=== PATIENT | female | born 1935 | race Caucasian/White ===

== ENCOUNTER 2017-03-03 19:59 | Emergency (ER) | payer MEDICARE, BC ==
[2017-03-03] MEDS ORDERED: SODIUM CHLORIDE 0.9% 1,000 ML IV STA (20:55)
[2017-03-03] MEDS ORDERED: KETOROLAC 30 MG/ML 1 ML VIAL IVP STA (20:55)
[2017-03-03] MEDS ORDERED: SODIUM CHLORIDE 0.9% 500 ML IV STA (20:55)
--- NOTE | 2017-03-03 21:05 | ED ---
Abdominal Pain HPI - General Source: patient, RN notes reviewed Mode of arrival: ambulatory Limitations: no limitations - History of Present Illness MD Complaint: abdominal pain, flank pain <Derrick Schofield - Last Filed: 03/03/17 22:23> <Matthieu Steinberg - Last Filed: 03/04/17 00:51> - General Chief Complaint: Abdominal Pain Stated Complaint: Side Pain Time Seen by Provider: 03/03/17 20:40 - History of Present Illness Initial Comments: This 81-year-old female history of hypertension states she had the onset 2 days ago left-sided flank pain sharp in nature. He states it is currently 78/10 severity somewhat sharp she's had no cough shortness breath fevers chills or sweats no dysuria hematuria. No history kidney stones a history of pancreatic problems. No bowel problems that she is aware. She states because of the pain she could not sleep last night. She denies any nausea vomiting or diarrhea. No other complaints (Derrick Schofield) - Related Data Home Medications Medication Instructions Recorded Confirmed Lisinopril [Zestril] 10 mg PO HS 03/03/17 03/03/17 cloNIDine HCL [Catapres] 0.2 mg PO BID 03/03/17 03/03/17 Previous Rx's Medication Instructions Recorded Edoxaban Tosylate [Savaysa] 60 mg PO DAILY #30 tablet 01/12/15 Metoprolol Tartrate [Lopressor] 25 mg PO BID #60 tab 03/10/15 Allergies Allergy/AdvReac Type Severity Reaction Status Date / Time No Known Allergies Allergy Verified 03/03/17 20:44 Review of Systems ROS Other: All systems not noted in ROS Statement are negative. <Derrick Schofield - Last Filed: 03/03/17 22:23> ROS Other: All systems not noted in ROS Statement are negative. <Matthieu Steinberg - Last Filed: 03/04/17 00:51> ROS Statement: Those systems with pertinent positive or pertinent negative responses have been documented in the HPI. Past Medical History Past Medical History: Atrial Fibrillation, Hypertension, Osteoarthritis (OA) Additional Past Medical History / Comment(s): per chest xray copd/cardiomegally, History of Any Multi-Drug Resistant Organisms: None Reported Past Surgical History: Cholecystectomy, Hysterectomy, Orthopedic Surgery Additional Past Surgical History / Comment(s): rt hip replacement,rt cataract, rt carpal tunnel release Past Anesthesia/Blood Transfusion Reactions: No Reported Reaction Past Psychological History: No Psychological Hx Reported Smoking Status: Never smoker - Past Family History Mother Family Medical History: Osteoarthritis (OA) Additional Family Medical History / Comment(s): djd Father Family Medical History: CVA/TIA Additional Family Medical History / Comment(s): age 84 <Derrick Schoifeld Last Filed: 03/03/17 22:23> General Exam Limitations: no limitations General appearance: alert, anxious Head exam: Present: atraumatic, normocephalic, normal inspection Eye exam: Present: normal appearance, PERRL, EOMI. Absent: scleral icterus, conjunctival injection, periorbital swelling ENT exam: Present: normal exam, mucous membranes moist Neck exam: Present: normal inspection. Absent: tenderness, meningismus, lymphadenopathy Respiratory exam: Present: normal lung sounds bilaterally. Absent: respiratory distress, wheezes, rales, rhonchi, stridor Cardiovascular Exam: Present: regular rate, normal rhythm, normal heart sounds. Absent: systolic murmur, diastolic murmur, rubs, gallop, clicks GI/Abdominal exam: Present: soft, tenderness (Some left upper quadrant left flank pain to palpation no guarding rebound masses or bruits), normal bowel sounds. Absent: distended, guarding, rebound, rigid Extremities exam: Present: normal inspection, full ROM, normal capillary refill. Absent: tenderness, pedal edema, joint swelling, calf tenderness Back exam: Present: normal inspection Neurological exam: Present: alert, oriented X3, CN II-XII intact Psychiatric exam: Present: normal affect, normal mood Skin exam: Present: warm, dry, intact, normal color. Absent: rash <Derrick Schofield - Last Filed: 03/03/17 22:23> General appearance: alert, in no apparent distress Head exam: Present: atraumatic, normocephalic, normal inspection Eye exam: Present: normal appearance, PERRL, EOMI. Absent: scleral icterus, conjunctival injection, periorbital swelling ENT exam: Present: normal exam, mucous membranes moist Neck exam: Present: normal inspection. Absent: tenderness, meningismus, lymphadenopathy Respiratory exam: Present: normal lung sounds bilaterally. Absent: respiratory distress, wheezes, rales, rhonchi, stridor Cardiovascular Exam: Present: regular rate, normal rhythm, normal heart sounds. Absent: systolic murmur, diastolic murmur, rubs, gallop, clicks GI/Abdominal exam: Present: soft, normal bowel sounds. Absent: distended, tenderness, guarding, rebound, rigid Extremities exam: Present: normal inspection, full ROM, normal capillary refill. Absent: tenderness, pedal edema, joint swelling, calf tenderness Back exam: Present: normal inspection Neurological exam: Present: alert, oriented X3, CN II-XII intact Psychiatric exam: Present: normal affect, normal mood Skin exam: Present: warm, dry, intact, normal color. Absent: rash <Matthieu Steinberg - Last Filed: 03/04/17 00:51> - General Exam Comments Initial Comments: This is a well-developed well-nourished awake alert oriented 3 female (Derrick Schofield) Course <Derrick Schofield - Last Filed: 03/03/17 22:23> <Matthieu Steinberg - Last Filed: 03/04/17 00:51> Vital Signs 03/03/17 03/03/17 03/03/17 20:14 20:45 22:04 Temperature 98.6 F Pulse Rate 87 68 86 Respiratory 20 18 20 Rate Blood Pressure 252/117 228/102 204/92 O2 Sat by Pulse 98 98 100 Oximetry 03/03/17 23:52 Temperature 98.2 F Pulse Rate 86 Respiratory 18 Rate Blood Pressure 215/97 O2 Sat by Pulse 96 Oximetry - Reevaluation(s) Reevaluation #1: 03/03/17 22:11 Patient did have hypertension. She did get IV hydralazine she became very anxious afterwards reexamination showed her airway to be demonstrating no evidence of obstruction no stridor JVD or bruits on exam of the neck lung sounds are clear she was apprehensive. (Derrick Schofield) Reevaluation #2: 03/03/17 22:24 Due to the patient's symptom complex patient will get a CAT scan the abdomen pelvis without contrast as a kidney stone is considered also due to the patient' s age and atypical presentation vascular issues are considered CT chest abdomen pelvis with IV contrast will be performed. The case will be endorsed to Dr. Steinberg will make the final disposition. (Derrick Schofield) Reevaluation #3: 03/04/17 00:50 Patient is reevaluated, no cause of pain found, blood pressure is treated again here in the ER and has responded appropriately (Matthieu Steinberg) Medical Decision Making - Lab Data Result diagrams: 03/03/17 20:42 03/03/17 20:42 - EKG Data -: EKG Interpreted by Or EKG shows normal: sinus rhythm (Sinus rhythm rate is 73. Interval 166 QRS duration 120 daily since QTC of 426/469 with exodeviation right bundle-branch block pattern.) - Radiology Data Radiology results: report reviewed (X-ray KUB were reviewed as well as the documentation no acute findings are seen.), image reviewed <Derrick Schofield - Last Filed: 03/03/17 22:23> - Lab Data Result diagrams: 03/03/17 20:42 03/03/17 20:42 - Radiology Data Radiology results: report reviewed (X-ray KUB were reviewed as well as the documentation no acute findings are seen., CT chest abdomen pelvis with and without contrast is negative) <Matthieu Steinberg - Last Filed: 03/04/17 00:51> - Medical Decision Making Aortic female to ER for evaluation of flank pain, back pain and abdominal pain. Patient has full body CAT scan with and without contrast which is negative labwork is normal, patient remained hypertensive her blood pressure is aggressively treated here in the emergency room, (Matthieu Steinberg) - Lab Data Lab Results 03/03/17 03/03/17 03/03/17 Range/Units 20:42 20:42 20:42 WBC 10.8 H (3.8-10.6) k/uL RBC 5.44 H (3.80-5.40) m/uL Hgb 15.8 (11.4-16.0) gm/dL Hct 49.2 H (34.0-46.0) % MCV 90.6 (80.0-100.0) fL MCH 29.1 (25.0-35.0) pg MCHC 32.1 (31.0-37.0) g/dL RDW 14.5 (11.5-15.5) % Plt Count 174 (150-450) k/uL Neutrophils % 67 % Lymphocytes % 22 % Monocytes % 5 % Eosinophils % 4 % Basophils % 1 % Neutrophils # 7.2 (1.3-7.7) k/uL Lymphocytes # 2.4 (1.0-4.8) k/uL Monocytes # 0.6 (0-1.0) k/uL Eosinophils # 0.4 (0-0.7) k/uL Basophils # 0.1 (0-0.2) k/uL Hypochromasia Slight Sodium 139 (137-145) mmol/L Potassium 4.8 (3.5-5.1) mmol/L Chloride 104 (98-107) mmol/L Carbon Dioxide 23 (22-30) mmol/L Anion Gap 12 mmol/L BUN 16 (7-17) mg/dL Creatinine 0.90 (0.52-1.04) mg/dL Est GFR (MDRD) Af Amer >60 (>60 ml/min/1.73 sqM) Est GFR (MDRD) Non-Af >60 (>60 ml/min/1.73 sqM) Glucose 170 H (74-99) mg/dL Plasma Lactic Acid Christiano (0.7-2.0) mmol/L Calcium 9.6 (8.4-10.2) mg/dL Total Bilirubin 0.6 (0.2-1.3) mg/dL AST 40 H (14-36) U/L ALT 43 (9-52) U/L Alkaline Phosphatase 82 (38-126) U/L Total Creatine Kinase 136 H (30-135) U/L CK-MB (CK-2) 2.3 (0.0-2.4) ng/mL CK-MB (CK-2) Rel Index 1.7 Troponin I 0.013 (0.000-0.034) ng/mL Total Protein 7.9 (6.3-8.2) g/dL Albumin 4.6 (3.5-5.0) g/dL Amylase 41 (30-110) U/L Lipase 69 (23-300) U/L Urine Color Urine Appearance (Clear) Urine pH (5.0-8.0) Ur Specific Rock (1.001-1.035) Urine Protein (Negative) Urine Glucose (UA) (Negative) Urine Ketones (Negative) Urine Blood (Negative) Urine Nitrite (Negative) Urine Bilirubin (Negative) Urine Urobilinogen (<2.0) mg/dL Ur Leukocyte Esterase (Negative) Urine RBC (0-5) /hpf Urine WBC (0-5) /hpf Urine Mucus (None) /hpf 03/03/17 03/03/17 Range/Units 20:42 21:16 WBC (3.8-10.6) k/uL RBC (3.80-5.40) m/uL Hgb (11.4-16.0) gm/dL Hct (34.0-46.0) % MCV (80.0-100.0) fL MCH (25.0-35.0) pg MCHC (31.0-37.0) g/dL RDW (11.5-15.5) % Plt Count (150-450) k/uL Neutrophils % % Lymphocytes % % Monocytes % % Eosinophils % % Basophils % % Neutrophils # (1.3-7.7) k/uL Lymphocytes # (1.0-4.8) k/uL Monocytes # (0-1.0) k/uL Eosinophils # (0-0.7) k/uL Basophils # (0-0.2) k/uL Hypochromasia Sodium (137-145) mmol/L Potassium (3.5-5.1) mmol/L Chloride (98-107) mmol/L Carbon Dioxide (22-30) mmol/L Anion Gap mmol/L BUN (7-17) mg/dL Creatinine (0.52-1.04) mg/dL Est GFR (MDRD) Af Amer (>60 ml/min/1.73 sqM) Est GFR (MDRD) Non-Af (>60 ml/min/1.73 sqM) Glucose (74-99) mg/dL Plasma Lactic Acid Christiano 1.6 (0.7-2.0) mmol/L Calcium (8.4-10.2) mg/dL Total Bilirubin (0.2-1.3) mg/dL AST (14-36) U/L ALT (9-52) U/L Alkaline Phosphatase (38-126) U/L Total Creatine Kinase (30-135) U/L CK-MB (CK-2) (0.0-2.4) ng/mL CK-MB (CK-2) Rel Index Troponin I (0.000-0.034) ng/mL Total Protein (6.3-8.2) g/dL Albumin (3.5-5.0) g/dL Amylase (30-110) U/L Lipase (23-300) U/L Urine Color Light Yellow Urine Appearance Clear (Clear) Urine pH 6.5 (5.0-8.0) Ur Specific Rock 1.008 (1.001-1.035) Urine Protein Trace H (Negative) Urine Glucose (UA) Negative (Negative) Urine Ketones Negative (Negative) Urine Blood Negative (Negative) Urine Nitrite Negative (Negative) Urine Bilirubin Negative (Negative) Urine Urobilinogen <2.0 (<2.0) mg/dL Ur Leukocyte Esterase Moderate H (Negative) Urine RBC 2 (0-5) /hpf Urine WBC 9 H (0-5) /hpf Urine Mucus Rare H (None) /hpf Disposition <Derrick Schofield - Last Filed: 03/03/17 22:23> <Matthieu Steinberg - Last Filed: 03/04/17 00:51> Clinical Impression: Abdominal pain, Flank pain, Hypertension, uncontrolled Disposition: HOME SELF-CARE Condition: Good Instructions: Abdominal Pain (ED), Hypertension (ED) Referrals: Noel Diehl DO [Primary Care Provider] - 1-2 days
[2017-03-03 21:10] LABS: Basophils # (A) 0.1 k/uL (0-0.2); Basophils % (A) 1 %; Eosinophils # (A) 0.4 k/uL (0-0.7); Eosinophils % (A) 4 %; HCT 49.2 % (34.0-46.0); HGB 15.8 gm/dL (11.4-16.0); Hypochromasia Slight; Lymphocytes # (A) 2.4 k/uL (1.0-4.8); Lymphocytes % (A) 22 %; MCH 29.1 pg (25.0-35.0); MCHC 32.1 g/dL (31.0-37.0); MCV 90.6 fL (80.0-100.0); Mean Platelet Volume 8.6; Monocytes # (A) 0.6 k/uL (0-1.0); Monocytes % (A) 5 %; Neutrophils # (A) 7.2 k/uL (1.3-7.7); Neutrophils % (A) 67 %; Platelet Count 174 k/uL (150-450); RBC 5.44 m/uL (3.80-5.40); RDW 14.5 % (11.5-15.5); WBC 10.8 k/uL (3.8-10.6)
[2017-03-03 21:14] LABS: Appearance,Urine Clear (Clear); Bilirubin,Urine Negative (Negative); Blood,Urine Negative (Negative); Color,Urine Light Yellow; Glucose,Urine (UA) Negative (Negative); Ketones,Urine Negative (Negative); Leukocyte Esterase,Urine Moderate (Negative); Mucus,Urine Rare /hpf; Nitrite,Urine Negative (Negative); PH, Urine 6.5 (5.0-8.0); Protein,Urine Trace (Negative); RBC,Urine 2 /hpf (0-5); Specific Gravity,Urine 1.008 (1.001-1.035); Urobilinogen,Urine <2.0 mg/dL (<2.0); WBC,Urine 9 /hpf (0-5)
[2017-03-03 21:21] LABS: ALT 43 U/L (9-52); AST 40 U/L (14-36); Albumin 4.6 g/dL (3.5-5.0); Alkaline Phosphatase 82 U/L (38-126); Amylase 41 U/L (30-110); Anion Gap 12 mmol/L; Blood Urea Nitrogen 16 mg/dL (7-17); Calcium 9.6 mg/dL (8.4-10.2); Carbon Dioxide 23 mmol/L (22-30); Chloride 104 mmol/L (98-107); Glucose 170 mg/dL (74-99); Lipase 69 U/L (23-300); Sodium 139 mmol/L (137-145); Total Bilirubin 0.6 mg/dL (0.2-1.3); Total Protein 7.9 g/dL (6.3-8.2)
[2017-03-03 21:22] LABS: Potassium 4.8 mmol/L (3.5-5.1)
--- NOTE | 2017-03-03 21:30 | XR ---
EXAMINATION TYPE: XR chest 2V DATE OF EXAM: 03/03/2017 COMPARISON: Chest x-ray March 07, 2015 HISTORY: Left-sided chest pain radiating to back. TECHNIQUE: Frontal and lateral views of the chest are obtained. FINDINGS: Diminished inspiration is seen on current study. There is chronic parenchymal change witho ut suspicious focal air space opacity, pleural effusion, or pneumothorax seen. The cardiac silhouett e size remains enlarged with atherosclerotic and ectatic aorta. The osseous structures show multile vinayak spurring in thoracic spine. Cholecystectomy clips are noted IMPRESSION: Chronic parenchymal change and cardiomegaly without acute pulmonary process.
--- NOTE | 2017-03-03 21:34 | XR ---
EXAMINATION TYPE: XR KUB DATE OF EXAM: 03/03/2017 9:12 PM CLINICAL HISTORY: Left-sided abdominal pain. TECHNIQUE: Two Upright KUB images of the abdomen are obtained. COMPARISON: CT abdomen and pelvis January 07, 2015. Abdominal x-ray January 08, 2015. FINDINGS: Scattered gas is seen in non-distended stomach and small bowel loops. Gas and fecal materia l is seen in non-distended colon and rectum. Cholecystectomy clips are present. Metallic hardware fro m right hip arthroplasty is redemonstrated. There is underlying levoconvex scoliosis. There is multil evel spurring and disc space narrowing. Cardiomegaly is identified. No pneumoperitoneum is seen. No s uspicious calcifications are noted. Left-sided pelvic phleboliths are redemonstrated. IMPRESSION: Overall nonobstructive bowel gas pattern. No definite nephrolithiasis.
[2017-03-03 21:37] LABS: Creatine Kinase MB 2.3 ng/mL (0.0-2.4); Troponin I 0.013 ng/mL (0.000-0.034)
[2017-03-03] MEDS ORDERED: hydrALAZINE HCL 20 MG/ML 1 ML VIAL IVP STA (21:40)
[2017-03-03] MEDS ORDERED: MORPHINE SULFATE 5 MG/ML SYRINGE IVP STA (22:14)
[2017-03-03] MEDS ORDERED: RX INFO: IV CONTRAST WAS GIVEN 1 EACH MISC MISCELLANE PRN (22:22)
--- NOTE | 2017-03-03 23:26 | CT ---
EXAMINATION TYPE: CT ChestAbdPelvis wo/w con DATE OF EXAM: 03/03/2017 COMPARISON: 01/07/2015 HISTORY: LT side ABD pain radiating to back . Hx of HTN and A-fib. Previous CT A/P on [facility] DLP: 1442.10 mGycm Automated exposure control for dose reduction was used. CONTRAST: CT scan of the chest, abdomen and pelvis is performed without Oral Contrast and with IV Contrast, pat ient injected with 100 mL of Omnipaque 300. FINDINGS: Lungs are clear of consolidation. There is mild linear density at the lung bases consistent with scar ring and subsegmental atelectasis. Heart appears enlarged. There is no pleural effusion. There are sm all mediastinal lymph nodes that measure up to 1 cm. There is no evidence of aortic aneurysm. There are a few rounded hypodense foci in the liver that measure up to 1.5 cm consistent with hepatic cysts. There are clips from cholecystectomy. Bile ducts are not dilated. Spleen and pancreas appear normal. There is no adrenal mass. Kidneys have normal size and contour. There is no hydronephrosis. Ureters a re not dilated. Abdominal aorta is atheromatous. There is no ascites. Bladder distends smoothly. Ther e is no evidence of a pelvic mass. There is no sign of appendicitis. There is metal artifact from rig ht hip surgery. There is no evidence of a bowel obstruction. I see no intestinal wall thickening. IMPRESSION: There is some scarring and subsegmental atelectasis at the lung bases unchanged compared to old exam. Cardiomegaly. Atherosclerotic vascular disease. Multiple small hepatic cysts are stable. No sign of acute abdomen and pelvis.
[2017-03-03] MEDS ORDERED: LABETALOL 5 MG/ML VIAL MDV IVP STA (23:53)
[2017-03-03] MEDS ORDERED: LORazepam 2 MG/ML INJ IV STA (23:54)
[2017-03-04] MEDS ORDERED: ACETAMINOPHEN IV (For NPO) 1,000 MG in EMPTY BAG 1 BAG IVPB STA (00:05)
[2017-03-04 01:15] VITALS: RESP 18
[2017-03-04 03:07] VITALS: BP 183/79; PULSE 72; TEMP 97.9
== END 2017-03-04 02:20 | disposition home or self-care (01) ==
LOC: EC 19:59
DX: I10 Essential (primary) hypertension (principal); R10.9 Unspecified abdominal pain; Z90.49 Acquired absence of other specified parts of digestive tract; Z79.899 Other long term (current) drug therapy
CPT/HCPCS: 99284; 96374; 96375 ×4; 96361; 36415; 93005; 80053; 82150; 82550; 82553; 83605; 83690; 84484; 85025; 81001; 87040; 71046; 74018; 71270; 74178; J2060; J0360; J1885; Q9967; J2274

== ENCOUNTER 2018-09-10 15:43 | Inpatient (IN) | payer MEDICARE, BC ==
[2018-09-10] MEDS ORDERED: SODIUM CHLORIDE 0.9% 1,000 ML IV STA (16:04)
[2018-09-10] MEDS ORDERED: ASPIRIN 81 MG PO STA (16:04)
[2018-09-10] MEDS ORDERED: DILTIAZEM DRIP BOLUS FROM BAG 1 MG SOLN IV ONE (16:04)
--- NOTE | 2018-09-10 16:07 | ED ---
General Adult HPI - General Chief complaint: Chest Pain Stated complaint: palpitations Time Seen by Provider: 09/10/18 15:56 Source: patient Mode of arrival: wheelchair Limitations: no limitations - History of Present Illness Initial comments: Dictation was produced using [employer] dictation software. please excuse any grammatical, word or spelling errors. Chief Complaint: 82-year-old presents with 3 days of palpitations and chest pressure. History of Present Illness: 82-year-old female she has a past medical history of atrial fibrillation. She presents today with chest pressure and palpitations. Patient states that earlier this year she had gallbladder surgery. Patient was on anticoagulation medication. She was told to discontinue the medication in preparation for the surgery. She did not resume her medications because she felt that she could not afford the cost patient reports that she's been admitted to the hospital for cardiac concerns in the past. Patient states her pain is a pressure-like sensation across the anterior chest. She's been having these symptoms for about the last 3 days. She does complain of palpitations and shortness of breath. She denies any constitutional symptoms. The ROS documented in this emergency department record has been reviewed and confirmed by me. Those systems with pertinent positive or negative responses have been documented in the HPI. All other systems are other negative and/or noncontributory. PHYSICAL EXAM: General Impression: Alert and oriented x3, not in acute distress HEENT: Normocephalic atraumatic, extra-ocular movements intact, pupils equal and reactive to light bilaterally, mucous membranes moist. Cardiovascular: Irregularly irregular, tachycardic Chest: Mild crackles at the lung bases bilaterally Abdomen: Bowel sounds present, abdomen soft, non-tender, non-distended, no organomegaly Musculoskeletal: Pulses present and equal in all extremities, no peripheral edema Motor: no focal deficits noted Neurological: CN II-XII grossly intact, no focal motor or sensory deficits noted Skin: Intact with no visualized rashes Psych: Normal affect and mood ED course: 82 year Old female clinical presentation consistent with atrial fibrillation with rapid ventricular rate. Vital signs upon arrival shows heart rate of 1 week, rest of vital signs within acceptable limits. Patient is evaluated at bedside which her heart rate began elevating into the 140s to 160s range. Patient started medially on intravenous fluids. Patient given a bolus of intravenous fluids. She is also given Cardizem bolus and started on Cardizem infusion. Patient does not have any constitutional symptoms or any concerning details in her HPI to consider infectious etiology at this time. Laboratory evaluation obtained. Leukocytosis of 12.2, rest of CBC unremarkable. Coag panel negative. Metabolic panel is negative. Patient has troponin of 0.029. Chest x-ray is nonacute. Patient reevaluated after started on Cardizem with improvement of symptoms. Discussed patient case with Dr. Campbell who requests the patient be started on every 12 hours subcu Lovenox as opposed heparin. Patient given a dose here. Patient to be admitted to cardiac telemetry with cardiology consultation. Patient stable medical condition at this time. Patient's rate has been improved to the 100s. EKG interpretation: Ventricular rate 140, A. fib with rapid ventricular rate, QRS 118, QTC 497. No LA prolongation, no QTC prolongation, no ST or T-wave changes noted. Consistent with A. fib RVR - Related Data Home Medications Medication Instructions Recorded Confirmed Lisinopril [Zestril] 10 mg PO HS 03/03/17 09/10/18 Aspirin EC [Ecotrin Low Dose] 81 mg PO DAILY 09/10/18 09/10/18 Cholecalciferol [Vitamin D3 (25 1,000 unit PO DAILY 09/10/18 09/10/18 Mcg = 1000 Iu)] Nitroglycerin Sl Tabs [Nitrostat] 0.4 mg SUBLINGUAL Q5M PRN 09/10/18 09/10/18 Sodium Chloride [Saline Mist] 1 spray EA NOSTRIL DAILY PRN 09/10/18 09/10/18 cloNIDine HCL 0.3 mg PO BID 09/10/18 09/10/18 Allergies Allergy/AdvReac Type Severity Reaction Status Date / Time No Known Allergies Allergy Verified 09/10/18 16:47 Review of Systems ROS Statement: Those systems with pertinent positive or pertinent negative responses have been documented in the HPI. ROS Other: All systems not noted in ROS Statement are negative. Past Medical History Past Medical History: Atrial Fibrillation, Hypertension, Osteoarthritis (OA) Additional Past Medical History / Comment(s): per chest xray copd/cardiomegally, History of Any Multi-Drug Resistant Organisms: None Reported Past Surgical History: Cholecystectomy, Hysterectomy, Orthopedic Surgery Additional Past Surgical History / Comment(s): rt hip replacement,rt cataract,rt carpal tunnel release Past Anesthesia/Blood Transfusion Reactions: No Reported Reaction Past Psychological History: No Psychological Hx Reported Smoking Status: Never smoker - Past Family History Mother Family Medical History: Osteoarthritis (OA) Additional Family Medical History / Comment(s): djd Father Family Medical History: CVA/TIA Additional Family Medical History / Comment(s): age 84 General Exam Limitations: no limitations Course Vital Signs 09/10/18 15:49 Temperature 97.8 F Pulse Rate 108 H Respiratory 16 Rate Blood Pressure 128/94 O2 Sat by Pulse 97 Oximetry Medical Decision Making - Lab Data Result diagrams: 09/10/18 16:05 09/10/18 16:05 Lab Results 09/10/18 09/10/18 09/10/18 Range/Units 16:05 16:05 16:05 WBC 12.2 H (3.8-10.6) k/uL RBC 5.22 (3.80-5.40) m/uL Hgb 14.9 (11.4-16.0) gm/dL Hct 46.1 H (34.0-46.0) % MCV 88.4 (80.0-100.0) fL MCH 28.5 (25.0-35.0) pg MCHC 32.2 (31.0-37.0) g/dL RDW 16.4 H (11.5-15.5) % Plt Count 189 (150-450) k/uL Neutrophils % 53 % Lymphocytes % 32 % Monocytes % 6 % Eosinophils % 6 % Basophils % 1 % Neutrophils # 6.5 (1.3-7.7) k/uL Lymphocytes # 4.0 (1.0-4.8) k/uL Monocytes # 0.7 (0-1.0) k/uL Eosinophils # 0.7 (0-0.7) k/uL Basophils # 0.1 (0-0.2) k/uL Anisocytosis Slight PT 9.7 (9.0-12.0) sec INR 0.9 (<1.2) APTT 22.4 (22.0-30.0) sec Sodium 138 (137-145) mmol/L Potassium 5.0 (3.5-5.1) mmol/L Chloride 105 (98-107) mmol/L Carbon Dioxide 24 (22-30) mmol/L Anion Gap 9 mmol/L BUN 21 H (7-17) mg/dL Creatinine 1.10 H (0.52-1.04) mg/dL Est GFR (CKD-EPI)AfAm 54 (>60 ml/min/1.73 sqM) Est GFR (CKD-EPI)NonAf 47 (>60 ml/min/1.73 sqM) Glucose 103 H (74-99) mg/dL Calcium 9.4 (8.4-10.2) mg/dL Magnesium 2.0 (1.6-2.3) mg/dL Total Bilirubin 0.5 (0.2-1.3) mg/dL AST 50 H (14-36) U/L ALT 53 H (9-52) U/L Alkaline Phosphatase 91 (38-126) U/L Troponin I (0.000-0.034) ng/mL Total Protein 7.1 (6.3-8.2) g/dL Albumin 4.2 (3.5-5.0) g/dL 09/10/18 Range/Units 16:05 WBC (3.8-10.6) k/uL RBC (3.80-5.40) m/uL Hgb (11.4-16.0) gm/dL Hct (34.0-46.0) % MCV (80.0-100.0) fL MCH (25.0-35.0) pg MCHC (31.0-37.0) g/dL RDW (11.5-15.5) % Plt Count (150-450) k/uL Neutrophils % % Lymphocytes % % Monocytes % % Eosinophils % % Basophils % % Neutrophils # (1.3-7.7) k/uL Lymphocytes # (1.0-4.8) k/uL Monocytes # (0-1.0) k/uL Eosinophils # (0-0.7) k/uL Basophils # (0-0.2) k/uL Anisocytosis PT (9.0-12.0) sec INR (<1.2) APTT (22.0-30.0) sec Sodium (137-145) mmol/L Potassium (3.5-5.1) mmol/L Chloride (98-107) mmol/L Carbon Dioxide (22-30) mmol/L Anion Gap mmol/L BUN (7-17) mg/dL Creatinine (0.52-1.04) mg/dL Est GFR (CKD-EPI)AfAm (>60 ml/min/1.73 sqM) Est GFR (CKD-EPI)NonAf (>60 ml/min/1.73 sqM) Glucose (74-99) mg/dL Calcium (8.4-10.2) mg/dL Magnesium (1.6-2.3) mg/dL Total Bilirubin (0.2-1.3) mg/dL AST (14-36) U/L ALT (9-52) U/L Alkaline Phosphatase (38-126) U/L Troponin I 0.029 (0.000-0.034) ng/mL Total Protein (6.3-8.2) g/dL Albumin (3.5-5.0) g/dL Disposition Clinical Impression: Atrial fibrillation with RVR Disposition: ADMITTED IP TO THIS HOSP Condition: Fair Referrals: Noel Diehl DO [Primary Care Provider] - 1-2 days Decision Time: 17:52
[2018-09-10] MEDS: DILTIAZEM 125 MG in SODIUM CHLORIDE 0.9% 100 ML IV SCH (16:34)
[2018-09-10 16:41] LABS: Anisocytosis Slight; Basophils # (A) 0.1 k/uL (0-0.2); Basophils % (A) 1 %; Eosinophils # (A) 0.7 k/uL (0-0.7); Eosinophils % (A) 6 %; HCT 46.1 % (34.0-46.0); HGB 14.9 gm/dL (11.4-16.0); Lymphocytes % (A) 32 %; MCH 28.5 pg (25.0-35.0); MCHC 32.2 g/dL (31.0-37.0); MCV 88.4 fL (80.0-100.0); Mean Platelet Volume 8.7; Monocytes # (A) 0.7 k/uL (0-1.0); Monocytes % (A) 6 %; Neutrophils # (A) 6.5 k/uL (1.3-7.7); Neutrophils % (A) 53 %; Platelet Count 189 k/uL (150-450); RBC 5.22 m/uL (3.80-5.40); RDW 16.4 % (11.5-15.5); WBC 12.2 k/uL (3.8-10.6)
[2018-09-10 16:44] LABS: Albumin 4.2 g/dL (3.5-5.0); Calcium 9.4 mg/dL (8.4-10.2); Total Bilirubin 0.5 mg/dL (0.2-1.3); Total Protein 7.1 g/dL (6.3-8.2)
[2018-09-10 16:45] LABS: INR 0.9 (<1.2); Partial Thromboplastin Time 22.4 sec (22.0-30.0); Prothrombin Time 9.7 sec (9.0-12.0)
--- NOTE | 2018-09-10 16:57 | XR ---
EXAMINATION TYPE: XR chest 1V portable DATE OF EXAM: 09/10/2018 COMPARISON: 03/03/2017 HISTORY: Short of breath TECHNIQUE: Single frontal view of the chest is obtained. FINDINGS: There is linear density at the left lung base. There are chest leads. Thoracic aorta is at heromatous. There is no pleural effusion. IMPRESSION: Mild scarring or subsegmental atelectasis at the left lung base not significantly differ ent than old exam. No heart failure.
[2018-09-10] MEDS ORDERED: ENOXAPARIN 80 MG/0.8 ML SYRINGE SQ ONE (17:45)
[2018-09-10] MEDS ORDERED: ONDANSETRON 4 MG/2 ML VIAL IVP PRN (17:52)
[2018-09-10] MEDS ORDERED: NALOXONE 0.4 MG/ML 1 ML VIAL IV PRN (17:52)
[2018-09-10] MEDS ORDERED: ACETAMINOPHEN TAB 325 MG TAB PO PRN (17:52)
[2018-09-10] MEDS: SODIUM CHLORIDE 0.9% 1,000 ML IV SCH (20:30)
[2018-09-10 21:26] VITALS: BMI 27.8
--- NOTE | 2018-09-10 23:17 | P.HPIM ---
History of Present Illness H&P Date: 09/10/18 Chief Complaint: Palpitation History of presenting complaint: This is a pleasant 82-year-old patient of Dr. Diehl. Chronic stable medical conditions include hypertension, osteoarthritis, hyperlipidemia. Patient 2016 had a cardiac catheterization was found to have insignificant disease. Patient sometime ago he stopped taking on anticoagulation a close and is over $300 per month. She takes is fatal fibrillation. For 3 days patient been noting sitting palpitations present on and off also noticed some chest pressure and pain going down the left shoulder alcohol uncomfortable the chest tightness this is been fluctuating given all the symptoms patient presents to the ER was admitted. Was found to be in atrial fibrillation with a heart rate in the 1:30. Patient was put on a Cardizem drip. Lovenox subcu and cardiology was consulted. Review of systems: GEN.: None EYES: Tired HEENT: None NECK: None RESPIRATORY: None CARDIOVASCULAR: As above GASTROINTESTINAL: None GENITOURINARY: None MUSCULOSKELETAL: Pain in joints LYMPHATICS: None HEMATOLOGICAL: None PSYCHIATRY: None NEUROLOGICAL: None Social history: Does not smoke or drink alcohol. . Family history: Osteoarthritis Physical examination: VITAL SIGNS: 97.8, bun 50, 18, 128/94, 97% room air GENERAL: Average built, laying in bed to bit tired appearing. EYES: Pupils equal. Conjunctiva normal. HEENT: External appearance of nose and ears normal, oral cavity grossly normal. NECK: JVD not raised; masses not palpable. HEART: Heart sounds irregular; no edema. LUNGS: Respiratory rate normal; clear to auscultation. ABDOMEN: Soft, nontender, liver spleen not palpable, no masses palpable. PSYCH: Alert and oriented x3; mood and affect normal. NEUROLOGICAL: Cranial nerves grossly intact; no facial asymmetry, power and sensation grossly intact. LYMPHATICS: No lymph nodes palpable in the axilla and neck INVESTIGATIONS, reviewed in the clinical context: White count 12.2 hemoglobin 14.9 potassium 5. 21 creatinine 1.10 troponin 0.0-9 EKG tracing personally reviewed by me shows atrial flutter fibrillation with a rapid ventricular rate Chest x-ray film personally reviewed by me shows some cardiomegaly some venous prominence Assessment: -New diagnosis of atrial fibrillation with a rapid ventricular rate -Essential hypertension -Primary osteoarthritis -Hyperlipidemia Rule out underlying ischemia the patient had a cardiac catheterization 2015 that showed minimal disease. Plan: Patient started on a Cardizem drip. Home medications resumed. 2-D echocardiogram was ordered. Cardiology was ordered. Care was discussed with the patient. Questions were answered Past Medical History Past Medical History: Atrial Fibrillation, Hypertension, Osteoarthritis (OA) Additional Past Medical History / Comment(s): per chest xray copd/cardiomegally, History of Any Multi-Drug Resistant Organisms: None Reported Past Surgical History: Cholecystectomy, Hysterectomy, Orthopedic Surgery Additional Past Surgical History / Comment(s): rt hip replacement,rt cataract,rt carpal tunnel release Past Anesthesia/Blood Transfusion Reactions: No Reported Reaction Past Psychological History: No Psychological Hx Reported Smoking Status: Never smoker Past Alcohol Use History: None Reported Past Drug Use History: None Reported - Past Family History Mother Family Medical History: Osteoarthritis (OA) Additional Family Medical History / Comment(s): djd; at 69 Father Family Medical History: CVA/TIA Additional Family Medical History / Comment(s): age 84 Medications and Allergies Home Medications Medication Instructions Recorded Confirmed Type Lisinopril [Zestril] 10 mg PO DAILY 03/03/17 09/10/18 History Aspirin EC [Ecotrin Low Dose] 81 mg PO DAILY 09/10/18 09/10/18 History Cholecalciferol [Vitamin D3 (25 1,000 unit PO DAILY 09/10/18 09/10/18 History Mcg = 1000 Iu)] Nitroglycerin Sl Tabs [Nitrostat] 0.4 mg SUBLINGUAL Q5M PRN 09/10/18 09/10/18 History Sodium Chloride [Saline Mist] 1 spray EA NOSTRIL DAILY PRN 09/10/18 09/10/18 History cloNIDine HCL 0.3 mg PO BID 09/10/18 09/10/18 History Allergies Allergy/AdvReac Type Severity Reaction Status Date / Time No Known Allergies Allergy Verified 09/10/18 16:47 Physical Exam Vitals: Vital Signs Temp Pulse Pulse Resp BP BP Pulse Ox 09/10/18 21:26 97.6 F 82 16 139/88 98 09/10/18 20:32 84 18 155/93 96 09/10/18 20:00 83 16 149/108 96 09/10/18 19:00 77 18 154/107 96 09/10/18 18:00 98 18 142/94 96 09/10/18 17:00 92 18 144/117 96 09/10/18 16:00 152 H 18 97 09/10/18 15:49 97.8 F 108 H 16 128/94 97 Intake and Output 09/10/18 09/10/18 09/11/18 14:59 22:59 06:59 Other: # Voids 1 Weight 68.946 kg Results CBC & Chem 7: 09/10/18 16:05 09/10/18 16:05 Labs: Abnormal Lab Results - Last 24 Hours (Table) 09/10/18 09/10/18 Range/Units 16:05 16:05 WBC 12.2 H (3.8-10.6) k/uL Hct 46.1 H (34.0-46.0) % RDW 16.4 H (11.5-15.5) % BUN 21 H (7-17) mg/dL Creatinine 1.10 H (0.52-1.04) mg/dL Glucose 103 H (74-99) mg/dL AST 50 H (14-36) U/L ALT 53 H (9-52) U/L Thrombosis Risk Factor Assmnt - Choose All That Apply Any of the Below Risk Factors Present?: Yes Other Risk Factors: Yes Each Risk Factor Represents 3 Points: Age 75 years or older Other congenital or acquired thrombophilia - If yes, enter type in comment: No Thrombosis Risk Factor Assessment Total Risk Factor Score: 3 Thrombosis Risk Factor Assessment Level: Moderate Risk
[2018-09-11] MEDS: PANTOPRAZOLE 40 MG TABLET PO SCH (06:15)
[2018-09-11] MEDS: DILTIAZEM 125 MG in SODIUM CHLORIDE 0.9% 100 ML IV SCH (06:15)
[2018-09-11] MEDS ORDERED: ENOXAPARIN 80 MG/0.8 ML SYRINGE SQ SCH ×2 (07:00→09:00)
[2018-09-11] MEDS ORDERED: LISINOPRIL 10 MG TAB PO SCH (09:00)
[2018-09-11] MEDS: CHOLECALCIFEROL 1,000 UNIT TAB PO SCH (09:10)
[2018-09-11] MEDS: cloNIDine HCL 0.1 MG TAB PO SCH ×2 (09:10→20:03)
[2018-09-11] MEDS: ASPIRIN 81 MG PO SCH (09:10)
--- NOTE | 2018-09-11 09:13 | P.CRDCN ---
History of Present Illness Consult date: 09/11/18 Requesting physician: Onur Campbell Consult reason: atrial fibrillation Chief complaint: Chest pressure, left arm discomfort, heart racing History of present illness: This is a pleasant 82-year-old female who follows with Dr. Contreras in the office. She has a known history of paroxysmal atrial fibrillation, hypertension, she also underwent a cardiac catheterization in 2016 which reveal ed mild nonobstructive coronary artery disease. Echocardiogram with Doppler study performed at the same time showed a normal left ventricular systolic function. She presents to the hospital on this occasion with symptoms of chest pressure with radiation down the left arm, she states at that time she also felt her heart racing very fast and irregular. She became very diaphoretic as well. The patient had been on anticoagulation in the form of Savaysa in the past, apparently her insurance company had changed, and the cost of the Savaysa became too much for her to afford , so she stopped taking it in March of this year. Her EKG on arrival here showed atrial fibrillation with a rapid arash tricular response, patient was initiated on Lovenox as well as IV Cardizem. This morning she converted to normal sinus rhythm. S2 x-ray showed mild scarring or subsegmental atelectasis at the left lung base, not significantly different from prior exam. No evidence of congestive cardiac failure. Blood pressure at the time of admission 128/90, blood pressure this morning 170/80 with a heart rate of 80, 97% on room air. White blood cell count 12.2, hemoglobin 14.9, platelet count 189. Sodium 138, potassium 5.0, BUN 21, creatinine 1.1, magnesium 2.0. Troponin 0.029, AST 50, ALT 53. At the time of my examination this morning, patient is comfortable, denies any chest discomfort, breathing is stable, no palpitations. I did have a lengthy discussion with the patient regarding her need for anticoagulation for stroke prevention and the importance that she not stop taking it. We will check into the cost of the anticoagulants and initiate 1 for her. Past Medical History Past Medical History: Atrial Fibrillation, Hypertension, Osteoarthritis (OA) Additional Past Medical History / Comment(s): per chest xray copd/cardiomegally, History of Any Multi-Drug Resistant Organisms: None Reported Past Surgical History: Cholecystectomy, Hysterectomy, Orthopedic Surgery Additional Past Surgical History / Comment(s): rt hip replacement,rt cataract,rt carpal tunnel release Past Anesthesia/Blood Transfusion Reactions: No Reported Reaction Past Psychological History: No Psychological Hx Reported Smoking Status: Never smoker Past Alcohol Use History: None Reported Past Drug Use History: None Reported - Past Family History Mother Family Medical History: Osteoarthritis (OA) Additional Family Medical History / Comment(s): djd; at 69 Father Family Medical History: CVA/TIA Additional Family Medical History / Comment(s): age 84 Medications and Allergies Home Medications Medication Instructions Recorded Confirmed Type Lisinopril [Zestril] 10 mg PO DAILY 03/03/17 09/10/18 History Aspirin EC [Ecotrin Low Dose] 81 mg PO DAILY 09/10/18 09/10/18 History Cholecalciferol [Vitamin D3 (25 1,000 unit PO DAILY 09/10/18 09/10/18 History Mcg = 1000 Iu)] Nitroglycerin Sl Tabs [Nitrostat] 0.4 mg SUBLINGUAL Q5M PRN 09/10/18 09/10/18 History Sodium Chloride [Saline Mist] 1 spray EA NOSTRIL DAILY PRN 09/10/18 09/10/18 History cloNIDine HCL 0.3 mg PO BID 09/10/18 09/10/18 History Allergies Allergy/AdvReac Type Severity Reaction Status Date / Time No Known Allergies Allergy Verified 09/10/18 16:47 Physical Exam Vitals: Vital Signs Temp Pulse Pulse Resp BP BP Pulse Ox 09/11/18 04:00 97.5 F L 79 16 171/85 97 09/11/18 00:00 97.6 F 73 16 160/79 97 09/10/18 21:26 97.6 F 82 16 139/88 98 09/10/18 20:32 84 18 155/93 96 09/10/18 20:00 83 16 149/108 96 09/10/18 19:00 77 18 154/107 96 09/10/18 18:00 98 18 142/94 96 09/10/18 17:00 92 18 144/117 96 09/10/18 16:00 152 H 18 97 09/10/18 15:49 97.8 F 108 H 16 128/94 97 Intake and Output 09/10/18 09/11/18 09/11/18 22:59 06:59 14:59 Other: # Voids 1 1 Weight 68.946 kg 73.6 kg PHYSICAL EXAMINATION: GENERAL: 82-year-old female in no acute distress at the time of my examination HEENT: Head is atraumatic, normocephalic. Pupils equal, round. Sclera anicteric. Conjunctiva are clear. Mucous membranes of the mouth are moist. Neck is supple. There is no elevated jugular venous pressure. No carotid bruit is heard. HEART EXAMINATION: Heart S1, S2 normal. No murmur or gallop heard. CHEST EXAMINATION: Lungs are clear to auscultation and precussion. No chest wall tenderness is noted on palpation or with deep breathing. ABDOMEN: Soft, nontender. Bowel sounds are heard. No organomegaly noted. EXTREMITIES: 2+ peripheral pulses with no evidence of peripheral edema and no calf tenderness noted. NEUROLOGIC [patient is awake, alert and oriented 3 . Results 09/10/18 16:05 09/10/18 16:05 Cardiac Enzymes 09/10/18 09/10/18 Range/Units 16:05 16:05 AST 50 H (14-36) U/L Troponin I 0.029 (0.000-0.034) ng/mL Coagulation 09/10/18 Range/Units 16:05 PT 9.7 (9.0-12.0) sec APTT 22.4 (22.0-30.0) sec CBC 09/10/18 Range/Units 16:05 WBC 12.2 H (3.8-10.6) k/uL RBC 5.22 (3.80-5.40) m/uL Hgb 14.9 (11.4-16.0) gm/dL Hct 46.1 H (34.0-46.0) % Plt Count 189 (150-450) k/uL Comprehensive Metabolic Panel 09/10/18 Range/Units 16:05 Sodium 138 (137-145) mmol/L Potassium 5.0 (3.5-5.1) mmol/L Chloride 105 (98-107) mmol/L Carbon Dioxide 24 (22-30) mmol/L BUN 21 H (7-17) mg/dL Creatinine 1.10 H (0.52-1.04) mg/dL Glucose 103 H (74-99) mg/dL Calcium 9.4 (8.4-10.2) mg/dL AST 50 H (14-36) U/L ALT 53 H (9-52) U/L Alkaline Phosphatase 91 (38-126) U/L Total Protein 7.1 (6.3-8.2) g/dL Albumin 4.2 (3.5-5.0) g/dL Current Medications Generic Name Dose Route Start Last Admin Trade Name Freq PRN Reason Stop Dose Admin Acetaminophen 650 mg 09/10/18 17:52 Tylenol Tab PO Q6HR PRN Mild Pain or Fever > 100.5 Aspirin 81 mg 09/11/18 09:00 Aspirin PO DAILY [facility] Cholecalciferol 1,000 unit 09/11/18 09:00 Vitamin D3 (25 Mcg = 1000 Iu) PO DAILY [facility] Clonidine 0.3 mg 09/11/18 09:00 Catapres PO BID [facility] Enoxaparin Sodium 70 mg 09/11/18 09:00 Lovenox SQ Q12H [facility] Diltiazem HCl 125 mg/ Sodium 125 mls @ 10 mls/hr 09/10/18 16:15 09/11/18 06:15 Chloride IV Not Given .[id number] [facility] 10 MG/HR Sodium Chloride 1,000 mls @ 20 mls/hr 09/10/18 18:00 09/10/18 20:30 Saline 0.9% IV 20 mls/hr .Q24H [facility] Administration Lisinopril 10 mg 09/11/18 09:00 Zestril PO DAILY [facility] Naloxone HCl 0.2 mg 09/10/18 17:52 Narcan IV Q2M PRN Opioid Reversal Ondansetron HCl 4 mg 09/10/18 17:52 Zofran IVP Q8HR PRN Nausea And Vomiting Pantoprazole Sodium 40 mg 09/11/18 07:30 09/11/18 06:15 Protonix PO Not Given AC-BRKFST [facility] Intake and Output 09/10/18 09/11/18 09/11/18 22:59 06:59 14:59 Other: # Voids 1 1 Weight 68.946 kg 73.6 kg 09/10/18 16:05 09/10/18 16:05 EKG Interpretations (text) Initial EKG on presentation here showed atrial fibrillation with a rapid ventricular response, EKG this morning shows a normal sinus rhythm with incomplete right bundle branch block. Assessment and Plan Plan: Assessment and plan #1 atrial fibrillation with rapid ventricular response, paroxysmal, patient currently in a normal sinus rhythm. #2 symptoms of chest pressure with radiation to the left arm and associated d iaphoresis, likely secondary to A. fib with RVR, initial troponin 0.029. Patient did undergo cardiac catheterization in 2016 which revealed mild nonobstructive coronary artery disease #3 hypertension Plan We will obtain a TSH level as well as an echocardiogram with Doppler study. We'll also check into the covered anticoagulants and initiate one for her. Discontinue IV Cardizem and start the patient on a beta patrick. Further recommendations to follow. DNP note has been reviewed, I agree with a documented findings and plan of care. Patient was seen and examined.
--- NOTE | 2018-09-11 09:47 | ECHOF ---
Referral Reason:A. fib MEASUREMENTS -------- HEIGHT: 157.5 cm WEIGHT: 73.5 kg BP: RVIDd: 3.0 cm (< 3.3) IVSd: 1.4 cm (0.6 - 1.1) LVIDd: 3.8 cm (3.9 - 5.3) LVPWd: 1.4 cm (0.6 - 1.1) IVSs: 1.7 cm LVIDs: 2.5 cm LVPWs: 1.8 cm LA Diam: 3.4 cm (2.7 - 3.8) LAESV Index (A-L): 28.86 ml/m Ao Diam: 2.7 cm (2.0 - 3.7) AV Cusp: 1.8 cm (1.5 - 2.6) MV EXCURSION: 14.230 mm (> 18.000) MV EF SLOPE: 27 mm/s (70 - 150) EPSS: 0.3 cm MV E Abdirahman: 1.26 m/s MV DecT: 184 ms MV A Abdirahman: 0.36 m/s MV E/A Ratio: 3.54 RAP: 15.00 mmHg RVSP: 49.20 mmHg FINDINGS -------- Sinus rhythm. This was a technically good study. The left ventricular size is normal. There is moderate concentric left ventricular hypertrophy. O verall left ventricular systolic function is normal with, an EF between 55 - 60 %. The right ventricle is normal in size. LA is midly dilated 29-33ml/m2. The right atrium is normal in size. Interatrial and interventricular septum intact. Aortic valve is trileaflet and is mildly thickened. Mild mitral regurgitation is present. Mild tricuspid regurgitation present. There is moderate pulmonary hypertension. The right ventric ular systolic pressure, as measured by Doppler, is 49.20mmHg. There is no pulmonic regurgitation present. The aortic root size is normal. The inferior vena cava is dilated with poor inspiratory collapse which is consistent with estimated r ight atrial pressure of 15 mmHg. There is no pericardial effusion. CONCLUSIONS -------- 1. Sinus rhythm. 2. This was a technically good study. 3. The left ventricular size is normal. 4. There is moderate concentric left ventricular hypertrophy. 5. Overall left ventricular systolic function is normal with, an EF between 55 - 60 %. 6. The right ventricle is normal in size. 7. LA is midly dilated 29-33ml/m2. 8. The right atrium is normal in size. 9. Interatrial and interventricular septum intact. 10. Aortic valve is trileaflet and is mildly thickened. 11. Mild mitral regurgitation is present. 12. Mild tricuspid regurgitation present. 13. There is moderate pulmonary hypertension. 14. The right ventricular systolic pressure, as measured by Doppler, is 49.20mmHg. 15. There is no pulmonic regurgitation present. 16. The aortic root size is normal. 17. The inferior vena cava is dilated with poor inspiratory collapse which is consistent with estimat ed right atrial pressure of 15 mmHg. 18. There is no pericardial effusion. RETAIL GREETER: Ramona Reyez RDCS
[2018-09-11] MEDS: METOPROLOL SUCCINATE (ER) 25 MG TAB.ER.24H PO SCH (10:29)
[2018-09-11] MEDS: APIXABAN 5 MG TAB PO SCH ×2 (15:13→20:03)
[2018-09-11] MEDS: FLECAINIDE 50 MG TAB PO SCH ×2 (15:14→20:03)
[2018-09-11] MEDS: SODIUM CHLORIDE 0.9% 1,000 ML IV SCH (16:20)
--- NOTE | 2018-09-11 17:25 | P.PN ---
Progress Note - Text Progress Note Date: 09/11/18 Chief Complaint: Palpitation Interval history: This is a pleasant 82-year-old patient of Dr. Diehl. Chronic stable medical conditions include hypertension, osteoarthritis, hyperlipidemia. Patient 2016 had a cardiac catheterization was found to have insignificant disease. Patient sometime ago he stopped taking on anticoagulation as her co-pay over $300 per month. . For 3 days patient been noting sitting palpitations present on and off also noticed some chest pressure and pain going down the left shoulder alcohol uncomfortable the chest tightness this is been fluctuating given all the symptoms patient presents to the ER was admitted. Was found to be in atrial fibrillation with a heart rate in the 1:30. Patient was put on a Cardizem drip. Lovenox subcu and cardiology was consulted. Today-patient has reverted to sinus rhythm. Seen by cardiology earlier today. IV Cardizem was discontinued. Started on beta patrick. They're also looking anticoagulation. Patient feels better. Up to the bathroom. Review of systems: Was done for constitutional, cardiovascular, GI, pulmonary. relevant finding as above Active Medications Acetaminophen (Tylenol Tab) 650 mg PO Q6HR PRN PRN Reason: Mild Pain or Fever > 100.5 Apixaban (Eliquis) 5 mg PO BID [facility] Last Admin: 09/11/18 15:13 Dose: 5 mg Documented by: Aspirin (Aspirin) 81 mg PO DAILY [facility] Last Admin: 09/11/18 09:10 Dose: 81 mg Documented by: Cholecalciferol (Vitamin D3 (25 Mcg = 1000 Iu)) 1,000 unit PO DAILY [facility] Last Admin: 09/11/18 09:10 Dose: 1,000 unit Documented by: Clonidine (Catapres) 0.3 mg PO BID [facility] Last Admin: 09/11/18 09:10 Dose: 0.3 mg Documented by: Flecainide Acetate (Tambocor) 50 mg PO Q12HR [facility] Last Admin: 09/11/18 15:14 Dose: 50 mg Documented by: Sodium Chloride (Saline 0.9%) 1,000 mls @ 20 mls/hr IV .Q24H [facility] Last Admin: 09/11/18 16:20 Dose: Not Given Documented by: Lisinopril (Zestril) 10 mg PO DAILY [facility] Last Admin: 09/11/18 09:10 Dose: 10 mg Documented by: Metoprolol Succinate (Toprol Xl) 25 mg PO DAILY [facility] Last Admin: 09/11/18 10:29 Dose: 25 mg Documented by: Naloxone HCl (Narcan) 0.2 mg IV Q2M PRN PRN Reason: Opioid Reversal Ondansetron HCl (Zofran) 4 mg IVP Q8HR PRN PRN Reason: Nausea And Vomiting Pantoprazole Sodium (Protonix) 40 mg PO AC-BRKFST [facility] Last Admin: 09/11/18 06:15 Dose: Not Given Documented by: Physical examination: VITAL SIGNS: 98, 60, 16, 164/77, 96% room air GENERAL: Sitting up, looking more comfortable EYES: Pupils equal. Conjunctiva normal. HEENT: External appearance of nose and ears normal, oral cavity grossly normal. NECK: JVD not raised; masses not palpable. HEART: First seconds are normal; no edema. LUNGS: Respiratory rate normal; clear to auscultation. ABDOMEN: Soft, nontender, liver spleen not palpable, no masses palpable. PSYCH: Alert and oriented x3; mood and affect normal. INVESTIGATIONS, reviewed in the clinical context: Troponin I 0.0-9, 0.040, 0.035 TSH 1.2 2-D echo-moderate concentric left medical hypertrophy, EF 55-60%, moderate pulmonary hypertension White count 12.2 hemoglobin 14.9 potassium 5. 21 creatinine 1.10 troponin 0.0-9 EKG tracing personally reviewed by me shows atrial flutter fibrillation with a rapid ventricular rate Chest x-ray film personally reviewed by me shows some cardiomegaly some venous prominence Assessment: -Paroxysmal atrial fibrillation with rapid ventricular rate, now in sinus rhythm -Essential hypertension -Primary osteoarthritis -Hyperlipidemia -Hypertensive heart disease -Rule out underlying ischemia the patient had a cardiac catheterization 2015 that showed minimal disease. Plan: Patient currently on Toprol-XL and flecainide as per cardiology. Also started liquids. We'll see how the patient does. Encourage ambulation.
[2018-09-11] MEDS: LISINOPRIL 10 MG TAB PO SCH (19:04)
[2018-09-12] MEDS: PANTOPRAZOLE 40 MG TABLET PO SCH (06:14)
[2018-09-12] MEDS: APIXABAN 5 MG TAB PO SCH ×2 (08:36→20:35)
[2018-09-12] MEDS: ASPIRIN 81 MG PO SCH (08:36)
[2018-09-12] MEDS: CHOLECALCIFEROL 1,000 UNIT TAB PO SCH (08:36)
[2018-09-12] MEDS: cloNIDine HCL 0.1 MG TAB PO SCH ×2 (08:36→20:35)
[2018-09-12] MEDS: METOPROLOL SUCCINATE (ER) 25 MG TAB.ER.24H PO SCH (08:36)
[2018-09-12] MEDS: FLECAINIDE 50 MG TAB PO SCH ×2 (08:37→20:35)
[2018-09-12] MEDS: LISINOPRIL 10 MG TAB PO SCH ×2 (08:37→20:35)
[2018-09-12] MEDS: SODIUM CHLORIDE 0.9% 1,000 ML IV SCH (11:37)
[2018-09-12] MEDS: HYDROCHLOROTHIAZIDE 25 MG TAB PO SCH (11:41)
--- NOTE | 2018-09-12 14:54 | P.PN ---
Subjective Progress Note Date: 09/12/18 This is a pleasant 82-year-old female who follows with Dr. Contreras in the office. She has a known history of paroxysmal atrial fibrillation, hypertension, she also underwent a cardiac catheterization in 2016 which revealed mild nonobstructive coronary artery disease. Echocardiogram with Doppler study performed at the same time showed a normal left ventricular systolic function. She presents to the hospital on this occasion with symptoms of chest pressure with radiation down the left arm, she states at that time she also felt her heart racing very fast and irregular. She became very diaphoretic as well. The patient had been on anticoagulation in the form of Savaysa in the past, apparently her insurance company had changed, and the cost of the Savaysa became too much for her to afford , so she stopped taking it in March of this year. Her EKG on arrival here showed atrial fibrillation with a rapid ventricular response, patient was initiated on Lovenox as well as IV Cardizem. This morning she converted to normal sinus rhythm. S2 x-ray showed mild scarring or subsegmental atelectasis at the left lung base, not significantly different from prior exam. No evidence of congestive cardiac failure. Blood pressure at the time of admission 128/90, blood pressure this morning 170/80 with a heart rate of 80, 97% on room air. White blood cell count 12.2, hemoglobin 14.9, platelet count 189. Sodium 138, potassium 5.0, BUN 21, creatinine 1.1, magnesium 2.0. Troponin 0.029, AST 50, ALT 53. At the time of my examination this morning, patient is comfortable, denies any chest discomfort, breathing is stable, no palpitations. I did have a lengthy discussion with the patient regarding her need for anticoagulation for stroke prevention and the importance that she not stop taking it. We will check into the cost of the anticoagulants and initiate 1 for her. 09/12/2018 Patient was seen and examined this morning, overall she feels well, she does complain of some mild lightheadedness, her blood pressure continues to run high. We will add some hydrochlorothiazide to her medication regime. Dr. Borjas had a lengthy discussion with the patient regarding her anticoagulation in the form of Eliquis. Patient's does not want her to take Eliquis says he feels she will bleed. We did discuss in great detail the risks and benefits of the non-A anticoagulant and not being on an anticoagulant. The patient herself states that she is willing to take the Eliquis for a period of time and see how it goes. Objective - Vital Signs Vital signs: Vital Signs Temp 98.8 F 09/12/18 11:17 Pulse 53 L 09/12/18 11:17 Resp 18 09/12/18 11:17 BP 150/78 09/12/18 11:17 Pulse Ox 95 09/12/18 11:17 Intake & Output 09/11/18 09/12/18 09/12/18 18:59 06:59 18:59 Intake Total 938 100 Balance 938 100 Weight 74.3 kg Intake: Intake, IV Titration 240 Amount Diltiazem 125 mg In 80 Sodium Chloride 0.9% 100 ml @ 10 MG/HR 10 mls/hr IV .[id number] [facility] Rx#: [id number] Sodium Chloride 0.9% 1, 160 000 ml @ 20 mls/hr IV . Q24H [facility] Rx#:[id number] Oral 698 100 Other: Voiding Method Toilet # Bowel Movements 0 - Exam PHYSICAL EXAMINATION: GENERAL: 82-year-old female in no acute distress at the time of my examination HEENT: Head is atraumatic, normocephalic. Pupils equal, round. Sclera anicteric. Conjunctiva are clear. Mucous membranes of the mouth are moist. Neck is supple. There is no elevated jugular venous pressure. No carotid bruit is heard. HEART EXAMINATION: Heart S1, S2 normal. No murmur or gallop heard. CHEST EXAMINATION: Lungs are clear to auscultation and precussion. No chest wall tenderness is noted on palpation or with deep breathing. ABDOMEN: Soft, nontender. Bowel sounds are heard. No organomegaly noted. EXTREMITIES: 2+ peripheral pulses with no evidence of peripheral edema and no calf tenderness noted. NEUROLOGIC [patient is awake, alert and oriented 3 - Labs CBC & Chem 7: 09/10/18 16:05 09/10/18 16:05 Labs: Abnormal Lab Results - Last 24 Hours (Table) 09/11/18 09/11/18 Range/Units 15:35 22:11 Troponin I 0.035 H* 0.039 H* (0.000-0.034) ng/mL Assessment and Plan Plan: Assessment and plan #1 atrial fibrillation with rapid ventricular response, paroxysmal, patient currently in a normal sinus rhythm. #2 symptoms of chest pressure with radiation to the left arm and associated diaphoresis, likely secondary to A. fib with RVR, initial troponin 0.029. Patient did undergo cardiac catheterization in 2016 which revealed mild nonobstructive coronary artery disease #3 hypertension Plan Patient's blood pressure remains elevated, we will start hydrochlorothiazide 25 mg daily. Also had a lengthy discussion with the patient regarding her Eliquis which her was very resistant for her to take. Patient was explained the risk and benefit of being on an anticoagulant and not being on any anticoagulant because of risk of stroke, we also did discuss the risk of bleeding being on anticoagulation. The patient herself is willing to take the Eliquis and see how she does. We still want to continue to monitor the patient for another 48 hours for a blood pressure, and the QT. She was initiated on flecainide yesterday. DNP note has been reviewed, I agree with a documented findings and plan of care. Patient was seen and examined.
--- NOTE | 2018-09-13 00:59 | P.PN ---
Progress Note - Text Progress Note Date: 09/12/18 Chief Complaint: Palpitation Interval history: This is a pleasant 82-year-old patient of Dr. Dielh. Chronic stable medical conditions include hypertension, osteoarthritis, hyperlipidemia. Patient 2016 had a cardiac catheterization was found to have insignificant disease. Patient sometime ago he stopped taking on anticoagulation as her co-pay over $300 per month. . For 3 days patient been noting sitting palpitations present on and off also noticed some chest pressure and pain going down the left shoulder alcohol uncomfortable the chest tightness this is been fluctuating given all the symptoms patient presents to the ER was admitted. Was found to be in atrial fibrillation with a heart rate in the 1:30. Patient was put on a Cardizem drip. Lovenox subcu and cardiology was consulted. Today-remains in sinus rhythm. On eliquis. Overall feeling better. Ambulating better. Review of systems: Was done for constitutional, cardiovascular, GI, pulmonary. relevant finding as above Active Medications Acetaminophen (Tylenol Tab) 650 mg PO Q6HR PRN PRN Reason: Mild Pain or Fever > 100.5 Apixaban (Eliquis) 5 mg PO BID COUNTS INCLUDE 234 BEDS AT THE [facility] Last Admin: 09/12/18 20:35 Dose: 5 mg Documented by: Aspirin (Aspirin) 81 mg PO DAILY COUNTS INCLUDE 234 BEDS AT THE [facility] Last Admin: 09/12/18 08:36 Dose: 81 mg Documented by: Cholecalciferol (Vitamin D3 (25 Mcg = 1000 Iu)) 1,000 unit PO DAILY COUNTS INCLUDE 234 BEDS AT THE [facility] Last Admin: 09/12/18 08:36 Dose: 1,000 unit Documented by: Clonidine (Catapres) 0.3 mg PO BID COUNTS INCLUDE 234 BEDS AT THE [facility] Last Admin: 09/12/18 20:35 Dose: 0.3 mg Documented by: Flecainide Acetate (Tambocor) 50 mg PO Q12HR COUNTS INCLUDE 234 BEDS AT THE [facility] Last Admin: 09/12/18 20:35 Dose: 50 mg Documented by: Hydrochlorothiazide (Hydrodiuril) 25 mg PO DAILY COUNTS INCLUDE 234 BEDS AT THE [facility] Last Admin: 09/12/18 11:41 Dose: 25 mg Documented by: Sodium Chloride (Saline 0.9%) 1,000 mls @ 20 mls/hr IV .Q24H COUNTS INCLUDE 234 BEDS AT THE [facility] Last Admin: 09/12/18 11:37 Dose: Not Given Documented by: Lisinopril (Zestril) 10 mg PO BID COUNTS INCLUDE 234 BEDS AT THE [facility] Last Admin: 09/12/18 20:35 Dose: 10 mg Documented by: Metoprolol Succinate (Toprol Xl) 25 mg PO DAILY COUNTS INCLUDE 234 BEDS AT THE [facility] Last Admin: 09/12/18 08:36 Dose: 25 mg Documented by: Naloxone HCl (Narcan) 0.2 mg IV Q2M PRN PRN Reason: Opioid Reversal Ondansetron HCl (Zofran) 4 mg IVP Q8HR PRN PRN Reason: Nausea And Vomiting Pantoprazole Sodium (Protonix) 40 mg PO AC-BRKFST COUNTS INCLUDE 234 BEDS AT THE [facility] Last Admin: 09/12/18 06:14 Dose: 40 mg Documented by: Physical examination: VITAL SIGNS: 98.8, 53, 18, 150/78, 95% room air GENERAL: Sitting up, comfortable EYES: Pupils equal. Conjunctiva normal. HEENT: External appearance of nose and ears normal, oral cavity grossly normal. NECK: JVD not raised; masses not palpable. HEART: First seconds are normal; no edema. LUNGS: Respiratory rate normal; clear to auscultation. ABDOMEN: Soft, nontender, liver spleen not palpable, no masses palpable. PSYCH: Alert and oriented x3; mood and affect normal. INVESTIGATIONS, reviewed in the clinical context: No labs from today Troponin I 0.0-9, 0.040, 0.035 TSH 1.2 Additional studies: 2-D echo-moderate concentric left medical hypertrophy, EF 55-60%, moderate pulmonary hypertension White count 12.2 hemoglobin 14.9 potassium 5. 21 creatinine 1.10 troponin 0.0-9 EKG tracing personally reviewed by me shows atrial flutter fibrillation with a rapid ventricular rate Chest x-ray film personally reviewed by me shows some cardiomegaly some venous prominence Assessment: -Paroxysmal atrial fibrillation with rapid ventricular rate, now in sinus rhythm -Essential hypertension -Primary osteoarthritis -Hyperlipidemia -Hypertensive heart disease -Rule out underlying ischemia the patient had a cardiac catheterization 2015 that showed minimal disease. Plan: Patient conduced look better. Remains in sinus rhythm. There was some apprehension about eliquis. Cardiology team did Speak to the patient and the family.
[2018-09-13] MEDS: PANTOPRAZOLE 40 MG TABLET PO SCH (06:13)
[2018-09-13] MEDS: FLECAINIDE 50 MG TAB PO SCH ×2 (08:30→19:57)
[2018-09-13] MEDS: ASPIRIN 81 MG PO SCH (08:30)
[2018-09-13] MEDS: CHOLECALCIFEROL 1,000 UNIT TAB PO SCH (08:30)
[2018-09-13] MEDS: HYDROCHLOROTHIAZIDE 25 MG TAB PO SCH (08:30)
[2018-09-13] MEDS: METOPROLOL SUCCINATE (ER) 25 MG TAB.ER.24H PO SCH (08:30)
[2018-09-13] MEDS: cloNIDine HCL 0.1 MG TAB PO SCH ×2 (08:30→19:56)
[2018-09-13] MEDS: APIXABAN 5 MG TAB PO SCH ×2 (08:30→19:57)
[2018-09-13] MEDS: LISINOPRIL 10 MG TAB PO SCH (08:30)
[2018-09-13] MEDS ORDERED: LISINOPRIL 20 MG TAB PO STA (12:01)
--- NOTE | 2018-09-13 14:41 | P.PN ---
Progress Note - Text Progress Note Date: 09/13/18 Chief Complaint: Palpitation Interval history: This is a pleasant 82-year-old patient of Dr. Diehl. Chronic stable medical conditions include hypertension, osteoarthritis, hyperlipidemia. Patient 2016 had a cardiac catheterization was found to have insignificant disease. Patient sometime ago he stopped taking on anticoagulation as her co-pay over $300 per month. . For 3 days patient been noting sitting palpitations present on and off also noticed some chest pressure and pain going down the left shoulder alcohol uncomfortable the chest tightness this is been fluctuating given all the symptoms patient presents to the ER was admitted. Was found to be in atrial fibrillation with a heart rate in the 1:30. Patient was put on a Cardizem drip. Lovenox subcu and cardiology was consulted. Today-remains in sinus rhythm. telemetry room inform me that heart rate of his dropping down to the 30s for anywhere from 6-12 seconds and then goes up to 60s. Otherwise patient is doing okay. Review of systems: Was done for constitutional, cardiovascular, GI, pulmonary. relevant finding as above Active Medications Acetaminophen (Tylenol Tab) 650 mg PO Q6HR PRN PRN Reason: Mild Pain or Fever > 100.5 Apixaban (Eliquis) 5 mg PO BID [facility] Last Admin: 09/13/18 08:30 Dose: 5 mg Documented by: Aspirin (Aspirin) 81 mg PO DAILY [facility] Last Admin: 09/13/18 08:30 Dose: 81 mg Documented by: Cholecalciferol (Vitamin D3 (25 Mcg = 1000 Iu)) 1,000 unit PO DAILY [facility] Last Admin: 09/13/18 08:30 Dose: 1,000 unit Documented by: Clonidine (Catapres) 0.3 mg PO BID [facility] Last Admin: 09/13/18 08:30 Dose: 0.3 mg Documented by: Flecainide Acetate (Tambocor) 50 mg PO Q12HR [facility] Last Admin: 09/13/18 08:30 Dose: 50 mg Documented by: Hydrochlorothiazide (Hydrodiuril) 25 mg PO DAILY [facility] Last Admin: 09/13/18 08:30 Dose: 25 mg Documented by: Sodium Chloride (Saline 0.9%) 1,000 mls @ 20 mls/hr IV .Q24H [facility] Last Admin: 09/12/18 11:37 Dose: Not Given Documented by: Lisinopril (Zestril) 20 mg PO BID [facility] Naloxone HCl (Narcan) 0.2 mg IV Q2M PRN PRN Reason: Opioid Reversal Ondansetron HCl (Zofran) 4 mg IVP Q8HR PRN PRN Reason: Nausea And Vomiting Pantoprazole Sodium (Protonix) 40 mg PO AC-BRKFST [facility] Last Admin: 09/13/18 06:13 Dose: Not Given Documented by: Physical examination: VITAL SIGNS: 98.2, 61, 20, 140/81, 93% room air GENERAL: propped up in bed, comfortablee EYES: Pupils equal. Conjunctiva normal. HEENT: External appearance of nose and ears normal, oral cavity grossly normal. NECK: JVD not raised; masses not palpable. HEART: First seconds are normal; no edema. LUNGS: Respiratory rate normal; clear to auscultation. ABDOMEN: Soft, nontender, liver spleen not palpable, no masses palpable. PSYCH: Alert and oriented x3; mood and affect normal. INVESTIGATIONS, reviewed in the clinical context: No labs from today Previous labs: Troponin I 0.0-9, 0.040, 0.035 TSH 1.2 Additional studies: 2-D echo-moderate concentric left medical hypertrophy, EF 55-60%, moderate pulmonary hypertension White count 12.2 hemoglobin 14.9 potassium 5. 21 creatinine 1.10 troponin 0.0-9 EKG tracing personally reviewed by me shows atrial flutter fibrillation with a rapid ventricular rate Chest x-ray film personally reviewed by me shows some cardiomegaly some venous prominence Assessment: -Paroxysmal atrial fibrillation with rapid ventricular rate, now in sinus rhythm, but heart rate dropping down to the 30s. -Essential hypertension, uncontrolled -Primary osteoarthritis -Hyperlipidemia -Hypertensive heart disease -Rule out underlying ischemia the patient had a cardiac catheterization 2015 that showed minimal disease. Plan: patient is on Toprol-XL, Catapres, Tambocor. Discussed with Dr. Araujo from cardiology. They have decided to hold off the Toprol-XL. Increasing dose of lisinopril. Keep the patient on telemetry see how she does..
--- NOTE | 2018-09-13 16:12 | P.PN ---
Subjective Progress Note Date: 09/13/18 This is a 82-year-old femalewith a known case of paroxysmal atrial fibrillation, hypertension with mild coronary artery disease who came to the hospital with complaints of chest pressure radiating down on and also palpitations. Patient was found to 80 fibrillation with rapid ventricular response.. Patient was initiated on eliquis yesterday. Patient is also on flecainide and metoprolol. She is also on Catapres for blood pressure control. Patient developed a sinus rhythm but is having episodes of sinus bradycardia. We will discontinue metoprolol. We'll increase the dose of lisinopril for better blood pressure control. We'll increase activity as tolerated He patient remains stable, possible discharge within next 24-48 hours Objective - Vital Signs Vital signs: Vital Signs Temp 97.6 F 09/13/18 16:01 Pulse 64 09/13/18 16:01 Resp 20 09/13/18 16:01 BP 151/72 09/13/18 16:01 Pulse Ox 94 L 09/13/18 16:01 Intake & Output 09/12/18 09/13/18 09/13/18 18:59 06:59 18:59 Intake Total 340 230 440 Balance 340 230 440 Intake: Oral 340 230 440 Other: Voiding Method Toilet # Voids 3 2 # Bowel Movements 0 - Exam GENERAL EXAM: Patient is alert and oriented and doesn't appear to be in any acute distress HEENT: Normocephalic. Normal reaction of pupils, equal size, normal range of extraocular motion. No erythema or exudates in the throat. NECK: No masses, no nuchal rigidity. CHEST: No chest wall deformity. LUNGS: [Equal air entry with no crackles or wheeze.] HEART: [S1 and S2 normal with no audible mumurs or gallops. Regular rhythm, femorals equal on both sides..] ABDOMEN: No hepatosplenomegaly, normal bowel sounds, no guarding or rigidity. SKIN: No rashes CENTRAL NERVOUS SYSTEM: No focal deficits. EXTREMITIES: [No cyanosis, clubbing or edema.] - Labs CBC & Chem 7: 09/10/18 16:05 09/10/18 16:05 Assessment and Plan (1) Atrial fibrillation with RVR Current Visit: Yes Status: Acute Code(s): I48.91 - UNSPECIFIED ATRIAL FIBRILLATION SNOMED Code(s): 020705683099572 (2) HTN (hypertension) Current Visit: No Status: Acute Code(s): I10 - ESSENTIAL (PRIMARY) HYPERTENSION SNOMED Code(s): 79770808 Plan: we will discontinue metoprolol because of low heart rate. Increase the dose of lisinopril. He patient remains stable, possible discharge within next 24 hours
[2018-09-13] MEDS: SODIUM CHLORIDE 0.9% 1,000 ML IV SCH (18:08)
[2018-09-13] MEDS: LISINOPRIL 20 MG TAB PO SCH (19:56)
[2018-09-14] MEDS: PANTOPRAZOLE 40 MG TABLET PO SCH (06:13)
[2018-09-14] MEDS: CHOLECALCIFEROL 1,000 UNIT TAB PO SCH ×2 (08:10→08:11)
[2018-09-14] MEDS: ASPIRIN 81 MG PO SCH (08:10)
[2018-09-14] MEDS: LISINOPRIL 20 MG TAB PO SCH (08:10)
[2018-09-14] MEDS: cloNIDine HCL 0.1 MG TAB PO SCH (08:11)
[2018-09-14] MEDS: APIXABAN 5 MG TAB PO SCH (08:11)
[2018-09-14] MEDS: HYDROCHLOROTHIAZIDE 25 MG TAB PO SCH (08:11)
[2018-09-14] MEDS: FLECAINIDE 50 MG TAB PO SCH (08:11)
[2018-09-14 08:40] VITALS: RESP 20
[2018-09-14 11:24] VITALS: BP 159/81; PULSE 56; TEMP 97.8
--- NOTE | 2018-09-14 12:54 | P.PN ---
Subjective This is a pleasant 82-year-old female currently being hospitalized secondary to atrial fibrillation. Seen and examined resting comfortably up walking around the room. She states she is quite agitated as she thought she was going home yesterday. Explained to the patient need for keeping her in the hospital another day secondary to bradycardia. Toprol was discontinued yesterday. Blood pressure 159/81 heart rate 56 afebrile maintaining oxygen saturation on room air. Currently maintained on Eliquis 5 mg twice a day, aspirin 81 mg daily, clonidine 0.3 mg twice a day, flecainide 50 mg twice a day, hydrochlorothiazide 25 mg daily, lisinopril 20 mg twice a day. GENERAL: Well-appearing, well-nourished and in no acute distress. NECK: Supple without JVD or thyromegaly. LUNGS: Breath sounds clear to auscultation bilaterally. Respiration equal and unlabored. No wheezes, rales or rhonchi. HEART: Regular rate and rhythm without murmurs, rubs or gallops. S1 and S2 heard. EXTREMITIES: Normal range of motion, no edema. No clubbing or cyanosis. Peripheral pulses intact. ASSESSMENT Paroxysmal atrial fibrillation, has converted to sinus mechanism with episodes of sinus bradycardia. On long-term anticoagulation. Chest pain likely secondary to A. fib with RVR Hypertension PLAN Stable from a cardiac perspective. Follow-up in the office with Dr. Contreras upon discharge. Nurse Practitioner note has been reviewed, I agree with a documented findings and plan of care. Patient was seen and examined. Objective - Vital Signs Vital signs: Vital Signs Temp 97.8 F 09/14/18 11:23 Pulse 56 L 09/14/18 11:23 Resp 20 09/14/18 11:23 BP 159/81 09/14/18 11:23 Pulse Ox 93 L 09/14/18 11:23 Intake & Output 09/13/18 09/14/18 09/14/18 18:59 06:59 18:59 Intake Total 680 240 Balance 680 240 Weight 72.6 kg Intake: Oral 680 240 Other: Voiding Method Toilet # Voids 2 - Labs CBC & Chem 7: 09/10/18 16:05 09/10/18 16:05
--- NOTE | 2018-09-14 23:06 | P.DS ---
Providers Date of admission: 09/10/18 18:12 Expected date of discharge: 09/14/18 Attending physician: Onur Campbell Consults: 09/10/18 17:53 Consult Physician Routine Consulting Provider: Kumar Contreras Consult Reason/Comments: afib rvr Do you want consulting provider notified?: Yes Primary care physician: [facility] Course: Interval history: This is a pleasant 82-year-old patient of Dr. Diehl. Chronic stable medical conditions include hypertension, osteoarthritis, hyperlipidemia. Patient 2016 had a cardiac catheterization was found to have insignificant disease. Patient sometime ago he stopped taking on anticoagulation as her co-pay over $300 per month. . For 3 days patient been noting sitting palpitations present on and off also noticed some chest pressure and pain going down the left shoulder alcohol uncomfortable the chest tightness this is been fluctuating given all the symptoms patient presents to the ER was admitted. Was found to be in atrial fibrillation with a heart rate in the 1:30. Patient was put on a Cardizem drip. Lovenox subcu and cardiology was consulted. Patient's medications were adjusted and then actually her heart rate did come down. Hence Toprol-XL that was started to be discontinued. Currently patient's artery disease better controlled. Seen by cardiology today. Okay to be discharged. Care was discussed with the patient Consultation: Dr. Araujo from cardiology Physical examination: VITAL SIGNS: 97.8, 56, 20, 159/81, 93% room air GENERAL: Sitting upon a chair, comfortable EYES: Pupils equal. Conjunctiva normal. HEENT: External appearance of nose and ears normal, oral cavity grossly normal. NECK: JVD not raised; masses not palpable. HEART: First seconds are normal; no edema. LUNGS: Respiratory rate normal; clear to auscultation. ABDOMEN: Soft, nontender, liver spleen not palpable, no masses palpable. PSYCH: Alert and oriented x3; mood and affect normal. INVESTIGATIONS, Troponin I 0.0-9, 0.040, 0.035 TSH 1.2 Additional studies: 2-D echo-moderate concentric left medical hypertrophy, EF 55-60%, moderate pulmonary hypertension White count 12.2 hemoglobin 14.9 potassium 5. 21 creatinine 1.10 troponin 0.0-9 EKG tracing personally reviewed by me shows atrial flutter fibrillation with a rapid ventricular rate Chest x-ray film personally reviewed by me shows some cardiomegaly some venous prominence Assessment: -Paroxysmal atrial fibrillation with rapid ventricular rate, now in sinus rhythm, -Essential hypertension, uncontrolled -Primary osteoarthritis -Hyperlipidemia -Hypertensive heart disease -the patient had a cardiac catheterization 2015 that showed minimal disease. Disposition: Home: Patient Condition at Discharge: Stable Plan - Discharge Summary Discharge Rx Participant: Yes New Discharge Prescriptions: New Apixaban [Eliquis] 5 mg PO BID #60 tab Flecainide [Tambocor] 50 mg PO Q12HR #60 tab Lisinopril-Hctz 20-12.5 mg [Zestoretic 20-12.5] 1 tab PO BID #60 tab Continue Cholecalciferol [Vitamin D3 (25 Mcg = 1000 Iu)] 1,000 unit PO DAILY Aspirin EC [Ecotrin Low Dose] 81 mg PO DAILY Nitroglycerin Sl Tabs [Nitrostat] 0.4 mg SUBLINGUAL Q5M PRN PRN Reason: Chest Pain cloNIDine HCL 0.3 mg PO BID Sodium Chloride [Saline Mist] 1 spray EA NOSTRIL DAILY PRN PRN Reason: DRY NOSE Discontinued Lisinopril [Zestril] 10 mg PO DAILY Discharge Medication List Aspirin EC [Ecotrin Low Dose] 81 mg PO DAILY 09/10/18 [History] Cholecalciferol [Vitamin D3 (25 Mcg = 1000 Iu)] 1,000 unit PO DAILY 09/10/18 [History] Nitroglycerin Sl Tabs [Nitrostat] 0.4 mg SUBLINGUAL Q5M PRN 09/10/18 [History] Sodium Chloride [Saline Mist] 1 spray EA NOSTRIL DAILY PRN 09/10/18 [History] cloNIDine HCL 0.3 mg PO BID 09/10/18 [History] Apixaban [Eliquis] 5 mg PO BID #60 tab 09/14/18 [Rx] Flecainide [Tambocor] 50 mg PO Q12HR #60 tab 09/14/18 [Rx] Lisinopril-Hctz 20-12.5 mg [Zestoretic 20-12.5] 1 tab PO BID #60 tab 09/14/18 [Rx] Follow up Appointment(s)/Referral(s): Noel Diehl DO [Primary Care Provider] - 09/16/18 9:40 am (Saturday with [employer]) Kumar Contreras MD [STAFF PHYSICIAN] - 09/25/18 2:30 pm () Patient Instructions/Handouts: A-fib (Atrial Fibrillation) (DC), Safe Use of Anticoagulants (DC) Discharge Disposition: HOME SELF-CARE
== END 2018-09-14 13:05 | disposition home or self-care (01) | DRG 310 ==
LOC: EC 15:43 → 3SCARD 18:11 → OBSVTOIN 18:12 → 3SCARD 20:18
PROVIDERS: ADMIT Hospitalist; ATTEND Hospitalist
DX: I48.0 Paroxysmal atrial fibrillation (principal); I27.20 Pulmonary hypertension, unspecified; I11.9 Hypertensive heart disease without heart failure; J44.9 Chronic obstructive pulmonary disease, unspecified; T50.996A Underdosing of other drugs, medicaments and biological substances, initial encounter; Z91.120 Patient's intentional underdosing of medication regimen due to financial hardship; E78.5 Hyperlipidemia, unspecified; I25.10 Atherosclerotic heart disease of native coronary artery without angina pectoris; M19.91 Primary osteoarthritis, unspecified site; Z79.82 Long term (current) use of aspirin; Z79.899 Other long term (current) drug therapy; Z90.710 Acquired absence of both cervix and uterus; Z90.49 Acquired absence of other specified parts of digestive tract; Z96.641 Presence of right artificial hip joint; Z98.41 Cataract extraction status, right eye; Z98.890 Other specified postprocedural states; Z82.61 Family history of arthritis; Z82.3 Family history of stroke
CPT/HCPCS: 36415; 71045; 80053; 83735; 84443; 84484; 85025; 85610; 85730; 93005; 93306; 94760; 96361; 96372; 96374; 99285

== ENCOUNTER 2018-12-20 10:32 | Inpatient (IN) | payer MEDICARE, BC ==
[2018-12-20] MEDS ORDERED: NITROGLYCERIN OINT 1 INCH/GM PACKET TOPICAL STA (10:46)
[2018-12-20] MEDS ORDERED: ASPIRIN 81 MG PO STA (10:46)
--- NOTE | 2018-12-20 10:50 | ED ---
General Adult HPI - General Stated complaint: weakness Time Seen by Provider: 12/20/18 10:36 Source: patient, EMS, RN notes reviewed Mode of arrival: EMS Limitations: altered mental status (Poor historian) - History of Present Illness Initial comments: Patient is a pleasant 82-year-old female presenting to the emergency department with reported complaints of palpitations and chest discomfort. Patient believes her heart rate was around 145 earlier this morning. Patient had associated chest discomfort. Patient is unable to further describe her chest discomfort. Symptoms have resolved at this time and patient feels normal. Patient is overall a poor historian. EMS report was 4 dizziness and generalized weakness. Patient states she does not feel weak at all. Patient denies any associated dyspnea, nausea, or diaphoresis. - Related Data Home Medications Medication Instructions Recorded Confirmed cloNIDine HCL 0.3 mg PO BID 09/10/18 12/20/18 Lisinopril-Hctz 20-12.5 mg 1 tab PO BID 12/20/18 12/20/18 [Zestoretic 20-12.5] Previous Rx's Medication Instructions Recorded Apixaban [Eliquis] 5 mg PO BID #60 tab 09/14/18 Allergies Allergy/AdvReac Type Severity Reaction Status Date / Time No Known Allergies Allergy Verified 12/20/18 11:19 Review of Systems ROS Statement: Those systems with pertinent positive or pertinent negative responses have been documented in the HPI. ROS Other: All systems not noted in ROS Statement are negative. Constitutional: Denies: fever Eyes: Denies: eye pain ENT: Denies: ear pain Respiratory: Denies: cough, dyspnea Cardiovascular: Reports: chest pain, palpitations Endocrine: Denies: fatigue Gastrointestinal: Denies: abdominal pain Genitourinary: Denies: dysuria Musculoskeletal: Denies: back pain Skin: Denies: rash Neurological: Reports: as per HPI. Denies: headache Past Medical History Past Medical History: Atrial Fibrillation, Hypertension, Osteoarthritis (OA) Additional Past Medical History / Comment(s): per chest xray copd/cardiomegally, History of Any Multi-Drug Resistant Organisms: None Reported Past Surgical History: Cholecystectomy, Hysterectomy, Orthopedic Surgery Additional Past Surgical History / Comment(s): rt hip replacement,rt cataract,rt carpal tunnel release Past Anesthesia/Blood Transfusion Reactions: No Reported Reaction Past Psychological History: No Psychological Hx Reported Smoking Status: Never smoker Past Alcohol Use History: None Reported Past Drug Use History: None Reported - Past Family History Mother Family Medical History: Osteoarthritis (OA) Additional Family Medical History / Comment(s): djd; at 69 Father Family Medical History: CVA/TIA Additional Family Medical History / Comment(s): age 84 General Exam Limitations: no limitations General appearance: alert, in no apparent distress Head exam: Present: atraumatic, normocephalic Eye exam: Present: normal appearance, PERRL ENT exam: Present: normal oropharynx Neck exam: Present: normal inspection Respiratory exam: Present: normal lung sounds bilaterally Cardiovascular Exam: Present: tachycardia, irregular rhythm GI/Abdominal exam: Present: soft. Absent: tenderness Extremities exam: Present: normal inspection Neurological exam: Present: alert, CN II-XII intact. Absent: motor sensory deficit Expanded Motor strength exam: RUE: 5, LUE: 5, RLE: 5, LLE: 5 Psychiatric exam: Present: normal affect, normal mood Skin exam: Present: normal color Course Vital Signs 12/20/18 10:44 Temperature 97.9 F Pulse Rate 132 H Respiratory 22 Rate Blood Pressure 92/65 O2 Sat by Pulse 96 Oximetry EKG Findings - EKG Comments: EKG Findings:: A. fib with RVR, rate 122. HI S1 26. QT 374. QTC 532. Left axis. Right bundle branch block. Left anterior fascicular block. T-wave inversion laterally. Medical Decision Making - Medical Decision Making Patient reevaluated and resting comfortably in bed. Heart rate remains 128. Patient and family updated on results and plan. Case also discussed in detail with Dr. Hay, covering for Dr. collins, who admits for Dr. Diehl. - Lab Data Result diagrams: 12/20/18 11:04 12/20/18 11:04 Lab Results 12/20/18 12/20/18 12/20/18 Range/Units 11:04 11:04 11:04 WBC 8.3 (3.8-10.6) k/uL RBC 5.51 H (3.80-5.40) m/uL Hgb 15.8 (11.4-16.0) gm/dL Hct 49.6 H (34.0-46.0) % MCV 89.9 (80.0-100.0) fL MCH 28.7 (25.0-35.0) pg MCHC 31.9 (31.0-37.0) g/dL RDW 14.5 (11.5-15.5) % Plt Count 199 (150-450) k/uL Neutrophils % 58 % Lymphocytes % 24 % Monocytes % 6 % Eosinophils % 7 % Basophils % 1 % Neutrophils # 4.9 (1.3-7.7) k/uL Lymphocytes # 2.0 (1.0-4.8) k/uL Monocytes # 0.5 (0-1.0) k/uL Eosinophils # 0.6 (0-0.7) k/uL Basophils # 0.1 (0-0.2) k/uL PT 10.3 (9.0-12.0) sec INR 1.0 (<1.2) APTT 25.3 (22.0-30.0) sec Sodium 139 (137-145) mmol/L Potassium 4.3 (3.5-5.1) mmol/L Chloride 103 (98-107) mmol/L Carbon Dioxide 29 (22-30) mmol/L Anion Gap 7 mmol/L BUN 18 H (7-17) mg/dL Creatinine 1.30 H (0.52-1.04) mg/dL Est GFR (CKD-EPI)AfAm 44 (>60 ml/min/1.73 sqM) Est GFR (CKD-EPI)NonAf 38 (>60 ml/min/1.73 sqM) Glucose 181 H (74-99) mg/dL Calcium 9.3 (8.4-10.2) mg/dL Magnesium 1.9 (1.6-2.3) mg/dL Total Bilirubin 0.6 (0.2-1.3) mg/dL AST 31 (14-36) U/L ALT 28 (9-52) U/L Alkaline Phosphatase 80 (38-126) U/L Troponin I (0.000-0.034) ng/mL Total Protein 6.8 (6.3-8.2) g/dL Albumin 3.6 (3.5-5.0) g/dL TSH 2.580 (0.465-4.680) mIU/L Free T4 1.51 (0.78-2.19) ng/dL Free T3 pg/mL 3.7 (2.8-5.3) pg/ml 12/20/18 Range/Units 11:04 WBC (3.8-10.6) k/uL RBC (3.80-5.40) m/uL Hgb (11.4-16.0) gm/dL Hct (34.0-46.0) % MCV (80.0-100.0) fL MCH (25.0-35.0) pg MCHC (31.0-37.0) g/dL RDW (11.5-15.5) % Plt Count (150-450) k/uL Neutrophils % % Lymphocytes % % Monocytes % % Eosinophils % % Basophils % % Neutrophils # (1.3-7.7) k/uL Lymphocytes # (1.0-4.8) k/uL Monocytes # (0-1.0) k/uL Eosinophils # (0-0.7) k/uL Basophils # (0-0.2) k/uL PT (9.0-12.0) sec INR (<1.2) APTT (22.0-30.0) sec Sodium (137-145) mmol/L Potassium (3.5-5.1) mmol/L Chloride (98-107) mmol/L Carbon Dioxide (22-30) mmol/L Anion Gap mmol/L BUN (7-17) mg/dL Creatinine (0.52-1.04) mg/dL Est GFR (CKD-EPI)AfAm (>60 ml/min/1.73 sqM) Est GFR (CKD-EPI)NonAf (>60 ml/min/1.73 sqM) Glucose (74-99) mg/dL Calcium (8.4-10.2) mg/dL Magnesium (1.6-2.3) mg/dL Total Bilirubin (0.2-1.3) mg/dL AST (14-36) U/L ALT (9-52) U/L Alkaline Phosphatase (38-126) U/L Troponin I 0.032 (0.000-0.034) ng/mL Total Protein (6.3-8.2) g/dL Albumin (3.5-5.0) g/dL TSH (0.465-4.680) mIU/L Free T4 (0.78-2.19) ng/dL Free T3 pg/mL (2.8-5.3) pg/ml - Radiology Data Radiology results: image reviewed (Chest x-ray shows no acute process) Critical Care Time Critical Care Time: Yes Total Critical Care Time: 32 Disposition Clinical Impression: Atrial fibrillation with RVR Disposition: ADMITTED IP TO THIS HOSP Is patient prescribed a controlled substance at d/c from ED?: No Referrals: Noel Diehl DO [Primary Care Provider] - 1-2 days Decision Time: 12:25
[2018-12-20 11:14] LABS: Basophils # (A) 0.1 k/uL (0-0.2); Basophils % (A) 1 %; Eosinophils # (A) 0.6 k/uL (0-0.7); Eosinophils % (A) 7 %; HCT 49.6 % (34.0-46.0); HGB 15.8 gm/dL (11.4-16.0); Lymphocytes % (A) 24 %; MCH 28.7 pg (25.0-35.0); MCHC 31.9 g/dL (31.0-37.0); MCV 89.9 fL (80.0-100.0); Mean Platelet Volume 7.1; Monocytes # (A) 0.5 k/uL (0-1.0); Monocytes % (A) 6 %; Neutrophils # (A) 4.9 k/uL (1.3-7.7); Neutrophils % (A) 58 %; Platelet Count 199 k/uL (150-450); RBC 5.51 m/uL (3.80-5.40); RDW 14.5 % (11.5-15.5); WBC 8.3 k/uL (3.8-10.6)
[2018-12-20 11:23] LABS: Albumin 3.6 g/dL (3.5-5.0); Calcium 9.3 mg/dL (8.4-10.2); Magnesium 1.9 mg/dL (1.6-2.3); Potassium 4.3 mmol/L (3.5-5.1); Total Bilirubin 0.6 mg/dL (0.2-1.3); Total Protein 6.8 g/dL (6.3-8.2)
[2018-12-20 11:40] LABS: Partial Thromboplastin Time 25.3 sec (22.0-30.0); Prothrombin Time 10.3 sec (9.0-12.0); T4, Free (Free Thyroxine) 1.51 ng/dL (0.78-2.19)
--- NOTE | 2018-12-20 12:10 | XR ---
EXAMINATION TYPE: XR chest 2V DATE OF EXAM: 12/20/2018 HISTORY: Chest Pain. REFERENCE: Previous study dated 09/10/2018 FINDINGS: The heart is mildly enlarged. The lungs are clear. Pleural space are clear. IMPRESSION: MILD CARDIOMEGALY.
[2018-12-20] MEDS ORDERED: SODIUM CHLORIDE 0.9% 500 ML 500 ML IV STA (12:26)
[2018-12-20] MEDS ORDERED: NITROGLYCERIN SL TABS 0.4 MG TAB SUBLINGUAL PRN (12:26)
[2018-12-20] MEDS: DILTIAZEM 125 MG in SODIUM CHLORIDE 0.9% 100 ML IV SCH (12:54)
--- NOTE | 2018-12-20 16:39 | P.HPIM ---
History of Present Illness This is a pleasant 82 years old female with past medical history of atrial fibrillation, hypertension. He presents because of hypotension. Since this morning she started having some central and epigastric chest pain radiating to the left didn't progressively severe, associated with some palpitation, dyspnea and dizziness. She checked her blood pressure which is usually she does every day and found it to be systolic BP at 60 so she decided to come to the hospital. On admission her heart rate was tachycardic take his up to 1 35/m. First of Vitas looks stable although blood pressure was on the low side currently is better as 117/86. Labs include a CBC, BMP and liver enzymes and INR were unremarkable except for slightly elevated creatinine and 1.3, compared to baseline of 1.1. EKG showing atrial fibrillation with RVR on 122. Chest x-ray: No acute cardiopulmonary process. On admission patient got aspirin, some IV fluids and started on Cardizem drip, currently she is converted to sinus rhythm. Her symptoms of chest pain, dyspnea or palpitation and dizziness are resolved and she thinks back to her usual state Review of Systems CONSTITUTIONAL: No fever, no malaise, no fatigue. HEENT: No recent visual problems or hearing problems. Denied any sore throat. CARDIOVASCULAR: No orthopnea, PND, no palpitations, no syncope. PULMONARY: No shortness of breath, no cough, no hemoptysis. GASTROINTESTINAL: No diarrhea, no nausea, no vomiting, no abdominal pain. Normoactive bowel sounds. NEUROLOGICAL: No headaches, no weakness, no numbness. HEMATOLOGICAL: Denies any bleeding or petechiae. GENITOURINARY: Denies any burning micturition, frequency, or urgency. MUSCULOSKELETAL/RHEUMATOLOGICAL: Denies any joint pain, swelling, or any muscle pain. ENDOCRINE: Denies any polyuria or polydipsia. Past Medical History Past Medical History: Atrial Fibrillation, Hypertension, Osteoarthritis (OA) Additional Past Medical History / Comment(s): per chest xray copd/cardiomegally, History of Any Multi-Drug Resistant Organisms: None Reported Past Surgical History: Cholecystectomy, Hysterectomy, Orthopedic Surgery Additional Past Surgical History / Comment(s): rt hip replacement,rt cataract,rt carpal tunnel release Past Anesthesia/Blood Transfusion Reactions: No Reported Reaction Past Psychological History: No Psychological Hx Reported Smoking Status: Never smoker Past Alcohol Use History: None Reported Past Drug Use History: None Reported - Past Family History Mother Family Medical History: Osteoarthritis (OA) Additional Family Medical History / Comment(s): djd; at 69 Father Family Medical History: CVA/TIA Additional Family Medical History / Comment(s): age 84 Medications and Allergies Home Medications Medication Instructions Recorded Confirmed Type cloNIDine HCL 0.3 mg PO BID 09/10/18 12/20/18 History Apixaban [Eliquis] 5 mg PO BID #60 tab 09/14/18 12/20/18 Rx Lisinopril-Hctz 20-12.5 mg 1 tab PO BID 12/20/18 12/20/18 History [Zestoretic 20-12.5] Allergies Allergy/AdvReac Type Severity Reaction Status Date / Time No Known Allergies Allergy Verified 12/20/18 11:19 Physical Exam Vitals: Vital Signs Temp Pulse Resp BP Pulse Ox 12/20/18 14:34 97.9 F 131 H 16 117/86 99 12/20/18 13:41 131 H 16 117/86 99 12/20/18 13:30 131 H 16 117/86 99 12/20/18 13:00 135 H 9 L 105/93 99 12/20/18 12:59 115 H 18 105/93 99 12/20/18 12:30 142 H 20 92/65 97 12/20/18 12:00 118 H 16 92/65 93 L 12/20/18 11:30 126 H 17 92/65 97 12/20/18 11:00 121 H 17 92/65 95 12/20/18 10:46 95 12/20/18 10:44 97.9 F 132 H 22 92/65 96 Intake and Output 12/20/18 12/20/18 12/20/18 06:59 14:59 22:59 Other: Weight 73.437 kg GENERAL: The patient is alert and oriented x3, not in any acute distress. Well developed, well nourished. HEENT: Pupils are round and equally reacting to light. EOMI. No scleral icterus. No conjunctival pallor. Normocephalic, atraumatic. No pharyngeal erythema. No thyromegaly. CARDIOVASCULAR: S1 and S2 present. No murmurs, rubs, or gallops. PULMONARY: Chest is clear to auscultation, no wheezing or crackles. ABDOMEN: Soft, nontender, nondistended, normoactive bowel sounds. No palpable organomegaly. MUSCULOSKELETAL: No joint swelling or deformity. EXTREMITIES: No cyanosis, clubbing, or pedal edema. NEUROLOGICAL: Gross neurological examination did not reveal any focal deficits. SKIN: No rashes. No petechiae Results CBC & Chem 7: 12/20/18 11:04 12/20/18 11:04 Labs: Abnormal Lab Results - Last 24 Hours (Table) 12/20/18 12/20/18 Range/Units 11:04 11:04 RBC 5.51 H (3.80-5.40) m/uL Hct 49.6 H (34.0-46.0) % BUN 18 H (7-17) mg/dL Creatinine 1.30 H (0.52-1.04) mg/dL Glucose 181 H (74-99) mg/dL Assessment and Plan Assessment: A. fib with RVR Mildly elevated creatinine could be chronic kidney disease versus acute kidney injury Essential hypertension Plan: This is a pleasant 82 years old female who presents with A. fib and RVR. Continue with the Eliquis. Continue with Cardizem drip and switched to oral medication 100s controlled. Continue with antihypertensive medication. Continu e gentle hydration. Cardiology consult. Labs and medication were reviewed.. Continue same treatment. Continue with symptomatic treatment. Resume home medication. Monitor lytes and vitals. DVT and GI prophylaxis. Further recommendations of the clinical course of the patient DVT prophylaxis: Eliquis GI Prophylaxis: Pepcid Prognosis is guarded
[2018-12-20] MEDS: APIXABAN 5 MG TAB PO SCH (20:12)
[2018-12-20] MEDS: LISINOPRIL-HCTZ 20-12.5 MG 1 EACH TAB PO SCH (20:12)
[2018-12-20] MEDS: SODIUM CHLORIDE 0.9% 1,000 ML IV SCH ×2 (20:13→20:15)
[2018-12-21] MEDS ORDERED: cloNIDine HCL 0.1 MG TAB PO STA (05:47)
[2018-12-21] MEDS: LISINOPRIL-HCTZ 20-12.5 MG 1 EACH TAB PO SCH ×2 (05:55→19:50)
[2018-12-21 06:54] LABS: Basophils % (A) 0 %; Eosinophils # (A) 0.5 k/uL (0-0.7); Eosinophils % (A) 5 %; HCT 45.5 % (34.0-46.0); HGB 14.7 gm/dL (11.4-16.0); Lymphocytes # (A) 2.5 k/uL (1.0-4.8); Lymphocytes % (A) 25 %; MCH 28.8 pg (25.0-35.0); MCHC 32.2 g/dL (31.0-37.0); MCV 89.5 fL (80.0-100.0); Mean Platelet Volume 7.4; Monocytes # (A) 0.6 k/uL (0-1.0); Monocytes % (A) 6 %; Neutrophils # (A) 6.2 k/uL (1.3-7.7); Neutrophils % (A) 62 %; Platelet Count 172 k/uL (150-450); RBC 5.09 m/uL (3.80-5.40); RDW 14.7 % (11.5-15.5); WBC 10.1 k/uL (3.8-10.6)
[2018-12-21 07:05] LABS: Calcium 8.8 mg/dL (8.4-10.2); Magnesium 1.7 mg/dL (1.6-2.3); Potassium 3.6 mmol/L (3.5-5.1)
[2018-12-21] MEDS: APIXABAN 5 MG TAB PO SCH (08:12)
[2018-12-21] MEDS: DILTIAZEM 125 MG in SODIUM CHLORIDE 0.9% 100 ML IV SCH (08:25)
[2018-12-21] MEDS ORDERED: ASPIRIN 325 MG TAB PO SCH (09:00)
[2018-12-21] MEDS ORDERED: ALPRAZolam 0.25 MG TAB PO PRN (10:36)
[2018-12-21] MEDS ORDERED: ALPRAZolam 0.5 MG TAB PO PRN (10:36)
[2018-12-21] MEDS ORDERED: NITROGLYCERIN SL TABS 0.4 MG TAB SUBLINGUAL PRN (10:36)
[2018-12-21] MEDS ORDERED: METOPROLOL TARTRATE 25 MG TAB PO SCH (10:45)
--- NOTE | 2018-12-21 11:34 | P.PN ---
Subjective This is a pleasant 82 years old female with past medical history of atrial fibrillation, hypertension. He presents because of hypotension. Since this morning she started having some central and epigastric chest pain radiating to the left didn't progressively severe, associated with some palpitation, dyspnea and dizziness. She checked her blood pressure which is usually she does every day and found it to be systolic BP at 60 so she decided to come to the hospital. On admission her heart rate was tachycardic take his up to 1 35/m. First of Vitas looks stable although blood pressure was on the low side currently is better as 117/86. Labs include a CBC, BMP and liver enzymes and INR were unremarkable except for slightly elevated creatinine and 1.3, compared to baseline of 1.1. EKG showing atrial fibrillation with RVR on 122. Chest x-ray: No acute cardiopulmonary process. On admission patient got aspirin, some IV fluids and started on Cardizem drip, currently she is converted to sinus rhythm. Her symptoms of chest pain, dyspnea or palpitation and dizziness are resolved and she thinks back to her usual state 12/21/2018 Patient today she feels better, her chest pain or dyspnea or for soft and patient is back to baseline and no more dizziness or palpitation. She still on normal saline at 75 mL/h recontoured to 50 L/h. Patient is hemodynamically stable labs including CBC and BMP were unremarkable, troponin went up from 0.03 to 1.4 and 5.4. Cartilage team are planning to do cardiac cath for her. Cardiology team are following the case closely Review of systems CONSTITUTIONAL: No fever, no malaise, no fatigue. HEENT: No recent visual problems or hearing problems. Denied any sore throat. CARDIOVASCULAR: No orthopnea, PND, no palpitations, no syncope. PULMONARY: No shortness of breath, no cough, no hemoptysis. GASTROINTESTINAL: No diarrhea, no nausea, no vomiting, no abdominal pain. Normoactive bowel sounds. NEUROLOGICAL: No headaches, no weakness, no numbness. HEMATOLOGICAL: Denies any bleeding or petechiae. GENITOURINARY: Denies any burning micturition, frequency, or urgency. MUSCULOSKELETAL/RHEUMATOLOGICAL: Denies any joint pain, swelling, or any muscle pain. ENDOCRINE: Denies any polyuria or polydipsia. Objective - Vital Signs Vital signs: Vital Signs Temp 98.3 F 12/21/18 08:00 Pulse 70 12/21/18 08:00 Resp 18 12/21/18 08:00 BP 185/82 12/21/18 07:36 Pulse Ox 95 12/21/18 08:00 Intake & Output 12/20/18 12/21/18 12/21/18 18:59 06:59 18:59 Intake Total 240 36.667 Balance 240 36.667 Weight 73.437 kg 72.5 kg Intake: Intake, IV Titration 36.667 Amount Diltiazem 125 mg In 36.667 Sodium Chloride 0.9% 100 ml @ 5 MG/HR 5 mls/hr IV .Q24H [facility] Rx#:[id number] Oral 240 Other: Voiding Method Toilet Toilet # Voids 0 1 - Exam GENERAL: The patient is alert and oriented x3, not in any acute distress. Well developed, well nourished. HEENT: Pupils are round and equally reacting to light. EOMI. No scleral icterus. No conjunctival pallor. Normocephalic, atraumatic. No pharyngeal erythema. No thyromegaly. CARDIOVASCULAR: S1 and S2 present. No murmurs, rubs, or gallops. PULMONARY: Chest is clear to auscultation, no wheezing or crackles. ABDOMEN: Soft, nontender, nondistended, normoactive bowel sounds. No palpable organomegaly. MUSCULOSKELETAL: No joint swelling or deformity. EXTREMITIES: No cyanosis, clubbing, or pedal edema. NEUROLOGICAL: Gross neurological examination did not reveal any focal deficits. SKIN: No rashes. No petechiae - Labs CBC & Chem 7: 12/21/18 06:20 12/21/18 06:20 Labs: Abnormal Lab Results - Last 24 Hours (Table) 12/20/18 12/20/18 12/21/18 Range/Units 17:18 22:45 06:20 BUN 19 H (7-17) mg/dL Glucose 133 H (74-99) mg/dL Troponin I 1.490 H* 5.470 H* (0.000-0.034) ng/mL Triglycerides 175 H (<150) mg/dL Cholesterol 213 H (<200) mg/dL LDL Cholesterol, Calc 147 H (0-99) mg/dL HDL Cholesterol 31 L (40-60) mg/dL Assessment and Plan Assessment: A. fib with RVR Elevated troponin, possible non-STEMI Mildly elevated creatinine could be chronic kidney disease versus acute kidney injury Essential hypertension Plan: This is a pleasant 82 years old female who presents with A. fib and RVR. Continue with the Eliquis. Continue with Cardizem drip and switched to oral medication, however her Cardizem drip is on hold currently because of bradycardia. Cardiology team are planning for cardiac cath for possible non- STEMI, however patient is already on liquids for now. Continue gentle hydration. Cardiology consult. Labs and medication were reviewed.. Continue same treatment. Continue with symptomatic treatment. Resume home medication. Monitor lytes and vitals. DVT and GI prophylaxis. Further recommendations of the clinical course of the patient DVT prophylaxis: Eliquis GI Prophylaxis: Pepcid Prognosis is guarded
[2018-12-21] MEDS: SODIUM CHLORIDE 0.9% 1,000 ML IV SCH (11:41)
[2018-12-21] MEDS: amLODIPine 5 MG TAB PO SCH (11:41)
--- NOTE | 2018-12-21 12:55 | P.CRDCN ---
History of Present Illness Consult date: 12/21/18 Consult reason: atrial fibrillation History of present illness: This is an 82-year-old female who follows with Dr. Contreras in the office. She has a known history of paroxysmal atrial fibrillation on eliquis, hypertension, she also underwent a cardiac catheterization in 2015 which revealed mild nonobstructive coronary artery disease. She had a recent hospitalization in August of this year which time she was treated for A. fib with RVR. Echocardiogram at that time revealed EF of 55-60%, mild mitral regurgitation, mild tricuspid regurgitation, moderate pulmonary hypertension. Patient states that she woke up at 6 in the morning and was not feeling well she got up to the bathroom and then return to bed. She found that her heart rate was 145 and she got up with her went to the kitchen found that her heart rate then was 136 but her blood pressure dropped down to systolic of 60s. She was feeling lightheaded she states she was very confused but her called EMS and brought her into [facility] emergency center for evaluation. She was found to be in atrial fibrillation heart rate up into the 140s. EKG was a atrial fibrillation at 122. Patient was started on Cardizem drip and resumed on eliquis area and patient is not on any medication for rate control. The patient states that she did have some chest pain at the time in the midsternal radiating to the left arm. She did not have any diaphoresis or nausea. She states she has had cold symptoms since Saturday and started taking a cold medication which she blames for her symptoms brought her into the hospital. She states she had stuffy nose and chest stuffiness. A repeat EKG is a sinus rhythm with ST changes in the lateral leads. Lab work revealed WBC of 8.3, hemoglobin 15.8, BUN 18 creatinine 1.3. TSH 2.580. Troponin 0.032, 1.490, 5.470. Recommend proceeding with heart catheterization which will plan for tomorrow after eliquis is held. Risk, benefits and alternative therapies have been discussed with the patient. Patient is indicating understandings and acceptance of the risk and procedures discussed. Questions have been answered appropriately and she is agreeable to move forward with heart catheterization. Review Of Systems: Constitutional: No fever, no chills, no night sweats. No weight change. Reports fatigue and generalized malaise. No daytime sleepiness. EENT: No headache. No blurred vision or double vision, no loss of vision. No loss of Hearing, no ringing in the ears, no dizziness. Reports nasal drainage or congestion. No epistaxis. No sore throat. Lungs: No shortness of breath, cough, no sputum production. No wheezing. Cardiovascular: Reports chest pain, reports chest congestion, no lower extremity edema. Reports palpitations. No paroxysmal nocturnal dyspnea. No orthopnea. No lightheadedness or dizziness. No syncopal episodes. Abdominal: No abdominal pain. No nausea, vomiting. No diarrhea. No constipation. No bloody or tarry stools.. No loss of appetite. Genitourinary: No dysuria, increased frequency, urgency. No urinary retention. Musculoskeletal: No myalgias. No muscle weakness, no gait dysfunction, no frequent falls. No back pain. No neck pain. Integumentary: No wounds, no lesions. No rash or pruritus. No unusual bruising. No change in hair or nails. Neurologic: No aphasia. No facial droop. No change in mentation. No head injury. No headache. No paralysis. No paresthesia. Psychiatric: No depression. No anxiety. No mood swings. Endocrine: No abnormal blood sugars. No weight change. No excessive sweating or thirst. No cold intolerance. No weight change. Gen: This is an 82-year-old female. Patient is sitting up in bed and appears to be comfortable and in no acute distress. HEENT: Head is atraumatic, normocephalic. Pupils equal, round. Sclerae is anicteric. NECK: Supple. No JVD. No lymphadenopathy. No thyromegaly. LUNGS: Clear to auscultation. No wheezes or rhonchi. No intercostal retractions. HEART: Regular rate and rhythm. No murmur. No chest wall tenderness. ABDOMEN: Soft. Bowel sounds are present. No masses. No tenderness. EXTREMITIES: No pedal edema. No calf tenderness. Dorsalis pedis +2 bilaterally. NEUROLOGICAL: Patient is awake, alert and oriented x3. Cranial nerves 2 through 12 are grossly intact. Assessment: Acute non-ST elevated myocardial infarction Paroxysmal atrial fibrillation presenting with A. fib RVR, currently in a sinus rhythm Hypertension initially hypotensive Recent upper respiratory infection symptoms Plan: Hold eliquis 5 mg twice daily in anticipation of heart catheterization Continue lisinopril hydrochlorothiazide Lopressor 12.5 mg twice daily added to help with blood pressure control Amlodipine 5 mg daily added Obtained 2-D echocardiogram and Doppler study to assess Farhad structure and function Heart catheterization for tomorrow, nothing by mouth after midnight Further recommendations to follow based upon clinical course Thank you kindly for this consultation Nurse practitioner note has been reviewed, I agree with documented findings and plan of care. Patient was seen and examined. Past Medical History Past Medical History: Atrial Fibrillation, Hypertension, Osteoarthritis (OA) Additional Past Medical History / Comment(s): per chest xray copd/cardiomegally, History of Any Multi-Drug Resistant Organisms: None Reported Past Surgical History: Cholecystectomy, Hysterectomy, Orthopedic Surgery Additional Past Surgical History / Comment(s): rt hip replacement,rt cataract,rt carpal tunnel release Past Anesthesia/Blood Transfusion Reactions: No Reported Reaction Past Psychological History: No Psychological Hx Reported Smoking Status: Never smoker Past Alcohol Use History: None Reported Past Drug Use History: None Reported - Past Family History Mother Family Medical History: Osteoarthritis (OA) Additional Family Medical History / Comment(s): djd; at 69 Father Family Medical History: CVA/TIA Additional Family Medical History / Comment(s): age 84 Medications and Allergies Home Medications Medication Instructions Recorded Confirmed Type cloNIDine HCL 0.3 mg PO BID 09/10/18 12/20/18 History Apixaban [Eliquis] 5 mg PO BID #60 tab 09/14/18 12/20/18 Rx Lisinopril-Hctz 20-12.5 mg 1 tab PO BID 12/20/18 12/20/18 History [Zestoretic 20-12.5] Allergies Allergy/AdvReac Type Severity Reaction Status Date / Time No Known Allergies Allergy Verified 12/20/18 11:19 Physical Exam Vitals: Vital Signs Temp Pulse Pulse Resp BP BP BP 12/21/18 08:00 98.3 F 70 18 12/21/18 07:36 71 185/82 12/21/18 04:00 98.4 F 57 L 18 222/100 202/86 12/21/18 00:00 98.6 F 50 L 18 148/68 12/20/18 20:00 98.4 F 56 L 18 144/68 12/20/18 16:00 98.4 F 77 16 135/55 12/20/18 14:34 97.9 F 131 H 16 117/86 12/20/18 13:41 131 H 16 117/86 12/20/18 13:30 131 H 16 117/86 12/20/18 13:00 135 H 9 L 105/93 12/20/18 12:59 115 H 18 105/93 12/20/18 12:30 142 H 20 92/65 12/20/18 12:00 118 H 16 92/65 12/20/18 11:30 126 H 17 92/65 12/20/18 11:00 121 H 17 92/65 12/20/18 10:46 12/20/18 10:44 97.9 F 132 H 22 92/65 Pulse Ox 12/21/18 08:00 95 12/21/18 07:36 12/21/18 04:00 95 12/21/18 00:00 96 12/20/18 20:00 96 12/20/18 16:00 12/20/18 14:34 99 12/20/18 13:41 99 12/20/18 13:30 99 12/20/18 13:00 99 12/20/18 12:59 99 12/20/18 12:30 97 12/20/18 12:00 93 L 12/20/18 11:30 97 12/20/18 11:00 95 12/20/18 10:46 95 12/20/18 10:44 96 Intake and Output 12/20/18 12/21/18 12/21/18 22:59 06:59 14:59 Intake Total 276.667 Balance 276.667 Intake: Intake, IV Titration 36.667 Amount Diltiazem 125 mg In 36.667 Sodium Chloride 0.9% 100 ml @ 5 MG/HR 5 mls/hr IV .Q24H [facility] Rx#:[id number] Oral 240 Other: Voiding Method Toilet Toilet Toilet # Voids 2 1 Weight 72.5 kg Results 12/21/18 06:20 12/21/18 06:20 Cardiac Enzymes 12/20/18 12/20/18 12/20/18 Range/Units 11:04 11:04 17:18 AST 31 (14-36) U/L Troponin I 0.032 1.490 H* (0.000-0.034) ng/mL 12/20/18 Range/Units 22:45 AST (14-36) U/L Troponin I 5.470 H* (0.000-0.034) ng/mL Coagulation 12/20/18 Range/Units 11:04 PT 10.3 (9.0-12.0) sec APTT 25.3 (22.0-30.0) sec Lipids 12/21/18 Range/Units 06:20 Triglycerides 175 H (<150) mg/dL Cholesterol 213 H (<200) mg/dL HDL Cholesterol 31 L (40-60) mg/dL CBC 12/20/18 12/21/18 Range/Units 11:04 06:20 WBC 8.3 10.1 (3.8-10.6) k/uL RBC 5.51 H 5.09 (3.80-5.40) m/uL Hgb 15.8 14.7 (11.4-16.0) gm/dL Hct 49.6 H 45.5 (34.0-46.0) % Plt Count 199 172 (150-450) k/uL Comprehensive Metabolic Panel 12/20/18 12/21/18 Range/Units 11:04 06:20 Sodium 139 140 (137-145) mmol/L Potassium 4.3 3.6 (3.5-5.1) mmol/L Chloride 103 106 (98-107) mmol/L Carbon Dioxide 29 25 (22-30) mmol/L BUN 18 H 19 H (7-17) mg/dL Creatinine 1.30 H 1.01 (0.52-1.04) mg/dL Glucose 181 H 133 H (74-99) mg/dL Calcium 9.3 8.8 (8.4-10.2) mg/dL AST 31 (14-36) U/L ALT 28 (9-52) U/L Alkaline Phosphatase 80 (38-126) U/L Total Protein 6.8 (6.3-8.2) g/dL Albumin 3.6 (3.5-5.0) g/dL Current Medications Generic Name Dose Route Start Last Admin Trade Name Freq PRN Reason Stop Dose Admin Apixaban 5 mg 12/20/18 21:00 12/21/18 08:12 Eliquis PO 5 mg BID WILFRED Administration Aspirin 325 mg 12/21/18 09:00 12/21/18 08:12 Aspirin PO 325 mg DAILY WILFRED Administration Lisinopril/HCTZ 1 each 12/20/18 21:00 12/21/18 05:55 Zestoretic 20-12.5 PO 1 each BID WILFRED Administration Diltiazem HCl 125 mg/ Sodium 125 mls @ 5 mls/hr 12/20/18 11:45 12/21/18 08:25 Chloride IV Not Given .Q24H WILFRED 5 MG/HR Sodium Chloride 1,000 mls @ 75 mls/hr 12/20/18 12:30 12/20/18 20:15 Saline 0.9% IV Not Given .[id number] [facility] Nitroglycerin 0.4 mg 12/20/18 12:26 Nitrostat SUBLINGUAL Q5M PRN Chest Pain Intake and Output 12/20/18 12/21/18 12/21/18 22:59 06:59 14:59 Intake Total 276.667 Balance 276.667 Intake: Intake, IV Titration 36.667 Amount Diltiazem 125 mg In 36.667 Sodium Chloride 0.9% 100 ml @ 5 MG/HR 5 mls/hr IV .Q24H [facility] Rx#:[id number] Oral 240 Other: Voiding Method Toilet Toilet Toilet # Voids 2 1 Weight 72.5 kg 12/21/18 06:20 12/21/18 06:20
[2018-12-21] MEDS: METOPROLOL TARTRATE 12.5 MG TAB PO SCH ×2 (13:21→21:02)
[2018-12-21] MEDS ORDERED: amLODIPine 5 MG TAB PO STA (19:38)
[2018-12-21] MEDS ORDERED: METOPROLOL TARTRATE 12.5 MG TAB PO STA (19:39)
[2018-12-21] MEDS: hydrALAZINE HCL 20 MG/ML 1 ML VIAL IVP PRN (22:48)
[2018-12-22] MEDS ORDERED: DILTIAZEM DRIP BOLUS FROM BAG 1 MG SOLN IV ONE (01:18)
[2018-12-22] MEDS ORDERED: LABETALOL 5 MG/ML VIAL MDV IVP STA (01:18)
[2018-12-22] MEDS ORDERED: DILTIAZEM 125 MG in SODIUM CHLORIDE 0.9% 100 ML IV SCH (01:30)
[2018-12-22] MEDS ORDERED: ACETAMINOPHEN TAB 325 MG TAB PO PRN (01:43)
[2018-12-22] MEDS: METOPROLOL TARTRATE 12.5 MG TAB PO SCH (05:06)
[2018-12-22] MEDS: amLODIPine 5 MG TAB PO SCH (05:06)
[2018-12-22] MEDS ORDERED: ATORVASTATIN 80 MG TAB PO ONE (06:00)
[2018-12-22] MEDS ORDERED: SODIUM CHLORIDE 0.9% 1,000 ML in EMPTY BAG 1 BAG IV ONE (06:00)
[2018-12-22] MEDS ORDERED: ASPIRIN 325 MG TAB PO ONE (06:00)
[2018-12-22 06:42] LABS: African American GFR (CKD) >90 (>60 ml/min/1.73 sqM); Anion Gap 13 mmol/L; Blood Urea Nitrogen 14 mg/dL (7-17); Calcium 9.5 mg/dL (8.4-10.2); Carbon Dioxide 21 mmol/L (22-30); Chloride 104 mmol/L (98-107); Glucose 171 mg/dL (74-99); Magnesium 1.5 mg/dL (1.6-2.3); Potassium 3.5 mmol/L (3.5-5.1); Sodium 138 mmol/L (137-145)
[2018-12-22] MEDS ORDERED: ASPIRIN 81 MG PO SCH (09:00)
[2018-12-22] MEDS ORDERED: POTASSIUM CHLORIDE ER 20 MEQ TAB.ER PO STA (09:05)
[2018-12-22] MEDS ORDERED: Magnesium Replacement Protocol 1 EACH MISC MISCELLANE PRN (09:05)
--- NOTE | 2018-12-22 09:06 | P.PN ---
Subjective This is a pleasant 82 years old female with past medical history of atrial fibrillation, hypertension. He presents because of hypotension. Since this morning she started having some central and epigastric chest pain radiating to the left didn't progressively severe, associated with some palpitation, dyspnea and dizziness. She checked her blood pressure which is usually she does every day and found it to be systolic BP at 60 so she decided to come to the hospital. On admission her heart rate was tachycardic take his up to 1 35/m. First of Vitas looks stable although blood pressure was on the low side currently is better as 117/86. Labs include a CBC, BMP and liver enzymes and INR were unremarkable except for slightly elevated creatinine and 1.3, compared to baseline of 1.1. EKG showing atrial fibrillation with RVR on 122. Chest x-ray: No acute cardiopulmonary process. On admission patient got aspirin, some IV fluids and started on Cardizem drip, currently she is converted to sinus rhythm. Her symptoms of chest pain, dyspnea or palpitation and dizziness are resolved and she thinks back to her usual state 12/21/2018 Patient today she feels better, her chest pain or dyspnea or for soft and patient is back to baseline and no more dizziness or palpitation. She still on normal saline at 75 mL/h recontoured to 50 L/h. Patient is hemodynamically stable labs including CBC and BMP were unremarkable, troponin went up from 0.03 to 1.4 and 5.4. Cartilage team are planning to do cardiac cath for her. Cardiology team are following the case closely 12/22/2018 Patient is fully awake and oriented. She denies chest pain or dyspnea today. No dizziness or palpitation. She remains on Cardizem drip and 10, heart rate 101-132. Blood pressure 131/78. Labs from today showing improved creatinine to 0.7. Potassium was low normal at 3.5 with low magnesium was 1.5 which is going to be replaced.. Patient is planned to go for cardiac cath today. Her normal saline was discontinued yesterday for high blood pressure Objective - Vital Signs Vital signs: Vital Signs Temp 98 F 12/22/18 07:33 Pulse 101 H 12/22/18 07:33 Resp 18 12/22/18 07:33 BP 131/78 12/22/18 07:33 Pulse Ox 97 12/22/18 07:33 Intake & Output 12/21/18 12/22/18 12/22/18 18:59 06:59 18:59 Intake Total 1036 Output Total 1200 Balance 1036 -1200 Weight 71.6 kg Intake: Intake, IV Titration 600 Amount Sodium Chloride 0.9% 1, 600 000 ml @ 50 mls/hr IV . Q20H [facility] Rx#:[id number] Oral 436 Output: Urine 1200 Other: Voiding Method Toilet # Voids 1 - Exam GENERAL: The patient is alert and oriented x3, not in any acute distress. Well developed, well nourished. HEENT: Pupils are round and equally reacting to light. EOMI. No scleral icterus. No conjunctival pallor. Normocephalic, atraumatic. No pharyngeal erythema. No thyromegaly. CARDIOVASCULAR: S1 and S2 present. No murmurs, rubs, or gallops. PULMONARY: Chest is clear to auscultation, no wheezing or crackles. ABDOMEN: Soft, nontender, nondistended, normoactive bowel sounds. No palpable organomegaly. MUSCULOSKELETAL: No joint swelling or deformity. EXTREMITIES: No cyanosis, clubbing, or pedal edema. NEUROLOGICAL: Gross neurological examination did not reveal any focal deficits. SKIN: No rashes. No petechiae - Labs CBC & Chem 7: 12/21/18 06:20 12/22/18 06:18 Labs: Abnormal Lab Results - Last 24 Hours (Table) 12/22/18 Range/Units 06:18 Carbon Dioxide 21 L (22-30) mmol/L Glucose 171 H (74-99) mg/dL Magnesium 1.5 L (1.6-2.3) mg/dL Assessment and Plan Assessment: A. fib with RVR Elevated troponin, possible non-STEMI. Patient is going for cardiac cath today. Acute kidney injury, improved Essential hypertension Plan: This is a pleasant 82 years old female who presents with A. fib and RVR. Continue with the Eliquis. Continue with Cardizem drip and switched to oral medication, however her Cardizem drip is on hold currently because of bradycardia. Cardiology team are planning for cardiac cath for possible non- STEMI, however patient is already on liquids for now. Continue gentle hydration. Cardiology consult. Labs and medication were reviewed.. Continue same treatment. Continue with symptomatic treatment. Resume home medication. Monitor lytes and vitals. DVT and GI prophylaxis. Further recommendations of the clinical course of the patient DVT prophylaxis: Eliquis GI Prophylaxis: Pepcid Prognosis is guarded
[2018-12-22] MEDS: LISINOPRIL-HCTZ 20-12.5 MG 1 EACH TAB PO SCH ×2 (09:15→19:36)
[2018-12-22] MEDS ORDERED: fentaNYL (PF) 50 MCG/ML 2 ML AMP ONE (09:35)
[2018-12-22] MEDS ORDERED: LIDOCAINE 1% INJ 10MG/ML (20 ML MDV) ONE ×2 (09:35→10:53)
[2018-12-22] MEDS ORDERED: fentaNYL (PF) 50 MCG/ML 2 ML AMP IV ONE (10:00)
[2018-12-22] MEDS ORDERED: MIDAZOLAM 2 MG/2 ML VIAL IV ONE (10:00)
[2018-12-22] MEDS ORDERED: LIDOCAINE 1% INJ 10MG/ML (20 ML MDV) SQ ONE (10:03)
[2018-12-22] MEDS ORDERED: IV FLUID CONTINUATION 400 ML IV ONE (10:05)
[2018-12-22] MEDS ORDERED: BIVALIRUDIN 250 MG in SODIUM CHLORIDE 0.9% 50 ML IV ONE (10:37)
[2018-12-22] MEDS ORDERED: BIVALIRUDIN BOLUS 250 MG/50 ML IV ONE (10:37)
[2018-12-22] MEDS ORDERED: IOPAMIDOL-370 125ML BTL INJ ONE (10:43)
[2018-12-22] MEDS ORDERED: CLOPIDOGREL 75 MG TAB ONE (10:48)
[2018-12-22] MEDS ORDERED: NITROGLYCERIN 1000MCG/10ML SYRINGE INTRACORON ONE (10:48)
[2018-12-22] MEDS ORDERED: HYDROmorphone 1 MG/ML 1 ML SYRINGE ONE (10:53)
[2018-12-22] MEDS ORDERED: HYDROmorphone 1 MG/ML 1 ML SYRINGE IVP ONE (10:57)
[2018-12-22] MEDS ORDERED: IOPAMIDOL-370 100ML BTL INJ ONE (10:57)
[2018-12-22] MEDS ORDERED: ZOLPIDEM 5 MG TAB PO PRN (11:08)
[2018-12-22] MEDS ORDERED: NITROGLYCERIN SL TABS 0.4 MG TAB SUBLINGUAL PRN (11:08)
[2018-12-22] MEDS ORDERED: RX INFO: IV CONTRAST WAS GIVEN 1 EACH MISC MISCELLANE PRN (11:08)
[2018-12-22] MEDS ORDERED: ATROPINE SULFATE 0.1 MG/ML 10ML SYRINGE IV PRN (11:08)
[2018-12-22] MEDS ORDERED: MAG HYDROX/AL HYDROX/SIMETH 30 ML CUP PO PRN (11:08)
[2018-12-22] MEDS ORDERED: CLOPIDOGREL 75 MG TAB PO ONE (11:10)
--- NOTE | 2018-12-22 11:19 | CC ---
CARDIAC CATHETERIZATION REPORT INDICATION: Non ST-segment elevation IL. PROCEDURE NOTE: After obtaining informed consent, left heart catheterization and coronary angiogram were performed via the right femoral artery using standard Deo catheters. Patient tolerated the procedure well without any obvious immediate complications. Patient received moderate conscious sedation and total sedation time was 19 minutes. FINDINGS: 1. HEMODYNAMICS: Left ventricular end-diastolic pressure is 20 mm. There is no significant gradient across the aortic valve. 2. LEFT VENTRICULOGRAM: Left ventriculogram is not performed. 3. ANGIOGRAPHIC DATA: LEFT MAIN CORONARY ARTERY: Left main coronary artery is a normal-sized vessel and is free of stenosis. Divides into left anterior descending coronary artery and circumflex coronary artery. Circumflex coronary artery gives off 2 large caliber OM branches. The first OM branch has an ostial stenosis that seems to be around 70%. LAD: In the mid LAD there is an area of plaque rupture and a 70%-80% blockage. Right coronary artery is a large dominant vessel that shows mild nonobstructive CAD. CONCLUSION: 1. Noted 80% stenosis involving mid left anterior descending artery. 2. Ostial stenosis involving the first OM branch. PLAN: I am going to have Dr. Artem Bravo, the on-call mechanical systems designer review the angiograms and advise on LAD angioplasty. The patient came to the semiconductor lab technician in atrial fibrillation and she converted to sinus rhythm. MMODL / IJN: [id number] /
--- NOTE | 2018-12-22 11:25 | LTR ---
DATE OF SERVICE: 12/22/2018 RE: Lexie Villalobos Dear Mainor; I performed cardiac catheterization on Lexie Villalobos, a detailed catheterization note is enclosed for your records. This pleasant 82-year-old lady presented to the hospital with an acute non ST-segment elevation AL and a cardiac catheterization I performed has significant stenosis involving mid LAD, and will undergo angioplasty of the same. Thank you for allowing me to participate in this pleasant lady. Sincerely, MD JOSE JUAN Gotti / GEO: [id number] /
[2018-12-22] MEDS: SODIUM CHLORIDE 0.9% 1,000 ML IV SCH ×2 (11:32→22:06)
--- NOTE | 2018-12-22 12:01 | ECHOF ---
Referral Reason:increased trop MEASUREMENTS -------- HEIGHT: 157.5 cm WEIGHT: 73.0 kg BP: RVIDd: 2.7 cm (< 3.3) IVSd: 1.5 cm (0.6 - 1.1) LVIDd: 4.1 cm (3.9 - 5.3) LVPWd: 1.4 cm (0.6 - 1.1) IVSs: 2.0 cm LVIDs: 3.2 cm LVPWs: 1.4 cm LA Diam: 4.0 cm (2.7 - 3.8) LAESV Index (A-L): 38.84 ml/m Ao Diam: 2.3 cm (2.0 - 3.7) AV Cusp: 1.8 cm (1.5 - 2.6) LA Diam: 3.7 cm (2.7 - 3.8) MV EXCURSION: 20.824 mm (> 18.000) MV EF SLOPE: 87 mm/s (70 - 150) EPSS: 0.3 cm MV E Abdirahman: 0.80 m/s MV DecT: 175 ms MV A Abdirahman: 0.75 m/s MV E/A Ratio: 1.06 RAP: 5.00 mmHg RVSP: 28.02 mmHg FINDINGS -------- Sinus rhythm. This was a technically adequate study. The left ventricular size is normal. There is moderate concentric left ventricular hypertrophy. O verall left ventricular systolic function is normal with, an EF between 55 - 60 %. The right ventricle is normal in size. The left atrium is moderately dilated. LA is moderately dilated 34-39 ml/m2 The right atrial size is normal. There is mild aortic valve sclerosis. There is no evidence of aortic regurgitation. Mild mitral annular calcification present. Mild mitral regurgitation is present. Mild tricuspid regurgitation present. Right ventricular systolic pressure is normal at < 35 mmHg. There is no evidence of pulmonary hypertension. There is no pulmonic regurgitation present. The aortic root size is normal. There is no pericardial effusion. CONCLUSIONS -------- 1. Sinus rhythm. 2. This was a technically adequate study. 3. The left ventricular size is normal. 4. There is moderate concentric left ventricular hypertrophy. 5. Overall left ventricular systolic function is normal with, an EF between 55 - 60 %. 6. The right ventricle is normal in size. 7. The left atrium is moderately dilated. 8. LA is moderately dilated 34-39 ml/m2 9. The right atrial size is normal. 10. There is mild aortic valve sclerosis. 11. Mild mitral annular calcification present. 12. Mild mitral regurgitation is present. 13. Right ventricular systolic pressure is normal at < 35 mmHg. 14. There is no evidence of pulmonary hypertension. 15. There is no pulmonic regurgitation present. 16. The aortic root size is normal. 17. There is no pericardial effusion. MOTORMAN/WOMAN: Dana Mckeon RDCS
--- NOTE | 2018-12-22 12:10 | CONS ---
CONSULTATION This is an 82-year-old lady with a history of hypertension and paroxysmal atrial fibrillation who sees Dr. Contreras in the outpatient setting. She came into the hospital with atrial fib, rapid ventricular rate, had chest pain and troponin elevation suggestive of non-ST elevation FL with a right bundle branch block pattern. After controlling the rate, she underwent cardiac cath performed by Dr. Contreras, which revealed an eccentric mid LAD lesion of about 70% best seen in the CANDIE cranial projection. Multiple angiograms were obtained and this lesion was focal, eccentric and very significant at more than 70%-80%. She was therefore advised PCI that was performed in the same setting. PROCEDURE NOTE: Existing 6-Polish introducer in the right femoral artery was used to perform procedure. Angiomax bolus and infusion were given as per protocol. A JL3.5 curved guide catheter was used to cannulate the left coronary artery and a run-through wire was used to cross the lesion. Without predilatation, a 12 mm long 2.75 caliber Xience stent was deployed at 12 atmospheres. Patient had chest pain and EKG changes in the precordial leads with ST elevation. Excellent angiographic result without complication was achieved. The sheath was taken out and a Perclose device used to secure hemostasis and she was sent to the room in stable condition. Excellent angiographic result without complication was achieved. Mid LAD was stented with a 2.5 cm, 12 mm long Xience drug-eluting stent. Results were discussed with the patient but no family was available. She was sent to the room in stable condition with good hemostasis in the right groin. Moderate Conscious sedation : 25 min. MMODL / IJN: [id number] / [facility] NETWORKSuzanne
[2018-12-22 14:07] VITALS: BMI 28.8
[2018-12-22] MEDS: ATORVASTATIN 80 MG TAB PO SCH (19:36)
[2018-12-22] MEDS ORDERED: METOPROLOL TARTRATE 25 MG TAB PO SCH (21:00)
[2018-12-22] MEDS: hydrALAZINE HCL 20 MG/ML 1 ML VIAL IVP PRN (23:17)
[2018-12-23] MEDS: ONDANSETRON 4 MG/2 ML VIAL IVP PRN ×3 (02:00→14:46)
[2018-12-23 06:23] LABS: Basophils % (A) 0 %; Eosinophils % (A) 0 %; HGB 16.4 gm/dL (11.4-16.0); Lymphocytes # (A) 1.7 k/uL (1.0-4.8); Lymphocytes % (A) 13 %; MCH 28.9 pg (25.0-35.0); MCHC 32.2 g/dL (31.0-37.0); MCV 89.6 fL (80.0-100.0); Mean Platelet Volume 7.4; Monocytes # (A) 0.5 k/uL (0-1.0); Monocytes % (A) 4 %; Neutrophils # (A) 10.5 k/uL (1.3-7.7); Neutrophils % (A) 81 %; Platelet Count 211 k/uL (150-450); RBC 5.69 m/uL (3.80-5.40); WBC 12.9 k/uL (3.8-10.6)
[2018-12-23 06:30] LABS: Calcium 9.8 mg/dL (8.4-10.2); Magnesium 1.8 mg/dL (1.6-2.3); Potassium 3.9 mmol/L (3.5-5.1)
[2018-12-23] MEDS ORDERED: PANTOPRAZOLE 40 MG TABLET PO SCH (10:15)
--- NOTE | 2018-12-23 12:12 | P.PN ---
Subjective Progress Note Date: 12/23/18 This is an 82-year-old female who follows with Dr. Contreras in the office. She has a known history of paroxysmal atrial fibrillation on eliquis, hypertension, she also underwent a cardiac catheterization in 2016 which revealed mild nonobstructive coronary artery disease. She had a recent hospital ization in August of this year which time she was treated for A. fib with RVR. Echocardiogram at that time revealed EF of 55-60%, mild mitral regurgitation, mild tricuspid regurgitation, moderate pulmonary hypertension. Patient states that she woke up at 6 in the morning and was not feeling well she got up to the bathroom and then return to bed. She found that her heart rate was 145 and she got up with her went to the kitchen found that her heart rate then was 136 but her blood pressure dropped down to systolic of 60s. She was feeling lightheaded she states she was very confused but her called EMS and brought her into [facility] emergency center for evaluation. She was found to be in atrial fibrillation heart rate up into the 140s. EKG was a atrial fibrillation at 122. Patient was started on Cardizem drip and resumed on eliquis area and patient is not on any medication for rate control. The patient states that she did have some chest pain at the time in the midsternal radiating to the left arm. She did not have any diaphoresis or nausea. She s tates she has had cold symptoms since Saturday and started taking a cold medication which she blames for her symptoms brought her into the hospital. She states she had stuffy nose and chest stuffiness. A repeat EKG is a sinus rhythm with ST changes in the lateral leads. Lab work revealed WBC of 8.3, hemoglobin 15.8, BUN 18 creatinine 1.3. TSH 2.580. Troponin 0.032, 1.490, 5.470. 12/23/2018 Patient was taken to the cardiac catheterization lab yesterday where she underwent angioplasty and stenting of the left anterior descending artery. She was seen and examined this morning, complaints of significant nausea, had a few episodes of vomiting as well. Complaints of a heartburn sensation, seems to bother her mostly after she's receives her pills. Blood pressure 174/80 with a heart rate in the 90s, 98% on room air. White blood cell count 12.9, hemoglobin 16.4, platelet count 211. Sodium 140, potassium 3.9, BUN 20, creatinine 0.9, magnesium 1.8. Objective - Vital Signs Vital signs: Vital Signs Temp 98.6 F 12/23/18 08:00 Pulse 67 12/23/18 08:00 Resp 20 12/23/18 08:00 BP 186/81 12/23/18 08:00 Pulse Ox 95 12/23/18 08:00 Intake & Output 12/22/18 12/23/18 12/23/18 18:59 06:59 18:59 Intake Total 441 Balance 441 Weight 71.6 kg 67 kg Intake: IV 113 Intake, IV Titration 150 Amount Sodium Chloride 0.9% 1, 150 000 ml @ 75 mls/hr IV . [id number] WILFRED Rx#:[id number] Oral 178 Other: Voiding Method Toilet # Voids 1 1 - Exam 82-year-old female in no acute distress at the time of my examination HEENT: Head is atraumatic, normocephalic. Pupils equal, round. Sclerae is ani cteric. NECK: Supple. No JVD. No lymphadenopathy. No thyromegaly. LUNGS: Clear to auscultation. No wheezes or rhonchi. No intercostal retractions. HEART: Regular rate and rhythm. No murmur. No chest wall tenderness. ABDOMEN: Soft. Bowel sounds are present. No masses. No tenderness. EXTREMITIES: No pedal edema. No calf tenderness. Dorsalis pedis +2 bilaterally. Right groin is soft, no evidence of any hematoma. NEUROLOGICAL: Patient is awake, alert and oriented x3. Cranial nerves 2 through 12 are grossly intact. - Labs CBC & Chem 7: 12/23/18 05:34 12/23/18 05:34 Labs: Abnormal Lab Results - Last 24 Hours (Table) 12/23/18 12/23/18 Range/Units 05:34 05:34 WBC 12.9 H (3.8-10.6) k/uL RBC 5.69 H (3.80-5.40) m/uL Hgb 16.4 H (11.4-16.0) gm/dL Hct 51.0 H (34.0-46.0) % Neutrophils # 10.5 H (1.3-7.7) k/uL BUN 20 H (7-17) mg/dL Glucose 170 H (74-99) mg/dL Assessment and Plan Plan: Assessment and plan #1 acute non-ST elevation myocardial infarction, status post angioplasty and stenting of the LAD #2 paroxysmal atrial fibrillation, remaining in normal sinus #3 hypertension, uncontrolled #4 hyperlipidemia #5 recent upper respiratory infection Plan We will give the patient some Zofran, start the patient also on some Nexium today. Increase Norvasc to 10 mg daily, increase metoprolol to 3 times a day, for more optimal blood pressure control. Patient is also on a baby aspirin along with Plavix, we will resume the Eliquis 2-1/2 mg one tablet by mouth twice a day, after one month the aspirin will then be discontinued. Discontinue to monitor the patient today for symptoms of nausea and vomiting, with associated accelerated hypertension.. Plan for possible discharge home in 24 hours if stable. DNP note has been reviewed, I agree with a documented findings and plan of care. Patient was seen and examined.
[2018-12-23] MEDS: amLODIPine 10 MG TAB PO SCH (13:02)
[2018-12-23] MEDS: ASPIRIN 81 MG PO SCH (13:02)
[2018-12-23] MEDS: CLOPIDOGREL 75 MG TAB PO SCH (13:02)
[2018-12-23] MEDS: APIXABAN 2.5 MG TABLET PO SCH ×2 (13:03→19:39)
[2018-12-23] MEDS: LISINOPRIL-HCTZ 20-12.5 MG 1 EACH TAB PO SCH ×2 (13:03→19:39)
[2018-12-23] MEDS: METOPROLOL TARTRATE 25 MG TAB PO SCH ×3 (13:03→19:39)
[2018-12-23] MEDS: hydrALAZINE HCL 20 MG/ML 1 ML VIAL IVP PRN (13:05)
[2018-12-23] MEDS ORDERED: METOCLOPRAMIDE 5 MG/ML 2 ML VIAL IVP PRN (15:23)
[2018-12-23] MEDS: PANTOPRAZOLE 40 MG/10 ML VIAL IVP SCH ×2 (15:35→19:40)
[2018-12-23] MEDS ORDERED: cloNIDine HCL 0.1 MG TAB PO PRN (18:12)
[2018-12-23] MEDS: ATORVASTATIN 80 MG TAB PO SCH (19:39)
[2018-12-23] MEDS ORDERED: CLONIDINE HCL 0.2 MG PO SCH (21:00)
--- NOTE | 2018-12-23 21:16 | PN ---
PROGRESS NOTE DATE OF SERVICE: 12/23/2018 This 82-year-old woman who was admitted with atrial ablation, rapid ventricular rate also had elevated troponin. The patient is vomiting today. The troponins has gone up to 5.740. Cardiology has seen the patient and performed angioplasty and stenting of the LAD. The patient being closely monitored at this time. PAST MEDICAL HISTORY: Reviewed. REVIEW OF SYSTEMS: CARDIOVASCULAR SYSTEM: As mentioned earlier. RESPIRATION: As mentioned earlier. GI as mentioned earlier. : No dysuria. CENTRAL NERVOUS SYSTEM: No numbness, weakness. CURRENT MEDICATIONS: Reviewed and include: 1. Tylenol p.r.n. 2. Maalox 30 mL q.4h. 3. Xanax 0.5 q.6h p.r.n. 4. Norvasc 10 mg. 5. Eliquis 2.5 mg b.i.d. 6. Aspirin. 7. Lipitor 80 mg. 8. Plavix 75 mg. 9. Zestoretic 20/12.5 mg daily. 10.Reglan. 11.Lopressor. 12.Nitrostat. 13.Zofran. 14.Protonix. 15.Ambien. PHYSICAL EXAM: Patient is alert, oriented x3. Pulse 73, blood pressure 163/99, respiration 18, temperature 98.7, pulse ox 97% on room air. HEENT: Conjunctivae normal. Oral mucosa moist. NECK is no jugular venous distention. No carotid bruit. No lymph node enlargement. Cardiovascular system: S1, S2 muffled. No S3, no S4. RESPIRATION: Breath sounds diminished in the bases. A few scattered rhonchi. No crackles. ABDOMEN: Soft. Mild diffuse discomfort. No guarding. No rigidity. No mass palpable. LEGS: No edema. No swelling. NERVOUS SYSTEM: Higher functions as mentioned earlier. Moves all four limbs. No focal deficits. LYMPHATICS: No lymph nodes palpable in the neck, axillae or groin. SKIN: No ulcers. No rashes. No bleeding. JOINTS: No active deforming arthropathy. LABS: At this time shows WBC 12.2, hemoglobin 16.4, sodium 140, potassium 3.9. The cholesterol is noted. Troponins noted. ASSESSMENT: 1. Acute non ST segment elevation myocardial infarction status post cardiac catheterization, angioplasty and stenting of the left anterior descending coronary artery. 2. Atrial fibrillation paroxysmal with rapid ventricular rate. 3. Vomiting, possible acute gastritis. 4. Hypertension, uncontrolled. 5. Hyperlipidemia. 6. Recent upper respiratory infection. 7. Acute kidney injury present on admission. 8. Increased random blood sugar. 9. Hyperlipidemia. 10.Increased WBC. 11.History of degenerative joint disease. 12.History of cholecystectomy. 13.FULL CODE. RECOMMENDATIONS AND DISCUSSION: This 82-year-old woman who presented with multiple complex medical issues, we will monitor the patient closely, continue the current medications, management and symptomatic treatment. Continue with antiplatelet agents. Otherwise symptomatic treatment with IV Protonix, n.p.o. except medications. I would also recommend Zofran, Reglan p.r.n. We will closely monitor. P.r.n. hydralazine also may be used. Overall prognosis extremely guarded because of the multiple complex medical issues. Further recommendations to follow. A copy of dictating being forwarded Dr. Diehl who is the primary care physician. Once again the prognosis is guarded. See orders for details. MMODL / IJN: [id number] /
[2018-12-23 21:27] LABS: Appearance,Urine Clear (Clear); Bilirubin,Urine Negative (Negative); Blood,Urine Trace (Negative); Color,Urine Yellow; Glucose,Urine (UA) 1+ (Negative); Leukocyte Esterase,Urine Negative (Negative); Mucus,Urine Rare /hpf; Nitrite,Urine Negative (Negative); PH, Urine 5.5 (5.0-8.0); Protein,Urine 1+ (Negative); RBC,Urine 4 /hpf (0-5); Squamous Epithelial Cell,Urine <1 /hpf (0-4); Urobilinogen,Urine <2.0 mg/dL (<2.0); WBC,Urine 4 /hpf (0-5)
[2018-12-23 21:34] LABS: Ketones,Urine 2+ (Negative)
[2018-12-23] MEDS ORDERED: POTASSIUM CHLORIDE IV SCH ×2 (22:00)
[2018-12-23] MEDS ORDERED: D5-0.45% NACL WITH KCL 20MEQ/L 1,000 ML IV SCH (22:00)
[2018-12-23] MEDS ORDERED: DEXTROSE IV SCH ×2 (22:00)
[2018-12-23] MEDS ORDERED: NACL IV SCH ×2 (22:00)
[2018-12-23] MEDS: cloNIDine HCL 0.2 MG TAB PO SCH (22:21)
[2018-12-24 06:34] LABS: Basophils # (A) 0.1 k/uL (0-0.2); Basophils % (A) 0 %; Eosinophils % (A) 0 %; HCT 49.3 % (34.0-46.0); HGB 15.7 gm/dL (11.4-16.0); Lymphocytes % (A) 12 %; MCHC 31.8 g/dL (31.0-37.0); MCV 88.1 fL (80.0-100.0); Mean Platelet Volume 7.8; Monocytes # (A) 1.2 k/uL (0-1.0); Monocytes % (A) 8 %; Neutrophils # (A) 12.3 k/uL (1.3-7.7); Neutrophils % (A) 78 %; Platelet Count 235 k/uL (150-450); RDW 15.3 % (11.5-15.5); WBC 15.9 k/uL (3.8-10.6)
[2018-12-24 06:53] LABS: Calcium 9.7 mg/dL (8.4-10.2); Potassium 3.8 mmol/L (3.5-5.1)
[2018-12-24] MEDS: amLODIPine 10 MG TAB PO SCH (08:04)
[2018-12-24] MEDS: cloNIDine HCL 0.2 MG TAB PO SCH (08:04)
[2018-12-24] MEDS: APIXABAN 2.5 MG TABLET PO SCH (08:04)
[2018-12-24] MEDS: CLOPIDOGREL 75 MG TAB PO SCH (08:04)
[2018-12-24] MEDS: LISINOPRIL-HCTZ 20-12.5 MG 1 EACH TAB PO SCH (08:04)
[2018-12-24] MEDS: METOPROLOL TARTRATE 25 MG TAB PO SCH (08:04)
[2018-12-24] MEDS: ASPIRIN 81 MG PO SCH (08:04)
[2018-12-24] MEDS: hydrALAZINE HCL 20 MG/ML 1 ML VIAL IVP PRN (08:05)
[2018-12-24] MEDS: PANTOPRAZOLE 40 MG/10 ML VIAL IVP SCH (08:05)
[2018-12-24] MEDS ORDERED: METOPROLOL TARTRATE 25 MG TAB PO STA (11:34)
[2018-12-24] MEDS ORDERED: METOPROLOL TARTRATE 50 MG TAB PO SCH (11:45)
--- NOTE | 2018-12-24 11:46 | P.PN ---
Subjective Progress Note Date: 12/24/18 This is an 82-year-old female who follows with Dr. Contreras in the office. She has a known history of paroxysmal atrial fibrillation on eliquis, hypertension, she also underwent a cardiac catheterization in 2016 which revealed mild nonobstructive coronary artery disease. She had a recent hospital ization in August of this year which time she was treated for A. fib with RVR. Echocardiogram at that time revealed EF of 55-60%, mild mitral regurgitation, mild tricuspid regurgitation, moderate pulmonary hypertension. Patient states that she woke up at 6 in the morning and was not feeling well she got up to the bathroom and then return to bed. She found that her heart rate was 145 and she got up with her went to the kitchen found that her heart rate then was 136 but her blood pressure dropped down to systolic of 60s. She was feeling lightheaded she states she was very confused but her called EMS and brought her into [facility] emergency center for evaluation. She was found to be in atrial fibrillation heart rate up into the 140s. EKG was a atrial fibrillation at 122. Patient was started on Cardizem drip and resumed on eliquis area and patient is not on any medication for rate control. The patient states that she did have some chest pain at the time in the midsternal radiating to the left arm. She did not have any diaphoresis or nausea. She s tates she has had cold symptoms since Saturday and started taking a cold medication which she blames for her symptoms brought her into the hospital. She states she had stuffy nose and chest stuffiness. A repeat EKG is a sinus rhythm with ST changes in the lateral leads. Lab work revealed WBC of 8.3, hemoglobin 15.8, BUN 18 creatinine 1.3. TSH 2.580. Troponin 0.032, 1.490, 5.470. 12/23/2018 Patient was taken to the cardiac catheterization lab yesterday where she underwent angioplasty and stenting of the left anterior descending artery. She was seen and examined this morning, complaints of significant nausea, had a few episodes of vomiting as well. Complaints of a heartburn sensation, seems to bother her mostly after she's receives her pills. Blood pressure 174/80 with a heart rate in the 90s, 98% on room air. White blood cell count 12.9, hemoglobin 16.4, platelet count 211. Sodium 140, potassium 3.9, BUN 20, creatinine 0.9, magnesium 1.8. 12/24/2018 The patient was seen and examined this morning, feeling much better overall, no further episodes of nausea or vomiting. She continues to be in atrial fibrillation, her heart rate this morning up in the 1:30 range. We will in crease her current dose of beta patrick to 50 mg twice a day, giving an additional dose of 25 now. Blood pressure 130/60. White blood cell count 15.9, hemoglobin 15.7, platelet count 235. Sodium 140, potassium 3.8, BUN 32 and creatinine 1.2. Objective - Vital Signs Vital signs: Vital Signs Temp 98.0 F 12/24/18 08:00 Pulse 100 12/24/18 08:00 Resp 18 12/24/18 08:00 BP 130/61 12/24/18 10:05 Pulse Ox 100 12/24/18 08:00 Intake & Output 12/23/18 12/24/18 12/24/18 18:59 06:59 18:59 Intake Total 180 Output Total 200 Balance -200 180 Weight 69.2 kg Intake: Oral 180 Output: Emesis 200 Other: Voiding Method Toilet # Voids 1 1 # Bowel Movements 0 - Exam 82-year-old female in no acute distress at the time of my examination HEENT: Head is atraumatic, normocephalic. Pupils equal, round. Sclerae is anicteric. NECK: Supple. No JVD. No lymphadenopathy. No thyromegaly. LUNGS: Clear to auscultation. No wheezes or rhonchi. No intercostal retractions. HEART: Regular rate and rhythm. No murmur. No chest wall tenderness. ABDOMEN: Soft. Bowel sounds are present. No masses. No tenderness. EXTREMITIES: No pedal edema. No calf tenderness. Dorsalis pedis +2 bilaterally. Right groin is soft, no evidence of any hematoma. NEUROLOGICAL: Patient is awake, alert and oriented x3. Cranial nerves 2 through 12 are grossly intact. - Labs CBC & Chem 7: 12/24/18 06:05 12/24/18 06:05 Labs: Abnormal Lab Results - Last 24 Hours (Table) 10/29/19 10/30/19 10/30/19 Range/Units 21:05 06:05 06:05 WBC 15.9 H (3.8-10.6) k/uL RBC 5.60 H (3.80-5.40) m/uL Hct 49.3 H (34.0-46.0) % Neutrophils # 12.3 H (1.3-7.7) k/uL Monocytes # 1.2 H (0-1.0) k/uL BUN 32 H (7-17) mg/dL Creatinine 1.23 H (0.52-1.04) mg/dL Glucose 144 H (74-99) mg/dL Urine Protein 1+ H (Negative) Urine Glucose (UA) 1+ H (Negative) Urine Ketones 2+ H (Negative) Urine Blood Trace H (Negative) Urine Mucus Rare H (None) /hpf Assessment and Plan Plan: Assessment and plan #1 acute non-ST elevation myocardial infarction, status post angioplasty and stenting of the LAD #2 paroxysmal atrial fibrillation, remaining in normal sinus #3 hypertension, uncontrolled #4 hyperlipidemia #5 recent upper respiratory infection Plan From cardiology's perspective, we will increase the patient's dose of beta patrick to 50 mg twice a day for more optimal heart rate control. Plan for discharge home today if stable. Follow-up appointment in the office with Dr. Contreras post discharge. DNP note has been reviewed, I agree with a documented findings and plan of care. Patient was seen and examined.
[2018-12-24 12:27] VITALS: BP 120/86; PULSE 125; RESP 16; TEMP 97.8
--- NOTE | 2018-12-25 09:07 | P.DS ---
Providers Date of admission: 12/21/18 10:37 Expected date of discharge: 12/24/18 Attending physician: Jose J Hay Consults: 12/20/18 12:26 Consult Physician Urgent Consulting Provider: Brittany Watt Consult Reason/Comments: a fib w rvr Do you want consulting provider notified?: Yes 12/22/18 11:08 Consult Physician Routine Consulting Provider: [facility] Consult Reason/Comments: Post Interventional patient Do you want consulting provider notified?: Already Contacted Primary care physician: [facility] Course: Final diagnosis Acute non-ST segment elevation myocardial infarction status post cardiac catheterization, angioplasty and stenting of the left anterior descending coronary artery Atrial fibrillation paroxysmal with rapid ventricular rate vomiting, possible acute gastritis Hypertension, uncontrolled Hyperlipidemia Recent upper respiratory infection Acute kidney injury, present on admission Increased random blood sugar Hyperlipidemia Increased white blood cell count History degenerative joint disease History of cholecystectomy Full code Discharge disposition Patient is being discharged in a stable condition with guarded prognosis to home and will follow-up with primary care provider Dr. Diehl upon discharge along with cardiology Dr. Contreras in the outpatient setting in one week. Total time taken is 35 minutes. History of present illness This is an 82-year-old female who was recently admitted with atrial fibrillation with rapid ventricular rate and also found to have an elevated troponin and was being closely monitored. Cardiology was following closely. During hospitalization patient underwent cardiac catheterization along with angioplasty and stenting of the LAD. Patient will follow-up with cardiology Dr. Kumar Contreras in the outpatient setting in 1 week as discussed and scheduled. Patient will need repeat labs in 2-3 days to monitor creatinine and white blood count. Currently patient denies any chest pain, shortness of breath, or palpitations at this time. Patient is afebrile. Patient denies any vomiting but is having brief intermittent periods of nausea at times. Patient will be given some Zofran upon discharge as needed. Patient will also be given Protonix twice daily for 1 month and will follow-up with primary care provider upon discharge. Currently patient's condition is stable with much improvement and will be discharged today. Guarded prognosis. On exam vital signs are stable. Blood pressure is 120/86, pulse is 100, respirations are 16, temp is 97.8 oral, oxygen saturation is 95% on room air. Cardio S1 and S2 are muffled. Respiratory system shows diminished breath sounds at the bases with no crackles or wheezes noted. Abdomen is soft and nontender. Nervous system shows no focal deficits. Please refer to medication reconciliation sheet for a list of medications. Patient Condition at Discharge: Fair Plan - Discharge Summary New Discharge Prescriptions: New Aspirin 81 mg PO DAILY 30 Days #30 chew cloNIDine HCL [Catapres] 0.2 mg PO BID 30 Days #60 tab Apixaban [Eliquis] 2.5 mg PO BID 30 Days #60 tablet Atorvastatin [Lipitor] 80 mg PO HS 30 Days #30 tab Metoprolol Tartrate [Lopressor] 50 mg PO BID 30 Days #60 tab amLODIPine [Norvasc] 10 mg PO DAILY 30 Days #30 tab Clopidogrel [Plavix] 75 mg PO DAILY 30 Days #30 tab Pantoprazole Sodium [Protonix] 40 mg PO BID 30 Days #60 tablet. Ondansetron HCl [Zofran] 4 mg PO Q8H PRN #5 tablet PRN Reason: Nausea Continue Lisinopril-Hctz 20-12.5 mg [Zestoretic 20-12.5] 1 tab PO BID Discontinued cloNIDine HCL 0.3 mg PO BID Apixaban [Eliquis] 5 mg PO BID #60 tab Discharge Medication List Lisinopril-Hctz 20-12.5 mg [Zestoretic 20-12.5] 1 tab PO BID 12/20/18 [History] Apixaban [Eliquis] 2.5 mg PO BID 30 Days #60 tablet 12/24/18 [Rx] Aspirin 81 mg PO DAILY 30 Days #30 chew 12/24/18 [Rx] Atorvastatin [Lipitor] 80 mg PO HS 30 Days #30 tab 12/24/18 [Rx] Clopidogrel [Plavix] 75 mg PO DAILY 30 Days #30 tab 12/24/18 [Rx] Metoprolol Tartrate [Lopressor] 50 mg PO BID 30 Days #60 tab 12/24/18 [Rx] Ondansetron HCl [Zofran] 4 mg PO Q8H PRN #5 tablet 12/24/18 [Rx] Pantoprazole Sodium [Protonix] 40 mg PO BID 30 Days #60 tablet. 12/24/18 [Rx] amLODIPine [Norvasc] 10 mg PO DAILY 30 Days #30 tab 12/24/18 [Rx] cloNIDine HCL [Catapres] 0.2 mg PO BID 30 Days #60 tab 12/24/18 [Rx] Follow up Appointment(s)/Referral(s): Noel Diehl DO [Primary Care Provider] - 1-2 days (Office will call with appointment time and date. ) Kumar Contreras MD [STAFF PHYSICIAN] - 12/31/18 2:45 pm Ambulatory/Diagnostic Orders: Basic Metabolic Panel [LAB.AMB] Time Frame: 2 Days, Location: None Selected Complete Blood Count w/diff [LAB.AMB] Time Frame: 2 Days, Location: None Selected Patient Instructions/Handouts: *Surgery [facility] - After Heart Catheterization - Food And Drug Research Scientist Instructions, A-fib (Atrial Fibrillation) (DC), Cholesterol and Your Health (GEN), Coronary Intravascular Stent Placement (DC) Activity/Diet/Wound Care/Special Instructions: 1. Support your puncture site by applying firm, steady pressure whenever you cough, laugh, sneeze or bear down to have a bowel movement (2-day restriction). 2. Watch for any excessive bruising, active bleeding, a firm knot forming under your skin, extreme tenderness and signs of infection (redness, swelling, fever). 3. Shower daily, do not soak puncture in a tub bath, jacuzzi, pool, villaseñor etc. for 1 week. This is to prevent risk of infection. 4. Drink plenty of fluids the day of and day after your procedure to flush contrast dye out of your kidneys. 5. Take all medications as directed. Never stop any new medication without your physicians OK. 6. No driving for 2 days after procedure. 7. 10- pound weight lifting restriction for 1 week. 8. Low sodium/low fat diet. 9. Activity limited until follow up appointment with your equal opportunity officer. In case of any problems, please call [facility] [place] @ [phone]. Follow-up with primary care provider upon discharge Activity Limited until follow-up Continue current diet Repeat labs in 2-3 days Discharge Disposition: HOME SELF-CARE
--- NOTE | 2018-12-25 11:01 | DS ---
DISCHARGE SUMMARY DATE OF SERVICE: 12/24/2018 FINAL DIAGNOSES: 1. Acute non ST elevation myocardial infarction, status post cardiac catheterization, angioplasty, stenting of the LAD. 2. Atrial fibrillation, paroxysmal, rapid ventricular rate. 3. Vomiting, possibly acute gastritis, improved. 4. Hypertension, controlled. 5. Hyperlipidemia. 6. Recent upper respiratory infection. 7. Acute kidney injury present on admission. 8. Increased random blood sugar. 9. Hyperlipidemia. 10.History of increased WBC. 11.History of degenerative joint disease. 12.History of cholecystectomy. 13.FULL CODE. DISCHARGE DISPOSITION: The patient will be discharged in a stable condition with guarded prognosis. HISTORY OF PRESENT ILLNESS: This is an 82-year-old woman with a past medical history of multiple medical problems, was admitted with acute non ST elevation myocardial infarction. Patient had cardiac catheterization and stenting. Patient also had multiple medical issues as mentioned earlier, treated symptomatically. Patient improved significantly. Cardiology cleared the patient for discharge. On exam, vitals are stable. CARDIOVASCULAR: S1, S2. ABDOMEN: Soft. NERVOUS SYSTEM: No focal deficits. DISCHARGE INSTRUCTIONS: 1. Diet is cardiac diet. 2. Activity limited until followup. 3. Follow up with Dr. Diehl in 2-3 days. 4. Follow up with Cardiology as recommended. 5. Medications are as before. MEDICATIONS: Are as follows: 1. Lisinopril hydrochlorothiazide 1 p.o. b.i.d. 2. Aspirin 81 mg p.o. daily. 3. Catapres 0.2 p.o. b.i.d. 4. Eliquis 2.5 mg p.o. b.i.d. 5. Lipitor 80 mg q.h.s. 6. Lopressor 50 mg p.o. b.i.d. 7. Norvasc 10 mg p.o. daily. 8. Plavix 75 mg p.o. daily. 9. Protonix 40 mg p.o. b.i.d. 10.Zofran p.r.n. Once again, the patient will be discharged in a stable condition with guarded prognosis. MMODL / IJN: [id number] /
--- NOTE | 2018-12-25 13:02 | CDI ---
Documentation Clarification Form Date: 12/25/18 From: Millie Saldivar Phone: If you have a question about this query, please contact Lakisha Reagan, Camp Manager at [phone] between 8am and 5pm. Admit Date: 12/21/18 Discharge Date: 12/24/18 Patient Name: Lexie Villalobos Visit Number: [id number] ATTENTION: The Clinical Documentation Specialists (CDI) and [facility] Coding Staff appreciate your assistance in clarifying documentation. Please respond to the clarification below the line at the bottom and electronically sign. The CDI & [facility] Coding staff will review the response and follow-up if needed. Please note: Queries are made part of the Legal Health Record. If you have any questions, please contact the author of this message via ITS. Dear Dr Yury Perera, Documentation states: low magnesium 1.5 which is going to be replaced in 12/[address] Cervantes History/Risk Factors & Clinical indicators: NSTEMI, bifascicular block, SUDARSHAN, pulmonary HTN, regurgitation of mitral and tricuspid valves, PAF, CAD, URI, poss acute gastritis Abnormal M.8, 1.7 1.5, 1.8 Treatment: Magnesium replacement protocol Clinical significance of diagnostic testing and treatment CANNOT be assumed or coded without physician documentation of significance if any. Please clarify what abnormal laboratory signifies: Hypomagnesemia Abnormal Lab Value Unable to determine Other, please specify Hypomagnesemia MTDD
--- NOTE | 2018-12-25 13:54 | CDI ---
Documentation Clarification Form Date: 12/25/18 From: Millie Saldivar Phone: If you have a question about this query, please contact Lakisha Reagan, Floater Operator at [phone] between 8am and 5pm. Admit Date: 12/21/18 Discharge Date: 12/24/18 Patient Name: Lexie Villalobos Visit Number: [id number] ATTENTION: The Clinical Documentation Specialists (CDI) and [facility] Coding Staff appreciate your assistance in clarifying documentation. Please respond to the clarification below the line at the bottom and electronically sign. The CDI & [facility] Coding staff will review the response and follow-up if needed. Please note: Queries are made part of the Legal Health Record. If you have any questions, please contact the author of this message via ITS. Dear Dr Yury Perera, Accelerated and uncontrolled hypertension are documented in the 12/23 & 12/24 PNs and DS. History/Risk Factors: NSTEMI, bifascicular block, SUDARSHAN, pulmonary HTN, regurgitation of mitral and tricuspid valves, PAF, CAD, URI, poss acute gastritis Clinical Indicators: She had chest pain at the time in the midsternal radiating to the left arm. She developed nausea and a few episodes of vomiting, heart burn sensation. Vital Signs: BP-left: 222/100, 185/82, 192/86, 237/125,170/88,145/76,155/75, 188/107, 174/80, 186/81, 192/98, 163/99, 182/97, 172/78, 166/72, 149/78 BP-right: 135/55, 144/68, 202/86, 194/88, 201/88, 189/84, 216/95, 152/98, 227/96, 138/80, 131/78, 137/78, 143/75, 157/80, 181/84, 186/107, 238/100, 166/74, 174/80, 191/82, 130/61, 120/86 Treatment: LHC & PTCA w drug eluding stent, prn Hydralazine, Clonidine, Norvasc, Lopressor, Labetalol IV on 12/22 Cardiology Consult: Increase beta patrick for more optimal heart rate control In your professional opinion, please specify the type of hypertension such as: Emergency Urgency With heart disease Other (please specify in the medical record) Clinically unable to further specify Unknown Urgency MTDD
== END 2018-12-24 14:15 | disposition home or self-care (01) | DRG 247 ==
LOC: EC 10:32 → 3SCARD 12:26 → OBSVTOIN 12-21 10:37
PROVIDERS: ADMIT Internal Medicine; ATTEND Internal Medicine
PROC: 027034Z Dilation of Coronary Artery, One Artery with Drug-eluting Intraluminal Device, Percutaneous Approach (ICD-10-PCS; principal; 2018-12-22 09:26)
PROC: 4A023N7 Measurement of Cardiac Sampling and Pressure, Left Heart, Percutaneous Approach (ICD-10-PCS; 2018-12-22 09:26)
PROC: B2111ZZ Fluoroscopy of Multiple Coronary Arteries using Low Osmolar Contrast (ICD-10-PCS; 2018-12-22 09:26)
DX: I21.4 Non-ST elevation (NSTEMI) myocardial infarction (principal); I45.2 Bifascicular block; N17.9 Acute kidney failure, unspecified; I27.20 Pulmonary hypertension, unspecified; E83.42 Hypomagnesemia; I08.1 Rheumatic disorders of both mitral and tricuspid valves; I48.0 Paroxysmal atrial fibrillation; I11.9 Hypertensive heart disease without heart failure; I16.0 Hypertensive urgency; I25.10 Atherosclerotic heart disease of native coronary artery without angina pectoris; J06.9 Acute upper respiratory infection, unspecified; K29.00 Acute gastritis without bleeding; E78.5 Hyperlipidemia, unspecified; M19.90 Unspecified osteoarthritis, unspecified site; Z79.01 Long term (current) use of anticoagulants; Z79.899 Other long term (current) drug therapy; Z90.49 Acquired absence of other specified parts of digestive tract; Z90.710 Acquired absence of both cervix and uterus; Z96.641 Presence of right artificial hip joint; Z98.890 Other specified postprocedural states; Z98.41 Cataract extraction status, right eye; Z82.61 Family history of arthritis; Z82.3 Family history of stroke
CPT/HCPCS: 36415; 71046; 80048; 80053; 80061; 81001; 83735; 84439; 84443; 84481; 84484; 85025; 85610; 85730; 93005; 93306; 93458; 96365; 96366; 99291; C1874

== ENCOUNTER → 2019-01-01 | Outpatient (CLI) | payer MEDICARE, BC ==
--- NOTE | 2019-01-01 17:17 | US ---
EXAMINATION TYPE: US thyroid st tissue head/neck DATE OF EXAM: 01/01/2019 COMPARISON: NONE CLINICAL HISTORY: R59.0 Enlarged lymph node. Pt states pain and palpable right lateral neck Right lateral neck scanned, up to 3 lymph nodes visualized with largest= 3.0 x 0.5 x 0.5 cm, all ap peared normal with fatty hilums Results called to Angelia at Dr's office at time of exam IMPRESSION: There are demonstrated ordinary appearing cervical lymph nodes in the area of concern.
[2019-01-01 17:23] LABS: Basophils # (A) 0.1 k/uL (0-0.2); Basophils % (A) 0 %; Eosinophils # (A) 0.6 k/uL (0-0.7); Eosinophils % (A) 3 %; HCT 43.2 % (34.0-46.0); HGB 13.7 gm/dL (11.4-16.0); Hypochromasia Slight; Lymphocytes # (A) 2.2 k/uL (1.0-4.8); Lymphocytes % (A) 13 %; MCHC 31.6 g/dL (31.0-37.0); MCV 91.9 fL (80.0-100.0); Mean Platelet Volume 7.5; Monocytes % (A) 6 %; Neutrophils # (A) 13.1 k/uL (1.3-7.7); Neutrophils % (A) 76 %; Platelet Count 202 k/uL (150-450); RDW 14.8 % (11.5-15.5); WBC 17.2 k/uL (3.8-10.6)
== END | disposition home or self-care (01) ==
LOC: RADUSWWP 16:42
PROVIDERS: ATTEND Family Medicine
DX: R59.0 Localized enlarged lymph nodes (principal)
CPT/HCPCS: 36415; 76536; 85025

== ENCOUNTER → 2019-05-04 | Outpatient (CLI) | payer MEDICARE, BC | END | disposition home or self-care (01) | LOC: RADECHMAIN 11:55 | PROVIDERS: ATTEND Family Medicine | DX: I49.1 Atrial premature depolarization (principal); I49.3 Ventricular premature depolarization | CPT/HCPCS: 93225; 93226 ==

== ENCOUNTER 2019-05-22 14:08 | Inpatient (IN) | payer MEDICARE, BC ==
[2019-05-22] MEDS ORDERED: SODIUM CHLORIDE 0.9% 1,000 ML IV STA (14:10)
[2019-05-22] MEDS ORDERED: DILTIAZEM DRIP BOLUS FROM BAG 1 MG SOLN IV ONE (14:16)
--- NOTE | 2019-05-22 14:18 | ED ---
General Adult HPI <Amanuel Oh - Last Filed: 05/22/19 14:48> <Pawan Orellana - Last Filed: 05/22/19 15:43> - General Stated complaint: AFIB Time Seen by Provider: 05/22/19 14:10 - History of Present Illness Initial comments: Dictation was produced using ResQ™ Medical dictation software. please excuse any grammatical, word or spelling errors. This patient was cared for during a federal and state declared state of emergency secondary to Covid 19 Chief Complaint: 83-year-old female past medical history of atrial fibrillation, hypertension osteoporosis arthritis presents with exertional dyspnea History of Present Illness: 83-year-old female she was sent in by primary care physician Dr. Diehl for atrial fibrillation with rapid ventricular rate. Patient initially saw her primary care physician 4 weeks ago where she was evaluated for hypertension. She had her regular follow-up appointment today. Patient was evaluated found have atrial fibrillation rapid ventricular rate. She was brought in by EMS. Patient states she feels fine at the moment. She denies any palpitations. She does complain that when she tries to get up and exerted herself even with just minimal walking she become short of breath. She does have history of H fibrillation she does take apixaban. Patient denies any chest pain. No abdominal pain. Patient denies any history of blood clots or DVT. Patient states that she is compliant with her medications. No constitutional symptoms. The ROS documented in this emergency department record has been reviewed and confirmed by me. Those systems with pertinent positive or negative responses have been documented in the HPI. All other systems are other negative and/or noncontributory. PHYSICAL EXAM: General Impression: Alert and oriented x3, not in acute distress HEENT: Normocephalic atraumatic, extra-ocular movements intact, pupils equal and reactive to light bilaterally, mucous membranes moist. Cardiovascular: Irregularly irregular Chest: Lungs clear to auscultation bilaterally, no rhonchi, no wheeze, no rales Abdomen: Bowel sounds present, abdomen soft, non-tender, non-distended, no organomegaly Musculoskeletal: Pulses present and equal in all extremities, no peripheral edema Motor: no focal deficits noted Neurological: CN II-XII grossly intact, no focal motor or sensory deficits noted Skin: Intact with no visualized rashes Psych: Normal affect and mood ED course: 83-year-old female clinical presentation consistent with atrial fibrillation with rapid ventricular rate. Vital signs upon arrival shows heart rate of 131, blood pressure 143/123, worse vital signs within acceptable limits. Patient ordered for Cardizem, intravenous fluids. Labs and imaging is also ordered. Patient care signed out to Dr. Orellana for further care, interpretation of lab and imaging studies and final disposition. EKG interpretation: Ventricular rate 135, A. fib with RVR, QRS 114, QTc 492. No [place] prolongation, no QTC prolongation, no ST or T-wave changes noted. EKG compared to 12/20/2018 showing no changes. Overall, this EKG is unremarkable (Amanuel Oh) - Related Data Home Medications Medication Instructions Recorded Confirmed Lisinopril-Hctz 20-12.5 mg 1 tab PO BID 12/20/18 12/20/18 [Zestoretic 20-12.5] Previous Rx's Medication Instructions Recorded Apixaban [Eliquis] 2.5 mg PO BID 30 Days #60 tablet 12/24/18 Aspirin 81 mg PO DAILY 30 Days #30 chew 12/24/18 Atorvastatin [Lipitor] 80 mg PO HS 30 Days #30 tab 12/24/18 Clopidogrel [Plavix] 75 mg PO DAILY 30 Days #30 tab 12/24/18 Metoprolol Tartrate [Lopressor] 50 mg PO BID 30 Days #60 tab 12/24/18 Ondansetron HCl [Zofran] 4 mg PO Q8H PRN #5 tablet 12/24/18 Pantoprazole Sodium [Protonix] 40 mg PO BID 30 Days #60 tablet. 12/24/18 amLODIPine [Norvasc] 10 mg PO DAILY 30 Days #30 tab 12/24/18 cloNIDine HCL [Catapres] 0.2 mg PO BID 30 Days #60 tab 12/24/18 Allergies Allergy/AdvReac Type Severity Reaction Status Date / Time No Known Allergies Allergy Verified 12/20/18 11:19 Review of Systems ROS Other: All systems not noted in ROS Statement are negative. <Amanuel Oh - Last Filed: 05/22/19 14:48> ROS Other: All systems not noted in ROS Statement are negative. <Pawan Orellana - Last Filed: 05/22/19 15:43> ROS Statement: Those systems with pertinent positive or pertinent negative responses have been documented in the HPI. Past Medical History Past Medical History: Atrial Fibrillation, Hypertension, Osteoarthritis (OA) Additional Past Medical History / Comment(s): per chest xray copd/cardiomegally, History of Any Multi-Drug Resistant Organisms: None Reported Past Surgical History: Cholecystectomy, Hysterectomy, Orthopedic Surgery Additional Past Surgical History / Comment(s): rt hip replacement,rt cataract,rt carpal tunnel release Past Anesthesia/Blood Transfusion Reactions: No Reported Reaction Past Psychological History: No Psychological Hx Reported Smoking Status: Never smoker Past Alcohol Use History: None Reported Past Drug Use History: None Reported - Past Family History Mother Family Medical History: Osteoarthritis (OA) Additional Family Medical History / Comment(s): djd; at 69 Father Family Medical History: CVA/TIA Additional Family Medical History / Comment(s): age 84 <Amanuel Oh - Last Filed: 05/22/19 14:48> Course <Pawan Orellana - Last Filed: 05/22/19 15:43> Vital Signs 05/22/19 05/22/19 05/22/19 14:17 14:22 15:22 Temperature 97.9 F Pulse Rate 131 H 64 Respiratory 16 18 18 Rate Blood Pressure 143/123 129/98 O2 Sat by Pulse 98 98 Oximetry - Reevaluation(s) Reevaluation #1: 05/22/19 15:37 Case, test results and ED management were discussed with Dr. Campbell (hospitalist). He accepts hospital admission. He has no further recommendations at this time. 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 Patient remains alert and breathing comfortably. (Pawan Orellana) Medical Decision Making - Lab Data Result diagrams: 05/22/19 14:20 <Amanuel Oh - Last Filed: 05/22/19 14:48> - Lab Data Result diagrams: 05/22/19 14:20 05/22/19 14:20 - Radiology Data Radiology results: image reviewed (Chest x-ray shows borderline cardiomegaly, but is otherwise negative) <Pawan Orellana - Last Filed: 05/22/19 15:43> - Medical Decision Making Patient was endorsed to me by Dr. Oh (secondary to end of his shift). Please see Dr. Oh's note for detailed H&P. Patient's labs and chest x-ray are fairly unremarkable. Patient's heart rate has improved with IV diltiazem drip. Dr. Campbell has accepted hospital admission. (Pawan Orellana) - Lab Data Lab Results 05/22/19 05/22/19 05/22/19 Range/Units 14:20 14:20 14:20 WBC 13.4 H (3.8-10.6) k/uL RBC 5.80 H (3.80-5.40) m/uL Hgb 15.9 (11.4-16.0) gm/dL Hct 51.3 H (34.0-46.0) % MCV 88.5 (80.0-100.0) fL MCH 27.4 (25.0-35.0) pg MCHC 31.0 (31.0-37.0) g/dL RDW 15.8 H (11.5-15.5) % Plt Count 236 (150-450) k/uL Neutrophils % 75 % Lymphocytes % 16 % Monocytes % 4 % Eosinophils % 2 % Basophils % 0 % Neutrophils # 10.1 H (1.3-7.7) k/uL Lymphocytes # 2.2 (1.0-4.8) k/uL Monocytes # 0.6 (0-1.0) k/uL Eosinophils # 0.3 (0-0.7) k/uL Basophils # 0.1 (0-0.2) k/uL PT 9.9 (9.0-12.0) sec INR 0.9 (<1.2) APTT 25.3 (22.0-30.0) sec Sodium 136 L (137-145) mmol/L Potassium 5.0 (3.5-5.1) mmol/L Chloride 106 (98-107) mmol/L Carbon Dioxide 21 L (22-30) mmol/L Anion Gap 9 mmol/L BUN 23 H (7-17) mg/dL Creatinine 1.20 H (0.52-1.04) mg/dL Est GFR (CKD-EPI)AfAm 48 (>60 ml/min/1.73 sqM) Est GFR (CKD-EPI)NonAf 42 (>60 ml/min/1.73 sqM) Glucose 147 H (74-99) mg/dL Calcium 9.5 (8.4-10.2) mg/dL Magnesium 2.1 (1.6-2.3) mg/dL Total Bilirubin 0.5 (0.2-1.3) mg/dL AST 56 H (14-36) U/L ALT 57 H (4-34) U/L Alkaline Phosphatase 85 (38-126) U/L Troponin I (0.000-0.034) ng/mL Total Protein 7.4 (6.3-8.2) g/dL Albumin 4.3 (3.5-5.0) g/dL TSH 1.490 (0.465-4.680) mIU/L Urine Color Urine Appearance (Clear) Urine pH (5.0-8.0) Ur Specific Dickey (1.001-1.035) Urine Protein (Negative) Urine Glucose (UA) (Negative) Urine Ketones (Negative) Urine Blood (Negative) Urine Nitrite (Negative) Urine Bilirubin (Negative) Urine Urobilinogen (<2.0) mg/dL Ur Leukocyte Esterase (Negative) Urine RBC (0-5) /hpf Urine WBC (0-5) /hpf Ur Squamous Epith Cells (0-4) /hpf Hyaline Casts (0-2) /lpf Urine Mucus (None) /hpf 05/22/19 05/22/19 Range/Units 14:20 14:40 WBC (3.8-10.6) k/uL RBC (3.80-5.40) m/uL Hgb (11.4-16.0) gm/dL Hct (34.0-46.0) % MCV (80.0-100.0) fL MCH (25.0-35.0) pg MCHC (31.0-37.0) g/dL RDW (11.5-15.5) % Plt Count (150-450) k/uL Neutrophils % % Lymphocytes % % Monocytes % % Eosinophils % % Basophils % % Neutrophils # (1.3-7.7) k/uL Lymphocytes # (1.0-4.8) k/uL Monocytes # (0-1.0) k/uL Eosinophils # (0-0.7) k/uL Basophils # (0-0.2) k/uL PT (9.0-12.0) sec INR (<1.2) APTT (22.0-30.0) sec Sodium (137-145) mmol/L Potassium (3.5-5.1) mmol/L Chloride (98-107) mmol/L Carbon Dioxide (22-30) mmol/L Anion Gap mmol/L BUN (7-17) mg/dL Creatinine (0.52-1.04) mg/dL Est GFR (CKD-EPI)AfAm (>60 ml/min/1.73 sqM) Est GFR (CKD-EPI)NonAf (>60 ml/min/1.73 sqM) Glucose (74-99) mg/dL Calcium (8.4-10.2) mg/dL Magnesium (1.6-2.3) mg/dL Total Bilirubin (0.2-1.3) mg/dL AST (14-36) U/L ALT (4-34) U/L Alkaline Phosphatase (38-126) U/L Troponin I <0.012 (0.000-0.034) ng/mL Total Protein (6.3-8.2) g/dL Albumin (3.5-5.0) g/dL TSH (0.465-4.680) mIU/L Urine Color Yellow Urine Appearance Clear (Clear) Urine pH 5.5 (5.0-8.0) Ur Specific Dickey 1.022 (1.001-1.035) Urine Protein 1+ H (Negative) Urine Glucose (UA) Negative (Negative) Urine Ketones Negative (Negative) Urine Blood Trace H (Negative) Urine Nitrite Negative (Negative) Urine Bilirubin Negative (Negative) Urine Urobilinogen <2.0 (<2.0) mg/dL Ur Leukocyte Esterase Trace H (Negative) Urine RBC 1 (0-5) /hpf Urine WBC 4 (0-5) /hpf Ur Squamous Epith Cells 1 (0-4) /hpf Hyaline Casts 12 H (0-2) /lpf Urine Mucus Rare H (None) /hpf Disposition <Amanuel Oh - Last Filed: 05/22/19 14:48> Is patient prescribed a controlled substance at d/c from ED?: No Time of Disposition: 15:37 <Pawan Orellana - Last Filed: 05/22/19 15:43> Clinical Impression: Atrial fibrillation with RVR Disposition: ADMITTED IP TO THIS HOSP Condition: Stable Referrals: Noel Diehl DO [Primary Care Provider] - 1-2 days
[2019-05-22 14:42] LABS: Basophils # (A) 0.1 k/uL (0-0.2); Basophils % (A) 0 %; Eosinophils # (A) 0.3 k/uL (0-0.7); Eosinophils % (A) 2 %; HCT 51.3 % (34.0-46.0); HGB 15.9 gm/dL (11.4-16.0); Lymphocytes # (A) 2.2 k/uL (1.0-4.8); Lymphocytes % (A) 16 %; MCH 27.4 pg (25.0-35.0); MCV 88.5 fL (80.0-100.0); Mean Platelet Volume 8.8; Monocytes # (A) 0.6 k/uL (0-1.0); Monocytes % (A) 4 %; Neutrophils # (A) 10.1 k/uL (1.3-7.7); Neutrophils % (A) 75 %; Platelet Count 236 k/uL (150-450); RDW 15.8 % (11.5-15.5); WBC 13.4 k/uL (3.8-10.6)
[2019-05-22 14:49] LABS: Albumin 4.3 g/dL (3.5-5.0); Calcium 9.5 mg/dL (8.4-10.2); Magnesium 2.1 mg/dL (1.6-2.3); Total Bilirubin 0.5 mg/dL (0.2-1.3); Total Protein 7.4 g/dL (6.3-8.2)
--- NOTE | 2019-05-22 14:55 | XR ---
EXAMINATION TYPE: XR chest 1V portable DATE OF EXAM: 05/22/2019 Comparison: 12/20/2018 Clinical History: 83-year-old female dysrhythmia Findings: Heart borderline to mildly enlarged. Mild elongation thoracic aorta. No consolidation or pleural effu monica seen. Impression: Borderline to mild cardiomegaly. No definite acute process otherwise seen.
[2019-05-22 15:01] LABS: INR 0.9 (<1.2); Partial Thromboplastin Time 25.3 sec (22.0-30.0); Prothrombin Time 9.9 sec (9.0-12.0)
[2019-05-22] MEDS: DILTIAZEM 125 MG in SODIUM CHLORIDE 0.9% 100 ML IV SCH ×2 (15:01→21:49)
[2019-05-22 15:16] LABS: Appearance,Urine Clear (Clear); Bilirubin,Urine Negative (Negative); Blood,Urine Trace (Negative); Color,Urine Yellow; Glucose,Urine (UA) Negative (Negative); Hyaline Casts,Urine 12 /lpf (0-2); Ketones,Urine Negative (Negative); Leukocyte Esterase,Urine Trace (Negative); Mucus,Urine Rare /hpf; Nitrite,Urine Negative (Negative); PH, Urine 5.5 (5.0-8.0); Protein,Urine 1+ (Negative); RBC,Urine 1 /hpf (0-5); Specific Gravity,Urine 1.022 (1.001-1.035); Squamous Epithelial Cell,Urine 1 /hpf (0-4); Urobilinogen,Urine <2.0 mg/dL (<2.0); WBC,Urine 4 /hpf (0-5)
[2019-05-22] MEDS ORDERED: METOPROLOL TARTRATE 50 MG TAB PO STA (18:46)
[2019-05-22] MEDS: cloNIDine HCL 0.2 MG TAB PO SCH (19:02)
[2019-05-22] MEDS: hydrALAZINE HCL 20 MG/ML 1 ML VIAL IVP PRN (19:02)
[2019-05-22] MEDS: APIXABAN 2.5 MG TABLET PO SCH (21:17)
[2019-05-22] MEDS: ATORVASTATIN 80 MG TAB PO SCH (21:18)
[2019-05-23] MEDS: hydrALAZINE HCL 20 MG/ML 1 ML VIAL IVP PRN (06:09)
[2019-05-23 07:40] LABS: Basophils # (A) 0.1 k/uL (0-0.2); Basophils % (A) 0 %; Eosinophils # (A) 0.3 k/uL (0-0.7); Eosinophils % (A) 3 %; HCT 51.9 % (34.0-46.0); HGB 16.2 gm/dL (11.4-16.0); Lymphocytes # (A) 3.1 k/uL (1.0-4.8); Lymphocytes % (A) 25 %; MCH 27.6 pg (25.0-35.0); MCHC 31.2 g/dL (31.0-37.0); MCV 88.4 fL (80.0-100.0); Mean Platelet Volume 8.6; Monocytes # (A) 0.7 k/uL (0-1.0); Monocytes % (A) 6 %; Neutrophils % (A) 65 %; Platelet Count 218 k/uL (150-450); RBC 5.87 m/uL (3.80-5.40); RDW 15.9 % (11.5-15.5); WBC 12.3 k/uL (3.8-10.6)
[2019-05-23 07:50] LABS: Albumin 3.9 g/dL (3.5-5.0); Calcium 9.2 mg/dL (8.4-10.2); Potassium 4.2 mmol/L (3.5-5.1); Total Bilirubin 0.8 mg/dL (0.2-1.3); Total Protein 7.1 g/dL (6.3-8.2)
[2019-05-23] MEDS: ASPIRIN 81 MG PO SCH (08:21)
[2019-05-23] MEDS: cloNIDine HCL 0.2 MG TAB PO SCH ×2 (08:21→17:17)
[2019-05-23] MEDS: APIXABAN 2.5 MG TABLET PO SCH ×2 (08:21→20:40)
[2019-05-23] MEDS: METOPROLOL TARTRATE 50 MG TAB PO SCH ×2 (08:21→20:40)
[2019-05-23] MEDS: CLOPIDOGREL 75 MG TAB PO SCH (08:22)
[2019-05-23] MEDS ORDERED: amLODIPine 10 MG TAB PO SCH (09:00)
[2019-05-23] MEDS: AMIODARONE 200 MG TAB PO SCH ×2 (10:59→14:46)
--- NOTE | 2019-05-23 11:52 | CONS ---
CONSULTATION CHIEF COMPLAINT: Atrial fibrillation with rapid ventricular rate. Lexie is an 83-year-old lady with history of hypertension and paroxysmal atrial fibrillation, who presented to hospital complaining of sustained palpitations. She was found to be in atrial fibrillation with rapid ventricular rate and at the time of my evaluation this morning, still remains in atrial fibrillation with poorly controlled ventricular rate. She was initially tried on Cardizem but became hypotensive. Subsequently, the Cardizem had to be stopped. Heart rate is well controlled currently on the oral Cardizem and amiodarone that I started her on. Patient is on Lopressor 50 b.i.d., Cardizem 30 q.8, Catapres 0.2 b.i.d. along with aspirin, Lipitor, and Eliquis. I am going to stop the Norvasc. Patient was on Effient prior to coming in. PAST MEDICAL HISTORY: Significant for coronary artery disease, status post angioplasty of mid LAD, paroxysmal atrial fibrillation, and hypertension. MEDICATIONS: At home included Catapres 0.2 b.i.d. Prasugrel, Lopressor 50 b.i.d., aspirin and Eliquis. ALLERGIES: There are no known drug allergies. FAMILY HISTORY: Negative for premature coronary artery disease. SOCIAL HISTORY: Negative for current smoking, EtOH abuse, or drug abuse. REVIEW OF SYSTEMS: HEENT: Unremarkable. CARDIAC: As described above. RESPIRATORY: As described above. GI: Negative. GENITOURINARY: Negative. ALLERGY/IMMUNOLOGY: Negative. SKIN: Negative. MUSCULOSKELETAL: Significant for arthritis. PSYCHOSOCIAL: Negative. ENDOCRINE: Negative. DERM: Negative. CONSTITUTIONAL: Negative. ONCOLOGICAL: Negative. FISHER PURSE SEINE: Negative. PHYSICAL EXAM: Heart rate is 78 beats per minute, blood pressure is 160/90, respiratory rate is 18. There is no jugular venous distention. Chest exam reveals good air entry bilaterally. Heart exam reveals first and second heart sounds, irregular rhythm. Systolic murmur at the left lower sternal border. Abdomen is soft. Exam of extremities did not reveal any edema. Peripheral pulses are felt. LABS: Show a hemoglobin of 16.2, platelet count of 218, potassium is 4.2, creatinine is 0.9M, troponin was negative. TSH was normal at 1.4. ASSESSMENT: 1. Paroxysmal atrial fibrillation with rapid ventricular rate. 2. Coronary artery disease, status post angioplasty. 3. Hypertension. PLAN: I will try the patient on amiodarone to see if she will convert to sinus rhythm. Continue with oral Cardizem and beta blockers. If she converts back to sinus rhythm or once the heart rate is controlled on oral medications, we should be able to discharge her home. JOSE JUAN / GEO: [id number] /
[2019-05-23] MEDS: DILTIAZEM ORAL 30 MG TAB PO SCH ×2 (12:01→14:46)
--- NOTE | 2019-05-23 13:11 | ECHOF ---
Referral Reason:A-Fib RVR MEASUREMENTS -------- HEIGHT: 157.5 cm WEIGHT: 71.7 kg BP: RVIDd: 2.2 cm (< 3.3) IVSd: 1.1 cm (0.6 - 1.1) LVIDd: 3.6 cm (3.9 - 5.3) LVPWd: 1.3 cm (0.6 - 1.1) IVSs: 1.5 cm LVIDs: 2.7 cm LVPWs: 1.3 cm LAESV Index (A-L): 33.23 ml/m Ao Diam: 2.5 cm (2.0 - 3.7) AV Cusp: 1.6 cm (1.5 - 2.6) LA Diam: 4.0 cm (2.7 - 3.8) RAP: 5.00 mmHg RVSP: 41.12 mmHg FINDINGS -------- Atrial fibrillation with RVR The left ventricular size is normal. There is mild concentric left ventricular hypertrophy. Left ventricular fillimg pressure cannot be estimated due to Atrial fibrillation. Unable to comment on E F due to Afib with RVR The right ventricle is normal in size. LA is midly dilated 29-33ml/m2. The right atrial size is normal. The aortic valve is trileaflet and appears structurally normal. The mitral valve is normal. There is trace mitral regurgitation. The tricuspid valve appears structurally normal. Mild tricuspid regurgitation present. There is m ild pulmonary hypertension. The right ventricular systolic pressure, as measured by Doppler, is 41. 12mmHg. There is no pulmonic regurgitation present. The aortic root size is normal. Normal inferior vena cava with normal inspiratory collapse consistent with estimated right atrial pre ssure of 5 mmHg. There is no pericardial effusion. CONCLUSIONS -------- 1. Atrial fibrillation with RVR 2. The left ventricular size is normal. 3. There is mild concentric left ventricular hypertrophy. 4. Left ventricular fillimg pressure cannot be estimated due to Atrial fibrillation. 5. Unable to comment on EF due to Afib with RVR. 6. The right ventricle is normal in size. 7. LA is midly dilated 29-33ml/m2. 8. The right atrial size is normal. 9. The aortic valve is trileaflet and appears structurally normal. 10. The mitral valve is normal. 11. There is trace mitral regurgitation. 12. The tricuspid valve appears structurally normal. 13. Mild tricuspid regurgitation present. 14. There is mild pulmonary hypertension. 15. The right ventricular systolic pressure, as measured by Doppler, is 41.12mmHg. 16. There is no pulmonic regurgitation present. 17. The aortic root size is normal. 18. Normal inferior vena cava with normal inspiratory collapse consistent with estimated right atrial pressure of 5 mmHg. 19. There is no pericardial effusion. TIMBER RIDER: Nishi Najera RDCS
--- NOTE | 2019-05-23 16:53 | P.HPIM ---
History of Present Illness H&P Date: 05/23/19 Chief Complaint: Heart racing History of presenting complaint: This is a pleasant 83-year-old patient of Dr. goldberg. Chronic stable medical conditions include hypertension, osteoarthritis, coronary artery disease with stent. Patient for 1 week has been feeling tired some chest pressure or heart racing. Patient is found to be in atrial fibrillation with rapid ventricular rate. Started and IV Cardizem drip. Admitted for the same. Does feel tired rundown. A bit dizzy. Review of systems: GEN.: Tired EYES: None HEENT: None NECK: None RESPIRATORY: None CARDIOVASCULAR: As above GASTROINTESTINAL: Constipation GENITOURINARY: None MUSCULOSKELETAL: Joint pains LYMPHATICS: None HEMATOLOGICAL: None PSYCHIATRY: But anxious NEUROLOGICAL: None Past medical history to include: Coronary artery disease, atrial flutter ablation, osteoarthritis, coronary artery disease with stent, hypertension Social history: Does not smoke or drink alcohol. . Physical examination: VITAL SIGNS: 97.9, 131, 16, 129/98, 98% on room air GENERAL: Average built, sitting up, comfortable. EYES: BMI 29, sitting up, anxiousl. HEENT: External appearance of nose and ears normal, oral cavity grossly normal. NECK: JVD not raised; masses not palpable. HEART: Heart sounds irregular; no edema. LUNGS: Respiratory rate normal; clear to auscultation. ABDOMEN: Soft, nontender, liver spleen not palpable, no masses palpable. PSYCH: Alert and oriented x3; mood and affect anxiousl. MUSCULOSKELETAL: Evidence of OA NEUROLOGICAL: Cranial nerves grossly intact; no facial asymmetry, power and sensation grossly intact. LYMPHATICS: No lymph nodes palpable in the axilla and neck INVESTIGATIONS, reviewed in the clinical context: White count 13.4 hemoglobin 15.9 platelets 236 potassium 5 bun 23 creatinine 1.20 Troponin I less than 0.012, TSH 1.490 EKG tracing personally reviewed by me-right bundle-branch block pattern with atrial fibrillation with a rate of 135 Portable chest x-ray film-personally reviewed by me- cardiomegaly Assessment: -Paroxysmal atrial fibrillation with a rapid ventricular rate, symptomatic -Coronary artery disease with stent -Primary osteoarthritis -Essential hypertension Plan: Cardiology was consulted. Patient's been IV Cardizem drip. Home medications are to continue. Eliquis is to continue. He was discussed with the patient question were answered. Past Medical History Past Medical History: Atrial Fibrillation, Hypertension, Osteoarthritis (OA) Additional Past Medical History / Comment(s): per chest xray copd/cardiomegally, History of Any Multi-Drug Resistant Organisms: None Reported Past Surgical History: Cholecystectomy, Heart Catheterization With Stent, Hysterectomy, Orthopedic Surgery Additional Past Surgical History / Comment(s): rt hip replacement,rt cataract,rt carpal tunnel release Past Anesthesia/Blood Transfusion Reactions: No Reported Reaction Date of Last Stent Placement:: 12/2018 Past Psychological History: No Psychological Hx Reported Smoking Status: Never smoker Past Alcohol Use History: None Reported Past Drug Use History: None Reported - Past Family History Mother Family Medical History: Osteoarthritis (OA) Additional Family Medical History / Comment(s): djd; at 69 Father Family Medical History: CVA/TIA Additional Family Medical History / Comment(s): age 84 Medications and Allergies Home Medications Medication Instructions Recorded Confirmed Type Apixaban [Eliquis] 2.5 mg PO BID 30 Days #60 tablet 12/24/18 05/22/19 Rx Aspirin 81 mg PO DAILY 30 Days #30 chew 12/24/18 05/22/19 Rx Metoprolol Tartrate [Lopressor] 50 mg PO BID 30 Days #60 tab 12/24/18 05/22/19 Rx Prasugrel [Effient] 10 mg PO DAILY 05/22/19 05/22/19 History cloNIDine HCL [Catapres] 0.2 mg PO Q12H 05/22/19 05/22/19 History Allergies Allergy/AdvReac Type Severity Reaction Status Date / Time No Known Allergies Allergy Verified 05/22/19 16:12 Physical Exam Vitals: Vital Signs Temp Pulse Pulse Resp BP BP Pulse Ox 05/23/19 06:34 163/93 05/23/19 06:00 189/112 05/23/19 04:00 97.6 F 77 16 163/104 96 05/23/19 00:00 98.4 F 64 16 143/63 95 05/22/19 20:00 98.6 F 84 18 144/73 95 05/22/19 18:12 97.6 F 105 H 16 185/103 98 05/22/19 18:08 66 18 135/76 98 05/22/19 18:00 66 18 135/76 98 05/22/19 17:00 58 L 18 98 03/27/20 16:00 60 18 98 05/22/19 15:22 64 18 129/98 98 05/22/19 14:22 18 05/22/19 14:17 97.9 F 131 H 16 143/123 98 Intake and Output 05/22/19 05/23/19 05/23/19 22:59 06:59 14:59 Intake Total 242.041 120 Balance 242.041 120 Intake: Intake, IV Titration 5.041 Amount Diltiazem 125 mg In 5.041 Sodium Chloride 0.9% 100 ml @ 10 MG/HR 10 mls/hr IV .[id number] [facility] Rx#: [id number] Oral 237 120 Other: Voiding Method Toilet Toilet # Voids 2 Weight 72.575 kg 71.8 kg Results CBC & Chem 7: 05/23/19 07:03 05/23/19 07:03 Labs: Abnormal Lab Results - Last 24 Hours (Table) 05/22/19 05/22/19 05/22/19 Range/Units 14:20 14:20 14:40 WBC 13.4 H (3.8-10.6) k/uL RBC 5.80 H (3.80-5.40) m/uL Hgb (11.4-16.0) gm/dL Hct 51.3 H (34.0-46.0) % RDW 15.8 H (11.5-15.5) % Neutrophils # 10.1 H (1.3-7.7) k/uL Sodium 136 L (137-145) mmol/L Carbon Dioxide 21 L (22-30) mmol/L BUN 23 H (7-17) mg/dL Creatinine 1.20 H (0.52-1.04) mg/dL Glucose 147 H (74-99) mg/dL AST 56 H (14-36) U/L ALT 57 H (4-34) U/L Urine Protein 1+ H (Negative) Urine Blood Trace H (Negative) Ur Leukocyte Esterase Trace H (Negative) Hyaline Casts 12 H (0-2) /lpf Urine Mucus Rare H (None) /hpf 05/23/19 05/23/19 Range/Units 07:03 07:03 WBC 12.3 H (3.8-10.6) k/uL RBC 5.87 H (3.80-5.40) m/uL Hgb 16.2 H (11.4-16.0) gm/dL Hct 51.9 H (34.0-46.0) % RDW 15.9 H (11.5-15.5) % Neutrophils # 8.0 H (1.3-7.7) k/uL Sodium (137-145) mmol/L Carbon Dioxide 21 L (22-30) mmol/L BUN 18 H (7-17) mg/dL Creatinine (0.52-1.04) mg/dL Glucose 174 H (74-99) mg/dL AST 45 H (14-36) U/L ALT 51 H (4-34) U/L Urine Protein (Negative) Urine Blood (Negative) Ur Leukocyte Esterase (Negative) Hyaline Casts (0-2) /lpf Urine Mucus (None) /hpf Thrombosis Risk Factor Assmnt - Choose All That Apply Each Risk Factor Represents 3 Points: Age 75 years or older Thrombosis Risk Factor Assessment Total Risk Factor Score: 3 Thrombosis Risk Factor Assessment Level: Moderate Risk
[2019-05-23] MEDS ORDERED: LACTULOSE 20 GM/30 ML CUP PO ONE (19:01)
[2019-05-23] MEDS: ATORVASTATIN 80 MG TAB PO SCH (20:38)
[2019-05-24] MEDS: AMIODARONE 200 MG TAB PO SCH ×3 (00:17→22:22)
[2019-05-24] MEDS: DILTIAZEM ORAL 30 MG TAB PO SCH ×2 (00:22→10:24)
[2019-05-24] MEDS: cloNIDine HCL 0.2 MG TAB PO SCH ×2 (07:06→17:38)
[2019-05-24] MEDS: CLOPIDOGREL 75 MG TAB PO SCH (09:26)
[2019-05-24] MEDS: ASPIRIN 81 MG PO SCH (09:27)
[2019-05-24] MEDS: APIXABAN 2.5 MG TABLET PO SCH ×2 (09:27→22:25)
[2019-05-24] MEDS: METOPROLOL TARTRATE 50 MG TAB PO SCH (10:24)
[2019-05-24] MEDS: hydrALAZINE HCL 10 MG TAB PO SCH (10:50)
--- NOTE | 2019-05-24 13:06 | PN ---
PROGRESS NOTE Lexie is admitted to the hospital with paroxysmal atrial fibrillation with rapid ventricular rate. She converted to sinus rhythm on amiodarone, became bradycardic because of the metoprolol and the Cardizem. I am going to stop both of them. Leave her on amiodarone. She is doing good and wishes to go home. EXAM: Heart rate is 40 beats per minutes, blood pressure is 150/69, respiratory rate is 18. There is no jugular venous distention. Carotid upstrokes are normal. There is no bruit. Chest exam reveals good air entry bilaterally. Heart exam reveals first and second heart sounds. No gallop. Exam of extremities did not reveal any edema. Peripheral pulses are felt. ASSESSMENT: 1. Paroxysmal atrial fibrillation. 2. Sinus bradycardia. PLAN: We will stop the Cardizem, stop the metoprolol. Add amlodipine for blood pressure control. Hopefully home tomorrow or later this evening. MMODL / IJN: [id number] /
--- NOTE | 2019-05-24 17:03 | P.PN ---
Progress Note - Text Progress Note Date: 05/24/19 Chief Complaint: Heart racing History of presenting complaint: This is a pleasant 83-year-old patient of Dr. goldberg. Chronic stable medical conditions include hypertension, osteoarthritis, coronary artery disease with stent. Patient for 1 week has been feeling tired some chest pressure or heart racing. Patient is found to be in atrial fibrillation with rapid ventricular rate. Started and IV Cardizem drip. Admitted for the same. Does feel tired rundown. A bit dizzy. admitted with-uncontrolled atrial fibrillation. Initially put on IV Cardizem drip. We'll switch to by mouth Cardizem and metoprolol. Today-heart is been in the 40s. No palpitation. No chest pain. Up to the bathroom. Review of systems: Was done for constitutional, cardiovascular, GI, pulmonary. relevant finding as above Active Medications Amiodarone HCl (Cordarone) 200 mg PO BID [facility] Apixaban (Eliquis) 2.5 mg PO BID [facility] Last Admin: 05/24/19 09:27 Dose: 2.5 mg Documented by: Aspirin (Aspirin) 81 mg PO DAILY [facility] Last Admin: 05/24/19 09:27 Dose: 81 mg Documented by: Atorvastatin Calcium (Lipitor) 80 mg PO HS [facility] Last Admin: 05/23/19 20:38 Dose: Not Given Documented by: Clonidine (Catapres) 0.2 mg PO Q12H [facility] Last Admin: 05/24/19 07:06 Dose: 0.2 mg Documented by: Clopidogrel Bisulfate (Plavix) 75 mg PO DAILY [facility] Last Admin: 05/24/19 09:26 Dose: 75 mg Documented by: Hydralazine HCl (Apresoline) 10 mg IVP Q6HR PRN PRN Reason: Blood Pressure - High Last Admin: 05/23/19 06:09 Dose: 10 mg Documented by: Hydralazine HCl (Apresoline) 10 mg PO DAILY [facility] Last Admin: 05/24/19 10:50 Dose: 10 mg Documented by: Physical examination: VITAL SIGNS: 98.2, 39, 20, 143/80, 96% on room air GENERAL: sitting up, comfortable. EYES: BMI 29, sitting up, anxiousl. HEENT: External appearance of nose and ears normal, oral cavity grossly normal. NECK: JVD not raised; masses not palpable. HEART: heart sounds regular; no edema. LUNGS: Respiratory rate normal; clear to auscultation. ABDOMEN: Soft, nontender, liver spleen not palpable, no masses palpable. PSYCH: Alert and oriented x3; mood and affect anxiousl. MUSCULOSKELETAL: Evidence of OA INVESTIGATIONS, reviewed in the clinical context: White count 12.3 potassium 4.2 creatinine 0.91 Previous testing White count 13.4 hemoglobin 15.9 platelets 236 potassium 5 bun 23 creatinine 1.20 Troponin I less than 0.012, TSH 1.490 EKG tracing personally reviewed by me-right bundle-branch block pattern with atrial fibrillation with a rate of 135 Portable chest x-ray film-personally reviewed by me- cardiomegaly Assessment: -Paroxysmal atrial fibrillation with a rapid ventricular rate, currently in sinus rhythm. -Sinus bradycardia to the patient being on Cardizem and metoprolol. -Coronary artery disease with stent -Primary osteoarthritis -Essential hypertension Plan: patient's metoprolol and Cardizem discontinued Dr. Beckford. Patient is on amiodarone. See how she does overnight. Discussed with patient..
[2019-05-24] MEDS: ATORVASTATIN 80 MG TAB PO SCH (22:25)
[2019-05-25 02:12] VITALS: RESP 18
[2019-05-25] MEDS: cloNIDine HCL 0.2 MG TAB PO SCH ×2 (05:26→17:49)
[2019-05-25] MEDS: ASPIRIN 81 MG PO SCH (09:14)
[2019-05-25] MEDS: CLOPIDOGREL 75 MG TAB PO SCH (09:14)
[2019-05-25] MEDS: APIXABAN 2.5 MG TABLET PO SCH (09:14)
[2019-05-25] MEDS: hydrALAZINE HCL 10 MG TAB PO SCH (09:14)
[2019-05-25] MEDS: AMIODARONE 200 MG TAB PO SCH (09:19)
--- NOTE | 2019-05-25 12:27 | P.PN ---
Subjective Progress Note Date: 05/25/19 This is an 83-year-old female with history of hypertension, paroxysmal atrial fibrillation, hyperlipidemia, coronary artery disease with prior LAD stenting, presented to the hospital with symptoms of sustained palpitations. Patient was found to be in atrial fibrillation with rapid ventricular response, was initially tried on Cardizem but became quite hypotensive. Subsequently the Cardizem was discontinued. Patient also became significantly bradycardic, and her beta patrick subsequently was also discontinued. Patient is currently in normal sinus rhythm. Her heart rate this morning is in the 40s to 50s. If the heart rate remains in the 50s or higher with ambulation, she may be able to be discharged from our perspective Objective - Vital Signs Vital signs: Vital Signs Temp 98.5 F 05/25/19 04:00 Pulse 42 L 05/25/19 04:00 Resp 18 05/25/19 04:00 BP 177/78 05/25/19 04:00 Pulse Ox 96 05/25/19 04:00 Intake & Output 05/24/19 05/25/19 05/25/19 18:59 06:59 18:59 Intake Total 360 876 Balance 360 876 Weight 71.7 kg Intake: Oral 360 876 Other: Voiding Method Toilet # Voids 1 2 2 # Bowel Movements 1 1 - Exam PHYSICAL EXAMINATION: GENERAL: 83-year-old female in no acute distress at the time of my examination HEENT: Head is atraumatic, normocephalic. Pupils equal, round. Sclera anicteric. Conjunctiva are clear. Mucous membranes of the mouth are moist. Neck is supple. There is no elevated jugular venous pressure. No carotid bruit is heard. HEART EXAMINATION: Heart S1, S2 normal. No murmur or gallop heard. CHEST EXAMINATION: Lungs are clear to auscultation and precussion. No chest wall tenderness is noted on palpation or with deep breathing. ABDOMEN: Soft, nontender. Bowel sounds are heard. No organomegaly noted. EXTREMITIES: 2+ peripheral pulses with no evidence of peripheral edema and no calf tenderness noted. NEUROLOGIC patient is awake, alert and oriented 3 . . - Labs CBC & Chem 7: 05/23/19 07:03 05/23/19 07:03 Assessment and Plan Plan: Assessment and plan #1 paroxysmal atrial fibrillation #2 sinus bradycardia when in normal sinus rhythm #3 coronary artery disease with prior PCI #4 hypertension #5 hyperlipidemia Plan From cardiology's perspective, patient may be able to be discharged home without beta patrick or calcium channel patrick. Follow-up appointment in the office. DNP note has been reviewed, I agree with a documented findings and plan of care. Patient was seen and examined.
[2019-05-25] MEDS ORDERED: amLODIPine 5 MG TAB PO STA ×2 (14:23→17:36)
[2019-05-25 15:25] VITALS: TEMP 98.2
[2019-05-25 18:29] VITALS: BP 177/83; PULSE 59
--- NOTE | 2019-05-25 22:38 | P.DS ---
Providers Date of admission: 05/24/19 08:20 Expected date of discharge: 05/25/19 Attending physician: Onur Campbell Consults: 05/22/19 14:37 Consult Physician Routine Consulting Provider: Kumar Contreras Consult Reason/Comments: afib w rvr Do you want consulting provider notified?: Yes Primary care physician: Major Hospital Course: Chief Complaint: Heart racing History of presenting complaint: This is a pleasant 83-year-old patient of Dr. diehl. Chronic stable medical conditions include hypertension, osteoarthritis, coronary artery disease with stent. Patient for 1 week has been feeling tired some chest pressure or heart racing. Patient is found to be in atrial fibrillation with rapid ventricular rate. Started and IV Cardizem drip. Admitted for the same. Does feel tired rundown. A bit dizzy. admitted with-uncontrolled atrial fibrillation. Initially put on IV Cardizem drip. We'll switch to by mouth Cardizem and metoprolol.-Became bradycardic. Cardizem and metoprolol was discontinued. Put on amiodarone. Today-Stable. No new issues. Seen by oncology. Okay to be discharged. Blood pressure was running high. Amlodipine was added. Repeat blood pressure check. Discussion and discharge planning more than 35 minutes Consultation: Dr. Consuelo Beckford from cardiology Physical examination: VITAL SIGNS: 98.2, 60, 16, 177/73 GENERAL: sitting up, comfortable. EYES: BMI 29, sitting up, anxiousl. HEENT: External appearance of nose and ears normal, oral cavity grossly normal. NECK: JVD not raised; masses not palpable. HEART: heart sounds regular; no edema. LUNGS: Respiratory rate normal; clear to auscultation. ABDOMEN: Soft, nontender, liver spleen not palpable, no masses palpable. PSYCH: Alert and oriented x3; mood and affect anxiousl. MUSCULOSKELETAL: Evidence of OA INVESTIGATIONS, reviewed in the clinical context: White count 12.3 potassium 4.2 creatinine 0.91 Previous testing White count 13.4 hemoglobin 15.9 platelets 236 potassium 5 bun 23 creatinine 1.20 Troponin I less than 0.012, TSH 1.490 EKG tracing personally reviewed by me-right bundle-branch block pattern with atrial fibrillation with a rate of 135 Portable chest x-ray film-personally reviewed by me- cardiomegaly Assessment: -Paroxysmal atrial fibrillation with a rapid ventricular rate, currently in sinus rhythm. -Sinus bradycardia to the patient being on Cardizem and metoprolol.-Both discontinued -Coronary artery disease with stent -Primary osteoarthritis -Essential hypertension with urgency Disposition: Home Patient Condition at Discharge: Stable Plan - Discharge Summary Discharge Rx Participant: No New Discharge Prescriptions: New Amiodarone [Cordarone] 200 mg PO BID #60 tab Atorvastatin [Lipitor] 80 mg PO HS #30 tab Clopidogrel [Plavix] 75 mg PO DAILY #30 tab amLODIPine [Norvasc] 5 mg PO BID #60 tab Continue Aspirin 81 mg PO DAILY 30 Days #30 chew Apixaban [Eliquis] 2.5 mg PO BID 30 Days #60 tablet cloNIDine HCL [Catapres] 0.2 mg PO Q12H Discontinued Metoprolol Tartrate [Lopressor] 50 mg PO BID 30 Days #60 tab Prasugrel [Effient] 10 mg PO DAILY Discharge Medication List Apixaban [Eliquis] 2.5 mg PO BID 30 Days #60 tablet 12/24/18 [Rx] Aspirin 81 mg PO DAILY 30 Days #30 chew 12/24/18 [Rx] cloNIDine HCL [Catapres] 0.2 mg PO Q12H 05/22/19 [History] Amiodarone [Cordarone] 200 mg PO BID #60 tab 05/25/19 [Rx] Atorvastatin [Lipitor] 80 mg PO HS #30 tab 05/25/19 [Rx] Clopidogrel [Plavix] 75 mg PO DAILY #30 tab 05/25/19 [Rx] amLODIPine [Norvasc] 5 mg PO BID #60 tab 05/25/19 [Rx] Follow up Appointment(s)/Referral(s): Noel Diehl DO [Primary Care Provider] - 05/29/19 10:00 am (Saturday) Kumar Contreras MD [STAFF PHYSICIAN] - 06/09/19 3:30 pm (Saturday) Patient Instructions/Handouts: A-fib (Atrial Fibrillation) (DC) Activity/Diet/Wound Care/Special Instructions: Daily morning blood pressure check at home. Keep log. Discharge Disposition: HOME SELF-CARE
== END 2019-05-25 18:33 | disposition home or self-care (01) | DRG 310 ==
LOC: EC 14:08 → 3SCARD 15:37 → OBSVTOIN 05-24 08:20
PROVIDERS: ADMIT Hospitalist; ATTEND Hospitalist
DX: I48.0 Paroxysmal atrial fibrillation (principal); E78.5 Hyperlipidemia, unspecified; I10 Essential (primary) hypertension; I16.0 Hypertensive urgency; I25.10 Atherosclerotic heart disease of native coronary artery without angina pectoris; J44.9 Chronic obstructive pulmonary disease, unspecified; M19.91 Primary osteoarthritis, unspecified site; M81.0 Age-related osteoporosis without current pathological fracture; Z79.01 Long term (current) use of anticoagulants; I48.92 Unspecified atrial flutter; Z79.02 Long term (current) use of antithrombotics/antiplatelets; Z79.82 Long term (current) use of aspirin; Z79.899 Other long term (current) drug therapy; Z90.710 Acquired absence of both cervix and uterus; Z95.5 Presence of coronary angioplasty implant and graft; Z96.641 Presence of right artificial hip joint
CPT/HCPCS: 36415; 71045; 80053; 81001; 83735; 84443; 84484; 85025; 85610; 85730; 93005; 93306; 96361; 96365; 96366; 96376; 99285

== ENCOUNTER 2020-03-08 10:25 | Inpatient (IN) | payer MEDICARE, BC ==
--- NOTE | 2020-03-08 10:45 | ED ---
Arrhythmia/Palpitations HPI - General Chief Complaint: Arrhythmia/Palpitations Stated Complaint: chest pain Time Seen by Provider: 03/08/20 10:36 Source: patient Mode of arrival: ambulatory Limitations: no limitations - History of Present Illness Initial Comments: 84yo female presnting today for cc of heart racing and shortness of breath. Patient states for 4 weeks she has had palpitations that she believes is related to her atrial fibrillation and has been following Dr. Contreras she states she recently had another medication added in attempt to help with these symptoms. Patient states that they do not seem to be helping. Patient states she takes h er eliquis twice daily as directed. Patient denies any chest pain but states the past week she's had increasing shortness of breath. She states occasionally her leg swelling night. Patient denies any jaw or arm pain and back pain nausea upper abdominal pain or chest pressure. Patient states now she can only walk a few feet before feeling SOB. Denies syncope,presyncope. patient denies fever, URI symptoms. Patient has no additional complaints. she is pleasant and appears nontoxic on arrival. - Related Data Home Medications Medication Instructions Recorded Confirmed cloNIDine HCL [Catapres] 0.2 mg PO BID 05/22/19 03/08/20 Metoprolol Succinate (ER) [Toprol 50 mg PO W/LUNCH 03/08/20 03/08/20 Xl] amLODIPine [Norvasc] 5 mg PO W/LUNCH 03/08/20 03/08/20 Previous Rx's Medication Instructions Recorded Apixaban [Eliquis] 2.5 mg PO BID 30 Days #60 tablet 12/24/18 Aspirin 81 mg PO DAILY 30 Days #30 chew 12/24/18 Allergies Allergy/AdvReac Type Severity Reaction Status Date / Time No Known Allergies Allergy Verified 03/08/20 11:10 Review of Systems ROS Statement: Those systems with pertinent positive or pertinent negative responses have been documented in the HPI. ROS Other: All systems not noted in ROS Statement are negative. Past Medical History Past Medical History: Atrial Fibrillation, Hypertension, Osteoarthritis (OA) Additional Past Medical History / Comment(s): per chest xray copd/cardiomegally, History of Any Multi-Drug Resistant Organisms: None Reported Past Surgical History: Cholecystectomy, Heart Catheterization With Stent, Hysterectomy, Orthopedic Surgery Additional Past Surgical History / Comment(s): rt hip replacement,rt cataract,rt carpal tunnel release Past Anesthesia/Blood Transfusion Reactions: No Reported Reaction Date of Last Stent Placement:: 12/2018 Past Psychological History: No Psychological Hx Reported Smoking Status: Never smoker Past Alcohol Use History: None Reported Past Drug Use History: None Reported - Past Family History Mother Family Medical History: Osteoarthritis (OA) Additional Family Medical History / Comment(s): djd; at 69 Father Family Medical History: CVA/TIA Additional Family Medical History / Comment(s): age 84 General Exam - General Exam Comments Initial Comments: General: The patient is awake and alert, in no distress Eye: +3 mm pupils are equal, round and reactive to light, extra-ocular movements are intact. No nystagmus. There is normal conjunctiva bilaterally. No signs of icterus. Ears, nose, mouth and throat: There are moist mucous membranes and no oral lesions. Neck: The neck is supple, there is no tenderness or JVD. Cardiovascular: There is a regular rate and rhythm. No murmur, rub or gallop is appreciated. Respiratory: Respirations are non-labored, breath sounds are equal. No wheezes, stridor. Faint base rales. Gastrointestinal: Soft, non-distended, non-tender abdomen without masses or organomegaly noted. There is no rebound or guarding present. Musculoskeletal: Normal ROM, no tenderness. Strength 5/5. Sensation intact. R adial pulses equal bilaterally 2+. Neurological: A&O x 3. CN II-XII intact grossly, There are no obvious motor or sensory deficits. Coordination appears grossly intact. Speech is normal. Skin: Skin is warm and dry and no rashes or lesions are noted. No LE edema. Psychiatric: Cooperative, appropriate mood & affect, normal judgment. Limitations: no limitations Course Vital Signs 03/08/20 03/08/20 10:30 11:33 Temperature 98 F Pulse Rate 126 H 92 Respiratory 18 20 Rate Blood Pressure 128/81 130/70 O2 Sat by Pulse 98 97 Oximetry Medical Decision Making - Medical Decision Making 84-year-old female with history of atrial fibrillation. Complaint of elevated heart rate 4 weeks. Patient's heart rates a very from 80-120 mostly between 80 and 90. Afib on EKG no ST elevation or derpession. Trop (-). BNP elevated ~5000. NO BASELINE. but symptomatic with on and off leg swelling and increasing/persistent dyspnea with ambulation at this time we would like to admit patient for possible echocardiogram and cardiac consultation. As well as monitoring of patient's palpitations. Dr. Sanderson is agreeable to this care plan as well as admission as is patient. - Lab Data Result diagrams: 03/08/20 11:17 03/08/20 11:17 Lab Results 03/08/20 03/08/20 03/08/20 Range/Units 11:17 11:17 11:17 WBC 10.7 H (3.8-10.6) k/uL RBC 5.30 (3.80-5.40) m/uL Hgb 15.2 (11.4-16.0) gm/dL Hct 47.2 H (34.0-46.0) % MCV 89.1 (80.0-100.0) fL MCH 28.7 (25.0-35.0) pg MCHC 32.2 (31.0-37.0) g/dL RDW 16.4 H (11.5-15.5) % Plt Count 206 (150-450) k/uL MPV 7.8 Neutrophils % 73 % Lymphocytes % 14 % Monocytes % 6 % Eosinophils % 5 % Basophils % 1 % Neutrophils # 7.8 H (1.3-7.7) k/uL Lymphocytes # 1.5 (1.0-4.8) k/uL Monocytes # 0.7 (0-1.0) k/uL Eosinophils # 0.5 (0-0.7) k/uL Basophils # 0.1 (0-0.2) k/uL Hypochromasia Slight Anisocytosis Slight PT 10.7 (9.0-12.0) sec INR 1.0 (<1.2) APTT 25.8 (22.0-30.0) sec D-Dimer 0.37 (<0.60) mg/L FEU Sodium 138 (137-145) mmol/L Potassium 4.2 (3.5-5.1) mmol/L Chloride 105 (98-107) mmol/L Carbon Dioxide 25 (22-30) mmol/L Anion Gap 8 mmol/L BUN 18 H (7-17) mg/dL Creatinine 1.16 H (0.52-1.04) mg/dL Est GFR (CKD-EPI)AfAm 50 (>60 ml/min/1.73 sqM) Est GFR (CKD-EPI)NonAf 44 (>60 ml/min/1.73 sqM) Glucose 175 H (74-99) mg/dL Calcium 9.4 (8.4-10.2) mg/dL Magnesium 1.8 (1.6-2.3) mg/dL Total Bilirubin 0.7 (0.2-1.3) mg/dL AST 43 H (14-36) U/L ALT 45 H (4-34) U/L Alkaline Phosphatase 88 (38-126) U/L Troponin I (0.000-0.034) ng/mL NT-Pro-B Natriuret Pep pg/mL Total Protein 7.2 (6.3-8.2) g/dL Albumin 4.1 (3.5-5.0) g/dL Coronavirus (PCR) (Not Detectd) 03/08/20 03/08/20 03/08/20 Range/Units 11:17 11:17 11:32 WBC (3.8-10.6) k/uL RBC (3.80-5.40) m/uL Hgb (11.4-16.0) gm/dL Hct (34.0-46.0) % MCV (80.0-100.0) fL MCH (25.0-35.0) pg MCHC (31.0-37.0) g/dL RDW (11.5-15.5) % Plt Count (150-450) k/uL MPV Neutrophils % % Lymphocytes % % Monocytes % % Eosinophils % % Basophils % % Neutrophils # (1.3-7.7) k/uL Lymphocytes # (1.0-4.8) k/uL Monocytes # (0-1.0) k/uL Eosinophils # (0-0.7) k/uL Basophils # (0-0.2) k/uL Hypochromasia Anisocytosis PT (9.0-12.0) sec INR (<1.2) APTT (22.0-30.0) sec D-Dimer (<0.60) mg/L FEU Sodium (137-145) mmol/L Potassium (3.5-5.1) mmol/L Chloride (98-107) mmol/L Carbon Dioxide (22-30) mmol/L Anion Gap mmol/L BUN (7-17) mg/dL Creatinine (0.52-1.04) mg/dL Est GFR (CKD-EPI)AfAm (>60 ml/min/1.73 sqM) Est GFR (CKD-EPI)NonAf (>60 ml/min/1.73 sqM) Glucose (74-99) mg/dL Calcium (8.4-10.2) mg/dL Magnesium (1.6-2.3) mg/dL Total Bilirubin (0.2-1.3) mg/dL AST (14-36) U/L ALT (4-34) U/L Alkaline Phosphatase (38-126) U/L Troponin I <0.012 (0.000-0.034) ng/mL NT-Pro-B Natriuret Pep 4990 pg/mL Total Protein (6.3-8.2) g/dL Albumin (3.5-5.0) g/dL Coronavirus (PCR) Not Detected (Not Detectd) Disposition Clinical Impression: Dyspnea, Heart failure, Palpitations, Arrhythmia, History of atrial fibrillation Disposition: ADMITTED IP TO THIS [facility] Condition: Stable Is patient prescribed a controlled substance at d/c from ED?: No Referrals: Noel Diehl DO [Primary Care Provider] - 1-2 days Time of Disposition: 13:06 Decision to Admit Reason: Admit from EC Decision Date: 03/08/20 Decision Time: 13:06
[2020-03-08 11:34] LABS: Anisocytosis Slight; Basophils # (A) 0.1 k/uL (0-0.2); Basophils % (A) 1 %; Eosinophils # (A) 0.5 k/uL (0-0.7); Eosinophils % (A) 5 %; HCT 47.2 % (34.0-46.0); HGB 15.2 gm/dL (11.4-16.0); Hypochromasia Slight; Lymphocytes # (A) 1.5 k/uL (1.0-4.8); Lymphocytes % (A) 14 %; MCH 28.7 pg (25.0-35.0); MCHC 32.2 g/dL (31.0-37.0); MCV 89.1 fL (80.0-100.0); Mean Platelet Volume 7.8; Monocytes # (A) 0.7 k/uL (0-1.0); Monocytes % (A) 6 %; Neutrophils # (A) 7.8 k/uL (1.3-7.7); Neutrophils % (A) 73 %; Platelet Count 206 k/uL (150-450); RDW 16.4 % (11.5-15.5); WBC 10.7 k/uL (3.8-10.6)
--- NOTE | 2020-03-08 11:39 | XR ---
EXAMINATION TYPE: XR chest 2V DATE OF EXAM: 03/08/2020 COMPARISON: 05/22/2019 HISTORY: 84-year-old female with chest pain, elevated heart rate TECHNIQUE: PA and lateral views FINDINGS: Heart borderline in size. Mild elongation thoracic aorta. Mild interstitial prominence as a chronic a ppearance. No consolidation or pleural effusion. IMPRESSION: Chronic changes and borderline cardiomegaly. No acute process.
[2020-03-08 11:49] LABS: D-Dimer 0.37 mg/L FEU (<0.60); Prothrombin Time 10.7 sec (9.0-12.0)
[2020-03-08 11:50] LABS: Partial Thromboplastin Time 25.8 sec (22.0-30.0)
[2020-03-08 11:53] LABS: Albumin 4.1 g/dL (3.5-5.0); Calcium 9.4 mg/dL (8.4-10.2); Magnesium 1.8 mg/dL (1.6-2.3); Potassium 4.2 mmol/L (3.5-5.1); Total Bilirubin 0.7 mg/dL (0.2-1.3); Total Protein 7.2 g/dL (6.3-8.2)
[2020-03-08] MEDS ORDERED: FUROSEMIDE 10 MG/ML 4 ML VIAL IV STA (13:05)
[2020-03-08] MEDS ORDERED: NALOXONE 0.4 MG/ML 1 ML VIAL IV PRN (14:00)
[2020-03-08 15:19] LABS: Glucose,Whole Blood 106 mg/dL (75-99)
[2020-03-08 16:47] LABS: Glucose,Whole Blood 150 mg/dL (75-99)
[2020-03-08] MEDS: amLODIPine 5 MG TAB PO SCH (17:47)
[2020-03-08] MEDS: METOPROLOL SUCCINATE (ER) 50 MG TAB.ER.24H PO SCH (17:47)
[2020-03-08 20:04] LABS: Glucose,Whole Blood 156 mg/dL (75-99)
[2020-03-08] MEDS: cloNIDine HCL 0.2 MG TAB PO SCH (20:10)
[2020-03-08] MEDS: APIXABAN 2.5 MG TABLET PO SCH (20:10)
[2020-03-09 06:18] LABS: Glucose,Whole Blood 131 mg/dL (75-99)
[2020-03-09] MEDS: cloNIDine HCL 0.2 MG TAB PO SCH (08:32)
[2020-03-09] MEDS: APIXABAN 2.5 MG TABLET PO SCH ×2 (08:32→20:15)
[2020-03-09] MEDS: ASPIRIN 81 MG PO SCH (08:32)
[2020-03-09 11:37] LABS: Glucose,Whole Blood 130 mg/dL (75-99)
[2020-03-09] MEDS: amLODIPine 5 MG TAB PO SCH (12:31)
[2020-03-09] MEDS: METOPROLOL SUCCINATE (ER) 50 MG TAB.ER.24H PO SCH (12:31)
[2020-03-09] MEDS ORDERED: METOPROLOL TARTRATE 50 MG TAB PO SCH (18:00)
--- NOTE | 2020-03-09 18:51 | P.HPIM ---
History of Present Illness H&P Date: 03/09/20 Chief Complaint: Palpitations History of presenting complaint: This is a pleasant 84-year-old patient of Dr. goldberg. Chronic stable medical conditions include hypertension, osteoarthritis, coronary artery disease with stent. Has known paroxysmal atrial fibrillation. Patient been having palpitations for a few days. Some chest tightness. Becoming short of breath with activity especially. No dizziness or lightheadedness. No chest pain. No fever no chills. Patient does follow with Dr. Beckford from cartilage he. On other medications added. Has not been helping her. Also eliquis. Some lower extremity edema. No fever no chills. Review of systems: GEN.: Tired EYES: None HEENT: None NECK: None RESPIRATORY: As above CARDIOVASCULAR: As above GASTROINTESTINAL: Constipation GENITOURINARY: None MUSCULOSKELETAL: Joint pains LYMPHATICS: None HEMATOLOGICAL: None PSYCHIATRY: But anxious NEUROLOGICAL: None Past medical history to include: Coronary artery disease, atrial flutter ablation, osteoarthritis, coronary artery disease with stent, hypertension Social history: Does not smoke or drink alcohol. . Physical examination: VITAL SIGNS: 98, 126, 18, 128/81, 98% room air-upon presentation GENERAL: BMI 28.3, sitting up, comfortable. EYES: BMI 29, sitting up, comfortable HEENT: External appearance of nose and ears normal, oral cavity grossly normal. NECK: JVD not raised; masses not palpable. HEART: Heart sounds irregular; no edema. LUNGS: Respiratory rate normal; clear to auscultation. ABDOMEN: Soft, nontender, liver spleen not palpable, no masses palpable. PSYCH: Alert and oriented x3; mood and affect anxiousl. MUSCULOSKELETAL: Evidence of OA NEUROLOGICAL: Cranial nerves grossly intact; no facial asymmetry, power and sensation grossly intact. LYMPHATICS: No lymph nodes palpable in the axilla and neck INVESTIGATIONS, reviewed in the clinical context: White count 10.7 hemoglobin 15.2 platelets 26 potassium 4.2 bun 18 creatinine 1.16 Coronavirus-P/Cr-not detected EKG tracing personally reviewed by me-atrial fibrillation rate controlled Previous testing: April 2019: BUN 23 creatinine 1.20 Assessment: -Paroxysmal atrial fibrillation with episodes of rapid ventricular rate, with a prior history of ablation -Suspect increased preload causing shortness of breath from pulmonary edema from arrhythmia. -Coronary artery disease with stent -Primary osteoarthritis -Essential hypertension Plan: We will increase patient Lopressor 200 mg twice a day. Will DC the Catapres. If heart rate still uncontrolled but had some Cardizem. Care was discussed the patient. Questions answered. Patient was given some IV Lasix to decrease the preload. Add Aldactone Past Medical History Past Medical History: Atrial Fibrillation, Hypertension, Osteoarthritis (OA) Additional Past Medical History / Comment(s): per chest xray copd/cardiomegally, History of Any Multi-Drug Resistant Organisms: None Reported Past Surgical History: Cholecystectomy, Heart Catheterization With Stent, Hysterectomy, Orthopedic Surgery Additional Past Surgical History / Comment(s): rt hip replacement,rt cataract,rt carpal tunnel release Past Anesthesia/Blood Transfusion Reactions: No Reported Reaction Date of Last Stent Placement:: 12/2018 Past Psychological History: No Psychological Hx Reported Smoking Status: Never smoker Past Alcohol Use History: None Reported Past Drug Use History: None Reported - Past Family History Mother Family Medical History: Osteoarthritis (OA) Additional Family Medical History / Comment(s): djd; at 69 Father Family Medical History: CVA/TIA Additional Family Medical History / Comment(s): age 84 Medications and Allergies Home Medications Medication Instructions Recorded Confirmed Type Apixaban [Eliquis] 2.5 mg PO BID 30 Days #60 tablet 12/24/18 03/08/20 Rx Aspirin 81 mg PO DAILY 30 Days #30 chew 12/24/18 03/08/20 Rx cloNIDine HCL [Catapres] 0.2 mg PO BID 05/22/19 03/08/20 History Metoprolol Succinate (ER) [Toprol 50 mg PO W/LUNCH 03/08/20 03/08/20 History Xl] amLODIPine [Norvasc] 5 mg PO W/LUNCH 03/08/20 03/08/20 History Allergies Allergy/AdvReac Type Severity Reaction Status Date / Time No Known Allergies Allergy Verified 03/08/20 11:10 Physical Exam Vitals: Vital Signs Temp Pulse Pulse Resp BP BP Pulse Ox 03/09/20 08:00 98.7 F 110 H 18 150/90 95 03/09/20 04:00 98.0 F 72 17 142/87 96 03/09/20 02:00 18 03/09/20 00:00 97.7 F 62 18 145/88 94 L 03/08/20 20:00 97.8 F 100 18 137/103 98 03/08/20 15:00 98.0 F 104 H 116 H 116 H 122/78 135/95 98 03/08/20 14:00 92 20 139/96 97 03/08/20 13:18 97.7 F 117 H 18 147/110 99 03/08/20 11:33 92 20 130/70 97 Intake and Output 03/08/20 03/09/20 03/09/20 22:59 06:59 14:59 Intake Total 240 780 Balance 240 780 Intake: Oral 240 780 Other: Voiding Method Toilet Toilet Toilet # Voids 1 1 # Bowel Movements 1 Weight 70.2 kg Results CBC & Chem 7: 03/08/20 11:17 03/08/20 11:17 Labs: Abnormal Lab Results - Last 24 Hours (Table) 03/08/20 03/08/20 03/08/20 Range/Units 11:17 11:17 15:16 WBC 10.7 H (3.8-10.6) k/uL Hct 47.2 H (34.0-46.0) % RDW 16.4 H (11.5-15.5) % Neutrophils # 7.8 H (1.3-7.7) k/uL BUN 18 H (7-17) mg/dL Creatinine 1.16 H (0.52-1.04) mg/dL Glucose 175 H (74-99) mg/dL POC Glucose (mg/dL) 106 H (75-99) mg/dL AST 43 H (14-36) U/L ALT 45 H (4-34) U/L 03/08/20 03/08/20 03/09/20 Range/Units 16:32 20:03 06:17 WBC (3.8-10.6) k/uL Hct (34.0-46.0) % RDW (11.5-15.5) % Neutrophils # (1.3-7.7) k/uL BUN (7-17) mg/dL Creatinine (0.52-1.04) mg/dL Glucose (74-99) mg/dL POC Glucose (mg/dL) 150 H 156 H 131 H (75-99) mg/dL AST (14-36) U/L ALT (4-34) U/L Thrombosis Risk Factor Assmnt - Choose All That Apply Other Risk Factors: Yes Each Risk Factor Represents 3 Points: Age 75 years or older Other congenital or acquired thrombophilia - If yes, enter type in comment: No Thrombosis Risk Factor Assessment Total Risk Factor Score: 3 Thrombosis Risk Factor Assessment Level: Moderate Risk
[2020-03-09] MEDS: METOPROLOL TARTRATE 50 MG TAB PO SCH (20:15)
[2020-03-09] MEDS ORDERED: LACTULOSE 20 GM/30 ML CUP PO ONE (20:20)
[2020-03-10] MEDS: ASPIRIN 81 MG PO SCH (09:13)
[2020-03-10] MEDS: APIXABAN 2.5 MG TABLET PO SCH (09:13)
[2020-03-10] MEDS: METOPROLOL TARTRATE 50 MG TAB PO SCH ×2 (09:13→20:25)
[2020-03-10] MEDS ORDERED: METOPROLOL TARTRATE 50 MG TAB PO STA (10:08)
[2020-03-10] MEDS: FUROSEMIDE 10 MG/ML 4 ML VIAL IV SCH ×2 (10:46→20:25)
--- NOTE | 2020-03-10 10:53 | ECHOF ---
Referral Reason:Atrial fibrillation MEASUREMENTS -------- HEIGHT: 157.5 cm WEIGHT: 71.2 kg BP: 147/79 RVIDd: 3.4 cm (< 3.3) IVSd: 1.7 cm (0.6 - 1.1) LVIDd: 4.0 cm (3.9 - 5.3) LVPWd: 1.4 cm (0.6 - 1.1) IVSs: 1.9 cm LVIDs: 3.2 cm LVPWs: 1.8 cm LAESV Index (A-L): 35.20 ml/m IVSd: 1.9 cm (0.6 - 1.1) LVIDd: 4.3 cm (3.9 - 5.3) LVPWd: 1.4 cm (0.6 - 1.1) IVSs: 1.8 cm LVIDs: 3.6 cm LVPWs: 2.0 cm EDV(Teich): 85 ml ESV(Teich): 53 ml EF(Teich): 38 % %FS: 18 % SV(Teich): 32 ml Ao Diam: 2.5 cm (2.0 - 3.7) AV Cusp: 1.7 cm (1.5 - 2.6) LA Diam: 5.2 cm (2.7 - 3.8) MV EXCURSION: 16.144 mm (> 18.000) MV EF SLOPE: 28 mm/s (70 - 150) EPSS: 0.5 cm RAP: 5.00 mmHg RVSP: 41.12 mmHg FINDINGS -------- Resting tachycardia (HR>100bpm). This was a technically adequate study. The left ventricular size is normal. There is moderate concentric left ventricular hypertrophy. O verall left ventricular systolic function is moderate-severely impaired with, an EF between 30 - 35 % . Mitral Doppler inflow pattern suggests diastolic filling abnormality {E/E'}. Global hypokinesis The right ventricle is mildly enlarged. LA is moderately dilated 34-39 ml/m2 The right atrium is mildly enlarged. Interatrial and interventricular septum intact. The aortic valve is trileaflet and appears structurally normal. There is no evidence of aortic regu rgitation. There is no evidence of aortic stenosis. [id number] mitral regurgitation is present. Moderate tricuspid regurgitation present. There is moderate pulmonary hypertension. The right arash tricular systolic pressure, as measured by Doppler, is 41.12mmHg. There is no pulmonic regurgitation present. The aortic root size is normal. Normal inferior vena cava with normal inspiratory collapse consistent with estimated right atrial pre ssure of 5 mmHg. There is no pericardial effusion. CONCLUSIONS -------- 1. The left ventricular size is normal. 2. There is moderate concentric left ventricular hypertrophy. 3. Overall left ventricular systolic function is moderate-severely impaired with, an EF between 30 - 35 %. 4. Mitral Doppler inflow pattern suggest diastolic filling abnormality {E/E'}. 5. Global hypokinesis 6. The right ventricle is mildly enlarged. 7. LA is moderately dilated 34-39 ml/m2 8. The right atrium is mildly enlarged. 9. Gglu-[id number]-[id number] mitral regurgitation is present. 10. Moderate tricuspid regurgitation present. 11. There is moderate pulmonary hypertension. 12. The right ventricular systolic pressure, as measured by Doppler, is 41.12mmHg. [employer] OPERATOR: Marzena Parsons RDCS
[2020-03-10 11:22] LABS: Calcium 9.3 mg/dL (8.4-10.2); Potassium 4.3 mmol/L (3.5-5.1)
--- NOTE | 2020-03-10 12:54 | P.CRDCN ---
History of Present Illness Consult date: 03/10/20 History of present illness: CHIEF COMPLAINT: A. fib with RVR HISTORY OF PRESENT ILLNESS: This is a 84-year-old female with a past medical history significant for paroxysmal atrial fibrillation, hypertension, and coronary artery disease with previous stenting to LAD. Patient follows in the office with Dr. Contreras. We have been asked to see the patient in consultation for afib with RVR. Patient examined this morning at the bedside. She reports having palpitations over the past 3 weeks. She reports some associated shortness of breath. She denies chest pain or pressure. Denies dizziness or lightheadedness. She states she has been seen in the cardiology office twice over the past few weeks for her atrial fibrillation. DIAGNOSTICS: EKG reveals atrial fibrillation with no signs of acute ischemia Chest xray chronic changes and borderline cardiomegaly. No acute process. Laboratory data: WBC 10.7. Hemoglobin 15.2. Platelet count 206. Current home cardiac medications include metoprolol succinate 50 mg daily, Catapres 0.2 mg twice a day, Norvasc 5 mg daily, aspirin 81 mg daily, and Eliquis 2.5 g twice a day Echocardiogram completed in 2019 revealed ejection fraction 55-60% Echocardiogram completed today reveals ejection fraction 30-35%, global hypokinesis, [id number] mitral regurgitation, moderate tricuspid regurgitation, and moderate pulmonary hypertension REVIEW OF SYSTEMS: At the time of my exam: CONSTITUTIONAL: Denies fever or chills. HEENT: Denies blurred vision, vision changes, or eye pain. Denies hemoptysis CARDIOVASCULAR: Denies chest pain, orthopnea, PND or palpitations RESPIRATORY: Reports mild shortness of breath. GASTROINTESTINAL: Denies abdominal pain. Denies nausea or vomiting. HEMATOLOGIC: Denies bleeding disorders. GENITOURINARY: Denies any blood in urine. SKIN: Denies pruitis. Denies rash. PHYSICAL EXAM: VITAL SIGNS: Reviewed. GENERAL: Well-developed in no acute distress. HEENT: Head is normocephalic. Pupils are equal, round. Sclerae anicteric. Mucous membranes of the mouth are moist. Neck supple. No JVD or thyromegaly LUNGS: Respirations even and unlabored. Lungs diminished with crackles to bilate ral bases. HEART: Tachycardic. Irregular rate and rhythm. S1 and S2 heard. ABDOMEN: Soft. Nondistended. Nontender. EXTREMITIES: Normal range of motion. No clubbing or cyanosis. Peripheral pulses intact. No lower extremity edema NEUROLOGIC: Awake and alert. Oriented x 3. ASSESSMENT: Palpitations Paroxysmal atrial fibrillation with RVR, on anticoagulation with Eliquis Acute systolic congestive heart failure, EF 35% Ischemic cardiomyopathy Coronary artery disease with previous PCI to LAD Hypertension PLAN: Discontinue Norvasc Begin lisinopril 5 mg daily Increase Metoprolol to 150 mg twice a day Increased Eliquis to 5 mg twice a day Begin Lasix 40 mg IV every 12 hours Monitor kidney function Accurate I&O Daily weights Obtain lipid panel Possible cardiac cath with Dr. Contreras tomorrow secondary to new cardiomyopathy Further recommendations pending patient's course Nurse practitioner note has been reviewed by physician. Signing provider agrees with the documented findings, assessment, and plan of care. Past Medical History Past Medical History: Atrial Fibrillation, Hypertension, Osteoarthritis (OA) Additional Past Medical History / Comment(s): per chest xray copd/cardiomegally, History of Any Multi-Drug Resistant Organisms: None Reported Past Surgical History: Cholecystectomy, Heart Catheterization With Stent, Hysterectomy, Orthopedic Surgery Additional Past Surgical History / Comment(s): rt hip replacement,rt cataract,rt carpal tunnel release Past Anesthesia/Blood Transfusion Reactions: No Reported Reaction Date of Last Stent Placement:: 12/2018 Past Psychological History: No Psychological Hx Reported Smoking Status: Never smoker Past Alcohol Use History: None Reported Past Drug Use History: None Reported - Past Family History Mother Family Medical History: Osteoarthritis (OA) Additional Family Medical History / Comment(s): djd; at 69 Father Family Medical History: CVA/TIA Additional Family Medical History / Comment(s): age 84 Medications and Allergies Home Medications Medication Instructions Recorded Confirmed Type Apixaban [Eliquis] 2.5 mg PO BID 30 Days #60 tablet 12/24/18 03/08/20 Rx Aspirin 81 mg PO DAILY 30 Days #30 chew 12/24/18 03/08/20 Rx cloNIDine HCL [Catapres] 0.2 mg PO BID 05/22/19 03/08/20 History Metoprolol Succinate (ER) [Toprol 50 mg PO W/LUNCH 03/08/20 03/08/20 History Xl] amLODIPine [Norvasc] 5 mg PO W/LUNCH 03/08/20 03/08/20 History Allergies Allergy/AdvReac Type Severity Reaction Status Date / Time No Known Allergies Allergy Verified 03/08/20 11:10 Physical Exam Vitals: Vital Signs Temp Pulse Pulse Resp BP BP Pulse Ox 03/10/20 10:44 115 H 18 138/94 96 03/10/20 08:00 98.1 F 80 84 18 115/82 97 03/10/20 07:29 96 03/10/20 03:33 98.1 F 82 18 147/79 96 03/10/20 01:59 16 03/10/20 00:00 98.0 F 94 18 128/83 93 L 03/09/20 20:00 98.3 F 91 18 137/89 96 03/09/20 16:00 97.8 F 94 18 142/84 96 03/09/20 14:00 96 16 Intake and Output 03/09/20 03/10/20 03/10/20 22:59 06:59 14:59 Intake Total 240 660 Balance 240 660 Intake: Oral 240 660 Other: Voiding Method Toilet Toilet # Voids 1 2 1 Weight 71.5 kg Results 03/08/20 11:17 03/10/20 10:55 Comprehensive Metabolic Panel 03/10/20 Range/Units 10:55 Sodium 139 (137-145) mmol/L Potassium 4.3 (3.5-5.1) mmol/L Chloride 102 (98-107) mmol/L Carbon Dioxide 29 (22-30) mmol/L BUN 23 H (7-17) mg/dL Creatinine 1.20 H (0.52-1.04) mg/dL Glucose 158 H (74-99) mg/dL Calcium 9.3 (8.4-10.2) mg/dL Current Medications Generic Name Dose Route Start Last Admin Trade Name Freq PRN Reason Stop Dose Admin Apixaban 5 mg 03/10/20 21:00 Apixaban 5 Mg Tab PO BID WILFRED Furosemide 40 mg 03/10/20 10:15 03/10/20 10:46 Furosemide 10 Mg/Ml 4 Ml Vial IV 40 mg Q12HR WILFRED Administration Metoprolol Tartrate 150 mg 03/10/20 21:00 Metoprolol Tartrate 50 Mg Tab PO BID WILFRED Naloxone HCl 0.2 mg 03/08/20 14:00 Naloxone 0.4 Mg/Ml 1 Ml Vial IV Q2M PRN Opioid Reversal Intake and Output 03/09/20 03/10/20 03/10/20 22:59 06:59 14:59 Intake Total 240 660 Balance 240 660 Intake: Oral 240 660 Other: Voiding Method Toilet Toilet # Voids 1 2 1 Weight 71.5 kg 03/08/20 11:17 03/10/20 10:55
[2020-03-10] MEDS ORDERED: ALPRAZolam 0.25 MG TAB PO PRN (13:08)
[2020-03-10] MEDS ORDERED: NITROGLYCERIN SL TABS 0.4 MG TAB SUBLINGUAL PRN (13:08)
[2020-03-10] MEDS ORDERED: ALPRAZolam 0.5 MG TAB PO PRN (13:08)
[2020-03-10 14:21] LABS: Cholesterol 219 mg/dL (<200); HDL Cholesterol 37 mg/dL (40-60); LDL Cholesterol,Calculated 147 mg/dL (0-99); Triglycerides 174 mg/dL (<150)
[2020-03-10] MEDS ORDERED: SODIUM CHLORIDE 0.9% 1,000 ML in EMPTY BAG 1 BAG IV ONE (16:00)
[2020-03-10] MEDS: APIXABAN 5 MG TAB PO SCH (20:20)
--- NOTE | 2020-03-10 22:04 | P.PN ---
Progress Note - Text Progress Note Date: 03/10/20 Chief Complaint: Palpitations History of presenting complaint: This is a pleasant 84-year-old patient of Dr. goldberg. Chronic stable medical conditions include hypertension, osteoarthritis, coronary artery disease with stent. Has known paroxysmal atrial fibrillation. Patient been having palpitations for a few days. Some chest tightness. Becoming short of breath with activity especially. No dizziness or lightheadedness. No chest pain. No fever no chills. Patient does follow with Dr. Beckford from [facility]. On other medications added. Has not been helping her. Also eliquis. Some lower extremity edema. No fever no chills. Today-laying in bed. Breathing a bit better. Heart rate better controlled. Review of systems: Was done for constitutional, cardiovascular, GI, pulmonary. relevant finding as above Active Medications Alprazolam (Alprazolam 0.25 Mg Tab) 0.25 mg PO Q6HR PRN PRN Reason: Mild Anxiety Alprazolam (Alprazolam 0.5 Mg Tab) 0.5 mg PO Q6HR PRN PRN Reason: Moderate Anxiety Apixaban (Apixaban 5 Mg Tab) 5 mg PO BID [facility] Last Admin: 03/10/20 20:20 Dose: Not Given Documented by: Aspirin (Aspirin 325 Mg Tab) 325 mg PO ONCE ONE Stop: 03/11/20 07:01 Atorvastatin Calcium (Atorvastatin 80 Mg Tab) 80 mg PO ONCE ONE Stop: 03/11/20 07:01 Furosemide (Furosemide 10 Mg/Ml 4 Ml Vial) 40 mg IV Q12HR [facility] Last Admin: 03/10/20 20:25 Dose: 40 mg Documented by: Sodium Chloride 1,000 ml/ IV (Solution) 1,000 mls @ 71.5 mls/hr IV .Q14H ONE Stop: 03/11/20 05:59 Heparin Sodium (Porcine) 10, (000 unit/ Sodium Chloride) 1,001 mls @ 999 mls/hr IRRIGATION ONCE PRN PRN Reason: INTRA-OP Stop: 03/11/20 23:00 Heparin Sodium (Porcine) 2,500 (unit/ Sodium Chloride) 250.5 mls @ 250 mls/hr IRRIGATION ONCE PRN PRN Reason: INTRA-OP Stop: 03/11/20 23:00 Lisinopril (Lisinopril 5 Mg Tab) 5 mg PO DAILY [facility] Metoprolol Tartrate (Metoprolol Tartrate 50 Mg Tab) 150 mg PO BID [facility] Last Admin: 03/10/20 20:25 Dose: 150 mg Documented by: Naloxone HCl (Naloxone 0.4 Mg/Ml 1 Ml Vial) 0.2 mg IV Q2M PRN PRN Reason: Opioid Reversal Nitroglycerin (Nitroglycerin Sl Tabs 0.4 Mg Tab) 0.4 mg SUBLINGUAL Q5M PRN PRN Reason: Chest Pain Past medical history to include: Coronary artery disease, atrial flutter ablation, osteoarthritis, coronary artery disease with stent, hypertension Social history: Does not smoke or drink alcohol. . Physical examination: VITAL SIGNS: 98.1, 80, 18, 115/82, 97% room air GENERAL: Laying in bed, awake. EYES: BMI 29, sitting up, comfortable HEENT: External appearance of nose and ears normal, oral cavity grossly normal. NECK: JVD not raised; masses not palpable. HEART: Heart sounds irregular; no edema. LUNGS: Respiratory rate normal; clear to auscultation. ABDOMEN: Soft, nontender, liver spleen not palpable, no masses palpable. PSYCH: Alert and oriented x3; mood and affect anxiousl. MUSCULOSKELETAL: Evidence of OA INVESTIGATIONS, reviewed in the clinical context: White count 10.7 hemoglobin 15.2 platelets 26 potassium 4.2 bun 18 creatinine 1.16 Coronavirus-P/Cr-not detected EKG tracing personally reviewed by me-atrial fibrillation rate controlled 2-D echocardiogram-moderate concentric LVH, EF 30-35%, global hypokinesis, [id number] MR, moderate TR, moderate pulmonary hypertension Previous testing: April 2019: BUN 23 creatinine 1.20 Assessment: -Paroxysmal atrial fibrillation with episodes of rapid ventricular rate, with a prior history of ablation-heart rate better controlled -Acute congestive heart failure exacerbation from systolic dysfunction EF 30- 35%, could be ischemic and/or atrial fibrillation related -Coronary artery disease with stent -Primary osteoarthritis -Essential hypertension Plan: Patient's currently on IV Lasix, Lipitor, Zestril, Lopressor 150 mg twice a day. Cardiology is contemplating cardiac catheterization. Discussed with patient. Follow
[2020-03-11] MEDS: METOPROLOL TARTRATE 50 MG TAB PO SCH ×2 (06:23→19:50)
[2020-03-11] MEDS ORDERED: HEPARIN SODIUM,PORCINE 10,000 UNIT in SODIUM CHLORIDE 0.9% 1,000 ML IRRIGATION PRN (07:00)
[2020-03-11] MEDS ORDERED: ASPIRIN 325 MG TAB PO ONE (07:00)
[2020-03-11] MEDS ORDERED: HEPARIN SODIUM,PORCINE 2,500 UNIT in SODIUM CHLORIDE 0.9% 250 ML IRRIGATION PRN (07:00)
[2020-03-11] MEDS ORDERED: ATORVASTATIN 80 MG TAB PO ONE (07:00)
[2020-03-11] MEDS ORDERED: LIDOCAINE 1% INJ 10MG/ML (20 ML MDV) ONE (08:11)
[2020-03-11] MEDS ORDERED: fentaNYL (PF) 50 MCG/ML 2 ML AMP ONE (08:23)
[2020-03-11] MEDS ORDERED: METOPROLOL TARTRATE 5 MG/5 ML VIAL IVP ONE ×2 (08:33→08:38)
[2020-03-11] MEDS ORDERED: MIDAZOLAM 2 MG/2 ML VIAL IV ONE (08:36)
[2020-03-11] MEDS ORDERED: LIDOCAINE 1% INJ 10MG/ML (20 ML MDV) SQ ONE (08:38)
[2020-03-11] MEDS ORDERED: fentaNYL (PF) 50 MCG/ML 2 ML AMP IV ONE (08:38)
[2020-03-11] MEDS ORDERED: IV FLUID CONTINUATION 800 ML IV ONE (08:38)
[2020-03-11 08:44] LABS: Calcium 9.3 mg/dL (8.4-10.2); Potassium 3.7 mmol/L (3.5-5.1)
[2020-03-11] MEDS ORDERED: IOPAMIDOL-370 125ML BTL INJ ONE (08:53)
[2020-03-11] MEDS ORDERED: lisinopriL 5 MG TAB PO SCH (09:00)
[2020-03-11] MEDS ORDERED: RX INFO: IV CONTRAST WAS GIVEN 1 EACH MISC MISCELLANE PRN (09:04)
[2020-03-11] MEDS: APIXABAN 5 MG TAB PO SCH ×2 (09:28→19:51)
[2020-03-11] MEDS ORDERED: POTASSIUM CHLORIDE ER 20 MEQ TAB.ER PO STA (09:31)
--- NOTE | 2020-03-11 09:33 | CC ---
CARDIAC CATHETERIZATION REPORT INDICATION: Known coronary artery disease, status post prior angioplasty with recent worsening of the LV function. PROCEDURE NOTE: After obtaining informed consent, left heart catheterization and coronary angiogram are performed via the right femoral artery using standard Deo catheters. The patient tolerated the procedure well without any obvious immediate complications. A femoral angiogram was performed and Angio-Seal will be deployed for hemostasis. Patient received moderate conscious sedation. Total sedation time was 15 minutes. FINDINGS: 1. HEMODYNAMICS: Left ventricular end-diastolic pressure is 8 to 10 mm. There is no significant gradient across the aortic valve. 2. LEFT VENTRICULOGRAM: Left ventriculogram is not performed. 3. ANGIOGRAPHIC DATA: Left Main Coronary Artery: Left main coronary artery is normal size vessel and is free of stenosis. Divides into left anterior descending coronary artery and circumflex coronary artery. LAD was previously stented in the midportion and the stent is patent. Circumflex coronary artery and its branches are free of significant stenosis. Right coronary artery is a large dominant vessel that shows mild nonobstructive CAD. CONCLUSIONS: 1. Patent stent within the left anterior descending artery. 2. Mild nonobstructive coronary artery disease involving circumflex coronary artery and right coronary artery. PLAN: Patient's management is going to be in the form of risk factor modification and optimal medical therapy and will control her heart rate better and hopefully discharge her home tomorrow. MMODL / IJN: [id number] /
--- NOTE | 2020-03-11 10:11 | P.PN ---
Subjective Patient is a pleasant 84-year-old patient of Dr. goldberg. Chronic stable medical conditions include hypertension, osteoarthritis, coronary artery disease with stent. Has known paroxysmal atrial fibrillation. Patient been having palpitations for a few days. Some chest tightness. Becoming short of breath with activity especially. No dizziness or lightheadedness. No chest pain. No fever no chills. Patient does follow with Dr. Beckford [facility]. On other medications added. Has not been helping her. Also eliquis. Some lower extremity edema. No fever no chills. Today-laying in bed. Breathing a bit better. Heart rate better controlled. 03/11/2020 Patient had a cardiac catheterization which did not shortness any significant c oronary occlusive disease. Patient has mildly elevated creatinine from her baseline and presently higher than yesterday which will be closely monitored. Patient is still in atrial fibrillation presently rate controlled and is on metoprolol. Her shortness of breath improved. Constitutional: Denied any fatigue denied any fever. Cardio vascular: denied any chest pain, palpitations Gastrointestinal denied any nausea vomiting Pulmonary: Denied any shortness of breath cough Neurologic denied any new focal deficits All inpatient medications were reviewed and appropriate changes in these medications as dictated in the interval history and assessment and plan. Objective - Vital Signs Vital signs: Vital Signs Temp 98 F 03/11/20 09:04 Pulse 83 03/11/20 09:19 Resp 18 03/11/20 09:19 BP 107/69 03/11/20 09:19 Pulse Ox 94 L 03/11/20 09:19 Intake & Output 03/10/20 03/11/20 03/11/20 18:59 06:59 18:59 Intake Total 1860 250 Balance 1860 250 Weight 69.9 kg Intake: IV 250 Oral 1860 Other: Voiding Method Toilet # Voids 2 2 - Exam PHYSICAL EXAMINATION: GENERAL: The patient is alert and oriented x3, not in any acute distress. Well developed, well nourished. HEENT: Pupils are round and equally reacting to light. EOMI. No scleral icterus. No conjunctival pallor. Normocephalic, atraumatic. No pharyngeal erythema. No thyromegaly. CARDIOVASCULAR: S1 and S2 present. No murmurs, rubs, or gallops. Irregularly irregular rhythm PULMONARY: Chest is clear to auscultation, no wheezing or crackles. ABDOMEN: Soft, nontender, nondistended, normoactive bowel sounds. No palpable organomegaly. MUSCULOSKELETAL: No joint swelling or deformity. EXTREMITIES: No cyanosis, clubbing, or pedal edema. NEUROLOGICAL: Gross neurological examination did not reveal any focal deficits. SKIN: No rashes. - Labs CBC & Chem 7: 03/08/20 11:17 03/11/20 07:40 Labs: Abnormal Lab Results - Last 24 Hours (Table) 03/10/20 03/10/20 03/11/20 Range/Units 10:55 10:55 07:40 Carbon Dioxide 34 H (22-30) mmol/L BUN 23 H 23 H (7-17) mg/dL Creatinine 1.20 H 1.35 H (0.52-1.04) mg/dL Glucose 158 H 161 H (74-99) mg/dL Triglycerides 174 H (<150) mg/dL Cholesterol 219 H (<200) mg/dL LDL Cholesterol, Calc 147 H (0-99) mg/dL HDL Cholesterol 37 L (40-60) mg/dL Assessment and Plan Plan: -Paroxysmal atrial fibrillation with episodes of rapid ventricular rate, with a prior history of ablation-heart rate better controlled continue with present medications. Patient is on anticoagulation Eliquis which will be continued -Acute congestive heart failure exacerbation from systolic dysfunction EF 30- 35%, probably secondary to atrial fibrillation. -Coronary artery disease with stent, patient underwent cardiac catheterization today and did not receive any stents. -Acute renal failure: Secondary to probably prerenal azotemia from congestive heart failure continue with IV Lasix monitor serum creatinine -Primary osteoarthritis -Essential hypertension
[2020-03-11] MEDS: FUROSEMIDE 10 MG/ML 4 ML VIAL IV SCH ×2 (12:53→19:51)
[2020-03-12 08:13] LABS: Calcium 9.8 mg/dL (8.4-10.2); Potassium 4.3 mmol/L (3.5-5.1)
--- NOTE | 2020-03-12 08:23 | P.PN ---
Subjective Patient is a pleasant 84-year-old patient of Dr. goldberg. Chronic stable medical conditions include hypertension, osteoarthritis, coronary artery disease with stent. Has known paroxysmal atrial fibrillation. Patient been having palpitations for a few days. Some chest tightness. Becoming short of breath with activity especially. No dizziness or lightheadedness. No chest pain. No fever no chills. Patient does follow with Dr. Beckford from [facility]. On other medications added. Has not been helping her. Also eliquis. Some lower extremity edema. No fever no chills. Today-laying in bed. Breathing a bit better. Heart rate better controlled. 03/11/2020 Patient had a cardiac catheterization which did not shortness any significant c oronary occlusive disease. Patient has mildly elevated creatinine from her baseline and presently higher than yesterday which will be closely monitored. Patient is still in atrial fibrillation presently rate controlled and is on metoprolol. Her shortness of breath improved. 03/12/2020 Patient heart rate continues to go up for. Patient creatinine went up to bed patient is not in heart failure exacerbation does have low EF of around 30-35%. We'll hold off on the lisinopril and Lasix today repeat basic metabolic profile tomorrow. Constitutional: Denied any fatigue denied any fever. Cardio vascular: denied any chest pain, palpitations Gastrointestinal denied any nausea vomiting Pulmonary: Denied any shortness of breath cough Neurologic denied any new focal deficits All inpatient medications were reviewed and appropriate changes in these medications as dictated in the interval history and assessment and plan. Objective - Vital Signs Vital signs: Vital Signs Temp 98 F 03/11/20 23:35 Pulse 120 H 03/12/20 04:00 Resp 18 03/12/20 04:00 BP 124/70 03/12/20 04:00 Pulse Ox 95 03/12/20 04:00 Intake & Output 03/11/20 03/12/20 03/12/20 18:59 06:59 18:59 Intake Total 1030 240 Output Total 500 Balance 1030 -260 Weight 69.9 kg Intake: IV 250 Intake, IV Titration 300 Amount Sodium Chloride 0.9% 1, 300 000 ml In Empty Bag 1 bag @ 1 ML/KG/HR 71.5 mls/hr IV .Q14H ONE Rx#: [id number] Oral 480 240 Output: Urine 500 Other: Voiding Method Toilet # Voids 2 - Exam PHYSICAL EXAMINATION: GENERAL: The patient is alert and oriented x3, not in any acute distress. Well developed, well nourished. HEENT: Pupils are round and equally reacting to light. EOMI. No scleral icterus. No conjunctival pallor. Normocephalic, atraumatic. No pharyngeal erythema. No t hyromegaly. CARDIOVASCULAR: S1 and S2 present. No murmurs, rubs, or gallops. Irregularly irregular rhythm PULMONARY: Chest is clear to auscultation, no wheezing or crackles. ABDOMEN: Soft, nontender, nondistended, normoactive bowel sounds. No palpable organomegaly. MUSCULOSKELETAL: No joint swelling or deformity. EXTREMITIES: No cyanosis, clubbing, or pedal edema. NEUROLOGICAL: Gross neurological examination did not reveal any focal deficits. SKIN: No rashes. - Labs CBC & Chem 7: 03/08/20 11:17 03/12/20 07:04 Labs: Abnormal Lab Results - Last 24 Hours (Table) 03/11/20 03/12/20 Range/Units 07:40 07:04 Carbon Dioxide 34 H (22-30) mmol/L BUN 23 H 31 H (7-17) mg/dL Creatinine 1.35 H 1.53 H (0.52-1.04) mg/dL Glucose 161 H 188 H (74-99) mg/dL Assessment and Plan Plan: -Paroxysmal atrial fibrillation with episodes of rapid ventricular rate, with a prior history of ablation-heart rate better controlled continue with present medications. Patient is on anticoagulation Eliquis which will be continued -Acute congestive heart failure exacerbation from systolic dysfunction EF 30- 35%, probably secondary to atrial fibrillation. Not in acute exacerbation -Coronary artery disease with stent, patient underwent cardiac catheterization today and did not receive any stents. -Acute renal failure: Secondary to diuretics and lisinopril which will be held repeat basic metabolic profile tomorrow. -Primary osteoarthritis -Essential hypertension
[2020-03-12] MEDS: APIXABAN 5 MG TAB PO SCH (09:02)
[2020-03-12] MEDS: METOPROLOL TARTRATE 50 MG TAB PO SCH (09:02)
--- NOTE | 2020-03-12 12:29 | P.DS ---
Providers Date of admission: 03/10/20 23:40 Attending physician: Onur Campbell Consults: 03/09/20 14:04 Consult Physician Routine Consulting Provider: Maykel Daniels Consult Reason/Comments: af Do you want consulting provider notified?: Yes [facility] [place] [facility] Course: Patient is a pleasant 84-year-old patient of Dr. diehl. Chronic stable medical conditions include hypertension, osteoarthritis, coronary artery disease with stent. Has known paroxysmal atrial fibrillation. Patient been having palpitations for a few days. Some chest tightness. Becoming short of breath with activity especially. No dizziness or lightheadedness. No chest pain. No fever no chills. Patient does follow with Dr. Beckford from [facility]. On other medications added. Has not been helping her. Also eliquis. Some lower extremity edema. No fever no chills. Today-laying in bed. Breathing a bit better. Heart rate better controlled. 03/11/2020 Patient had a cardiac catheterization which did not shortness any significant coronary occlusive disease. Patient has mildly elevated creatinine from her baseline and presently higher than yesterday which will be closely monitored. Patient is still in atrial fibrillation presently rate controlled and is on metoprolol. Her shortness of breath improved. 03/12/2020 Patient was later evaluated by cardiology patient heart rate was well-controlled and the cleared patient for discharge. Patient has EF of around 30-35% patient creatinine went up because of excessive diuresis because of which patient will hold off any Lasix on GIOVANNY inhibitor tomorrow and today and patient can resume on 40 mg of Lasix and 5 mg of lisinopril with close follow-up of kidney function and close follow-up with primary care physician and cardiology as an outpatient patient will be discharged today. PHYSICAL EXAMINATION: GENERAL: The patient is alert and oriented x3, not in any acute distress. Well developed, well nourished. HEENT: Pupils are round and equally reacting to light. EOMI. No scleral icterus. No conjunctival pallor. Normocephalic, atraumatic. No pharyngeal erythema. No thyromegaly. CARDIOVASCULAR: S1 and S2 present. No murmurs, rubs, or gallops. Irregularly irregular rhythm PULMONARY: Chest is clear to auscultation, no wheezing or crackles. ABDOMEN: Soft, nontender, nondistended, normoactive bowel sounds. No palpable organomegaly. MUSCULOSKELETAL: No joint swelling or deformity. EXTREMITIES: No cyanosis, clubbing, or pedal edema. NEUROLOGICAL: Gross neurological examination did not reveal any focal deficits. SKIN: No rashes. Assessment and Plan Plan: -Paroxysmal atrial fibrillation with a prior history of ablation-heart rate better controlled continue with present medications. Patient is on anticoagulation Eliquis which will be continued -Acute congestive heart failure exacerbation from systolic dysfunction EF 30- 35%, probably secondary to atrial fibrillation. Not in acute exacerbation -Coronary artery disease with stent, patient underwent cardiac catheterization and did not receive any stents. -Acute renal failure: Secondary to diuretics and lisinopril which will be held for couple days -Primary osteoarthritis -Essential hypertension Patient Condition at Discharge: Stable Plan - Discharge Summary Discharge Rx Participant: Yes New Discharge Prescriptions: New lisinopriL 40 mg PO DAILY #30 tab Metoprolol Tartrate [Lopressor] 150 mg PO BID #60 tab Lisinopril [Prinivil] 5 mg PO DAILY #30 tab Continue Apixaban [Eliquis] 2.5 mg PO BID 30 Days #60 tablet Discontinued Aspirin 81 mg PO DAILY 30 Days #30 chew cloNIDine HCL [Catapres] 0.2 mg PO BID amLODIPine [Norvasc] 5 mg PO W/LUNCH Metoprolol Succinate (ER) [Toprol Xl] 50 mg PO W/LUNCH Discharge Medication List Apixaban [Eliquis] 2.5 mg PO BID 30 Days #60 tablet 12/24/18 [Rx] Lisinopril [Prinivil] 5 mg PO DAILY #30 tab 03/12/20 [Rx] Metoprolol Tartrate [Lopressor] 150 mg PO BID #60 tab 03/12/20 [Rx] lisinopriL 40 mg PO DAILY #30 tab 03/12/20 [Rx] Follow up Appointment(s)/Referral(s): Noel Diehl DO [Primary Care Provider] - 3 Days Kumar Contreras MD [STAFF PHYSICIAN] - 1 Week Ambulatory/Diagnostic Orders: Basic Metabolic Panel [LAB.AMB] Time Frame: 3 Days, Location: None Selected
[2020-03-12 12:37] VITALS: BP 123/99; PULSE 120; RESP 17; TEMP 98
--- NOTE | 2020-03-12 18:02 | P.PN ---
Subjective HISTORY OF PRESENT ILLNESS: Patient seen and examined. No chest pain or SOB. Anxious to go home. Cath site appears stable. REVIEW OF SYSTEMS: At the time of my exam: CONSTITUTIONAL: Denies fever or chills. HEENT: Denies blurred vision, vision changes, or eye pain. Denies hemoptysis CARDIOVASCULAR: Denies chest pain, orthopnea, PND or palpitations RESPIRATORY: Reports mild shortness of breath. GASTROINTESTINAL: Denies abdominal pain. Denies nausea or vomiting. HEMATOLOGIC: Denies bleeding disorders. GENITOURINARY: Denies any blood in urine. SKIN: Denies pruitis. Denies rash. PHYSICAL EXAM: VITAL SIGNS: Reviewed. GENERAL: Well-developed in no acute distress. HEENT: Head is normocephalic. Pupils are equal, round. Sclerae anicteric. Mucous membranes of the mouth are moist. Neck supple. No JVD or thyromegaly LUNGS: Respirations even and unlabored. Lungs diminished with crackles to bilateral bases. HEART: Tachycardic. Irregular rate and rhythm. S1 and S2 heard. ABDOMEN: Soft. Nondistended. Nontender. EXTREMITIES: Normal range of motion. No clubbing or cyanosis. Peripheral pulses intact. No lower extremity edema NEUROLOGIC: Awake and alert. Oriented x 3. ASSESSMENT: Palpitations Paroxysmal atrial fibrillation with RVR, on anticoagulation with Eliquis Acute systolic congestive heart failure, EF 35% Ischemic cardiomyopathy Coronary artery disease with nonobstructive disease on cath Hypertension PLAN: Patient appears stable for discharge from a cardiology standpoint. Objective - Vital Signs Vital signs: Vital Signs Temp 98.0 F 03/12/20 12:00 Pulse 120 H 03/12/20 14:00 Resp 17 03/12/20 14:00 BP 123/99 03/12/20 12:00 Pulse Ox 97 03/12/20 12:00 Intake & Output 03/11/20 03/12/20 03/12/20 18:59 06:59 18:59 Intake Total 1030 240 250 Output Total 500 500 Balance 1030 -260 -250 Weight 69.9 kg Intake: IV 250 10 0.9 10 Intake, IV Titration 300 Amount Sodium Chloride 0.9% 1, 300 000 ml In Empty Bag 1 bag @ 1 ML/KG/HR 71.5 mls/hr IV .Q14H ONE Rx#: [id number] Oral 480 240 240 Output: Urine 500 500 Other: Voiding Method Toilet Toilet # Voids 2 1 - Labs CBC & Chem 7: 03/08/20 11:17 03/12/20 07:04 Labs: Abnormal Lab Results - Last 24 Hours (Table) 03/12/20 Range/Units 07:04 BUN 31 H (7-17) mg/dL Creatinine 1.53 H (0.52-1.04) mg/dL Glucose 188 H (74-99) mg/dL
[2020-03-12] MEDS ORDERED: APIXABAN 2.5 MG TABLET PO SCH (21:00)
== END 2020-03-12 14:25 | disposition home or self-care (01) | DRG 286 ==
LOC: EC 10:25 → 3SCARD 13:06 → OBSVTOIN 03-10 23:40
PROVIDERS: ADMIT Hospitalist; ATTEND Hospitalist
PROC: 4A023N7 Measurement of Cardiac Sampling and Pressure, Left Heart, Percutaneous Approach (ICD-10-PCS; principal; 2020-03-11 08:30)
PROC: B2111ZZ Fluoroscopy of Multiple Coronary Arteries using Low Osmolar Contrast (ICD-10-PCS; principal; 2020-03-11 08:30)
DX: I48.0 Paroxysmal atrial fibrillation (principal); I50.21 Acute systolic (congestive) heart failure; N17.9 Acute kidney failure, unspecified; I08.1 Rheumatic disorders of both mitral and tricuspid valves; I27.20 Pulmonary hypertension, unspecified; I25.5 Ischemic cardiomyopathy; M19.91 Primary osteoarthritis, unspecified site; I25.10 Atherosclerotic heart disease of native coronary artery without angina pectoris; I48.92 Unspecified atrial flutter; I11.0 Hypertensive heart disease with heart failure; Z96.641 Presence of right artificial hip joint; J44.9 Chronic obstructive pulmonary disease, unspecified; T50.2X5A Adverse effect of carbonic-anhydrase inhibitors, benzothiadiazides and other diuretics, initial encounter; Z90.49 Acquired absence of other specified parts of digestive tract; Z95.5 Presence of coronary angioplasty implant and graft; Z79.01 Long term (current) use of anticoagulants; Z79.82 Long term (current) use of aspirin; Z79.899 Other long term (current) drug therapy; Z90.710 Acquired absence of both cervix and uterus; Z98.890 Other specified postprocedural states; Z82.3 Family history of stroke; Z82.61 Family history of arthritis; Z20.822 Contact with and (suspected) exposure to COVID-19
CPT/HCPCS: 36415; 71046; 80048; 80053; 80061; 83735; 83880; 84484; 85025; 85379; 85610; 85730; 87635; 93005; 93306; 93458; 94760; 96374; 99285

== ENCOUNTER 2020-04-01 11:24 | Inpatient (IN) | payer MEDICARE, BC ==
[2020-04-01] MEDS ORDERED: SODIUM CHLORIDE 0.9% 500 ML 500 ML IV STA (11:39)
[2020-04-01] MEDS ORDERED: DILTIAZEM DRIP BOLUS FROM BAG 1 MG SOLN IV ONE (11:40)
--- NOTE | 2020-04-01 11:47 | ED ---
Arrhythmia/Palpitations HPI - General Chief Complaint: Arrhythmia/Palpitations Stated Complaint: High HR Time Seen by Provider: 04/01/20 11:31 Source: patient, RN notes reviewed Mode of arrival: wheelchair Limitations: no limitations - History of Present Illness Initial Comments: 84-year-old female presents emergency Department with chief complaint of el evated heart rate. Patient states she's not felt well the last couple days states she's been nauseated she did have few episodes of vomiting but states that she premature has diarrhea at this time. Denies any hematemesis, coffee- ground emesis, mono hematochezia. Patient does have a history of A. fib on Eliquis. She's been unable take her medications last 2 days. Patient was seen and PCPs office today found to have heart rate in the 160s. She states she does feel her heart rate elevating especially with ambulation. Denies any leg pain no leg swelling. Patient states she was hospitalized 3 weeks ago for similar complaints. - Related Data Home Medications Medication Instructions Recorded Confirmed Metoprolol Tartrate [Lopressor] 50 mg PO DAILY 04/01/20 04/01/20 Metoprolol Tartrate [Lopressor] 100 mg PO DIRECTED 04/01/20 04/01/20 lisinopriL [Zestril] 5 mg PO DAILY 04/01/20 04/01/20 Previous Rx's Medication Instructions Recorded Apixaban [Eliquis] 2.5 mg PO BID 30 Days #60 tablet 12/24/18 Aspirin 81 mg PO DAILY #30 chewable 03/12/20 Furosemide [Lasix] 40 mg PO DAILY #30 tablet 03/12/20 Allergies Allergy/AdvReac Type Severity Reaction Status Date / Time No Known Allergies Allergy Verified 04/01/20 12:26 Review of Systems ROS Statement: Those systems with pertinent positive or pertinent negative responses have been documented in the HPI. ROS Other: All systems not noted in ROS Statement are negative. Past Medical History Past Medical History: Atrial Fibrillation, Hypertension, Osteoarthritis (OA) Additional Past Medical History / Comment(s): copd/cardiomegally, History of Any Multi-Drug Resistant Organisms: None Reported Past Surgical History: Cholecystectomy, Heart Catheterization With Stent, Hysterectomy, Orthopedic Surgery Additional Past Surgical History / Comment(s): rt hip replacement,rt cataract,rt carpal tunnel release Past Anesthesia/Blood Transfusion Reactions: No Reported Reaction Date of Last Stent Placement:: 12/2018 Past Psychological History: No Psychological Hx Reported Smoking Status: Never smoker Past Alcohol Use History: None Reported Past Drug Use History: None Reported - Past Family History Mother Family Medical History: Osteoarthritis (OA) Additional Family Medical History / Comment(s): djd; at 69 Father Family Medical History: CVA/TIA Additional Family Medical History / Comment(s): age 84 General Exam Limitations: no limitations General appearance: alert, in no apparent distress Head exam: Present: atraumatic, normocephalic, normal inspection Eye exam: Present: normal appearance, PERRL, EOMI. Absent: scleral icterus, conjunctival injection, periorbital swelling ENT exam: Present: normal exam, normal oropharynx, mucous membranes moist Neck exam: Present: normal inspection, full ROM. Absent: tenderness, meningismus, lymphadenopathy Respiratory exam: Present: normal lung sounds bilaterally. Absent: respiratory distress, wheezes, rales, rhonchi, stridor Cardiovascular Exam: Present: tachycardia, irregular rhythm, normal heart sounds. Absent: regular rate, normal rhythm, systolic murmur, diastolic murmur, rubs, gallop, clicks GI/Abdominal exam: Present: soft, normal bowel sounds. Absent: distended, tenderness, guarding, rebound, rigid Extremities exam: Absent: pedal edema, calf tenderness Neurological exam: Present: alert, oriented X3 Skin exam: Present: warm, dry, intact, normal color. Absent: rash Course Vital Signs 04/01/20 04/01/20 11:26 12:32 Temperature 98.8 F Pulse Rate 130 H 86 Respiratory 20 20 Rate Blood Pressure 172/121 153/116 O2 Sat by Pulse 97 97 Oximetry EKG Findings - EKG Comments: EKG Findings:: EKG performed at 11:36 A. fib with RVR rate of 139 QRS 88 QT/QTC 298/453 - EKG Results: EKG: interpreted by MILAN Medical Decision Making - Lab Data Result diagrams: 04/01/20 11:50 04/01/20 11:50 Lab Results 04/01/20 04/01/20 04/01/20 Range/Units 11:50 11:50 11:50 WBC 14.4 H (3.8-10.6) k/uL RBC 5.18 (3.80-5.40) m/uL Hgb 15.2 (11.4-16.0) gm/dL Hct 46.8 H (34.0-46.0) % MCV 90.4 (80.0-100.0) fL MCH 29.4 (25.0-35.0) pg MCHC 32.6 (31.0-37.0) g/dL RDW 16.5 H (11.5-15.5) % Plt Count 205 (150-450) k/uL MPV 8.2 Neutrophils % 75 % Lymphocytes % 17 % Monocytes % 5 % Eosinophils % 1 % Basophils % 0 % Neutrophils # 10.8 H (1.3-7.7) k/uL Lymphocytes # 2.5 (1.0-4.8) k/uL Monocytes # 0.8 (0-1.0) k/uL Eosinophils # 0.1 (0-0.7) k/uL Basophils # 0.0 (0-0.2) k/uL Anisocytosis Slight PT 10.8 (9.0-12.0) sec INR 1.0 (<1.2) APTT 24.1 (22.0-30.0) sec Sodium 136 L (137-145) mmol/L Potassium 4.7 (3.5-5.1) mmol/L Chloride 104 (98-107) mmol/L Carbon Dioxide 25 (22-30) mmol/L Anion Gap 7 mmol/L BUN 25 H (7-17) mg/dL Creatinine 1.38 H (0.52-1.04) mg/dL Est GFR (CKD-EPI)AfAm 41 (>60 ml/min/1.73 sqM) Est GFR (CKD-EPI)NonAf 35 (>60 ml/min/1.73 sqM) Glucose 193 H (74-99) mg/dL Calcium 9.2 (8.4-10.2) mg/dL Magnesium 2.0 (1.6-2.3) mg/dL Total Bilirubin 0.9 (0.2-1.3) mg/dL AST 39 H (14-36) U/L ALT 68 H (4-34) U/L Alkaline Phosphatase 92 (38-126) U/L Troponin I (0.000-0.034) ng/mL Total Protein 6.5 (6.3-8.2) g/dL Albumin 3.6 (3.5-5.0) g/dL 04/01/20 Range/Units 11:50 WBC (3.8-10.6) k/uL RBC (3.80-5.40) m/uL Hgb (11.4-16.0) gm/dL Hct (34.0-46.0) % MCV (80.0-100.0) fL MCH (25.0-35.0) pg MCHC (31.0-37.0) g/dL RDW (11.5-15.5) % Plt Count (150-450) k/uL MPV Neutrophils % % Lymphocytes % % Monocytes % % Eosinophils % % Basophils % % Neutrophils # (1.3-7.7) k/uL Lymphocytes # (1.0-4.8) k/uL Monocytes # (0-1.0) k/uL Eosinophils # (0-0.7) k/uL Basophils # (0-0.2) k/uL Anisocytosis PT (9.0-12.0) sec INR (<1.2) APTT (22.0-30.0) sec Sodium (137-145) mmol/L Potassium (3.5-5.1) mmol/L Chloride (98-107) mmol/L Carbon Dioxide (22-30) mmol/L Anion Gap mmol/L BUN (7-17) mg/dL Creatinine (0.52-1.04) mg/dL Est GFR (CKD-EPI)AfAm (>60 ml/min/1.73 sqM) Est GFR (CKD-EPI)NonAf (>60 ml/min/1.73 sqM) Glucose (74-99) mg/dL Calcium (8.4-10.2) mg/dL Magnesium (1.6-2.3) mg/dL Total Bilirubin (0.2-1.3) mg/dL AST (14-36) U/L ALT (4-34) U/L Alkaline Phosphatase (38-126) U/L Troponin I <0.012 (0.000-0.034) ng/mL Total Protein (6.3-8.2) g/dL Albumin (3.5-5.0) g/dL Critical Care Time Critical Care Time: Yes Total Critical Care Time: 35 Critical Care Time: Total 35 and a critical care time used initially evaluated patient, reviewed past medical history according labs, EKG and chest x-ray. Patient found to be in A. fib RVR patient was started on Cardizem with a 10 mg bolus with 5 mg infusion. Patient will be admitted to telemetry with cardiology evaluation for medication change. Disposition Clinical Impression: Atrial fibrillation with RVR, Nausea vomiting and diarrhea Disposition: ADMITTED IP TO THIS HOSP Condition: Fair Referrals: Noel Diehl DO [Primary Care Provider] - 1-2 days
[2020-04-01 12:10] LABS: Anisocytosis Slight; Basophils % (A) 0 %; Eosinophils # (A) 0.1 k/uL (0-0.7); Eosinophils % (A) 1 %; HCT 46.8 % (34.0-46.0); HGB 15.2 gm/dL (11.4-16.0); Lymphocytes # (A) 2.5 k/uL (1.0-4.8); Lymphocytes % (A) 17 %; MCH 29.4 pg (25.0-35.0); MCHC 32.6 g/dL (31.0-37.0); MCV 90.4 fL (80.0-100.0); Mean Platelet Volume 8.2; Monocytes # (A) 0.8 k/uL (0-1.0); Monocytes % (A) 5 %; Neutrophils # (A) 10.8 k/uL (1.3-7.7); Neutrophils % (A) 75 %; Platelet Count 205 k/uL (150-450); RBC 5.18 m/uL (3.80-5.40); RDW 16.5 % (11.5-15.5); WBC 14.4 k/uL (3.8-10.6)
[2020-04-01] MEDS: DILTIAZEM 125 MG in SODIUM CHLORIDE 0.9% 100 ML IV SCH (12:10)
--- NOTE | 2020-04-01 12:11 | XR ---
EXAMINATION TYPE: XR chest 2V DATE OF EXAM: 04/01/2020 COMPARISON: 03/08/2020 HISTORY: Shortness of breath TECHNIQUE: Frontal and lateral views of the chest are obtained. FINDINGS: Scattered senescent parenchymal changes noted. Hyperinflation compatible with COPD. No evidence for infiltrate. No evidence for atelectasis. Heart size is stable. Mediastinal structures are stable and grossly unremarkable. No evidence for hilar prominence. Degenerative changes dorsal spine. IMPRESSION: 1. No evidence for acute pulmonary disease.
[2020-04-01 12:20] LABS: Partial Thromboplastin Time 24.1 sec (22.0-30.0); Prothrombin Time 10.8 sec (9.0-12.0)
[2020-04-01 12:23] LABS: Albumin 3.6 g/dL (3.5-5.0); Calcium 9.2 mg/dL (8.4-10.2); Potassium 4.7 mmol/L (3.5-5.1); Total Bilirubin 0.9 mg/dL (0.2-1.3); Total Protein 6.5 g/dL (6.3-8.2)
[2020-04-01] MEDS ORDERED: lisinopriL 5 MG TAB PO STA (12:51)
[2020-04-01] MEDS ORDERED: NITROGLYCERIN SL TABS 0.4 MG TAB SUBLINGUAL PRN (12:52)
[2020-04-01] MEDS ORDERED: METOPROLOL TARTRATE 50 MG TAB PO SCH (15:00)
[2020-04-01] MEDS: carvediloL 3.125 MG TAB PO SCH (15:58)
[2020-04-01] MEDS ORDERED: ARTIFICIAL TEARS-HYPROMELLOSE DROPS 15 ML BTL BOTH EYES PRN (17:53)
[2020-04-01 19:05] LABS: Appearance,Urine Clear (Clear); Bacteria,Urine Rare /hpf; Bilirubin,Urine Negative (Negative); Blood,Urine Moderate (Negative); Color,Urine Yellow; Glucose,Urine (UA) Negative (Negative); Hyaline Casts,Urine 1 /lpf (0-2); Ketones,Urine Negative (Negative); Leukocyte Esterase,Urine Small (Negative); Mucus,Urine Rare /hpf; Nitrite,Urine Negative (Negative); PH, Urine 5.5 (5.0-8.0); Protein,Urine 1+ (Negative); RBC,Urine 19 /hpf (0-5); Specific Gravity,Urine 1.021 (1.001-1.035); Squamous Epithelial Cell,Urine 1 /hpf (0-4); Urobilinogen,Urine <2.0 mg/dL (<2.0); WBC,Urine 9 /hpf (0-5)
[2020-04-01] MEDS: APIXABAN 2.5 MG TABLET PO SCH (20:04)
[2020-04-02] MEDS: carvediloL 3.125 MG TAB PO SCH ×2 (06:25→17:34)
[2020-04-02] MEDS: ASPIRIN 81 MG PO SCH (08:26)
[2020-04-02] MEDS: lisinopriL 5 MG TAB PO SCH (08:26)
[2020-04-02] MEDS: APIXABAN 2.5 MG TABLET PO SCH (08:26)
[2020-04-02] MEDS: FUROSEMIDE 40 MG TAB PO SCH (08:26)
[2020-04-02] MEDS ORDERED: APIXABAN 5 MG TAB PO SCH (09:00)
[2020-04-02] MEDS ORDERED: APIXABAN 2.5 MG TABLET PO ONE (09:00)
[2020-04-02] MEDS ORDERED: METOPROLOL SUCCINATE (ER) 50 MG TAB.ER.24H PO SCH (09:00)
[2020-04-02] MEDS: DILTIAZEM 125 MG in SODIUM CHLORIDE 0.9% 100 ML IV SCH (11:06)
--- NOTE | 2020-04-02 13:37 | P.CRDCN ---
History of Present Illness Consult date: 04/02/20 Consult reason: atrial fibrillation History of present illness: The patient is an 83-year-old female with past medical history of paroxysmal atrial fibrillation, coronary artery disease, hypertension, and cardiomyopathy, which the hospital shortness of breath. She recently underwent coronary angiogram in the month of February with her primary medical director of hospice, Dr. Beckford, where she was found to have patent stent in her LAD and mild nonobstructive disease in her circumflex and right coronary artery. Echocardiogram just prior showed moderate to severe global hypokinesis with ejection fraction at 30-35%, mild to moderate mitral regurgitation, mild tricuspid regurgitation, and moderate pulmonary hypertension. The patient states she is feeling better since her initial presentation. She was up ambulating to the bathroom without any significant shortness of breath or other associated symptoms. DIAGNOSTICS: EKG showed A. fib with RVR Laboratory data shows white count 14.4, hemoglobin 15.2, hematocrit 46.8, platelet 205, sodium 136, potassium 4.7, BUN 25, creatinine 1.38, AST 39, ALT 60, troponin less than 0.012 Chest x-ray shows no active cardiopulmonary disease Vital signs show blood pressure 160/100, heart rate 120, temperature 98.2, SpO2 93% on room air Telemetry readings show heart rate ranging in the one-teens. PAST MEDICAL HISTORY: Coronary artery disease, paroxysmal atrial fibrillation, hypertension, nonischemic cardiomyopathy REVIEW OF SYSTEMS: No fever or chills. No cough or expectoration. No diaphoresis. Patient denies headache, dizziness, blurred vision, double vision. Patient denies any stomach discomfort. No nausea, vomiting. No hematochezia. No hematemesis. Denies any black stools or blood in his stools. Denies dysuria or hematuria. No muscle weakness or numbness. Positive for palpitations. Positive for shortness of breath. Negative for chest pain or chest pressure. No dizziness or lightheadedness. PHYSICAL EXAMINATION: This is a 84-year-old female in no apparent distress at the time of my examination. HEENT: Head is atraumatic, normocephalic. Pupils are equal, round. Sclerae anicteric. Conjunctivae are clear. Mucous membranes of the mouth are moist. Neck is supple. There is no jugular venous distention. No carotid bruit is heard. CHEST EXAMINATION: Lungs are clear to auscultation. No chest wall tenderness is noted on palpation or with deep breathing. HEART EXAMINATION: Irregular rate and rhythm. S1, S2 heard. No murmurs, gallops or rub. ABDOMEN: Soft, nontender. Bowel sounds are heard. No organomegaly noted. EXTREMITIES: 2+ peripheral pulses with no evidence of peripheral edema and no calf tenderness noted. NEUROLOGIC EXAMINATION: Patient is awake, alert and oriented x3. FINAL ASSESSMENT AND PLAN: #1 atrial fibrillation with RVR #2 acute exacerbation of congestive heart failure #3 nonischemic cardiomyopathy, recent ejection fraction 30% #4 coronary artery disease #5 hypertension #6 dyslipidemia #7 valvular heart disease PLAN: Maximize beta patrick therapy. The patient states she had a previous ALLERGY to metoprolol tartrate and she does not feel comfortable trying metoprolol succinate. We will continue carvedilol as it will help with blood pressure management. Start amiodarone 200 mg twice daily and gradually taper over the next 6 weeks with goal of 100 mg daily Increase Eliquis to 5 mg twice daily as she does not meet the criteria to be on 2-1/2 mg Consider cardioversion in one month after starting amiodarone if she continues to be in atrial fibrillation Continue to monitor closely The patient has been seen and evaluated. Plan of care has been reviewed and agreed upon by Dr Borjas. Past Medical History Past Medical History: Atrial Fibrillation, Coronary Artery Disease (CAD), Heart Failure, Hypertension, Myocardial Infarction (AL), Osteoarthritis (OA), Renal Disease Additional Past Medical History / Comment(s): Pt recently admitted to [facility] on 03/10/20 with paroxysmal A fib, chf, acute renal failure. Other hx: Paroxysmal Afib, afib rvr, arthritis in multiple joints, AL in 2015/2018 per past medical record but pt was not aware. Last Myocardial Infarction Date:: 2019 History of Any Multi-Drug Resistant Organisms: None Reported Past Surgical History: Cholecystectomy, Heart Catheterization With Stent, Hysterectomy, Orthopedic Surgery Additional Past Surgical History / Comment(s): 2019 PCI with stent, total R hip arthroplasty, R carpal tunnel release, bilateral cataract removals. Past Anesthesia/Blood Transfusion Reactions: No Reported Reaction Date of Last Stent Placement:: 12/2018 Smoking Status: Never smoker - Past Family History Mother Family Medical History: Osteoarthritis (OA) Additional Family Medical History / Comment(s): djd; at 69 Father Family Medical History: CVA/TIA Additional Family Medical History / Comment(s): age 84 Medications and Allergies Home Medications Medication Instructions Recorded Confirmed Type Apixaban [Eliquis] 2.5 mg PO BID 30 Days #60 tablet 12/24/18 04/01/20 Rx Aspirin 81 mg PO DAILY #30 chewable 03/12/20 04/01/20 Rx Furosemide [Lasix] 40 mg PO DAILY #30 tablet 03/12/20 04/01/20 Rx Metoprolol Tartrate [Lopressor] 50 mg PO DAILY 04/01/20 04/01/20 History Metoprolol Tartrate [Lopressor] 100 mg PO DIRECTED 04/01/20 04/01/20 History lisinopriL [Zestril] 5 mg PO DAILY 04/01/20 04/01/20 History Allergies Allergy/AdvReac Type Severity Reaction Status Date / Time No Known Allergies Allergy Verified 04/01/20 12:26 Physical Exam Vitals: Vital Signs Temp Pulse Pulse Resp BP BP Pulse Ox 04/02/20 11:09 127 H 22 143/90 96 04/02/20 09:12 120 H 160/100 04/02/20 08:00 98.2 F 139 H 20 160/107 93 L 04/02/20 03:45 98.3 F 88 18 129/94 95 04/01/20 23:55 98.3 F 103 H 17 117/80 95 04/01/20 20:00 98.3 F 113 H 17 138/86 94 L 04/01/20 17:39 145/67 04/01/20 16:45 170/100 04/01/20 15:17 97.8 F 89 20 182/108 96 04/01/20 15:03 98.0 F 81 16 175/110 98 04/01/20 13:43 85 19 167/119 94 L Intake and Output 04/01/20 04/02/20 04/02/20 22:59 06:59 14:59 Intake Total 240 114.667 Balance 240 114.667 Intake: Intake, IV Titration 114.667 Amount Diltiazem 125 mg In 114.667 Sodium Chloride 0.9% 100 ml @ 5 MG/HR 5 mls/hr IV .Q24H [facility] Rx#:[id number] Oral 240 Other: Voiding Method Toilet Toilet # Voids 2 1 2 Weight 74 kg Results 04/01/20 11:50 04/01/20 11:50 Cardiac Enzymes 04/01/20 04/01/20 Range/Units 15:25 18:13 Troponin I <0.012 <0.012 (0.000-0.034) ng/mL Current Medications Generic Name Dose Route Start Last Admin Trade Name Freq PRN Reason Stop Dose Admin Apixaban 5 mg 04/02/20 21:00 Apixaban 5 Mg Tab PO BID WILFRED Artificial Tears 1 drops 04/01/20 17:53 Artificial Tears-Hypromellose Drops 15 Ml Btl BOTH EYES QID PRN Dry Eye(s) Aspirin 81 mg 04/02/20 09:00 04/02/20 08:26 Aspirin 81 Mg PO 81 mg DAILY WILFRED Administration Furosemide 40 mg 04/02/20 09:00 04/02/20 08:26 Furosemide 40 Mg Tab PO 40 mg DAILY WILFRED Administration Diltiazem HCl 125 mg/ Sodium 125 mls @ 5 mls/hr 04/01/20 11:45 04/02/20 11:06 Chloride IV 5 mg/hr .Q24H WILFRED 5 mls/hr Administration 5 MG/HR Lisinopril 5 mg 04/02/20 09:00 04/02/20 08:26 Lisinopril 5 Mg Tab PO 5 mg DAILY WILFRED Administration Metoprolol Succinate 50 mg 04/02/20 09:00 04/02/20 11:06 Metoprolol Succinate (Er) 50 Mg Tab.Er.24h PO 50 mg BID WILFRED Administration Intake and Output 04/01/20 04/02/20 04/02/20 22:59 06:59 14:59 Intake Total 240 114.667 Balance 240 114.667 Intake: Intake, IV Titration 114.667 Amount Diltiazem 125 mg In 114.667 Sodium Chloride 0.9% 100 ml @ 5 MG/HR 5 mls/hr IV .Q24H [facility] Rx#:[id number] Oral 240 Other: Voiding Method Toilet Toilet # Voids 2 1 2 Weight 74 kg Patient Weight 04/03/20 06:59 Weight 74 kg 04/01/20 11:50 04/01/20 11:50
[2020-04-02] MEDS: APIXABAN 5 MG TAB PO SCH (20:00)
--- NOTE | 2020-04-02 20:53 | P.HPIM ---
History of Present Illness H&P Date: 04/02/20 Chief Complaint: Increased heart rate History of presenting complaint: This is a pleasant 84-year-old patient of Dr. goldberg. Chronic stable medical conditions include hypertension, osteoarthritis, coronary artery disease with stent. Has known paroxysmal atrial fibrillation. Patient was discharged from hospital about 2 weeks ago. There was admitted with atrial fibrillation with rapid ventricular rate. Put on eliquis. 2-D echo showed EF of 30-35% with global hypokinesis. On March 11 underwent cardiac catheterization by Dr. Consuelo Beckford: Showed patent stent to the LAD mild nonobstructive disease Patient now presented with 3-4 days of increasing palpitations. Short of breath. No dizziness or lightheadedness. No cough. No fever no chills. Found to be in atrial fibrillation with rapid ventricular rate. Started on IV Cardizem drip in the ER. Review of systems: GEN.: Tired EYES: None HEENT: None NECK: None RESPIRATORY: As above CARDIOVASCULAR: As above GASTROINTESTINAL: Constipation GENITOURINARY: None MUSCULOSKELETAL: Joint pains LYMPHATICS: None HEMATOLOGICAL: None PSYCHIATRY: anxious NEUROLOGICAL: None Past medical history to include: Coronary artery disease, atrial flutter ablation, osteoarthritis, coronary artery disease with stent, hypertension, CHF EF 30-35% Social history: Does not smoke or drink alcohol. . Physical examination: VITAL SIGNS: 98.8, 130, 20, 153 x 116, 97% on room air GENERAL: BMI 28.3, sitting up, anxious EYES: BMI 29, sitting up, comfortable HEENT: External appearance of nose and ears normal, oral cavity grossly normal. NECK: JVD not raised; masses not palpable. HEART: Heart sounds irregular; no edema. LUNGS: Respiratory rate normal; clear to auscultation. ABDOMEN: Soft, nontender, liver spleen not palpable, no masses palpable. PSYCH: Alert and oriented x3; mood and affect anxiousl. MUSCULOSKELETAL: Evidence of OA NEUROLOGICAL: Cranial nerves grossly intact; no facial asymmetry, power and sensation grossly intact. LYMPHATICS: No lymph nodes palpable in the axilla and neck INVESTIGATIONS, reviewed in the clinical context: White count 14.4 hemoglobin 15.2 potassium 4.7 bun 25 creatinine 1.38 EKG tracing personally reviewed by me-atrial flutter fibrillation with a rate of 139 with PVCs Chest x-ray film personally reviewed by me-cardiomegaly Previous testing: BUN 31 and creatinine 1.53 on 03/12/2020 2-D echocardiogram [03/10/2020] moderate concentric LVH, EF 30-35%, global hypok inesis, [id number] MR, moderate TR, moderate pulmonary hypertension Assessment: -Paroxysmal atrial flutter-fibrillation with episodes of rapid ventricular rate, with a prior history of ablation-symptomatic -Chronic congestive heart failure from systolic dysfunction EF 30-35% -Mild to moderate MR, 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 -Coronary artery disease with stent-cardiac catheterization in February 2020 showing patent stent -Primary osteoarthritis -Essential hypertension Plan: Patient on eliquis, aspirin, Coreg 3.125 twice a day, IV Cardizem drip, Lasix, Zestril. Cardiology consulted. Continue eliquis. Depending on amiodarone. And possible outpatient cardioversion. Past Medical History Past Medical History: Atrial Fibrillation, Coronary Artery Disease (CAD), Heart Failure, Hypertension, Myocardial Infarction (AR), Osteoarthritis (OA), Renal Disease Additional Past Medical History / Comment(s): Pt recently admitted to [facility] on 03/10/20 with paroxysmal A fib, chf, acute renal failure. Other hx: Paroxysmal Afib, afib rvr, arthritis in multiple joints, AR in 2015/2018 per past medical record but pt was not aware. Last Myocardial Infarction Date:: 2018 History of Any Multi-Drug Resistant Organisms: None Reported Past Surgical History: Cholecystectomy, Heart Catheterization With Stent, Hysterectomy, Orthopedic Surgery Additional Past Surgical History / Comment(s): 2019 PCI with stent, total R hip arthroplasty, R carpal tunnel release, bilateral cataract removals. Past Anesthesia/Blood Transfusion Reactions: No Reported Reaction Date of Last Stent Placement:: 12/2018 Smoking Status: Never smoker - Past Family History Mother Family Medical History: Osteoarthritis (OA) Additional Family Medical History / Comment(s): djd; at 69 Father Family Medical History: CVA/TIA Additional Family Medical History / Comment(s): age 84 Medications and Allergies Home Medications Medication Instructions Recorded Confirmed Type Apixaban [Eliquis] 2.5 mg PO BID 30 Days #60 tablet 12/24/18 04/01/20 Rx Aspirin 81 mg PO DAILY #30 chewable 03/12/20 04/01/20 Rx Furosemide [Lasix] 40 mg PO DAILY #30 tablet 03/12/20 04/01/20 Rx Metoprolol Tartrate [Lopressor] 50 mg PO DAILY 04/01/20 04/01/20 History Metoprolol Tartrate [Lopressor] 100 mg PO DIRECTED 04/01/20 04/01/20 History lisinopriL [Zestril] 5 mg PO DAILY 04/01/20 04/01/20 History Allergies Allergy/AdvReac Type Severity Reaction Status Date / Time No Known Allergies Allergy Verified 04/01/20 12:26 Physical Exam Vitals: Vital Signs Temp Pulse Pulse Resp BP BP Pulse Ox 04/02/20 11:09 127 H 22 143/90 96 04/02/20 09:12 120 H 160/100 04/02/20 08:00 98.2 F 139 H 20 160/107 93 L 04/02/20 03:45 98.3 F 88 18 129/94 95 04/01/20 23:55 98.3 F 103 H 17 117/80 95 04/01/20 20:00 98.3 F 113 H 17 138/86 94 L 04/01/20 17:39 145/67 04/01/20 16:45 170/100 04/01/20 15:17 97.8 F 89 20 182/108 96 04/01/20 15:03 98.0 F 81 16 175/110 98 04/01/20 13:43 85 19 167/119 94 L Intake and Output 04/01/20 04/02/20 04/02/20 22:59 06:59 14:59 Intake Total 240 114.667 Balance 240 114.667 Intake: Intake, IV Titration 114.667 Amount Diltiazem 125 mg In 114.667 Sodium Chloride 0.9% 100 ml @ 5 MG/HR 5 mls/hr IV .Q24H [facility] Rx#:[id number] Oral 240 Other: Voiding Method Toilet Toilet # Voids 2 1 2 Weight 74 kg Results CBC & Chem 7: 04/01/20 11:50 04/01/20 11:50 Labs: Abnormal Lab Results - Last 24 Hours (Table) 04/01/20 Range/Units 11:39 Urine Protein 1+ H (Negative) Urine Blood Moderate H (Negative) Ur Leukocyte Esterase Small H (Negative) Urine RBC 19 H (0-5) /hpf Urine WBC 9 H (0-5) /hpf Urine Bacteria Rare H (None) /hpf Urine Mucus Rare H (None) /hpf Thrombosis Risk Factor Assmnt - Choose All That Apply Any of the Below Risk Factors Present?: Yes Each Factor Represents 1 point: Obesity (BMI >25) Other Risk Factors: Yes Each Risk Factor Represents 3 Points: Age 75 years or older Other congenital or acquired thrombophilia - If yes, enter type in comment: No Thrombosis Risk Factor Assessment Total Risk Factor Score: 4 Thrombosis Risk Factor Assessment Level: Moderate Risk
[2020-04-03] MEDS: carvediloL 3.125 MG TAB PO SCH (06:20)
[2020-04-03] MEDS: lisinopriL 5 MG TAB PO SCH (08:14)
[2020-04-03] MEDS: FUROSEMIDE 40 MG TAB PO SCH (08:14)
[2020-04-03] MEDS: SPIRONOLACTONE 25 MG TAB PO SCH (08:14)
[2020-04-03 08:48] LABS: Anisocytosis Slight; Basophils % (A) 0 %; Eosinophils # (A) 0.3 k/uL (0-0.7); Eosinophils % (A) 3 %; HCT 46.5 % (34.0-46.0); HGB 14.3 gm/dL (11.4-16.0); Hypochromasia Slight; Lymphocytes # (A) 1.5 k/uL (1.0-4.8); Lymphocytes % (A) 15 %; MCH 28.1 pg (25.0-35.0); MCHC 30.7 g/dL (31.0-37.0); MCV 91.6 fL (80.0-100.0); Monocytes # (A) 0.7 k/uL (0-1.0); Monocytes % (A) 7 %; Neutrophils # (A) 7.3 k/uL (1.3-7.7); Neutrophils % (A) 74 %; Platelet Count 215 k/uL (150-450); RBC 5.07 m/uL (3.80-5.40); RDW 16.7 % (11.5-15.5); WBC 9.8 k/uL (3.8-10.6)
[2020-04-03] MEDS: DILTIAZEM 125 MG in SODIUM CHLORIDE 0.9% 100 ML IV SCH (09:04)
[2020-04-03] MEDS ORDERED: SODIUM CHLORIDE 0.65% NASAL SPRAY 44 ML BTL NASAL PRN (09:30)
[2020-04-03] MEDS: APIXABAN 5 MG TAB PO SCH ×2 (10:00→20:38)
[2020-04-03] MEDS: ASPIRIN 81 MG PO SCH (10:00)
--- NOTE | 2020-04-03 12:52 | P.PN ---
Subjective Progress Note Date: 04/03/20 Patient was interviewed and examined lying comfortably in bed. She states she's doing well this morning and has not had any diarrhea since starting carvedilol. Previously she had developed significant GI upset and possible angioedema to metoprolol. She denies any chest pain or chest pressure. No undue shortness of breath, orthopnea, palpitations, dizziness, or lightheadedness. GENERAL: Well-appearing, well-nourished and in no acute distress. NECK: Supple without JVD or thyromegaly. LUNGS: Breath sounds clear to auscultation bilaterally. Respiration equal and unlabored. No wheezes, rales or rhonchi. HEART: Irregular rate and rhythm without murmurs, rubs or gallops. S1 and S2 heard. EXTREMITIES: Normal range of motion, no edema. No clubbing or cyanosis. Peripheral pulses intact and strong. VITALS: Blood pressure 147/87, heart rate 87, respiratory rate 20, temperature 97.4F, SpO2 97% on room air TELEMETRY: Atrial fibrillation with heart rates in the 80s to 90s LABS: WBC 9.8, hemoglobin 14.3, hematocrit 46.5, platelet 215 IMPRESSION: #1 atrial fibrillation with RVR, will start amiodarone #2 acute exacerbation of congestive heart failure #3 nonischemic cardiomyopathy, recent ejection fraction 30% #4 coronary artery disease #5 hypertension, uncontrolled, increase carvedilol #6 dyslipidemia #7 valvular heart disease PLAN: Maximize carvedilol for hypertension Discontinue Cardizem drip Start amiodarone 200 mg twice daily and gradually taper over the next 6 weeks with the goal of 100 mg daily Consider cardioversion in one month after starting amiodarone if she continues to be in atrial fibrillation Continue to monitor The patient has been seen and evaluated. Plan of care has been reviewed and agreed upon by Dr Borjas. Objective - Vital Signs Vital signs: Vital Signs Temp 97.4 F L 04/03/20 11:06 Pulse 87 04/03/20 11:06 Resp 20 04/03/20 11:06 BP 147/87 04/03/20 11:06 Pulse Ox 97 04/03/20 11:06 Intake & Output 04/02/20 04/03/20 04/03/20 18:59 06:59 18:59 Intake Total 594.667 469.833 Output Total 1600 400 Balance -1005.333 -400 469.833 Weight 74 kg 73.1 kg Intake: Intake, IV Titration 114.667 109.833 Amount Diltiazem 125 mg In 114.667 109.833 Sodium Chloride 0.9% 100 ml @ 5 MG/HR 5 mls/hr IV .Q24H [facility] Rx#:[id number] Oral 480 360 Output: Urine 1600 400 Other: Voiding Method Toilet Toilet # Voids 1 - Labs CBC & Chem 7: 04/03/20 08:27 04/01/20 11:50 Labs: Abnormal Lab Results - Last 24 Hours (Table) 04/03/20 Range/Units 08:27 Hct 46.5 H (34.0-46.0) % MCHC 30.7 L (31.0-37.0) g/dL RDW 16.7 H (11.5-15.5) %
[2020-04-03] MEDS: AMIODARONE 200 MG TAB PO SCH ×2 (14:14→21:39)
[2020-04-03] MEDS: carvediloL 6.25 MG TAB PO SCH (16:37)
--- NOTE | 2020-04-03 17:21 | P.PN ---
Progress Note - Text Progress Note Date: 04/03/20 Chief Complaint: Increased heart rate History of presenting complaint: This is a pleasant 84-year-old patient of Dr. goldberg. Chronic stable medical conditions include hypertension, osteoarthritis, coronary artery disease with stent. Has known paroxysmal atrial fibrillation. Patient was discharged from hospital about 2 weeks ago. There was admitted with atrial fibrillation with rapid ventricular rate. Put on eliquis. 2-D echo showed EF of 30-35% with global hypokinesis. On March 11 underwent cardiac catheterization by Dr. Consuelo Beckford: Showed patent stent to the LAD mild nonobstructive disease Patient now presented with 3-4 days of increasing palpitations. Short of breath. No dizziness or lightheadedness. No cough. No fever no chills. Found to be in atrial fibrillation with rapid ventricular rate. Started on IV Cardizem drip in the ER. Also found to be in CHF exacerbation. Given IV Lasix. Today-laying of breath. Feeling a bit better. Less short of breath. Atrial fibrillation rate of bit better control. Review of systems: Was done for constitutional, cardiovascular, GI, pulmonary. relevant finding as above Active Medications Amiodarone HCl (Amiodarone 200 Mg Tab) 200 mg PO BID [facility] Last Admin: 04/03/20 14:14 Dose: 200 mg Documented by: Apixaban (Apixaban 5 Mg Tab) 5 mg PO BID [facility] Last Admin: 04/03/20 10:00 Dose: 5 mg Documented by: Artificial Tears (Artificial Tears-Hypromellose Drops 15 Ml Btl) 1 drops BOTH EYES QID PRN PRN Reason: Dry Eye(s) Aspirin (Aspirin 81 Mg) 81 mg PO DAILY [facility] Last Admin: 04/03/20 10:00 Dose: 81 mg Documented by: Carvedilol (Carvedilol 6.25 Mg Tab) 6.25 mg PO BID-W/MEALS [facility] Last Admin: 04/03/20 16:37 Dose: 6.25 mg Documented by: Furosemide (Furosemide 40 Mg Tab) 40 mg PO DAILY [facility] Last Admin: 04/03/20 08:14 Dose: 40 mg Documented by: Lisinopril (Lisinopril 5 Mg Tab) 5 mg PO DAILY [facility] Last Admin: 04/03/20 08:14 Dose: 5 mg Documented by: Sodium Chloride (Sodium Chloride 0.65% Nasal [place] 44 Ml Btl) 2 spray NASAL QID PRN PRN Reason: Dry Nasal Passages Last Admin: 04/03/20 10:48 Dose: 2 spray Documented by: Spironolactone (Spironolactone 25 Mg Tab) 12.5 mg PO DAILY [facility] Last Admin: 04/03/20 08:14 Dose: 12.5 mg Documented by: Past medical history to include: Coronary artery disease, atrial flutter ablation, osteoarthritis, coronary artery disease with stent, hypertension, CHF EF 30-35% Social history: Does not smoke or drink alcohol. . Physical examination: VITAL SIGNS: 97.4, 87, 20, 1 47/87, 97% room air GENERAL: , Reclining in bed, looking a better EYES: Pupils equal, conjunctiva normal NECK: JVD not raised; masses not palpable. HEART: Heart sounds irregular; no edema. LUNGS: Respiratory rate normal; clear to auscultation. ABDOMEN: Soft, nontender, liver spleen not palpable, no masses palpable. PSYCH: Alert and oriented x3; mood and affect anxiousl. MUSCULOSKELETAL: Evidence of OA INVESTIGATIONS, reviewed in the clinical context: April 03: White count 9.8 White count 14.4 hemoglobin 15.2 potassium 4.7 bun 25 creatinine 1.38 EKG tracing personally reviewed by me-atrial flutter fibrillation with a rate of 139 with PVCs Chest x-ray film personally reviewed by me-cardiomegaly Troponin I 3 negative Previous testing: BUN 31 and creatinine 1.53 on 03/12/2020 2-D echocardiogram [03/10/2020] moderate concentric LVH, EF 30-35%, global hypokinesis, snsv-yr-zwbwqadp MR, moderate TR, moderate pulmonary hypertension Assessment: -Paroxysmal atrial flutter-fibrillation with episodes of rapid ventricular rate, with a prior history of kmgdbkql-gnoiggjfzne-lvmpc rate better controlled -Acute on Chronic congestive heart failure exacerbation from systolic dysfunction EF 30-35%-better -Mild to moderate MR, 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 -Coronary artery disease with stent-cardiac catheterization in February 2020 showing patent stent -Primary osteoarthritis -Essential hypertension Plan: Today per cardiology patient being taken off the Cardizem drip. Started on amiodarone. Patient is on Lasix-40 mg. 12.5 mg of Aldactone.
[2020-04-04] MEDS: carvediloL 6.25 MG TAB PO SCH (06:51)
[2020-04-04] MEDS: APIXABAN 5 MG TAB PO SCH ×2 (08:29→20:15)
[2020-04-04] MEDS: ASPIRIN 81 MG PO SCH (08:29)
[2020-04-04] MEDS: FUROSEMIDE 40 MG TAB PO SCH (08:29)
[2020-04-04] MEDS: AMIODARONE 200 MG TAB PO SCH ×2 (08:29→20:15)
[2020-04-04] MEDS: SPIRONOLACTONE 25 MG TAB PO SCH (08:29)
[2020-04-04] MEDS: lisinopriL 5 MG TAB PO SCH (08:29)
[2020-04-04] MEDS ORDERED: carvediloL 6.25 MG TAB PO STA (09:03)
[2020-04-04] MEDS ORDERED: carvediloL 12.5 MG TAB PO STA (12:48)
--- NOTE | 2020-04-04 14:50 | P.PN ---
Subjective Progress Note Date: 04/04/20 HISTORY OF PRESENT ILLNESS: 84-year-old female, patient of Dr. Contreras, who was admitted to the hospital secondary to A. fib with RVR. Patient examined this morning at the bedside. She denies chest pain or pressure. Denies shortness of breath. She denies palpitations. Patient was switched from metoprolol to carvedilol yesterday. Patient was also started on amiodarone yesterday. Telemetry this morning reveals atrial fibrillation with RVR with a heart rate ranging from 120-140. Blood pressure in the 140s. PHYSICAL EXAM: VITAL SIGNS: Reviewed. GENERAL: Well-developed in no acute distress. NECK: Supple. No JVD or thyromegaly LUNGS: Respirations even and unlabored. Lungs essentially clear to auscultation bilaterally. HEART: tachycardic. irregular rate and rhythm. S1 and S2 heard. EXTREMITIES: Normal range of motion. No clubbing or cyanosis. Peripheral pulses intact. No lower extremity edema ASSESSMENT: Paroxysmal atrial fibrillation with RVR, on anticoagulation with Eliquis Coronary artery disease with previous PCI to LAD Ischemic cardiomyopathy, ejection fraction 35% Chronic systolic heart failure, currently euvolemic Hypertension Hyperlipidemia PLAN: Continue current cardiac medications Increase carvedilol to 25 mg twice a day Continue telemetry monitoring Consider cardioversion in one month after starting amiodarone if patient continues to be in atrial fibrillation Further recommendations pending patient course Nurse practitioner note has been reviewed by physician. Signing provider agrees with the documented findings, assessment, and plan of care. Objective - Vital Signs Vital signs: Vital Signs Temp 98.0 F 04/04/20 11:42 Pulse 124 H 04/04/20 13:36 Resp 18 04/04/20 13:36 BP 125/95 04/04/20 11:42 Pulse Ox 97 04/04/20 11:42 Intake & Output 04/03/20 04/04/20 04/04/20 18:59 06:59 18:59 Intake Total 947.833 720 Output Total 600 200 Balance 347.833 -200 720 Weight 65.8 kg Intake: Intake, IV Titration 109.833 Amount Diltiazem 125 mg In 109.833 Sodium Chloride 0.9% 100 ml @ 5 MG/HR 5 mls/hr IV .Q24H [facility] Rx#:[id number] Oral 838 720 Output: Urine 600 200 Other: Voiding Method Toilet Toilet Toilet # Voids 2 2 - Labs CBC & Chem 7: 04/03/20 08:27 04/01/20 11:50
[2020-04-04] MEDS: carvediloL 12.5 MG TAB PO SCH (17:07)
[2020-04-04] MEDS ORDERED: carvediloL 12.5 MG TAB PO SCH (17:30)
--- NOTE | 2020-04-04 21:52 | P.PN ---
Progress Note - Text Progress Note Date: 04/04/20 Chief Complaint: Increased heart rate History of presenting complaint: This is a pleasant 84-year-old patient of Dr. goldberg. Chronic stable medical conditions include hypertension, osteoarthritis, coronary artery disease with stent. Has known paroxysmal atrial fibrillation. Patient was discharged from hospital about 2 weeks ago. There was admitted with atrial fibrillation with rapid ventricular rate. Put on eliquis. 2-D echo showed EF of 30-35% with global hypokinesis. On March 11 underwent cardiac catheterization by Dr. Consuelo Beckford: Showed patent stent to the LAD mild nonobstructive disease Patient now presented with 3-4 days of increasing palpitations. Short of breath. No dizziness or lightheadedness. No cough. No fever no chills. Found to be in atrial fibrillation with rapid ventricular rate. Started on IV Cardizem drip in the ER. Also found to be in CHF exacerbation. Given IV Lasix. Today-breathing better. Heart rate just above 100. Oral intake fair. On amiodarone Review of systems: Was done for constitutional, cardiovascular, GI, pulmonary. relevant finding as above Active Medications Amiodarone HCl (Amiodarone 200 Mg Tab) 200 mg PO BID [facility] Last Admin: 04/04/20 20:15 Dose: 200 mg Documented by: Apixaban (Apixaban 5 Mg Tab) 5 mg PO BID [facility] Last Admin: 04/04/20 20:15 Dose: 5 mg Documented by: Artificial Tears (Artificial Tears-Hypromellose Drops 15 Ml Btl) 1 drops BOTH EYES QID PRN PRN Reason: Dry Eye(s) Aspirin (Aspirin 81 Mg) 81 mg PO DAILY [facility] Last Admin: 04/04/20 08:29 Dose: 81 mg Documented by: Carvedilol (Carvedilol 12.5 Mg Tab) 25 mg PO BID-W/MEALS [facility] Last Admin: 04/04/20 17:07 Dose: 25 mg Documented by: Furosemide (Furosemide 40 Mg Tab) 40 mg PO DAILY [facility] Last Admin: 04/04/20 08:29 Dose: 40 mg Documented by: Lisinopril (Lisinopril 5 Mg Tab) 5 mg PO DAILY [facility] Last Admin: 04/04/20 08:29 Dose: 5 mg Documented by: Sodium Chloride (Sodium Chloride 0.65% Nasal [place] 44 Ml Btl) 2 spray NASAL QID PRN PRN Reason: Dry Nasal [place] Last Admin: 04/03/20 10:48 Dose: 2 spray Documented by: Spironolactone (Spironolactone 25 Mg Tab) 12.5 mg PO DAILY [facility] Last Admin: 04/04/20 08:29 Dose: 12.5 mg Documented by: Past medical history to include: Coronary artery disease, atrial flutter ablation, osteoarthritis, coronary artery disease with stent, hypertension, CHF EF 30-35% Social history: Does not smoke or drink alcohol. . Physical examination: VITAL SIGNS: 98, 124, 18, 125/95, 97% room air GENERAL: , Reclining in bed, breathing better EYES: Pupils equal, conjunctiva normal NECK: JVD not raised; masses not palpable. HEART: Heart sounds irregular; no edema. LUNGS: Respiratory rate normal; clear to auscultation. ABDOMEN: Soft, nontender, liver spleen not palpable, no masses palpable. PSYCH: Alert and oriented x3; mood and affect anxiousl. MUSCULOSKELETAL: Evidence of OA INVESTIGATIONS, reviewed in the clinical context: April 03: White count 9.8 White count 14.4 hemoglobin 15.2 potassium 4.7 bun 25 creatinine 1.38 EKG tracing personally reviewed by me-atrial flutter fibrillation with a rate of 139 with PVCs Chest x-ray film personally reviewed by me-cardiomegaly Troponin I 3 negative Previous testing: BUN 31 and creatinine 1.53 on 03/12/2020 2-D echocardiogram [03/10/2020] moderate concentric LVH, EF 30-35%, global hypokinesis, jusj-om-smksmkzj MR, moderate TR, moderate pulmonary hypertension Assessment: -Paroxysmal atrial flutter-fibrillation with episodes of rapid ventricular rate, with a prior history of niqrvbll-cjqxjzruvui-zesgn rate better controlled. On amiodarone, Coreg. Eliquis -Acute on Chronic congestive heart failure exacerbation from systolic dysfunction EF 30-35%-better. On Lasix 40 mg and Aldactone 12.5 mg. 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 -Coronary artery disease with stent-cardiac catheterization in February 2020 showing patent stent. On Coreg, Zestril, aspirin -Primary osteoarthritis -Essential hypertension Plan: Coreg increased to 25 mg twice a day. Improving. Follow
[2020-04-05] MEDS: carvediloL 12.5 MG TAB PO SCH ×2 (06:53→17:01)
[2020-04-05] MEDS: AMIODARONE 200 MG TAB PO SCH ×2 (09:07→20:50)
[2020-04-05] MEDS: FUROSEMIDE 40 MG TAB PO SCH (09:08)
[2020-04-05] MEDS: APIXABAN 5 MG TAB PO SCH ×2 (09:08→20:50)
[2020-04-05] MEDS: ASPIRIN 81 MG PO SCH (09:08)
[2020-04-05] MEDS: SPIRONOLACTONE 25 MG TAB PO SCH (09:09)
[2020-04-05] MEDS: lisinopriL 5 MG TAB PO SCH (09:09)
[2020-04-05] MEDS ORDERED: carvediloL 12.5 MG TAB PO STA (10:46)
--- NOTE | 2020-04-05 14:56 | P.PN ---
Subjective Progress Note Date: 04/05/20 HISTORY OF PRESENT ILLNESS: 04/04/2020 84-year-old female, patient of Dr. Contreras, who was admitted to the hospital secondary to A. fib with RVR. Patient examined this morning at the bedside. She denies chest pain or pressure. Denies shortness of breath. She denies palpitations. Patient was switched from metoprolol to carvedilol yesterday. Patient was also started on amiodarone yesterday. Telemetry this morning reveals atrial fibrillation with RVR with a heart rate ranging from 120-140. Blood pressure in the 140s. 04/05/2020 Patient examined this morning at the bedside. She denies chest pain or pressure. Denies shortness of breath. She denies palpitations. She remains in atrial fibrillation with a heart rate in the 120s. PHYSICAL EXAM: VITAL SIGNS: Reviewed. GENERAL: Well-developed in no acute distress. NECK: Supple. No JVD or thyromegaly LUNGS: Respirations even and unlabored. Lungs essentially clear to auscultation bilaterally. HEART: tachycardic. irregular rate and rhythm. S1 and S2 heard. EXTREMITIES: Normal range of motion. No clubbing or cyanosis. Peripheral pulses intact. No lower extremity edema ASSESSMENT: Paroxysmal atrial fibrillation with RVR, on anticoagulation with Eliquis Coronary artery disease with previous PCI to LAD Ischemic cardiomyopathy, ejection fraction 35% Chronic systolic heart failure, currently euvolemic Hypertension Hyperlipidemia PLAN: Continue current cardiac medications Increase carvedilol to 50 mg twice a day Continue telemetry monitoring Patient to undergo TANYA and cardioversion tomorrow with Dr. Contreras Nurse practitioner note has been reviewed by physician. Signing provider agrees with the documented findings, assessment, and plan of care. Objective - Vital Signs Vital signs: Vital Signs Temp 98.4 F 04/05/20 11:38 Pulse 110 H 04/05/20 13:00 Resp 16 04/05/20 13:00 BP 134/87 04/05/20 11:38 Pulse Ox 96 04/05/20 11:38 Intake & Output 04/04/20 04/05/20 04/05/20 18:59 06:59 18:59 Intake Total 1200 480 Balance 1200 480 Weight 72.2 kg Intake: Oral 1200 480 Other: Voiding Method Toilet Toilet Toilet # Voids 2 1 3 - Labs CBC & Chem 7: 04/03/20 08:27 04/01/20 11:50
[2020-04-05] MEDS: ACETAMINOPHEN TAB 325 MG TAB PO PRN ×2 (15:24→20:50)
--- NOTE | 2020-04-05 19:21 | P.PN ---
Progress Note - Text Progress Note Date: 04/05/20 Chief Complaint: Increased heart rate History of presenting complaint: This is a pleasant 84-year-old patient of Dr. goldberg. Chronic stable medical conditions include hypertension, osteoarthritis, coronary artery disease with stent. Has known paroxysmal atrial fibrillation. Patient was discharged from hospital about 2 weeks ago. There was admitted with atrial fibrillation with rapid ventricular rate. Put on eliquis. 2-D echo showed EF of 30-35% with global hypokinesis. On March 11 underwent cardiac catheterization by Dr. Consuelo Beckford: Showed patent stent to the LAD mild nonobstructive disease Patient now presented with 3-4 days of increasing palpitations. Short of breath. No dizziness or lightheadedness. No cough. No fever no chills. Found to be in atrial fibrillation with rapid ventricular rate. Started on IV Cardizem drip in the ER. Also found to be in CHF exacerbation. Given IV Lasix. Today-remains in A. fib. Heart rate is 120s. A bit tired. On oral Lasix. Review of systems: Was done for constitutional, cardiovascular, GI, pulmonary. relevant finding as above Active Medications Acetaminophen (Acetaminophen Tab 325 Mg Tab) 650 mg PO Q6HR PRN PRN Reason: Fever and/ or Pain Last Admin: 04/05/20 15:24 Dose: 650 mg Documented by: Amiodarone HCl (Amiodarone 200 Mg Tab) 200 mg PO BID [facility] Last Admin: 04/05/20 09:07 Dose: 200 mg Documented by: Apixaban (Apixaban 5 Mg Tab) 5 mg PO BID [facility] Last Admin: 04/05/20 09:08 Dose: 5 mg Documented by: Artificial Tears (Artificial Tears-Hypromellose Drops 15 Ml Btl) 1 drops BOTH EYES QID PRN PRN Reason: Dry Eye(s) Aspirin (Aspirin 81 Mg) 81 mg PO DAILY [facility] Last Admin: 04/05/20 09:08 Dose: 81 mg Documented by: Carvedilol (Carvedilol 12.5 Mg Tab) 50 mg PO BID-W/MEALS [facility] Last Admin: 04/05/20 17:01 Dose: 50 mg Documented by: Furosemide (Furosemide 40 Mg Tab) 40 mg PO DAILY [facility] Last Admin: 04/05/20 09:08 Dose: 40 mg Documented by: Lisinopril (Lisinopril 5 Mg Tab) 5 mg PO DAILY [facility] Last Admin: 04/05/20 09:09 Dose: 5 mg Documented by: Sodium Chloride (Sodium Chloride 0.65% Nasal [place] 44 Ml Btl) 2 spray NASAL QID PRN PRN Reason: Dry Nasal [place] Last Admin: 04/03/20 10:48 Dose: 2 spray Documented by: Spironolactone (Spironolactone 25 Mg Tab) 12.5 mg PO DAILY [facility] Last Admin: 04/05/20 09:09 Dose: 12.5 mg Documented by: Past medical history to include: Coronary artery disease, atrial flutter ablation, osteoarthritis, coronary artery disease with stent, hypertension, CHF EF 30-35% Social history: Does not smoke or drink alcohol. . Physical examination: VITAL SIGNS: 97.4, 128, 18, 124/81, 94% room air GENERAL: , Reclining in bed, tired EYES: Pupils equal, conjunctiva normal NECK: JVD not raised; masses not palpable. HEART: Heart sounds irregular; no edema. LUNGS: Respiratory rate normal; clear to auscultation. ABDOMEN: Soft, nontender, liver spleen not palpable, no masses palpable. PSYCH: Alert and oriented x3; mood and affect anxiousl. MUSCULOSKELETAL: Evidence of OA INVESTIGATIONS, reviewed in the clinical context: April 03: White count 9.8 White count 14.4 hemoglobin 15.2 potassium 4.7 bun 25 creatinine 1.38 EKG tracing personally reviewed by me-atrial flutter fibrillation with a rate of 139 with PVCs Chest x-ray film personally reviewed by me-cardiomegaly Troponin I 3 negative Previous testing: BUN 31 and creatinine 1.53 on 03/12/2020 2-D echocardiogram [03/10/2020] moderate concentric LVH, EF 30-35%, global hypokinesis, utsw-nt-fynueyub MR, moderate TR, moderate pulmonary hypertension Assessment: -Paroxysmal atrial flutter-fibrillation with episodes of rapid ventricular rate, with a prior history of ablation-symptomatic-. On amiodarone, Coreg. Eliquis. Heart rate uncontrolled again today. Coreg increased to 50 mg twice a day. -Acute on Chronic congestive heart failure exacerbation from systolic dysfunction EF 30-35%-better. On Lasix 40 mg and Aldactone 12.5 mg. 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 -Coronary artery disease with stent-cardiac catheterization in February 2020 showing patent stent. On Coreg, Zestril, aspirin -Primary osteoarthritis -Essential hypertension Plan: Continue on telemetry. Coreg increased to 50 mg twice a day. Discussed with patient
[2020-04-06] MEDS: carvediloL 12.5 MG TAB PO SCH (06:08)
[2020-04-06] MEDS: ACETAMINOPHEN TAB 325 MG TAB PO PRN (08:18)
[2020-04-06] MEDS: lisinopriL 5 MG TAB PO SCH (08:19)
[2020-04-06] MEDS: ASPIRIN 81 MG PO SCH (08:19)
[2020-04-06] MEDS: APIXABAN 5 MG TAB PO SCH ×2 (08:19→19:59)
[2020-04-06] MEDS: AMIODARONE 200 MG TAB PO SCH ×2 (08:20→19:59)
[2020-04-06] MEDS ORDERED: IV FLUID CONTINUATION 1,000 ML IV ONE ×2 (09:45)
[2020-04-06] MEDS: BENZOCAINE SPRAY 1 CAN TOPICAL ONE ×2 (09:50→10:00)
[2020-04-06] MEDS ORDERED: PROPOFOL 10 MG/ML 20 ML VIAL IV ONE (09:56)
--- NOTE | 2020-04-06 11:04 | ECHOT ---
TRANSESOPHAGEAL ECHOCARDIOGRAM INDICATIONS: Persistent atrial fibrillation with poorly controlled ventricular rate. PROCEDURE NOTE: After obtaining informed consent, transesophageal echocardiogram is performed in left lateral position using an Omniplane probe. Local and IV sedation were obtained using Xylocaine spray and propofol. The patient tolerated the procedure well without any obvious immediate complications. FINDINGS: 1. There is no thrombus within the left atrial appendage, left atrium, right atrium, and right ventricle. 2. Left ventricle appears mildly dilated with moderate LV systolic dysfunction with an ejection fraction of around 35% to 40%. 3. Left atrium appears enlarged. 4. Right atrium and right ventricle appear within normal limits. 5. There is mild mitral regurgitation. 6. There is mild tricuspid regurgitation noted. 7. Interatrial Septum: There is no evidence of obpg-go-jsdsu shunt by color-flow Doppler or atpzb-by-kpea shunt by agitated saline contrast study. 8. Aortic valve is free of stenosis or regurgitation. CONCLUSION: 1. No intracardiac thrombus. 2. Left ventricular systolic dysfunction. 3. No evidence of nwsox-do-vqkb shunt. PLAN: The patient will undergo cardioversion. MMODL / IJN: [id number] /
--- NOTE | 2020-04-06 11:09 | CE ---
CARDIAC ELECTROPHYSIOLOGY REPORT CARDIOVERSION NOTE: INDICATION: Persistent atrial fibrillation. After obtaining informed consent, making sure that the patient does not have intracardiac thrombus and ensuring that she is adequately anticoagulated. The patient was given 200 joules of synchronized DC current following which she converted to sinus rhythm. She will continue the Eliquis. I am going to cut back on the dose of Coreg on discharge and continue the amiodarone. JOSE JUAN / MICHAELN: [id number] /
[2020-04-06] MEDS: FUROSEMIDE 40 MG TAB PO SCH (12:18)
[2020-04-06] MEDS: SPIRONOLACTONE 25 MG TAB PO SCH (12:18)
[2020-04-06] MEDS: SODIUM CHLORIDE 0.9% 1,000 ML IV SCH (12:58)
--- NOTE | 2020-04-06 22:24 | P.PN ---
Progress Note - Text Progress Note Date: 04/06/20 Chief Complaint: Increased heart rate History of presenting complaint: This is a pleasant 84-year-old patient of Dr. goldberg. Chronic stable medical conditions include hypertension, osteoarthritis, coronary artery disease with stent. Has known paroxysmal atrial fibrillation. Patient was discharged from hospital about 2 weeks ago. There was admitted with atrial fibrillation with rapid ventricular rate. Put on eliquis. 2-D echo showed EF of 30-35% with global hypokinesis. On March 11 underwent cardiac catheterization by Dr. Consuelo Beckford: Showed patent stent to the LAD mild nonobstructive disease Patient now presented with 3-4 days of increasing palpitations. Short of breath. No dizziness or lightheadedness. No cough. No fever no chills. Found to be in atrial fibrillation with rapid ventricular rate. Started on IV Cardizem drip in the ER. Also found to be in CHF exacerbation. Given IV Lasix. Today-patient underwent TANYA this morning. No thrombus. Underwent successful synchronized cardioversion. Currently heart rate in the 70s. Review of systems: Was done for constitutional, cardiovascular, GI, pulmonary. relevant finding as above Active Medications Acetaminophen (Acetaminophen Tab 325 Mg Tab) 650 mg PO Q6HR PRN PRN Reason: Fever and/ or Pain Last Admin: 04/06/20 08:18 Dose: 650 mg Documented by: Amiodarone HCl (Amiodarone 200 Mg Tab) 200 mg PO BID [facility] Last Admin: 04/06/20 19:59 Dose: 200 mg Documented by: Apixaban (Apixaban 5 Mg Tab) 5 mg PO BID [facility] Last Admin: 04/06/20 19:59 Dose: 5 mg Documented by: Artificial Tears (Artificial Tears-Hypromellose Drops 15 Ml Btl) 1 drops BOTH EYES QID PRN PRN Reason: Dry Eye(s) Aspirin (Aspirin 81 Mg) 81 mg PO DAILY [facility] Last Admin: 04/06/20 08:19 Dose: 81 mg Documented by: Carvedilol (Carvedilol 6.25 Mg Tab) 6.25 mg PO BID-W/MEALS [facility] Furosemide (Furosemide 40 Mg Tab) 40 mg PO DAILY [facility] Last Admin: 04/06/20 12:18 Dose: 40 mg Documented by: Sodium Chloride (Saline 0.9%) 1,000 mls @ 20 mls/hr IV .Q24H [facility] Last Admin: 04/06/20 12:58 Dose: Not Given Documented by: Lisinopril (Lisinopril 5 Mg Tab) 5 mg PO DAILY [facility] Last Admin: 04/06/20 08:19 Dose: 5 mg Documented by: Sodium Chloride (Sodium Chloride 0.65% Nasal [place] 44 Ml Btl) 2 spray NASAL QID PRN PRN Reason: Dry Nasal Passages Last Admin: 04/03/20 10:48 Dose: 2 spray Documented by: Spironolactone (Spironolactone 25 Mg Tab) 12.5 mg PO DAILY [facility] Last Admin: 04/06/20 12:18 Dose: 12.5 mg Documented by: Past medical history to include: Coronary artery disease, atrial flutter ablation, osteoarthritis, coronary artery disease with stent, hypertension, CHF EF 30-35% Social history: Does not smoke or drink alcohol. . Physical examination: VITAL SIGNS: 96.6, 45, 18, 105/55, 95% room air GENERAL: , Reclining in bed, tired EYES: Pupils equal, conjunctiva normal NECK: JVD not raised; masses not palpable. HEART: First seconds are normal; no edema. LUNGS: Respiratory rate normal; clear to auscultation. ABDOMEN: Soft, nontender, liver spleen not palpable, no masses palpable. PSYCH: Alert and oriented x3; mood and affect anxiousl. MUSCULOSKELETAL: Evidence of OA INVESTIGATIONS, reviewed in the clinical context: April 03: White count 9.8 White count 14.4 hemoglobin 15.2 potassium 4.7 bun 25 creatinine 1.38 EKG tracing personally reviewed by me-atrial flutter fibrillation with a rate of 139 with PVCs Chest x-ray film personally reviewed by me-cardiomegaly Troponin I 3 negative Previous testing: BUN 31 and creatinine 1.53 on 03/12/2020 2-D echocardiogram [03/10/2020] moderate concentric LVH, EF 30-35%, global hypokinesis, [id number] MR, moderate TR, moderate pulmonary hypertension TANYA-EF 35-40% and no thrombus. No shunt. Assessment: -Paroxysmal atrial flutter-fibrillation with episodes of rapid ventricular rate, with a prior history of ablation-symptomatic-. On amiodarone, Coreg. Eliquis. DC cardioverted on Pret. -Acute on Chronic congestive heart failure exacerbation from systolic dysfunction EF 30-35%-better. On Lasix 40 mg and Aldactone 12.5 mg. 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 -Coronary artery disease with stent-cardiac catheterization in February 2020 showing patent stent. On Coreg, Zestril, aspirin -Primary osteoarthritis -Essential hypertension -Bradycardia from Coreg. Additionally: Patient does of Coreg is cutback. Patient is on Cordarone eliquis aspirin by mouth Lasix and Restoril Aldactone. Repeat BMP in the morning.
[2020-04-07 04:25] VITALS: RESP 16
[2020-04-07] MEDS ORDERED: carvediloL 6.25 MG TAB PO SCH (07:30)
[2020-04-07] MEDS: lisinopriL 5 MG TAB PO SCH (08:28)
[2020-04-07] MEDS: ASPIRIN 81 MG PO SCH (08:28)
[2020-04-07] MEDS: SPIRONOLACTONE 25 MG TAB PO SCH (08:28)
[2020-04-07] MEDS: APIXABAN 5 MG TAB PO SCH (08:28)
[2020-04-07] MEDS: FUROSEMIDE 40 MG TAB PO SCH (08:28)
[2020-04-07] MEDS: SODIUM CHLORIDE 0.9% 1,000 ML IV SCH (08:29)
[2020-04-07] MEDS: AMIODARONE 200 MG TAB PO SCH (08:29)
[2020-04-07 10:25] LABS: Calcium 8.4 mg/dL (8.4-10.2); Potassium 4.3 mmol/L (3.5-5.1)
[2020-04-07 12:40] VITALS: BP 134/63; PULSE 51; TEMP 97.2
--- NOTE | 2020-04-07 12:45 | P.PN ---
Subjective Progress Note Date: 04/07/20 HISTORY OF PRESENT ILLNESS: 04/04/2020 84-year-old female, patient of Dr. Contreras, who was admitted to the hospital secondary to A. fib with RVR. Patient examined this morning at the bedside. She denies chest pain or pressure. Denies shortness of breath. She denies palpitations. Patient was switched from metoprolol to carvedilol yesterday. Patient was also started on amiodarone yesterday. Telemetry this morning reveals atrial fibrillation with RVR with a heart rate ranging from 120-140. Blood pressure in the 140s. 04/05/2020 Patient examined this morning at the bedside. She denies chest pain or pressure. Denies shortness of breath. She denies palpitations. She remains in atrial fibrillation with a heart rate in the 120s. 04/07/2020 Patient examined this morning at the bedside. She is status post TANYA and cardioversion yesterday. She remains in sinus mechanism. Beta patrick was held yesterday secondary to bradycardia. She was resumed on Coreg 6.25 mg twice a day this morning. Patient's heart rate in the 40s and 50s. Patient denies dizziness or lightheadedness. Blood pressure 111/52. PHYSICAL EXAM: VITAL SIGNS: Reviewed. GENERAL: Well-developed in no acute distress. NECK: Supple. No JVD or thyromegaly LUNGS: Respirations even and unlabored. Lungs essentially clear to auscultation bilaterally. HEART: Regular rate and rhythm. S1 and S2 heard. EXTREMITIES: Normal range of motion. No clubbing or cyanosis. Peripheral puls es intact. No lower extremity edema ASSESSMENT: Paroxysmal atrial fibrillation with RVR, on anticoagulation with Eliquis Coronary artery disease with previous PCI to LAD Ischemic cardiomyopathy, ejection fraction 35% Chronic systolic heart failure, currently euvolemic Hypertension Hyperlipidemia PLAN: Decrease Coreg to 3.125 mg twice a day Patient is stable for discharge home today from a cardiac perspective. Patient to follow up outpatient with Dr. Contreras Nurse practitioner note has been reviewed by physician. Signing provider agrees with the documented findings, assessment, and plan of care. Objective - Vital Signs Vital signs: Vital Signs Temp 97.8 F 04/07/20 08:22 Pulse 48 L 04/07/20 08:24 Resp 16 04/07/20 08:22 BP 111/52 04/07/20 08:22 Pulse Ox 97 04/07/20 08:22 Intake & Output 04/06/20 04/07/20 04/07/20 18:59 06:59 18:59 Intake Total 390 190 Balance 390 190 Weight 71 kg Intake: IV 150 10 Invasive Line 2 10 Oral 240 180 Other: Voiding Method Toilet # Voids 1 1 # Bowel Movements 0 - Labs CBC & Chem 7: 04/03/20 08:27 04/07/20 08:37 Labs: Abnormal Lab Results - Last 24 Hours (Table) 04/07/20 Range/Units 08:37 Sodium 136 L (137-145) mmol/L Chloride 95 L (98-107) mmol/L Carbon Dioxide 31 H (22-30) mmol/L Creatinine 1.35 H (0.52-1.04) mg/dL Glucose 208 H (74-99) mg/dL
[2020-04-07 13:38] VITALS: BMI 28.6
[2020-04-07] MEDS ORDERED: carvediloL 3.125 MG TAB PO SCH (17:30)
--- NOTE | 2020-04-07 23:30 | P.DS ---
Providers Date of admission: 04/01/20 13:37 Expected date of discharge: 04/07/20 Attending physician: Onur Campbell Consults: 04/01/20 12:52 Consult Physician Urgent Consulting Provider: Kumar Contreras Consult Reason/Comments: ASilvia fib RVR Do you want consulting provider notified?: Yes Primary care physician: [facility] Course: Chief Complaint: Increased heart rate History of presenting complaint: This is a pleasant 84-year-old patient of Dr. diehl. Chronic stable medical conditions include hypertension, osteoarthritis, coronary artery disease with stent. Has known paroxysmal atrial fibrillation. Patient was discharged from hospital about 2 weeks ago. There was admitted with atrial fibrillation with rapid ventricular rate. Put on eliquis. 2-D echo showed EF of 30-35% with global hypokinesis. On March 11 underwent cardiac catheterization by Dr. Consuelo Beckford: Showed patent stent to the LAD mild nonobstructive disease Patient now presented with 3-4 days of increasing palpitations. Short of breath. No dizziness or lightheadedness. No cough. No fever no chills. Found to be in atrial fibrillation with rapid ventricular rate. Started on IV Cardizem drip in the ER. Also found to be in CHF exacerbation. Given IV Lasix. TANYA-no thrombus. Successful synchronized cardioversion. Today-encouraged to feel good. Remains in sinus rhythm. Up and about. Cleared by currently. Dose of beta patrick cutback. Coverage Specialist Rn: Dr. Consuelo Contreras from cardiology Past medical history to include: Coronary artery disease, atrial flutter ablation, osteoarthritis, coronary artery disease with stent, hypertension, CHF EF 30-35% Social history: Does not smoke or drink alcohol. . Physical examination: VITAL SIGNS: 97.2, 51, 16, 1:30/63, 95% room air GENERAL: , Sitting up in chair, comfortable EYES: Pupils equal, conjunctiva normal NECK: JVD not raised; masses not palpable. HEART: First seconds are normal; no edema. LUNGS: Respiratory rate normal; clear to auscultation. ABDOMEN: Soft, nontender, liver spleen not palpable, no masses palpable. PSYCH: Alert and oriented x3; mood and affect anxiousl. MUSCULOSKELETAL: Evidence of OA INVESTIGATIONS, reviewed in the clinical context: Febrile 11th: Potassium 4.3 creatinine 1.35 April 03: White count 9.8 White count 14.4 hemoglobin 15.2 potassium 4.7 bun 25 creatinine 1.38 EKG tracing personally reviewed by me-atrial flutter fibrillation with a rate of 139 with PVCs Chest x-ray film personally reviewed by me-cardiomegaly Troponin I 3 negative Previous testing: BUN 31 and creatinine 1.53 on 03/12/2020 2-D echocardiogram [03/10/2020] moderate concentric LVH, EF 30-35%, global hypokinesis, [id number] MR, moderate TR, moderate pulmonary hypertension TANYA-EF 35-40% and no thrombus. No shunt. Assessment: -Paroxysmal atrial flutter-fibrillation with episodes of rapid ventricular rate, with a prior history of ablation-symptomatic-. On amiodarone, Coreg. Eliquis. DC cardioverted----sinus rhythm -Acute on Chronic congestive heart failure exacerbation from systolic dysfunction EF 30-35%-better. On Lasix 40 mg and Aldactone 12.5 mg. 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 -Coronary artery disease with stent-cardiac catheterization in February 2020 showing patent stent. On Coreg, Zestril, aspirin -Primary osteoarthritis -Essential hypertension -Bradycardia from Coreg. Dose adjusted -Chronic kidney disease stage III from nephrosclerosis Disposition: Home Plan - Discharge Summary Discharge Rx Participant: No New Discharge Prescriptions: New Spironolactone [Aldactone] 12.5 mg PO DAILY #30 tab Artificial Tears-Hypromellose [Artificial Tear Drops] 1 drops BOTH EYES QID PRN bottle PRN Reason: Dry Eye(S) Amiodarone [Cordarone] 200 mg PO BID #60 tab carvediloL [Coreg] 3.125 mg PO BID-W/MEALS #60 tab Apixaban [Eliquis] 5 mg PO BID #60 tab Continue Aspirin 81 mg PO DAILY #30 chewable Furosemide [Lasix] 40 mg PO DAILY #30 tablet lisinopriL [Zestril] 5 mg PO DAILY Discontinued Apixaban [Eliquis] 2.5 mg PO BID 30 Days #60 tablet Metoprolol Tartrate [Lopressor] 100 mg PO DIRECTED Metoprolol Tartrate [Lopressor] 50 mg PO DAILY Discharge Medication List Aspirin 81 mg PO DAILY #30 chewable 03/12/20 [Rx] Furosemide [Lasix] 40 mg PO DAILY #30 tablet 03/12/20 [Rx] lisinopriL [Zestril] 5 mg PO DAILY 04/01/20 [History] Amiodarone [Cordarone] 200 mg PO BID #60 tab 04/07/20 [Rx] Apixaban [Eliquis] 5 mg PO BID #60 tab 04/07/20 [Rx] Artificial Tears-Hypromellose [Artificial Tear Drops] 1 drops BOTH EYES QID PRN bottle 04/07/20 [Rx] Spironolactone [Aldactone] 12.5 mg PO DAILY #30 tab 04/07/20 [Rx] carvediloL [Coreg] 3.125 mg PO BID-W/MEALS #60 tab 04/07/20 [Rx] Follow up Appointment(s)/Referral(s): Noel Diehl DO [Primary Care Provider] - 04/14/20 10:20 am Kumar Contreras MD [STAFF PHYSICIAN] - 04/19/20 2:45 pm Patient Instructions/Handouts: A-fib (Atrial Fibrillation) (DC) Discharge Disposition: HOME WITH HOSPICE
== END 2020-04-07 16:58 | disposition hospice, home (50) | DRG 308 ==
LOC: EC 11:24 → 3SCARD 13:37
PROVIDERS: ADMIT Hospitalist; ATTEND Hospitalist
PROC: 5A2204Z Restoration of Cardiac Rhythm, Single (ICD-10-PCS; 2020-04-06)
PROC: B246ZZ4 Ultrasonography of Right and Left Heart, Transesophageal (ICD-10-PCS; principal; 2020-04-06 10:00)
DX: I48.0 Paroxysmal atrial fibrillation (principal); I50.23 Acute on chronic systolic (congestive) heart failure; I13.0 Hypertensive heart and chronic kidney disease with heart failure and stage 1 through stage 4 chronic kidney disease, or unspecified chronic kidney disease; I48.92 Unspecified atrial flutter; E78.5 Hyperlipidemia, unspecified; I25.10 Atherosclerotic heart disease of native coronary artery without angina pectoris; I25.2 Old myocardial infarction; I25.5 Ischemic cardiomyopathy; I27.29 Other secondary pulmonary hypertension; I42.8 Other cardiomyopathies; J44.9 Chronic obstructive pulmonary disease, unspecified; M19.91 Primary osteoarthritis, unspecified site; N18.30 Chronic kidney disease, stage 3 unspecified; Z79.01 Long term (current) use of anticoagulants; Z79.82 Long term (current) use of aspirin; Z79.899 Other long term (current) drug therapy; Z90.710 Acquired absence of both cervix and uterus; Z95.5 Presence of coronary angioplasty implant and graft; Z96.641 Presence of right artificial hip joint; Z82.61 Family history of arthritis; Z82.3 Family history of stroke; E66.9 Obesity, unspecified; Z68.28 Body mass index [BMI] 28.0-28.9, adult; R00.1 Bradycardia, unspecified; T44.7X5A Adverse effect of beta-adrenoreceptor antagonists, initial encounter; Z20.822 Contact with and (suspected) exposure to COVID-19; Z98.42 Cataract extraction status, left eye; Z98.41 Cataract extraction status, right eye
CPT/HCPCS: 36415; 71046; 80048; 80053; 81001; 83735; 84484; 85025; 85610; 85730; 87635; 92960; 93005; 93312; 93320; 93325; 96365; 96366; 96376; 99291

== ENCOUNTER 2021-11-19 23:38 | Inpatient (IN) | payer MEDICARE, BC ==
[2021-11-20] MEDS ORDERED: DILTIAZEM DRIP BOLUS FROM BAG 1 MG SOLN IV ONE (00:05)
--- NOTE | 2021-11-20 00:12 | ED ---
Arrhythmia/Palpitations HPI - General Chief Complaint: Arrhythmia/Palpitations Stated Complaint: Chest Pain/Pressure Time Seen by Provider: 11/19/21 23:45 Source: patient Mode of arrival: ambulatory Limitations: no limitations - History of Present Illness Initial Comments: 85-year-old female with past history of A. fib presents emergency Department with palpitations. States that for the past week she has had palpitations and chest pressure. She does have a history of A. fib. She is on Coreg and Eliquis. States she has been taking her medications as directed however heart rate has remained high. Patient also believes that she has a history of coronary disease with one stent. Follows with Dr. Contreras. She denies fevers, chills or cough. No nausea or vomiting. No sick contacts. Denies calf pain or swelling. No history of DVT or PE. No other alleviating, precipitating modifying factors - Related Data Home Medications Medication Instructions Recorded Confirmed lisinopriL [Zestril] 5 mg PO DAILY 04/01/20 11/20/21 Previous Rx's Medication Instructions Recorded Furosemide [Lasix] 40 mg PO DAILY #30 tablet 03/12/20 Apixaban [Eliquis] 5 mg PO BID #60 tab 04/07/20 Artificial Tears-Hypromellose 1 drops BOTH EYES QID PRN bottle 04/07/20 [Artificial Tear Drops] Spironolactone [Aldactone] 12.5 mg PO DAILY #30 tab 04/07/20 carvediloL [Coreg] 3.125 mg PO BID-W/MEALS #60 tab 04/07/20 Allergies Allergy/AdvReac Type Severity Reaction Status Date / Time diltiazem [From Cardizem] Allergy Rash/Hives Verified 11/20/21 08:30 Review of Systems ROS Statement: Those systems with pertinent positive or pertinent negative responses have been documented in the HPI. ROS Other: All systems not noted in ROS Statement are negative. Past Medical History Past Medical History: Atrial Fibrillation, Coronary Artery Disease (CAD), Heart Failure, Hypertension, Myocardial Infarction ([place]), Osteoarthritis (OA), Renal Disease Additional Past Medical History / Comment(s): Pt recently admitted to [facility] on 03/10/20 with paroxysmal A fib, chf, acute renal failure. Other hx: Paroxysmal Afib, afib rvr, arthritis in multiple joints, [place] in per past medical record but pt was not aware. Last Myocardial Infarction Date:: 2018 History of Any Multi-Drug Resistant Organisms: None Reported Past Surgical History: Cholecystectomy, Heart Catheterization With Stent, Hysterectomy, Orthopedic Surgery Additional Past Surgical History / Comment(s): 2019 PCI with stent, total R hip arthroplasty, R carpal tunnel release, bilateral cataract removals. Past Anesthesia/Blood Transfusion Reactions: No Reported Reaction Date of Last Stent Placement:: 12/2018 Past Psychological History: No Psychological Hx Reported Smoking Status: Never smoker Past Alcohol Use History: None Reported Past Drug Use History: None Reported - Past Family History Mother Family Medical History: Osteoarthritis (OA) Additional Family Medical History / Comment(s): djd; at 69 Father Family Medical History: CVA/TIA Additional Family Medical History / Comment(s): age 84 General Exam Limitations: no limitations General appearance: alert, in no apparent distress Head exam: Present: atraumatic, normocephalic, normal inspection Eye exam: Present: normal appearance, PERRL, EOMI. Absent: scleral icterus, conjunctival injection, periorbital swelling ENT exam: Present: normal exam, mucous membranes moist Neck exam: Present: normal inspection. Absent: tenderness, meningismus, lymphadenopathy Respiratory exam: Present: normal lung sounds bilaterally. Absent: respiratory distress, wheezes, rales, rhonchi, stridor Cardiovascular Exam: Present: tachycardia, irregular rhythm, normal heart sounds. Absent: systolic murmur, diastolic murmur, rubs, gallop, clicks GI/Abdominal exam: Present: soft, normal bowel sounds. Absent: distended, tenderness, guarding, rebound, rigid Extremities exam: Present: normal inspection, full ROM, normal capillary refill. Absent: tenderness, pedal edema, joint swelling, calf tenderness Back exam: Present: normal inspection Neurological exam: Present: alert, oriented X3, CN II-XII intact Psychiatric exam: Present: normal affect, normal mood Skin exam: Present: warm, dry, intact, normal color. Absent: rash Course Vital Signs 11/19/21 11/19/21 11/20/21 23:43 23:59 00:45 Temperature 97.4 F L Pulse Rate 150 H 151 H 165 H Pulse Rate [ Right Pulse Oximetery] Respiratory 20 18 16 Rate Blood Pressure 112/76 126/94 120/79 Blood Pressure [Left Arm Supine] O2 Sat by Pulse 98 Oximetry 11/20/21 11/20/21 11/20/21 00:48 00:59 01:35 Temperature Pulse Rate 101 H 101 H 112 H Pulse Rate [ Right Pulse Oximetery] Respiratory 16 16 16 Rate Blood Pressure 106/76 109/88 121/86 Blood Pressure [Left Arm Supine] O2 Sat by Pulse Oximetry 11/20/21 11/20/21 11/20/21 01:55 02:10 02:25 Temperature Pulse Rate 137 H 136 H 140 H Pulse Rate [ Right Pulse Oximetery] Respiratory 16 16 16 Rate Blood Pressure 119/98 119/98 118/96 Blood Pressure [Left Arm Supine] O2 Sat by Pulse Oximetry 11/20/21 11/20/21 11/20/21 02:40 02:55 03:10 Temperature Pulse Rate 137 H 134 H 122 H Pulse Rate [ Right Pulse Oximetery] Respiratory 16 14 14 Rate Blood Pressure 103/87 109/83 103/77 Blood Pressure [Left Arm Supine] O2 Sat by Pulse 97 Oximetry 11/20/21 11/20/21 11/20/21 03:40 05:24 06:30 Temperature 97.4 F L Pulse Rate 124 H 124 H 111 H Pulse Rate [ Right Pulse Oximetery] Respiratory 15 14 16 Rate Blood Pressure 106/83 101/85 101/91 Blood Pressure [Left Arm Supine] O2 Sat by Pulse 96 Oximetry 11/20/21 11/20/21 11/20/21 07:07 07:50 08:27 Temperature Pulse Rate 123 H 140 H 133 H Pulse Rate [ Right Pulse Oximetery] Respiratory 18 18 Rate Blood Pressure 121/99 123/95 Blood Pressure [Left Arm Supine] O2 Sat by Pulse 97 96 Oximetry 11/20/21 11/20/21 11/20/21 09:20 10:00 11:00 Temperature Pulse Rate 130 H 134 H 134 H Pulse Rate [ Right Pulse Oximetery] Respiratory 18 18 18 Rate Blood Pressure 129/93 124/97 108/83 Blood Pressure [Left Arm Supine] O2 Sat by Pulse 98 95 96 Oximetry 11/20/21 11/20/21 12:00 12:28 Temperature 98.3 F 97.9 F Pulse Rate 123 H Pulse Rate [ 133 H Right Pulse Oximetery] Respiratory 18 18 Rate Blood Pressure 130/106 Blood Pressure 120/80 [Left Arm Supine] O2 Sat by Pulse 95 96 Oximetry EKG Findings - EKG Comments: EKG Findings:: EKG demonstrates A. fib with a rate of 155. QRS 121. QTC of 400. No acute ST segment elevations or depressions. Right bundle branch block. Medical Decision Making - Medical Decision Making On arrival patient is placed into room 8. There are history and physical exam was performed. She is in A. fib with a rapid rate in the 150s. IV access is established. Laboratory studies are conducted. She is initiated on Cardizem for which she does have improvement in her heart rate however does develop a rash on her right arm and therefore she is given a dose of Benadryl. She is switched over to amiodarone. Recommended admission for to the patient was agreeable. Patient will be admitted to Dr. Campbell and is awaiting a bed on the floor. - Lab Data Result diagrams: 11/20/21 00:09 11/20/21 01:00 Lab Results 11/20/21 11/20/21 11/20/21 Range/Units 00:09 00:09 01:00 WBC 12.4 H (3.8-10.6) k/uL RBC 5.19 (3.80-5.40) m/uL Hgb 14.7 (11.4-16.0) gm/dL Hct 48.2 H (34.0-46.0) % MCV 92.9 (80.0-100.0) fL MCH 28.4 (25.0-35.0) pg MCHC 30.6 L (31.0-37.0) g/dL RDW 14.4 (11.5-15.5) % Plt Count 225 (150-450) k/uL MPV 9.3 Neutrophils % 50 % Lymphocytes % 35 % Monocytes % 7 % Eosinophils % 5 % Basophils % 1 % Neutrophils # 6.1 (1.3-7.7) k/uL Lymphocytes # 4.4 (1.0-4.8) k/uL Monocytes # 0.8 (0-1.0) k/uL Eosinophils # 0.7 (0-0.7) k/uL Basophils # 0.1 (0-0.2) k/uL Hypochromasia Slight PT 10.1 (9.0-12.0) sec INR 0.9 (<1.2) APTT 24.6 (22.0-30.0) sec Sodium 135 L (137-145) mmol/L Potassium 4.5 (3.5-5.1) mmol/L Chloride 103 (98-107) mmol/L Carbon Dioxide 19 L (22-30) mmol/L Anion Gap 13 mmol/L BUN 34 H (7-17) mg/dL Creatinine 1.67 H (0.52-1.04) mg/dL Est GFR (CKD-EPI)AfAm 32 (>60 ml/min/1.73 sqM) Est GFR (CKD-EPI)NonAf 28 (>60 ml/min/1.73 sqM) Glucose 178 H (74-99) mg/dL Calcium 9.0 (8.4-10.2) mg/dL Magnesium 1.9 (1.6-2.3) mg/dL Total Bilirubin 0.3 (0.2-1.3) mg/dL AST 21 (14-36) U/L ALT 18 (4-34) U/L Alkaline Phosphatase 89 (38-126) U/L Troponin I (0.000-0.034) ng/mL Total Protein 6.3 (6.3-8.2) g/dL Albumin 3.8 (3.5-5.0) g/dL 11/20/21 Range/Units 01:00 WBC (3.8-10.6) k/uL RBC (3.80-5.40) m/uL Hgb (11.4-16.0) gm/dL Hct (34.0-46.0) % MCV (80.0-100.0) fL MCH (25.0-35.0) pg MCHC (31.0-37.0) g/dL RDW (11.5-15.5) % Plt Count (150-450) k/uL MPV Neutrophils % % Lymphocytes % % Monocytes % % Eosinophils % % Basophils % % Neutrophils # (1.3-7.7) k/uL Lymphocytes # (1.0-4.8) k/uL Monocytes # (0-1.0) k/uL Eosinophils # (0-0.7) k/uL Basophils # (0-0.2) k/uL Hypochromasia PT (9.0-12.0) sec INR (<1.2) APTT (22.0-30.0) sec Sodium (137-145) mmol/L Potassium (3.5-5.1) mmol/L Chloride (98-107) mmol/L Carbon Dioxide (22-30) mmol/L Anion Gap mmol/L BUN (7-17) mg/dL Creatinine (0.52-1.04) mg/dL Est GFR (CKD-EPI)AfAm (>60 ml/min/1.73 sqM) Est GFR (CKD-EPI)NonAf (>60 ml/min/1.73 sqM) Glucose (74-99) mg/dL Calcium (8.4-10.2) mg/dL Magnesium (1.6-2.3) mg/dL Total Bilirubin (0.2-1.3) mg/dL AST (14-36) U/L ALT (4-34) U/L Alkaline Phosphatase (38-126) U/L Troponin I <0.012 (0.000-0.034) ng/mL Total Protein (6.3-8.2) g/dL Albumin (3.5-5.0) g/dL Critical Care Time Critical Care Time: Yes Critical Care Time: 35 minutes Disposition Clinical Impression: History of atrial fibrillation, Atrial fibrillation with RVR Disposition: ADMITTED IP TO THIS [facility] Condition: Stable Is patient prescribed a controlled substance at d/c from ED?: No Time of Disposition: 01:50 Decision to Admit Reason: Admit from EC Decision Date: 11/20/21 Decision Time: 01:50
[2021-11-20] MEDS ORDERED: DILTIAZEM 125 MG in SODIUM CHLORIDE 0.9% 100 ML IV SCH (00:15)
[2021-11-20 00:36] LABS: Basophils # (A) 0.1 k/uL (0-0.2); Basophils % (A) 1 %; Eosinophils # (A) 0.7 k/uL (0-0.7); Eosinophils % (A) 5 %; HCT 48.2 % (34.0-46.0); HGB 14.7 gm/dL (11.4-16.0); Hypochromasia Slight; Lymphocytes # (A) 4.4 k/uL (1.0-4.8); Lymphocytes % (A) 35 %; MCH 28.4 pg (25.0-35.0); MCHC 30.6 g/dL (31.0-37.0); MCV 92.9 fL (80.0-100.0); Mean Platelet Volume 9.3; Monocytes # (A) 0.8 k/uL (0-1.0); Monocytes % (A) 7 %; Neutrophils # (A) 6.1 k/uL (1.3-7.7); Neutrophils % (A) 50 %; Platelet Count 225 k/uL (150-450); RBC 5.19 m/uL (3.80-5.40); RDW 14.4 % (11.5-15.5); WBC 12.4 k/uL (3.8-10.6)
--- NOTE | 2021-11-20 00:38 | XR ---
EXAMINATION TYPE: XR chest 2V DATE OF EXAM: 11/20/2021 COMPARISON: 04/01/2020 HISTORY: Dysrhythmia TECHNIQUE: 2 views FINDINGS: There is no heart failure no confluent pneumonic infiltrate. Costophrenic angles are clear. Bony thorax is intact. There are chest leads. No pleural effusion. IMPRESSION: No active cardiopulmonary disease. There is clearing of the pleural reaction at the lung bases compared to old exam.
[2021-11-20 00:47] LABS: INR 0.9 (<1.2); Partial Thromboplastin Time 24.6 sec (22.0-30.0); Prothrombin Time 10.1 sec (9.0-12.0)
[2021-11-20] MEDS ORDERED: DEXTROSE 5% IN WATER 100 ML with AMIODARONE 150 MG IV ONE (01:02)
[2021-11-20] MEDS ORDERED: diphenhydrAMINE 50 MG/ML 1 ML VIAL IVP STA (01:03)
[2021-11-20] MEDS ORDERED: AMIODARONE 360 MG in DEXTROSE 5% IN WATER 200 ML IV ONE ×2 (01:12)
[2021-11-20 01:26] LABS: Albumin 3.8 g/dL (3.5-5.0); Magnesium 1.9 mg/dL (1.6-2.3); Potassium 4.5 mmol/L (3.5-5.1); Total Bilirubin 0.3 mg/dL (0.2-1.3); Total Protein 6.3 g/dL (6.3-8.2)
[2021-11-20] MEDS ORDERED: NALOXONE 0.4 MG/ML 1 ML VIAL IV PRN (01:50)
[2021-11-20 04:09] LABS: Appearance,Urine Clear (Clear); Bacteria,Urine Rare /hpf; Bilirubin,Urine Negative (Negative); Blood,Urine Negative (Negative); Color,Urine Yellow; Glucose,Urine (UA) Negative (Negative); Hyaline Casts,Urine 8 /lpf (0-2); Ketones,Urine Negative (Negative); Leukocyte Esterase,Urine Large (Negative); Mucus,Urine Rare /hpf; Nitrite,Urine Negative (Negative); Protein,Urine Negative (Negative); RBC,Urine 1 /hpf (0-5); Specific Gravity,Urine 1.021 (1.001-1.035); Squamous Epithelial Cell,Urine 1 /hpf (0-4); Urobilinogen,Urine <2.0 mg/dL (<2.0); WBC,Urine 5 /hpf (0-5)
[2021-11-20] MEDS: AMIODARONE 450 MG in DEXTROSE 5% IN WATER 250 ML IV SCH ×2 (08:05)
[2021-11-20] MEDS ORDERED: ARTIFICIAL TEARS-HYPROMELLOSE DROPS 15 ML BTL BOTH EYES PRN (08:06)
[2021-11-20] MEDS: APIXABAN 5 MG TAB PO SCH ×2 (08:06→21:38)
[2021-11-20] MEDS ORDERED: carvediloL 3.125 MG TAB PO SCH (08:15)
[2021-11-20] MEDS: ASPIRIN 81 MG PO SCH (08:28)
[2021-11-20] MEDS: SPIRONOLACTONE 25 MG TAB PO SCH (08:28)
[2021-11-20] MEDS: lisinopriL 5 MG TAB PO SCH (10:02)
--- NOTE | 2021-11-20 11:42 | P.CRDCN ---
History of Present Illness History of present illness: HISTORY OF PRESENT ILLNESS: This is a 85-year-old female with a past medical history significant for paroxysmal atrial fibrillation on Eliquis, hypertension, and coronary artery disease with previous stenting to LAD. Patient follows in the office with Dr. Contreras. We have been asked to see the patient in consultation for afib with RVR. Patient presents to the ER with complaints of palpitations, chest discomfort, lightheadedness. She states it started on Saturday, she states her symptoms p rogressively got worse and she was checking her HR at home with HR 160s, came to the ER for further evaluation. She denies any syncope, shortness of breath, symptoms of orthopnea, PND, LE edema. She denies any cough, fever, chills. She was started on IV Cardizem for which she does have improvement in her heart rate however does develop a rash on her right arm and therefore she is given a dose of Benadryl and was started on IV amiodarone in the ER and her symptoms and HR has slightly improved. She continues to be in A fib with HR 120s-140s. She states she is compliant with her medications. DIAGNOSTICS: * EKG reveals atrial fibrillation with rapid response, heart rate 155, right bundle-branch block * Chest xray no acute cardiopulmonary process * Laboratory data: Troponin negative, WBC 12.4, hemoglobin 14.7, platelets 225, sodium 135, potassium 4.5, BUN 34, serum creatinine 1.6, magnesium 1.9, TSH in 2019 within normal limits * Current home cardiac medications Eliquis 5 mg twice a day, Lasix 40 mg daily, Skelaxin 4.5 mg daily, carvedilol 3.125 mg twice a day, lisinopril 5 mg daily * Cath 02/2020 patent stent to the LAD, mild nonobstructive coronary artery disease involving circumflex coronary artery and right coronary artery * TANYA 03/2020 revealed 35-40%, no intracardiac thrombus, no right to left shunt noted. * Echocardiogram 02/2020 completed reveals ejection fraction 30-35%, global hypokinesis, komk-oq-apfveorw mitral regurgitation, moderate tricuspid regurgitation, and moderate pulmonary hypertension REVIEW OF SYSTEMS: At the time of my exam: CONSTITUTIONAL: Denies fever or chills. HEENT: Denies blurred vision, vision changes, or eye pain. Denies hemoptysis CARDIOVASCULAR: Denies chest pain, orthopnea, PND or palpitations RESPIRATORY: Reports mild shortness of breath. GASTROINTESTINAL: Denies abdominal pain. Denies nausea or vomiting. HEMATOLOGIC: Denies bleeding disorders. GENITOURINARY: Denies any blood in urine. SKIN: Denies pruitis. Denies rash. PHYSICAL EXAM: VITAL SIGNS: Reviewed. GENERAL: Well-developed in no acute distress. HEENT: Head is normocephalic. Pupils are equal, round. Sclerae anicteric. Mucous membranes of the mouth are moist. Neck supple. No JVD LUNGS: Respirations even and unlabored. Lungs clear to auscultation bilaterally HEART: Tachycardic. Irregular rate and rhythm. S1 and S2 heard. ABDOMEN: Soft. Nondistended. Nontender. EXTREMITIES: Normal range of motion. No clubbing or cyanosis. Peripheral pulses intact. No lower extremity edema NEUROLOGIC: Awake and alert. Oriented x 3. ASSESSMENT: Paroxysmal atrial fibrillation with RVR on Eliquis Chronic heart failure with reduced ejection fraction EF 35% Acute on chronic kidney disease Ischemic cardiomyopathy Coronary artery disease with previous PCI to LAD Hypertension Rash after IV Cardizem administration this admission PLAN: Continue IV amiodarone Increase carvedilol 6.25mg BID Continue anticoagulation with Eliquis Continue cardiac telemetry Obtain 2D echocardiogram NPO after midnight for possible cardioversion with difficult to control Afib in the past Nurse practitioner note has been reviewed by physician. Signing provider agrees with the documented findings, assessment, and plan of care. Past Medical History Past Medical History: Atrial Fibrillation, Coronary Artery Disease (CAD), Heart Failure, Hypertension, Myocardial Infarction ([place]), Osteoarthritis (OA), Renal Disease Additional Past Medical History / Comment(s): Pt recently admitted to [facility] on 03/10/20 with paroxysmal A fib, chf, acute renal failure. Other hx: Paroxysmal Afib, afib rvr, arthritis in multiple joints, [place] in 2016/2018 per past medical record but pt was not aware. Last Myocardial Infarction Date:: 2019 History of Any Multi-Drug Resistant Organisms: None Reported Past Surgical History: Cholecystectomy, Heart Catheterization With Stent, Hysterectomy, Orthopedic Surgery Additional Past Surgical History / Comment(s): 2019 PCI with stent, total R hip arthroplasty, R carpal tunnel release, bilateral cataract removals. Past Anesthesia/Blood Transfusion Reactions: No Reported Reaction Date of Last Stent Placement:: 12/2018 Past Psychological History: No Psychological Hx Reported Smoking Status: Never smoker Past Alcohol Use History: None Reported Past Drug Use History: None Reported - Past Family History Mother Family Medical History: Osteoarthritis (OA) Additional Family Medical History / Comment(s): djd; at 69 Father Family Medical History: CVA/TIA Additional Family Medical History / Comment(s): age 84 Medications and Allergies Home Medications Medication Instructions Recorded Confirmed Type Furosemide [Lasix] 40 mg PO DAILY #30 tablet 03/12/20 11/20/21 Rx lisinopriL [Zestril] 5 mg PO DAILY 04/01/20 11/20/21 History Apixaban [Eliquis] 5 mg PO BID #60 tab 04/07/20 11/20/21 Rx Artificial Tears-Hypromellose 1 drops BOTH EYES QID PRN bottle 04/07/20 11/20/21 Rx [Artificial Tear Drops] Spironolactone [Aldactone] 12.5 mg PO DAILY #30 tab 04/07/20 11/20/21 Rx carvediloL [Coreg] 3.125 mg PO BID-W/MEALS #60 tab 04/07/20 11/20/21 Rx Allergies Allergy/AdvReac Type Severity Reaction Status Date / Time diltiazem [From Cardizem] Allergy Rash/Hives Verified 11/20/21 08:30 Physical Exam Vitals: Vital Signs Temp Pulse Resp BP Pulse Ox 11/20/21 07:07 123 H 11/20/21 06:30 111 H 16 101/91 96 11/20/21 05:24 97.4 F L 124 H 14 101/85 11/20/21 03:40 124 H 15 106/83 11/20/21 03:10 122 H 14 103/77 11/20/21 02:55 134 H 14 109/83 97 11/20/21 02:40 137 H 16 103/87 11/20/21 02:25 140 H 16 118/96 11/20/21 02:10 136 H 16 119/98 11/20/21 01:55 137 H 16 119/98 11/20/21 01:35 112 H 16 121/86 11/20/21 00:59 101 H 16 109/88 11/20/21 00:48 101 H 16 106/76 11/20/21 00:45 165 H 16 120/79 11/19/21 23:59 151 H 18 126/94 11/19/21 23:43 97.4 F L 150 H 20 112/76 98 Intake and Output 11/19/21 11/20/21 11/20/21 22:59 06:59 14:59 Other: # Voids 2 Weight 72.575 kg Results 11/20/21 00:09 11/20/21 01:00 Cardiac Enzymes 11/20/21 11/20/21 Range/Units 01:00 01:00 AST 21 (14-36) U/L Troponin I <0.012 (0.000-0.034) ng/mL Coagulation 11/20/21 Range/Units 00:09 PT 10.1 (9.0-12.0) sec APTT 24.6 (22.0-30.0) sec CBC 11/20/21 Range/Units 00:09 WBC 12.4 H (3.8-10.6) k/uL RBC 5.19 (3.80-5.40) m/uL Hgb 14.7 (11.4-16.0) gm/dL Hct 48.2 H (34.0-46.0) % Plt Count 225 (150-450) k/uL Comprehensive Metabolic Panel 11/20/21 Range/Units 01:00 Sodium 135 L (137-145) mmol/L Potassium 4.5 (3.5-5.1) mmol/L Chloride 103 (98-107) mmol/L Carbon Dioxide 19 L (22-30) mmol/L BUN 34 H (7-17) mg/dL Creatinine 1.67 H (0.52-1.04) mg/dL Glucose 178 H (74-99) mg/dL Calcium 9.0 (8.4-10.2) mg/dL AST 21 (14-36) U/L ALT 18 (4-34) U/L Alkaline Phosphatase 89 (38-126) U/L Total Protein 6.3 (6.3-8.2) g/dL Albumin 3.8 (3.5-5.0) g/dL Current Medications Generic Name Dose Route Start Last Admin Trade Name Freq PRN Reason Stop Dose Admin Apixaban 5 mg 09/26/22 09:00 Apixaban 5 Mg Tab PO BID WILFRED Protocol Amiodarone HCl 450 mg/ 250 mls @ 16.667 mls/hr 11/20/21 07:15 Dextrose/Water IV 11/21/21 01:14 .Q15H WILFRED Protocol 0.5 MG/MIN Naloxone HCl 0.2 mg 11/20/21 01:50 Naloxone 0.4 Mg/Ml 1 Ml Vial IV Q2M PRN Opioid Reversal Intake and Output 11/19/21 11/20/21 11/20/21 22:59 06:59 14:59 Other: # Voids 2 Weight 72.575 kg 11/20/21 00:09 11/20/21 01:00
[2021-11-20] MEDS: carvediloL 6.25 MG TAB PO SCH (17:11)
--- NOTE | 2021-11-20 18:02 | P.HPIM ---
History of Present Illness H&P Date: 11/20/21 Chief Complaint: Palpitation History of presenting complaint: This is a pleasant 85-year-old patient of Dr. goldberg. Chronic stable medical conditions include hypertension, osteoarthritis, coronary artery disease with stent. Has known paroxysmal atrial fibrillation. EF 30-35% with global hypokinesis. Cardiac catheterization 03/11/2020- showed a patent stent to LAD, Patient now presents with episodes of shaking increasing palpitation shortbread dizzy lightheaded. Slight chest pressure. Found to be in A. fib with a heart rate of 124. Put on IV Cardizem in the ER without much response then placed on IV amiodarone. Tired rundown Review of systems: GEN.: Tired EYES: None HEENT: None NECK: None RESPIRATORY: Short of breath CARDIOVASCULAR: Palpitation chest pressure GASTROINTESTINAL: None GENITOURINARY: None MUSCULOSKELETAL: Joint pains LYMPHATICS: None HEMATOLOGICAL: None PSYCHIATRY: None NEUROLOGICAL: None Past medical history to include: Coronary artery disease, atrial flutter ablation, osteoarthritis, coronary artery disease with stent-LAD, hypertension, CHF EF 30-35% Social history: Does not smoke or drink alcohol. . Physical examination: VITAL SIGNS: 97.4, 124, 14, 101/85, 96% room air GENERAL: BMI 29.3, laying in bed awake, tired. EYES: Pupils equal. Conjunctiva normal. HEENT: External appearance of nose and ears normal, oral cavity grossly normal. NECK: JVD not raised; masses not palpable. HEART: Heart sounds irregular; no edema. LUNGS: Respiratory rate normal; clear to auscultation. ABDOMEN: Soft, nontender, liver spleen not palpable, no masses palpable. PSYCH: Alert and oriented x3; mood and affect normal. MUSCULOSKELETAL:No Clubbing/cyanosis;muscles-grossly intact, evidence of OA NEUROLOGICAL: Cranial nerves grossly intact; no facial asymmetry, power and sensation grossly intact. LYMPHATICS: No lymph nodes palpable in the axilla and neck INVESTIGATIONS, reviewed in the clinical context: November 20: WBC 12.4 hemoglobin 14.7 platelets 225 progression 4.5 BUN 34 creatinine 1.67 Troponin I less than 0.012 EKG tracing personally reviewed by me-atrial fibrillation uncontrolled with a rate of 155 Chest x-ray film personally reviewed by me-cardiomegaly, prominent pulmonary artery Previous studies: 2-D echocardiogram 03/10/2020 moderate concentric LVH, EF 30-35%, global hypokinesis, [id number] MR, moderate TR, moderate pulmonary hypertension Creatinine 1.351 05/14/2020 Assessment and plan: -Paroxysmal atrial flutter-fibrillation with a prior history of hpfynest-qkbezhzvevg-djy presented with a rapid ventricular rate IV Cardizem and IV amiodarone started in the ER - Chronic congestive heart failure from systolic dysfunction EF 30-35%- Coreg, Aldactone -Mild to moderate MR, moderate TR Follow clinically -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 -Coronary artery disease with stent-cardiac catheterization in February 2020 showing patent stent Coreg, Zestril, aspirin -Primary osteoarthritis Pain medications as needed -Essential hypertension Coreg, Zestril -Chronic kidney disease stage III from nephrosclerosis Follow renal function Home medications renewed. Seen by kourtney Zimmer Continue IV amiodarone. Coreg increased to 6.25 mg twice a day. Eliquis continued. 2-D echocardiogram ordered. Possible cardioversion. Discussed with patient. Past Medical History Past Medical History: Atrial Fibrillation, Coronary Artery Disease (CAD), Heart Failure, Hypertension, Myocardial Infarction ([place]), Osteoarthritis ([place]), Renal Disease Additional Past Medical History / Comment(s): Pt recently admitted to [facility] on 03/10/20 with paroxysmal A fib, chf, acute renal failure. Other hx: Paroxysmal Afib, afib rvr, arthritis in multiple joints, [place] in per past medical record but pt was not aware. Last Myocardial Infarction Date:: 2018 History of Any Multi-Drug Resistant Organisms: None Reported Past Surgical History: Cholecystectomy, Heart Catheterization With Stent, Hysterectomy, Orthopedic Surgery Additional Past Surgical History / Comment(s): 2019 PCI with stent, total R hip arthroplasty, R carpal tunnel release, bilateral cataract removals. Past Anesthesia/Blood Transfusion Reactions: No Reported Reaction Date of Last Stent Placement:: 12/2018 Past Psychological History: No Psychological Hx Reported Smoking Status: Never smoker Past Alcohol Use History: None Reported Past Drug Use History: None Reported - Past Family History Mother Family Medical History: Osteoarthritis ([place]) Additional Family Medical History / Comment(s): djd; at 69 Father Family Medical History: CVA/TIA Additional Family Medical History / Comment(s): age 84 Medications and Allergies Home Medications Medication Instructions Recorded Confirmed Type Furosemide [Lasix] 40 mg PO DAILY #30 tablet 03/12/20 11/20/21 Rx lisinopriL [Zestril] 5 mg PO DAILY 04/01/20 11/20/21 History Apixaban [Eliquis] 5 mg PO BID #60 tab 04/07/20 11/20/21 Rx Artificial Tears-Hypromellose 1 drops BOTH EYES QID PRN bottle 04/07/20 11/20/21 Rx [Artificial Tear Drops] Spironolactone [Aldactone] 12.5 mg PO DAILY #30 tab 04/07/20 11/20/21 Rx carvediloL [Coreg] 3.125 mg PO BID-W/MEALS #60 tab 04/07/20 11/20/21 Rx Allergies Allergy/AdvReac Type Severity Reaction Status Date / Time diltiazem [From Cardize] Allergy Rash/Hives Verified 11/20/21 08:30 Physical Exam Vitals: Vital Signs Temp Pulse Resp BP Pulse Ox 11/20/21 07:50 140 H 18 121/99 97 11/20/21 07:07 123 H 11/20/21 06:30 111 H 16 101/91 96 11/20/21 05:24 97.4 F L 124 H 14 101/85 11/20/21 03:40 124 H 15 106/83 11/20/21 03:10 122 H 14 103/77 11/20/21 02:55 134 H 14 109/83 97 11/20/21 02:40 137 H 16 103/87 11/20/21 02:25 140 H 16 118/96 11/20/21 02:10 136 H 16 119/98 11/20/21 01:55 137 H 16 119/98 11/20/21 01:35 112 H 16 121/86 11/20/21 00:59 101 H 16 109/88 11/20/21 00:48 101 H 16 106/76 11/20/21 00:45 165 H 16 120/79 11/19/21 23:59 151 H 18 126/94 11/19/21 23:43 97.4 F L 150 H 20 112/76 98 Intake and Output 11/19/21 11/20/21 11/20/21 22:59 06:59 14:59 Other: # Voids 2 Weight 72.575 kg Results CBC & Chem 7: 11/20/21 00:09 11/20/21 01:00 Labs: Abnormal Lab Results - Last 24 Hours (Table) 11/20/21 11/20/21 11/20/21 Range/Units 00:09 01:00 03:48 WBC 12.4 H (3.8-10.6) k/uL Hct 48.2 H (34.0-46.0) % MCHC 30.6 L (31.0-37.0) g/dL Sodium 135 L (137-145) mmol/L Carbon Dioxide 19 L (22-30) mmol/L BUN 34 H (7-17) mg/dL Creatinine 1.67 H (0.52-1.04) mg/dL Glucose 178 H (74-99) mg/dL Ur Leukocyte Esterase Large H (Negative) Urine Bacteria Rare H (None) /hpf Hyaline Casts 8 H (0-2) /lpf Urine Mucus Rare H (None) /hpf
[2021-11-21] MEDS: AMIODARONE 450 MG in DEXTROSE 5% IN WATER 250 ML IV SCH ×4 (00:24→14:17)
[2021-11-21] MEDS: carvediloL 6.25 MG TAB PO SCH ×2 (06:52→17:08)
--- NOTE | 2021-11-21 08:54 | CDI ---
Documentation Clarification Form Date: 11/21/2021 08:43:55 AM From: Cheryl Plummer CCS, CCDS Admit Date: 11/20/2021 01:50:00 AM Patient Name: Lexie Villalobos Visit Number: [id number] Discharge Date: ATTENTION: The Clinical Documentation Specialists (CDI) and [facility] Coding Staff appreciate your assistance in clarifying documentation. Please respond to the clarification below the line at the bottom and electronically sign. The CDI & [facility] Coding staff will review the response and follow-up if needed. Please note: Queries are made part of the Legal Health Record. If you have any questions, please contact the author of this message via ITS. Dr. Onur Campbell: Atrial Flutter is documented in the 11/20 History & Physical without further specificity. Atrial Flutter is not documented by Cardiology. Additional clarification regarding the type of Atrial Flutter is requested. History/Risk factors per the 11/20 H/P: Atrial Fibrillation, CAD status post Heart Cath with Stent, Heart Failure, Hypertension, [place], Osteoarthritis, Renal Disease. Clinical Indicators: Presented to the ED 11/20 with Arrhythmia and Palpitations, chest pressure with history of Atrial Fibrillation on Coreg and Eliquis. Admit with Atrial Fibrillation with RVR, per the H/P: Paroxysmal Atrial Flutter- Fibrillation with history of Ablation. 11/19 VS: T 97.4, P 150, 151; R 20, BP 112/76, PO 98 RA, BMI: 30.2 11/20 VS: T ( ), P 165, 101; R 16, BP 120/79, 106/76; PO ( ) RA 11/19 EKG: R 155 Atrial fibrillation with RVR, Left [place] Deviation, RBBB. Treatment 11/20: Telemetry, Cardiology Consult, IV Cardizem Drip Bolus, IV Cardizem 125 mls @ 5 mls/hr q24H, IV Dextrose/Water w/Amiodarone 103 mls @ 618 mls/hr q10M, po Coreg, po Eliquis, po Aspirin, po Zestril. Please clarify the type of Atrial Flutter, if known: [ ] Typical/Type I [ ] Atypical/Type II [ ] Atrial Flutter ruled out [ ] Other, please specify [ ] Unable to determine, please specify: (Template Last Revised: April 2020) unable to determine MTDD
[2021-11-21 09:00] LABS: Basophils # (A) 0.1 k/uL (0-0.2); Basophils % (A) 0 %; Eosinophils # (A) 0.3 k/uL (0-0.7); Eosinophils % (A) 2 %; HCT 45.8 % (34.0-46.0); HGB 14.1 gm/dL (11.4-16.0); Hypochromasia Slight; Lymphocytes # (A) 1.6 k/uL (1.0-4.8); Lymphocytes % (A) 12 %; MCH 28.9 pg (25.0-35.0); MCHC 30.7 g/dL (31.0-37.0); MCV 94.1 fL (80.0-100.0); Mean Platelet Volume 8.9; Monocytes # (A) 0.8 k/uL (0-1.0); Monocytes % (A) 6 %; Neutrophils # (A) 10.4 k/uL (1.3-7.7); Neutrophils % (A) 79 %; Platelet Count 182 k/uL (150-450); RBC 4.87 m/uL (3.80-5.40); RDW 14.3 % (11.5-15.5); WBC 13.2 k/uL (3.8-10.6)
[2021-11-21 09:13] LABS: Calcium 8.7 mg/dL (8.4-10.2); Potassium 4.7 mmol/L (3.5-5.1)
--- NOTE | 2021-11-21 11:50 | P.PN ---
Progress Note - Text Progress Note Date: 11/21/21 Chief Complaint: Palpitation History of presenting complaint: This is a pleasant 85-year-old patient of Dr. goldberg. Chronic stable medical conditions include hypertension, osteoarthritis, coronary artery disease with stent. Has known paroxysmal atrial fibrillation. EF 30-35% with global hypokinesis. Cardiac catheterization 03/11/2020- showed a patent stent to LAD, Patient now presents with episodes of shaking increasing palpitation shortbread dizzy lightheaded. Slight chest pressure. Found to be in A. fib with a heart rate of 124. Put on IV Cardizem in the ER without much response then placed on IV amiodarone. Tired rundown November 21: Patient's heart rate is still uncontrolled. Pending DC cardioversion. Palpitation. Nothing by mouth. In bed. Active Medications Apixaban (Apixaban 5 Mg Tab) 5 mg PO BID [facility]; Protocol Last Admin: 11/20/21 21:38 Dose: 5 mg Artificial Tears (Artificial Tears-Hypromellose Drops 15 Ml Btl) 1 drops BOTH EYES QID PRN PRN Reason: Dry Eye(s) Aspirin (Aspirin 81 Mg) 81 mg PO DAILY [facility] Last Admin: 11/20/21 08:28 Dose: 81 mg Carvedilol (Carvedilol 6.25 Mg Tab) 6.25 mg PO BID-W/MEALS [facility] Last Admin: 11/21/21 06:52 Dose: 6.25 mg Lisinopril (Lisinopril 5 Mg Tab) 5 mg PO DAILY [facility] Last Admin: 11/20/21 10:02 Dose: 5 mg Naloxone HCl (Naloxone 0.4 Mg/Ml 1 Ml Vial) 0.2 mg IV Q2M PRN PRN Reason: Opioid Reversal Spironolactone (Spironolactone 25 Mg Tab) 12.5 mg PO DAILY [facility] Last Admin: 11/20/21 08:28 Dose: 12.5 mg Past medical history to include: Coronary artery disease, atrial flutter ablation, osteoarthritis, coronary artery disease with stent-LAD, hypertension, CHF EF 30-35% Social history: Does not smoke or drink alcohol. . Physical examination: VITAL SIGNS: 87.4, 134, 16, 131/75, 97% room air GENERAL: laying in bed awake, tired. EYES: Pupils equal. Conjunctiva normal. HEENT: External appearance of nose and ears normal, oral cavity grossly normal. NECK: JVD not raised; masses not palpable. HEART: Heart sounds irregular; no edema. LUNGS: Respiratory rate normal; clear to auscultation. ABDOMEN: Soft, nontender, liver spleen not palpable, no masses palpable. PSYCH: Alert and oriented x3; mood and affect normal. MUSCULOSKELETAL:No Clubbing/cyanosis;muscles-grossly intact, evidence of OA INVESTIGATIONS, reviewed in the clinical context: November 21: WBC 13.2 hemoglobin 14.1 potassium 4.7 creatinine 1.36 November 20: WBC 12.4 hemoglobin 14.7 platelets 225 progression 4.5 BUN 34 creatinine 1.67 Troponin I less than 0.012 EKG tracing personally reviewed by me-atrial fibrillation uncontrolled with a rate of 155 Chest x-ray film personally reviewed by me-cardiomegaly, prominent pulmonary artery Previous studies: 2-D echocardiogram 03/10/2020 moderate concentric LVH, EF 30-35%, global hypokinesis, [id number] MR, moderate TR, moderate pulmonary hypertension Creatinine 1.351 05/14/2020 Assessment and plan: -Paroxysmal atrial flutter-fibrillation with a prior history of nrvjtmhd-knrwlymalim-ymz presented with a rapid ventricular rate: Remains uncontrolled Patient is being taken off Cardizem and IV amiodarone. On Coreg. Pending DC cardioversion. 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 -Coronary artery disease with stent-cardiac catheterization in February 2020 showing patent stent Coreg, Zestril, aspirin -Primary osteoarthritis Pain medications as needed -Essential hypertension Coreg, Zestril -Chronic kidney disease stage III from nephrosclerosis Follow renal function Patient is off Cardizem and amiodarone. Pending cardioversion. Discussed with patient. On Coreg.
--- NOTE | 2021-11-21 12:05 | P.PN ---
Subjective This is a 85-year-old female with a past medical history significant for paroxysmal atrial fibrillation on Eliquis, hypertension, and coronary artery disease with previous stenting to LAD. Patient follows in the office with Dr. Contreras. We have been asked to see the patient in consultation for afib with RVR. Patient presents to the ER with complaints of palpitations, chest discomfort, lightheadedness. She states it started on Saturday, she states her symptoms progressively got worse and she was checking her HR at home with HR 160s, came to the ER for further evaluation. She denies any syncope, shortness of breath, symptoms of orthopnea, PND, LE edema. She denies any cough, fever, chills. She was started on IV Cardizem for which she does have improvement in her heart rate however does develop a rash on her right arm and therefore she is given a dose of Benadryl and was started on IV amiodarone in the ER and her symptoms and HR has slightly improved. She continues to be in A fib with HR 120s-140s. She states she is compliant with her medications. 11/21 Patient seen and examined at bedside, no acute distress. She denies any palpitations, chest pain shortness of breath. She continues to be in atrial fibrillation with rapid ventricular response, heart rate [id number]. She is currently maintained on IV amiodarone. She is anticoagulated with Eliquis PHYSICAL EXAM: VITAL SIGNS: Reviewed. GENERAL: Well-developed in no acute distress. HEENT: Neck supple. LUNGS: Respirations even and unlabored. Lungs clear to auscultation bilaterally HEART: Tachycardic. Irregular rate and rhythm. S1 and S2 heard. ABDOMEN: Soft. Nondistended. Nontender. EXTREMITIES: Normal range of motion. No clubbing or cyanosis. Peripheral pulses intact. No lower extremity edema NEUROLOGIC: Awake and alert. Oriented x 3. ASSESSMENT: Paroxysmal atrial fibrillation with RVR on Eliquis Chronic heart failure with reduced ejection fraction EF 35% Acute on chronic kidney disease Ischemic cardiomyopathy Coronary artery disease with previous PCI to LAD Hypertension Rash after IV Cardizem administration this admission PLAN: Plan for TANYA/Cardioversion today with Dr. Contreras Continue IV amiodarone Continue carvedilol 6.25mg BID Continue anticoagulation with Eliquis, monitor renal function, may need decrease dosing of 2.5mg BID Continue cardiac telemetry I have discussed the risks, benefits and alternative therapies for the above- mentioned procedure and for both sedation/analgesia, as they pertain to this patient. The patient has indicated understanding and acceptance of the risks and procedures discussed. Questions have been answered appropriately and she is agreeable to move forward with the above-stated procedure. Further recommendations based on clinical course Nurse practitioner note has been reviewed by physician. Signing provider agrees with the documented findings, assessment, and plan of care. Objective - Vital Signs Vital signs: Vital Signs Temp 98.1 F 11/21/21 11:52 Pulse 136 H 11/21/21 11:52 Resp 18 11/21/21 11:52 BP 127/98 11/21/21 11:52 Pulse Ox 98 11/21/21 11:52 FiO2 Intake & Output 11/20/21 11/21/21 11/21/21 18:59 06:59 18:59 Intake Total 120 250 Output Total 0 0 Balance 120 250 Weight 72.575 kg 74.8 kg Intake: Intake, IV Titration 250 Amount Amiodarone 450 mg In 250 Dextrose 5% in Water 250 ml @ 0.5 MG/MIN 16.667 mls/hr IV .Q15H [facility] Rx#: [id number] Oral 120 Output: Urine 0 Stool 0 0 Urine/Stool Mix 0 Emesis 0 Other: Voiding Method Toilet Toilet Toilet # Voids 0 1 # Bowel Movements 0 - Labs CBC & Chem 7: 11/21/21 08:14 11/21/21 08:14 Labs: Abnormal Lab Results - Last 24 Hours (Table) 11/21/21 11/21/21 Range/Units 08:14 08:14 WBC 13.2 H (3.8-10.6) k/uL MCHC 30.7 L (31.0-37.0) g/dL Neutrophils # 10.4 H (1.3-7.7) k/uL Sodium 135 L (137-145) mmol/L Carbon Dioxide 21 L (22-30) mmol/L BUN 22 H (7-17) mg/dL Creatinine 1.36 H (0.52-1.04) mg/dL Glucose 183 H (74-99) mg/dL
[2021-11-21] MEDS ORDERED: BENZOCAINE SPRAY 1 CAN TOPICAL ONE ×2 (12:22→12:32)
[2021-11-21] MEDS ORDERED: LACTATED RINGERS 1,000 ML IV ONE (12:22)
[2021-11-21] MEDS ORDERED: carvediloL 6.25 MG TAB PO STA (12:42)
[2021-11-21] MEDS: APIXABAN 5 MG TAB PO SCH ×2 (12:56→21:13)
[2021-11-21] MEDS: ASPIRIN 81 MG PO SCH (12:56)
[2021-11-21] MEDS: SPIRONOLACTONE 25 MG TAB PO SCH (12:56)
[2021-11-21] MEDS: lisinopriL 5 MG TAB PO SCH (12:56)
[2021-11-22 06:12] LABS: Calcium 8.4 mg/dL (8.4-10.2); Potassium 4.6 mmol/L (3.5-5.1)
[2021-11-22] MEDS: carvediloL 6.25 MG TAB PO SCH (06:33)
--- NOTE | 2021-11-22 07:25 | ECHOT ---
TRANSESOPHAGEAL ECHOCARDIOGRAM PERFORMING PHYSICIAN: Kumar Contreras MD PROCEDURE PERFORMED: Transesophageal echocardiogram. INDICATION: To rule out intracardiac thrombus prior to cardioversion in a patient with persistent atrial fibrillation with poorly controlled ventricular rate. PROCEDURE NOTE: After obtaining informed consent, transesophageal echocardiogram was performed in left lateral position using an Omni plane probe. Local and IV sedation were obtained by the mobile unit assistant. FINDINGS: 1. Left atrial appendage. There is a small echodense lesion noted within the left atrial appendage suggestive of the left atrial appendage thrombus. 2. Left atrium appears enlarged. 3. Right atrium and right ventricle seen within normal limits. 4. Left ventricle has normal size and systolic function. 5. Mitral valve shows mild to moderate central mitral regurgitation. 6. Tricuspid valve shows mild tricuspid regurgitation. 7. Aortic valve is a 3 leaflet valve, free of aortic stenosis. 8. Tricuspid valve shows mild tricuspid regurgitation. 9. Interatrial septum, there is no evidence of dmmb-al-uxxeo shunt by color-flow Doppler or bstog-fy-cdlc shunt by agitated saline contrast study. CONCLUSIONS: Left atrial appendage thrombus is noted. PLAN: I am going to cancel the cardioversion at this time. The patient has not been taking her anticoagulant regularly. We am going to make sure that she does and if necessary we can cardiovert her over the next in 6 weeks' time. MMODL / IJN: [id number] /
[2021-11-22] MEDS: ASPIRIN 81 MG PO SCH (08:10)
[2021-11-22] MEDS: APIXABAN 5 MG TAB PO SCH (08:10)
[2021-11-22] MEDS: SPIRONOLACTONE 25 MG TAB PO SCH (08:10)
[2021-11-22] MEDS: lisinopriL 5 MG TAB PO SCH (08:10)
[2021-11-22] MEDS: AMIODARONE 450 MG in DEXTROSE 5% IN WATER 250 ML IV SCH ×2 (08:42)
[2021-11-22] MEDS ORDERED: AMIODARONE 200 MG TAB PO SCH (09:00)
--- NOTE | 2021-11-22 09:47 | CA ---
Transthoracic Echo Report Name: Lexie Villalobos Age: 85 Gender: F : 1935 Exam Date: 11/21/2021 11:18 Exam Location: [facility] Ht (in): 62 Wt (lb): 164 Ordering Physician: Tricia Lozoya Attending/Referring Phys: Department Supervisor Marzena Parsons RDCS Procedure CPT: Indications: a fib RVR Cardiac Hx: Technical Quality: Fair Contrast 1: Total Dose (mL): Contrast 2: Total Dose (mL): MEASUREMENTS (Male / Female) Normal Values 2D ECHO LV Diastolic Diameter PLAX 3.6 cm 4.2 - 5.9 / 3.9 - 5.3 cm LV Systolic Diameter PLAX 3.0 cm IVS Diastolic Thickness 1.6 cm 0.6 - 1.0 / 0.6 - 0.9 cm LVPW Diastolic Thickness 1.2 cm 0.6 - 1.0 / 0.6 - 0.9 cm LV Relative Wall Thickness 0.8 RV Internal Dim ED PLAX 1.6 cm LA Volume 56.9 cm??? 18 - 58 / 22 - 52 cm??? M-MODE Aortic Root Diameter MM 2.7 cm LA Systolic Diameter MM 5.0 cm LA Ao Ratio MM 1.8 AV Cusp Separation MM 1.2 cm DOPPLER AV Peak Velocity 102.4 cm/s AV Peak Gradient 4.2 mmHg LVOT Peak Velocity 52.1 cm/s LVOT Peak Gradient 1.1 mmHg TR Peak Velocity 255.0 cm/s TR Peak Gradient 26.0 mmHg Right Ventricular Systolic Press 30.3 mmHg FINDINGS Left Ventricle Moderately increased left ventricular wall thickness. Left ventricular ejection fraction is estimated at 35-40 %. Right Ventricle Normal right ventricular size and function. Right Atrium Moderate right atrial dilatation. Left Atrium Moderate left atrial dilatation. Mitral Valve Mild mitral annular calcification. Bhbb-ca-ufzdsmeg mitral regurgitation. Aortic Valve No aortic stenosis. No aortic regurgitation. Tricuspid Valve Mild tricuspid regurgitation. Pulmonic Valve Structurally normal pulmonic valve. Trace pulmonic regurgitation. Pericardium No pericardial effusion. Aorta Normal size aortic root and proximal ascending aorta. CONCLUSIONS Technically difficult study for interpretation Severely impaired all the function. The EF around 35-40% Previewed by: Dr. Rickey Tuttle MD (Electronically Signed) Final Date: 22 November 2021 09:46
--- NOTE | 2021-11-22 11:27 | P.PN ---
Subjective This is a 85-year-old female with a past medical history significant for paroxysmal atrial fibrillation on Eliquis, hypertension, and coronary artery disease with previous stenting to LAD. Patient follows in the office with Dr. Contreras. We have been asked to see the patient in consultation for afib with RVR. Patient presents to the ER with complaints of palpitations, chest discomfort, lightheadedness. She states it started on Saturday, she states her symptoms progressively got worse and she was checking her HR at home with HR 160s, came to the ER for further evaluation. She denies any syncope, shortness of breath, symptoms of orthopnea, PND, LE edema. She denies any cough, fever, chills. She was started on IV Cardizem for which she does have improvement in her heart rate however does develop a rash on her right arm and therefore she is given a dose of Benadryl and was started on IV amiodarone in the ER and her symptoms and HR has slightly improved. She continues to be in A fib with HR 120s-140s. She states she is compliant with her medications. 11/22 Patient underwent TANYA yesterday with Dr. Contreras prior to cardioversion that revealed thrombus in the left atrial appendage, LV normal in size and function, no evidence of left to right shunt or right to left shunt. Cardioversion was cancelled. Patient's Beta patrick was increased and restarted on IV amiodarone. She converted to sinus rhythm with HR 48-50s. Patient seen and examined at bedside, no acute distress. She denies any palpitations, chest pain shortness of breath. She is maintaining sinus mechanism with HR 48-50s. She is currently maintained on IV amiodarone and coreg 12.5mg BID. She is anticoagulated with Eliquis PHYSICAL EXAM: VITAL SIGNS: Reviewed. GENERAL: Well-developed in no acute distress. HEENT: Neck supple. LUNGS: Respirations even and unlabored. Lungs clear to auscultation bilaterally HEART: Regular rate and rhythm. S1 and S2 heard. ABDOMEN: Soft. Nondistended. Nontender. EXTREMITIES: Normal range of motion. No clubbing or cyanosis. Peripheral pulses intact. No lower extremity edema NEUROLOGIC: Awake and alert. Oriented x 3. ASSESSMENT: Paroxysmal atrial fibrillation with RVR on Eliquis Left atrial appendage thrombus noted on TANYA on 11/21 Chronic heart failure with reduced ejection fraction EF 35% Acute on chronic kidney disease Ischemic cardiomyopathy Coronary artery disease with previous PCI to LAD Hypertension Rash after IV Cardizem administration this admission Non-compliance with anticoagulation PLAN: Transition to PO amiodarone 200mg BID Decrease carvedilol back to 3.125mg BID secondary to bradycardia Continue anticoagulation with Eliquis 5mg BID, patient educated on taking eliquis as prescribed. From cardiology perspective, patient is stable to be discharged home. Follow up outpatient with Dr. Contreras in 1 week. Nurse practitioner note has been reviewed by physician. Signing provider agrees with the documented findings, assessment, and plan of care. Objective - Vital Signs Vital signs: Vital Signs Temp 98 F 11/22/21 07:36 Pulse 59 L 11/22/21 08:29 Resp 18 11/22/21 08:29 BP 124/73 11/22/21 07:36 Pulse Ox 95 11/22/21 07:36 FiO2 Intake & Output 11/21/21 11/22/21 11/22/21 18:59 06:59 18:59 Intake Total 440 0 Output Total 300 0 Balance 140 0 0 Intake: IV 200 Oral 240 0 Output: Urine 300 Stool 0 0 Other: Voiding Method Toilet Toilet Toilet # Voids 1 1 - Labs CBC & Chem 7: 11/21/21 08:14 11/22/21 05:14 Labs: Abnormal Lab Results - Last 24 Hours (Table) 11/22/21 Range/Units 05:14 Sodium 135 L (137-145) mmol/L BUN 20 H (7-17) mg/dL Creatinine 1.50 H (0.52-1.04) mg/dL Glucose 153 H (74-99) mg/dL
[2021-11-22 11:38] VITALS: BP 115/54; PULSE 50; RESP 17; TEMP 97.9
[2021-11-22] MEDS ORDERED: carvediloL 6.25 MG TAB PO SCH (17:30)
[2021-11-22] MEDS ORDERED: carvediloL 3.125 MG TAB PO SCH (17:30)
--- NOTE | 2021-11-22 20:56 | P.DS ---
Providers Date of admission: 11/20/21 01:50 Expected date of discharge: 11/22/21 Attending physician: Onur Campbell Consults: 11/20/21 01:55 Consult Physician Urgent Consulting Provider: [facility] Reason/Comments: acute chest pain, afiv with rvr Do you want consulting provider notified?: Yes Primary care physician: Noel Beaumont Hospital Course: Chief Complaint: Palpitation History of presenting complaint: This is a pleasant 85-year-old patient of Dr. goldberg. Chronic stable medical conditions include hypertension, osteoarthritis, coronary artery disease with stent. Has known paroxysmal atrial fibrillation. EF 30-35% with global hypokinesis. Cardiac catheterization 03/11/2020- showed a patent stent to LAD, Patient now presents with episodes of shaking increasing palpitation shortbread dizzy lightheaded. Slight chest pressure. Found to be in A. fib with a heart rate of 124. Put on IV Cardizem in the ER without much response then placed on IV amiodarone. Tired rundown November 21: Patient's heart rate is still uncontrolled. Pending DC cardioversion. Palpitation. Nothing by mouth. In bed. November 22: Patient failed cardioversion. Overnight converted to sinus rhythm. Seen by cardiology this morning. Coreg cutback to 3.125 mg twice a day. Eliquis to continue. Changed over to by mouth amiodarone. Patient to follow-up with Dr. Hieu Contreras. Past medical history to include: Coronary artery disease, atrial flutter ablation, osteoarthritis, coronary artery disease with stent-LAD, hypertension, CHF EF 30-35% Social history: Does not smoke or drink alcohol. . Physical examination: VITAL SIGNS: 97.9, 50, 17, 115/54, 95% room air GENERAL: laying in bed awake, tired. EYES: Pupils equal. Conjunctiva normal. HEENT: External appearance of nose and ears normal, oral cavity grossly normal. NECK: JVD not raised; masses not palpable. HEART: First seconds are normal; no edema. LUNGS: Respiratory rate normal; clear to auscultation. ABDOMEN: Soft, nontender, liver spleen not palpable, no masses palpable. PSYCH: Alert and oriented x3; mood and affect normal. MUSCULOSKELETAL:No Clubbing/cyanosis;muscles-grossly intact, evidence of OA INVESTIGATIONS, reviewed in the clinical context: 2-D echocardiogram: EF 35-40%. Moderate left atrial dilatation. Fiqw-wf-gpatxpmt MR. November 22: Creatinine 1.5 November 21: WBC 13.2 hemoglobin 14.1 potassium 4.7 creatinine 1.36 November 20: WBC 12.4 hemoglobin 14.7 platelets 225 progression 4.5 BUN 34 creatinine 1.67 Troponin I less than 0.012 EKG tracing personally reviewed by me-atrial fibrillation uncontrolled with a rate of 155 Chest x-ray film personally reviewed by me-cardiomegaly, prominent pulmonary artery Previous studies: 2-D echocardiogram 03/10/2020 moderate concentric LVH, EF 30-35%, global hypokinesis, [id number]-[id number] MR, moderate TR, moderate pulmonary hypertension Creatinine 1.351 05/14/2020 Assessment and plan: -Paroxysmal atrial flutter-fibrillation with a prior history of [id number]-afw presented with a rapid ventricular rate: Unsuccessful cardioversion. He reverted to sinus rhythm overnight. Amiodarone 200 mg twice a day. Coreg 3.125 mg twice a day. Follow-up with Dr. Hieu Contreras. 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 -Coronary artery disease with stent-cardiac catheterization in February 2020 showing patent stent Coreg, Zestril, aspirin -Primary osteoarthritis Pain medications as needed -Essential hypertension Coreg, Zestril -Chronic kidney disease stage III from nephrosclerosis Follow renal function Disposition: Home Patient Condition at Discharge: Stable Plan - Discharge Summary Discharge Rx Participant: No New Discharge Prescriptions: New Amiodarone [Cordarone] 200 mg PO BID #120 tab Continue Furosemide [Lasix] 40 mg PO DAILY #30 tablet lisinopriL [Zestril] 5 mg PO DAILY Spironolactone [Aldactone] 12.5 mg PO DAILY #30 tab carvediloL [Coreg] 3.125 mg PO BID-W/MEALS #60 tab Apixaban [Eliquis] 5 mg PO BID #60 tab No Action Artificial Tears-Hypromellose [Artificial Tear Drops] 1 drops BOTH EYES QID PRN bottle PRN Reason: Dry Eye(S) Discharge Medication List Furosemide [Lasix] 40 mg PO DAILY #30 tablet 03/12/20 [Rx] lisinopriL [Zestril] 5 mg PO DAILY 04/01/20 [History] Apixaban [Eliquis] 5 mg PO BID #60 tab 04/07/20 [Rx] Artificial Tears-Hypromellose [Artificial Tear Drops] 1 drops BOTH EYES QID PRN bottle 04/07/20 [Rx] Spironolactone [Aldactone] 12.5 mg PO DAILY #30 tab 04/07/20 [Rx] carvediloL [Coreg] 3.125 mg PO BID-W/MEALS #60 tab 04/07/20 [Rx] Amiodarone [Cordarone] 200 mg PO BID #120 tab 11/22/21 [Rx] Follow up Appointment(s)/Referral(s): Noel Goldberg DO [Primary Care Provider] - 1 Week (December 05, 10:20) Kumar Contreras MD [STAFF PHYSICIAN] - 1 Week (December 05, 3:15) Patient Instructions/Handouts: Heart Failure (DC), A-fib (Atrial Fibrillation) (DC) Activity/Diet/Wound Care/Special Instructions: Please take Eliquis 5mg Twice a day, do not miss or reduce your dose of this medication Discharge Disposition: HOME WITH HOME HEALTH SERVICES
== END 2021-11-22 15:31 | disposition home health service (06) | DRG 309 ==
LOC: EC 23:38 → 3SCARD 11-20 01:50
PROVIDERS: ADMIT Hospitalist; ATTEND Hospitalist
PROC: B24BZZ4 Ultrasonography of Heart with Aorta, Transesophageal (ICD-10-PCS; principal; 2021-11-21 12:30)
DX: I48.0 Paroxysmal atrial fibrillation (principal); I13.0 Hypertensive heart and chronic kidney disease with heart failure and stage 1 through stage 4 chronic kidney disease, or unspecified chronic kidney disease; I50.22 Chronic systolic (congestive) heart failure; I25.10 Atherosclerotic heart disease of native coronary artery without angina pectoris; I48.92 Unspecified atrial flutter; L27.1 Localized skin eruption due to drugs and medicaments taken internally; T46.1X5A Adverse effect of calcium-channel blockers, initial encounter; I27.29 Other secondary pulmonary hypertension; I25.5 Ischemic cardiomyopathy; I08.1 Rheumatic disorders of both mitral and tricuspid valves; N18.30 Chronic kidney disease, stage 3 unspecified; I45.10 Unspecified right bundle-branch block; T45.516A Underdosing of anticoagulants, initial encounter; M19.91 Primary osteoarthritis, unspecified site; Z96.641 Presence of right artificial hip joint; Z91.128 Patient's intentional underdosing of medication regimen for other reason; Z88.8 Allergy status to other drugs, medicaments and biological substances; Z95.5 Presence of coronary angioplasty implant and graft; I25.2 Old myocardial infarction; Z98.41 Cataract extraction status, right eye; Z98.42 Cataract extraction status, left eye; Z79.82 Long term (current) use of aspirin; Z79.899 Other long term (current) drug therapy; Z79.01 Long term (current) use of anticoagulants; Z82.3 Family history of stroke
CPT/HCPCS: 36415; 71046; 80048; 80053; 81001; 83735; 84484; 85025; 85610; 85730; 93005; 93306; 93312; 93320; 93325; 96365; 96366; 96367; 96375; 96376; 99291

== ENCOUNTER 2023-06-06 11:02 | Inpatient (IN) | payer MEDICARE, BC ==
--- NOTE | 2023-06-06 11:52 | ED ---
General Adult HPI - General Chief complaint: Recheck/Abnormal Lab/Rx Stated complaint: Irreg EKG Time Seen by Provider: 06/06/23 11:38 Source: patient, RN notes reviewed Mode of arrival: ambulatory Limitations: no limitations - History of Present Illness Initial comments: Patient is a pleasant 87-year-old female present to the emergency department with palpitations. Onset of symptoms was a week ago. Patient believes she may have had similar symptoms previously associated with her heart. Patient does have some associated dyspnea that worsens with exertion and lying down. No calf pain or leg edema. No chest pain. Patient feels her heart is racing especially with exertion. - Related Data Home Medications Medication Instructions Recorded Confirmed amLODIPine [Norvasc] 5 mg PO DAILY 06/06/23 06/06/23 Previous Rx's Medication Instructions Recorded Apixaban [Eliquis] 5 mg PO BID #60 tab 04/07/20 Allergies Allergy/AdvReac Type Severity Reaction Status Date / Time diltiazem [From Cardizem] Allergy Rash/Hives Verified 06/06/23 13:52 Review of Systems ROS Statement: Those systems with pertinent positive or pertinent negative responses have been documented in the HPI. ROS Other: All systems not noted in ROS Statement are negative. Constitutional: Denies: fever Eyes: Denies: eye pain Respiratory: Reports: as per HPI Cardiovascular: Reports: as per HPI, palpitations, orthopnea Past Medical History Past Medical History: Atrial Fibrillation, Coronary Artery Disease (CAD), Heart Failure, Hypertension, Myocardial Infarction (ND), Osteoarthritis (OA), Renal Disease Additional Past Medical History / Comment(s): Pt recently admitted to [facility] on 03/10/20 with paroxysmal A fib, chf, acute renal failure. Other hx: Paroxysmal Afib, afib rvr, arthritis in multiple joints, ND in 2015/2018 per past medical record but pt was not aware. Last Myocardial Infarction Date:: 2019 History of Any Multi-Drug Resistant Organisms: None Reported Past Surgical History: Cholecystectomy, Heart Catheterization With Stent, Hysterectomy, Orthopedic Surgery Additional Past Surgical History / Comment(s): 2019 PCI with stent, total R hip arthroplasty, R carpal tunnel release, bilateral cataract removals. Past Anesthesia/Blood Transfusion Reactions: No Reported Reaction Date of Last Stent Placement:: 12/2018 Past Psychological History: No Psychological Hx Reported Smoking Status: Never smoker Past Alcohol Use History: None Reported Past Drug Use History: None Reported - Past Family History Mother Family Medical History: Osteoarthritis (OA) Additional Family Medical History / Comment(s): djd; at 69 Father Family Medical History: CVA/TIA Additional Family Medical History / Comment(s): age 84 General Exam Limitations: no limitations General appearance: alert, in no apparent distress Head exam: Present: atraumatic Eye exam: Present: normal appearance Neck exam: Present: normal inspection Respiratory exam: Present: normal lung sounds bilaterally Cardiovascular Exam: Present: tachycardia, irregular rhythm GI/Abdominal exam: Present: soft. Absent: tenderness Extremities exam: Present: normal inspection. Absent: pedal edema, calf tenderness Neurological exam: Present: alert Psychiatric exam: Present: normal affect, normal mood Skin exam: Present: normal color Course Vital Signs 06/06/23 06/06/23 06/06/23 11:26 11:38 11:43 Temperature 97.7 F Pulse Rate 148 H 144 H Respiratory 18 18 Rate Blood Pressure 136/95 130/94 130/94 O2 Sat by Pulse 97 97 96 Oximetry 06/06/23 06/06/23 06/06/23 11:45 12:25 13:00 Temperature Pulse Rate 141 H 129 H 124 H Respiratory 16 Rate Blood Pressure 130/94 107/82 120/92 O2 Sat by Pulse 95 95 Oximetry 06/06/23 06/06/23 06/06/23 13:09 13:15 13:37 Temperature Pulse Rate 124 H 125 H 116 H Respiratory 16 16 Rate Blood Pressure 125/86 122/91 127/93 O2 Sat by Pulse 95 94 L 95 Oximetry EKG Findings - EKG Results: EKG: interpreted by ERMD (Left axis. Right bundle branch block. Inferior Q waves.) EKG shows: tachycardia, atrial fibrillation Medical Decision Making - Medical Decision Making Was pt. sent in by a medical professional or institution (, PA, PATIENT RESOURCE COORDINATOR, urgent care, hospital, or chcf...) When possible be specific @ -Patient was sent over by primary care physician secondary to irregular EKG Did you speak to anyone other than the patient for history (EMS, parent, family, police, friend...)? What history was obtained from this source @ -No Did you review nursing and triage notes (agree or disagree)? Why? @ -I reviewed and agree with nursing and triage notes Were old charts reviewed (outside hosp., previous admission, EMS record, old EKG, old radiological studies, urgent care reports/EKG's, chcf records)? Report findings @ -Previous chest x-ray reveals no acute process, similar to today's x-ray Differential Diagnosis (chest pain, altered mental status, abdominal pain women, abdominal pain men, vaginal bleeding, weakness, fever, dyspnea, syncope, headache, dizziness, GI bleed, back pain, seizure, CVA, palpatations, mental health, musculoskeletal)? @ -Differential Chest Pain: Stable Angina, Unstable Angina, STEMI, NSTEMI Aortic Dissection, Pneumothorax, Musculoskeletal, Esophageal Spasm GERD, Cholecystitis, Pancreatitis, Zoster, this is not meant to be an all-inclusive list. EKG interpreted by me (3pts min.). @ -As above X-rays interpreted by me (1pt min.). @ -Chest x-ray shows no acute process CT interpreted by me (1pt min.). @ -None done U/S interpreted by me (1pt. min.). @ -None done What testing was considered but not performed or refused? (CT, X-rays, U/S, labs)? Why? @ -None What meds were considered but not given or refused? Why? @ -None Did you discuss the management of the patient with other professionals (professionals i.e. , PA, PATIENT RESOURCE COORDINATOR, lab, RT, psych nurse, geriatric social worker, manager cafe, teacher, electrical engineering drafting officer, case management rn)? Give summary @ -Case was discussed with Dr. Campbell will admit covering Dr. Diehl. He does request discussion with cardiology. Case was also discussed with Dr. Saenz who does recommend metoprolol 5 mg IV every 4 hours as needed for heart rate greater than 130 as well as 100 mg twice daily. Was smoking cessation discussed for >3mins.? @ -No Was critical care preformed (if so, how long)? @ -31 minutes critical care time Were there social determinants of health that impacted care today? How? (Homelessness, low income, unemployed, alcoholism, drug addiction, trans portation, low edu. Level, literacy, decrease access to med. care, group home, rehab)? @ -No Was there de-escalation of care discussed even if they declined (Discuss DNR or withdrawal of care, Hospice)? DNR status @ -No What co-morbidities impacted this encounter? (DM, HTN, Smoking, COPD, CAD, Cancer, CVA, ARF, Chemo, Hep., AIDS, mental health diagnosis, sleep apnea, morbid obesity)? @ -Cardiac history Was patient admitted / discharged? Hospital course, mention meds given and route, prescriptions, significant lab abnormalities, going to OR and other pertinent info. @ -Patient reevaluated and feels much better. Heart rate around 124. Patient remains in A-fib. Patient will be admitted with cardiac consult. Admission orders written. Undiagnosed new problem with uncertain prognosis? @ -No Drug Therapy requiring intensive monitoring for toxicity (Heparin, Nitro, Insulin, Cardizem)? @ -Patient will need monitoring for heart rate for pushes of IV metoprolol Were any procedures done? @ -No Diagnosis/symptom? @ -A-fib with RVR Acute, or Chronic, or Acute on Chronic? @ -Acute Uncomplicated (without systemic symptoms) or Complicated (systemic symptoms)? @ -Complicated with tachycardia. Also complicated with Cardizem allergy Side effects of treatment? @ -No Exacerbation, Progression, or Severe Exacerbation? @ -No Poses a threat to life or bodily function? How? (Chest pain, USA, ND, pneumonia, PE, COPD, DKA, ARF, appy, cholecystitis, CVA, Diverticulitis, Homicidal, Suicidal, threat to staff... and all critical care pts) @ -No - Lab Data Result diagrams: 06/06/23 11:47 06/06/23 11:47 Lab Results 06/06/23 06/06/23 06/06/23 Range/Units 11:47 11:47 11:47 WBC 7.6 (3.8-10.6) k/uL RBC 4.87 (3.80-5.40) m/uL Hgb 14.1 (11.4-16.0) gm/dL Hct 45.0 (34.0-46.0) % MCV 92.3 (80.0-100.0) fL MCH 29.0 (25.0-35.0) pg MCHC 31.4 (31.0-37.0) g/dL RDW 15.7 H (11.5-15.5) % Plt Count 214 (150-450) k/uL MPV 9.1 Neutrophils % 65 % Lymphocytes % 22 % Monocytes % 6 % Eosinophils % 4 % Basophils % 0 % Neutrophils # 4.9 (1.3-7.7) k/uL Lymphocytes # 1.7 (1.0-4.8) k/uL Monocytes # 0.5 (0-1.0) k/uL Eosinophils # 0.3 (0-0.7) k/uL Basophils # 0.0 (0-0.2) k/uL Hypochromasia Slight PT 11.1 (10.0-12.5) sec INR 1.0 (<1.2) APTT 28.2 (22.0-30.0) sec Sodium 140 (137-145) mmol/L Potassium 4.5 (3.5-5.1) mmol/L Chloride 109 H (98-107) mmol/L Carbon Dioxide 21 L (22-30) mmol/L Anion Gap 10 mmol/L BUN 25 H (7-17) mg/dL Creatinine 1.45 H (0.52-1.04) mg/dL Est GFR (CKD-EPI)AfAm 37 (>60 ml/min/1.73 sqM) Est GFR (CKD-EPI)NonAf 32 (>60 ml/min/1.73 sqM) Glucose 159 H (74-99) mg/dL Calcium 9.0 (8.4-10.2) mg/dL Magnesium 1.9 (1.6-2.3) mg/dL Total Bilirubin 0.9 (0.2-1.3) mg/dL AST 28 (14-36) U/L ALT 23 (4-34) U/L Alkaline Phosphatase 88 (38-126) U/L Troponin I (0.000-0.034) ng/mL NT-Pro-B Natriuret Pep 6010 pg/mL Total Protein 7.1 (6.3-8.2) g/dL Albumin 4.1 (3.5-5.0) g/dL TSH 1.580 (0.465-4.680) mIU/L Free T4 1.92 (0.78-2.19) ng/dL Free T3 pg/mL 3.1 (2.8-5.3) pg/ml 06/06/23 Range/Units 11:47 WBC (3.8-10.6) k/uL RBC (3.80-5.40) m/uL Hgb (11.4-16.0) gm/dL Hct (34.0-46.0) % MCV (80.0-100.0) fL MCH (25.0-35.0) pg MCHC (31.0-37.0) g/dL RDW (11.5-15.5) % Plt Count (150-450) k/uL MPV Neutrophils % % Lymphocytes % % Monocytes % % Eosinophils % % Basophils % % Neutrophils # (1.3-7.7) k/uL Lymphocytes # (1.0-4.8) k/uL Monocytes # (0-1.0) k/uL Eosinophils # (0-0.7) k/uL Basophils # (0-0.2) k/uL Hypochromasia PT (10.0-12.5) sec INR (<1.2) APTT (22.0-30.0) sec Sodium (137-145) mmol/L Potassium (3.5-5.1) mmol/L Chloride (98-107) mmol/L Carbon Dioxide (22-30) mmol/L Anion Gap mmol/L BUN (7-17) mg/dL Creatinine (0.52-1.04) mg/dL Est GFR (CKD-EPI)AfAm (>60 ml/min/1.73 sqM) Est GFR (CKD-EPI)NonAf (>60 ml/min/1.73 sqM) Glucose (74-99) mg/dL Calcium (8.4-10.2) mg/dL Magnesium (1.6-2.3) mg/dL Total Bilirubin (0.2-1.3) mg/dL AST (14-36) U/L ALT (4-34) U/L Alkaline Phosphatase (38-126) U/L Troponin I <0.012 (0.000-0.034) ng/mL NT-Pro-B Natriuret Pep pg/mL Total Protein (6.3-8.2) g/dL Albumin (3.5-5.0) g/dL TSH (0.465-4.680) mIU/L Free T4 (0.78-2.19) ng/dL Free T3 pg/mL (2.8-5.3) pg/ml Critical Care Time Critical Care Time: Yes Disposition Clinical Impression: Atrial fibrillation with RVR Disposition: ADMITTED IP TO THIS HOSP Is patient prescribed a controlled substance at d/c from ED?: No Referrals: Noel Diehl DO [Primary Care Provider] - 1-2 days Time of Disposition: 14:12
[2023-06-06 12:03] LABS: Basophils % (A) 0 %; Eosinophils # (A) 0.3 k/uL (0-0.7); Eosinophils % (A) 4 %; HGB 14.1 gm/dL (11.4-16.0); Hypochromasia Slight; Lymphocytes # (A) 1.7 k/uL (1.0-4.8); Lymphocytes % (A) 22 %; MCHC 31.4 g/dL (31.0-37.0); MCV 92.3 fL (80.0-100.0); Mean Platelet Volume 9.1; Monocytes # (A) 0.5 k/uL (0-1.0); Monocytes % (A) 6 %; Neutrophils # (A) 4.9 k/uL (1.3-7.7); Neutrophils % (A) 65 %; Platelet Count 214 k/uL (150-450); RBC 4.87 m/uL (3.80-5.40); RDW 15.7 % (11.5-15.5); WBC 7.6 k/uL (3.8-10.6)
[2023-06-06] MEDS: METOPROLOL TARTRATE 5 MG/5 ML VIAL IVP SCH (12:07)
--- NOTE | 2023-06-06 12:07 | XR ---
EXAMINATION TYPE: XR chest 2V DATE OF EXAM: 06/06/2023 COMPARISON: 11/20/2021 HISTORY: Shortness of breath TECHNIQUE: Frontal and lateral views of the chest are obtained. FINDINGS: Scattered senescent parenchymal changes noted. Hyperinflation compatible with COPD. No evidence for infiltrate. No evidence for atelectasis. Heart size is stable. Mediastinal structures are stable and grossly unremarkable. No evidence for hilar prominence. Degenerative changes dorsal spine. IMPRESSION: 1. No evidence for acute pulmonary disease.
[2023-06-06 12:30] LABS: ALT 23 U/L (4-34); AST 28 U/L (14-36); African American GFR (CKD) 37 (>60 ml/min/1.73 sqM); Albumin 4.1 g/dL (3.5-5.0); Alkaline Phosphatase 88 U/L (38-126); Anion Gap 10 mmol/L; Blood Urea Nitrogen 25 mg/dL (7-17); Carbon Dioxide 21 mmol/L (22-30); Chloride 109 mmol/L (98-107); Glucose 159 mg/dL (74-99); Magnesium 1.9 mg/dL (1.6-2.3); Non-African American GFR(CKD) 32 (>60 ml/min/1.73 sqM); Potassium 4.5 mmol/L (3.5-5.1); Sodium 140 mmol/L (137-145); Total Bilirubin 0.9 mg/dL (0.2-1.3); Total Protein 7.1 g/dL (6.3-8.2)
[2023-06-06 12:31] LABS: Partial Thromboplastin Time 28.2 sec (22.0-30.0); Prothrombin Time 11.1 sec (10.0-12.5)
[2023-06-06 12:37] LABS: NT-Pro-B-Type Natriuretic Pept 6010 pg/mL
[2023-06-06 12:46] LABS: T4, Free (Free Thyroxine) 1.92 ng/dL (0.78-2.19)
[2023-06-06] MEDS ORDERED: METOPROLOL TARTRATE 5 MG/5 ML VIAL IVP PRN (13:57)
[2023-06-06] MEDS ORDERED: NALOXONE 0.4 MG/ML 1 ML VIAL IV PRN (14:18)
[2023-06-06] MEDS: METOPROLOL TARTRATE 50 MG TAB PO SCH (14:40)
[2023-06-06] MEDS: FAMOTIDINE 20 MG TAB PO SCH (23:08)
[2023-06-06] MEDS: APIXABAN 5 MG TAB PO SCH (23:08)
[2023-06-07] MEDS: FAMOTIDINE 20 MG TAB PO SCH (08:39)
[2023-06-07] MEDS: diphenhydrAMINE 25 MG CAP PO STA (10:55)
[2023-06-07] MEDS: methylPREDNISolone SOD SUCCI 125 MG/2 ML VIAL IV STA (10:55)
--- NOTE | 2023-06-07 11:31 | CA ---
Transthoracic Echo Report Name: Lexie Villalobos Age: 87 Gender: F : 1935 Exam Date: 06/07/2023 10:18 Exam Location: [facility] Ht (in): 61 Wt (lb): 158 Ordering Physician: Loraine Martino Attending/Referring Phys: [id number], [place] Head Wrestling Coach Klarissa Kennedy RCS Procedure CPT: Indications: LVF Cardiac Hx: Technical Quality: Technically difficult study Contrast 1: Definity Total Dose (mL): 2 Contrast 2: Total Dose (mL): MEASUREMENTS (Male / Female) Normal Values 2D ECHO LV Diastolic Diameter PLAX 4.4 cm 4.2 - 5.9 / 3.9 - 5.3 cm LV Systolic Diameter PLAX 3.7 cm IVS Diastolic Thickness 1.4 cm 0.6 - 1.0 / 0.6 - 0.9 cm LVPW Diastolic Thickness 1.1 cm 0.6 - 1.0 / 0.6 - 0.9 cm LV Relative Wall Thickness 0.6 RV Internal Dim ED PLAX 2.6 cm LVOT Diameter 1.7 cm LV Diastolic Volume MOD BP 71.4 cm??? 67 - 155 / 56 - 104 cm??? LV Systolic Volume MOD BP 49.1 cm??? 22 - 58 / 19 - 49 cm??? LV Ejection Fraction MOD BP 31.3 % >= 55 % LV Cardiac Index MOD BP 1002.4 cm???/min???m??? LV Diastolic Volume MOD 4C 80.0 cm??? LV Systolic Volume MOD 4C 52.8 cm??? LV Ejection Fraction MOD 4C 34.0 % LV Cardiac Index MOD 4C 1221.8 cm???/min???m??? LV Diastolic Length 4C 6.6 cm LV Systolic Length 4C 6.2 cm LV Diastolic Volume MOD 2C 63.7 cm??? LV Systolic Volume MOD 2C 44.8 cm??? LV Ejection Fraction MOD 2C 29.7 % LV Cardiac Index MOD 2C 848.4 cm???/min???m??? LV Diastolic Length 2C 6.6 cm LV Systolic Length 2C 6.3 cm LA Volume 77.8 cm??? 18 - 58 / 22 - 52 cm??? LA Volume Index 43.7 cm???/m??? 16 - 28 cm???/m??? Ascending Aorta Diameter 3.0 cm DOPPLER AV Peak Velocity 95.7 cm/s AV Peak Gradient 3.7 mmHg AV Mean Velocity 72.5 cm/s AV Mean Gradient 2.3 mmHg AV Velocity Time Integral 19.0 cm LVOT Peak Velocity 71.9 cm/s LVOT Peak Gradient 2.1 mmHg LVOT Velocity Time Integral 13.2 cm LVOT Stroke Volume 31.4 cm??? LVOT Stroke Volume Index 18.4 ml/m??? LVOT Cardiac Index 1410.8 cm???/min???m??? AV Area Cont Eq vti 1.7 cm??? AV Area Cont Eq pk 1.8 cm??? TR Peak Velocity 219.8 cm/s TR Peak Gradient 19.3 mmHg Right Atrial Pressure 15.0 mmHg Pulmonary Artery Systolic Pressu 34.3 mmHg Right Ventricular Systolic Press 34.3 mmHg PV Peak Velocity 81.9 cm/s PV Peak Gradient 2.7 mmHg FINDINGS Left Ventricle Left ventricular ejection fraction is estimated at 30-35 % with beat to beat variability. Moderately increased septal wall thickness. Mildly increased posterior wall thickness. Moderately decreased left ventricular ejection fraction. Global hypokinesis. Right Ventricle Normal right ventricular size with mildly reduced function. Right ventricular systolic pressure within normal limits. Right Atrium Severe right atrial dilatation. Left Atrium Severely increased left atrial volume. Mildly increased left atrial area. Mitral Valve Structurally normal mitral valve. No evidence for mitral valve prolapse. No mitral stenosis. Mild mitral regurgitation. Aortic Valve Trileaflet aortic valve. No aortic valve stenosis or regurgitation. Tricuspid Valve Structurally normal tricuspid valve. No tricuspid stenosis. Trace tricuspid regurgitation. Pulmonic Valve Pulmonic valve not well visualized. No pulmonic stenosis. No pulmonic regurgitation. Pericardium No pericardial effusion. Aorta Normal size aortic root and proximal ascending aorta. CONCLUSIONS Normal LV size and global decrease in contractility estimated ejection fraction is about 30-35%. Enlarged atria mild mitral and tricuspid regurgitation. No pulmonary hypertension no pericardial effusion Previewed by: Dr. Susana Bravo MD (Electronically Signed) Final Date: 07 June 2023 11:30
[2023-06-07 12:16] VITALS: RESP 16
--- NOTE | 2023-06-07 13:02 | P.CRDCN ---
History of Present Illness Consult date: 06/07/23 Consult reason: atrial fibrillation History of present illness: History of present illness: This is an 87-year-old female patient of Dr. Consuelo Contreras with past medical history of paroxysmal atrial fibrillation, hypertension, hyperlipidemia coronary artery disease with previous stent. We have been asked to evaluate the patient for A- fib with RVR. Patient states that she has had a cough for about a week no fever or chills. Patient also complains of palpitations that been probably going on for a week. She has increased dyspnea with exertion. No chest pain. While patient was undergoing echocardiogram, she had appears to be allergic reaction to Definity and was given IV Solu-Medrol and Benadryl. All EKG atrial fibrillation at 140 bpm Chest x-ray: No acute process. Echocardiogram reveals EF of 30 to 35%. Enlarged atria, mild mitral and tricuspid regurgitation. No pulmonary hypertension. CBC is unremarkable. INR 1. Sodium 140, potassium 4.5, CO2 21, BUN 25 creatinine 1.45 which is patient's baseline. Troponin negative x 3. proBNP 6010. Liver function tests are normal. Magnesium 1.9. TSH 1.58. Home cardiac medications: Amlodipine 5 mg twice daily TANYA performed 11/21 to rule out intracardiac thrombus prior to cardiov ersion revealed a left atrial appendage thrombus and cardioversion was canceled. Cardiac catheterization performed 03/10/2020 revealed patent stent within the LAD. Mild nonobstructive coronary artery disease involving the circumflex coronary artery and right coronary artery. Echocardiogram performed 11/21/2021 revealed EF of 35 to 40%. Review Of Systems: At the time of my exam: CONSTITUTIONAL: Denies fever or chills. HEENT: Denies blurred vision, vision changes, or eye pain. Denies hemoptysis CARDIOVASCULAR: Denies chest pain. Denies orthopnea. Denies PND. Denies palpitations RESPIRATORY: Denies shortness of breath. + cough. GASTROINTESTINAL: Denies abdominal pain. Denies nausea or vomiting. HEMATOLOGIC: Denies bleeding disorders. GENITOURINARY: Denies any blood in urine. SKIN: Denies pruitis. Denies rash. Physical examination: Gen: This is an 87-year-old female in no acute distress VS: reviewed blood pressure 122/81, heart rate 114, pulse ox 94% on room air. HEENT: Head is atraumatic, normocephalic. Pupils equal, round. Sclerae is anicteric. NECK: Supple. No JVD. LUNGS: Clear to auscultation. No wheezes or rhonchi. No intercostal retractions. HEART: Regular rate and rhythm. No murmur. ABDOMEN: Soft No tenderness. EXTREMITIES: No pedal edema. No calf tenderness. NEUROLOGICAL: Patient is awake, alert and oriented x3. Assessment: Paroxysmal atrial fibrillation presenting with RVR Ischemic cardiomyopathy Hypertension Hyperlipidemia Coronary artery disease with previous stenting Allergic reaction to Definity Plan: Resume patient's home cardiac medications including Eliquis Patient has been started on Lopressor 100 mg twice daily which will be continued Monitor patient's heart rate and blood pressure Plan for discharge home tomorrow Further recommendations to follow based upon clinical course Thank you kindly for this consultation. Nurse practitioner note has been reviewed, I agree with documented findings and plan of care. Patient was seen and examined. Past Medical History Past Medical History: Atrial Fibrillation, Coronary Artery Disease (CAD), Heart Failure, Hypertension, Myocardial Infarction (MA), Osteoarthritis (OA), Renal Disease Additional Past Medical History / Comment(s): Pt admitted to [facility] on 03/10/20 with paroxysmal A fib, chf, acute renal failure. Other hx: Paroxysmal Afib, afib rvr, arthritis in multiple joints, MA in per past medical record but pt was not aware. Last Myocardial Infarction Date:: 2018 History of Any Multi-Drug Resistant Organisms: None Reported Past Surgical History: Cholecystectomy, Heart Catheterization With Stent, Hysterectomy, Orthopedic Surgery Additional Past Surgical History / Comment(s): 2019 PCI with stent, total R hip arthroplasty, R carpal tunnel release, bilateral cataract removals. Past Anesthesia/Blood Transfusion Reactions: No Reported Reaction Date of Last Stent Placement:: 12/2018 Past Psychological History: No Psychological Hx Reported Additional Psychological History / Comment(s): Pt resides with her spouse. She is independent. Smoking Status: Never smoker Past Alcohol Use History: None Reported Past Drug Use History: None Reported - Past Family History Mother Family Medical History: Osteoarthritis (OA) Additional Family Medical History / Comment(s): djd; at 69 Father Family Medical History: CVA/TIA Additional Family Medical History / Comment(s): age 84 Medications and Allergies Home Medications Medication Instructions Recorded Confirmed Type Apixaban [Eliquis] 5 mg PO BID #60 tab 04/07/20 06/06/23 Rx amLODIPine [Norvasc] 5 mg PO DAILY 06/06/23 06/06/23 History Allergies Allergy/AdvReac Type Severity Reaction Status Date / Time diltiazem [From Cardizem] Allergy Rash/Hives Verified 06/06/23 13:52 perflutren [From Definity] AdvReac Dyspnea Verified 06/07/23 11:01 Physical Exam Vitals: Vital Signs Temp Pulse Pulse Resp BP BP Pulse Ox 06/07/23 07:49 97 16 06/07/23 07:47 97.8 F 69 16 133/80 97 06/07/23 04:00 97.8 F 76 18 110/74 97 06/07/23 00:00 97.5 F L 88 16 116/87 98 06/06/23 20:00 101 H 107/74 06/06/23 19:00 98 110/85 06/06/23 17:48 123 H 18 105/76 97 06/06/23 17:00 87 110/79 96 06/06/23 15:40 125 H 16 109/94 97 06/06/23 14:00 129 H 121/96 91 L 06/06/23 13:37 116 H 16 127/93 95 06/06/23 13:15 125 H 122/91 94 L 06/06/23 13:09 124 H 16 125/86 95 06/06/23 13:00 124 H 120/92 06/06/23 12:25 129 H 16 107/82 95 06/06/23 11:45 141 H 130/94 95 06/06/23 11:43 144 H 18 130/94 96 06/06/23 11:38 130/94 97 06/06/23 11:26 97.7 F 148 H 18 136/95 97 Intake and Output 06/06/23 06/07/23 06/07/23 22:59 06:59 14:59 Intake Total 240 Balance 240 Intake: Oral 240 Other: Voiding Method Toilet # Voids 2 Weight 71.668 kg Results 06/06/23 11:47 06/06/23 11:47 Cardiac Enzymes 06/06/23 06/06/23 06/06/23 Range/Units 11:47 11:47 14:48 AST 28 (14-36) U/L Troponin I <0.012 <0.012 (0.000-0.034) ng/mL 06/06/23 Range/Units 17:54 AST (14-36) U/L Troponin I <0.012 (0.000-0.034) ng/mL Coagulation 06/06/23 Range/Units 11:47 PT 11.1 (10.0-12.5) sec APTT 28.2 (22.0-30.0) sec CBC 06/06/23 Range/Units 11:47 WBC 7.6 (3.8-10.6) k/uL RBC 4.87 (3.80-5.40) m/uL Hgb 14.1 (11.4-16.0) gm/dL Hct 45.0 (34.0-46.0) % Plt Count 214 (150-450) k/uL Comprehensive Metabolic Panel 06/06/23 Range/Units 11:47 Sodium 140 (137-145) mmol/L Potassium 4.5 (3.5-5.1) mmol/L Chloride 109 H (98-107) mmol/L Carbon Dioxide 21 L (22-30) mmol/L BUN 25 H (7-17) mg/dL Creatinine 1.45 H (0.52-1.04) mg/dL Glucose 159 H (74-99) mg/dL Calcium 9.0 (8.4-10.2) mg/dL AST 28 (14-36) U/L ALT 23 (4-34) U/L Alkaline Phosphatase 88 (38-126) U/L Total Protein 7.1 (6.3-8.2) g/dL Albumin 4.1 (3.5-5.0) g/dL Current Medications Generic Name Dose Route Start Last Admin Trade Name Freq PRN Reason Stop Dose Admin Apixaban 5 mg 06/06/23 21:00 06/07/23 08:39 Apixaban 5 Mg Tab PO 5 mg BID WILFRED Administration Protocol Famotidine 20 mg 06/07/23 09:00 06/07/23 08:39 Famotidine 20 Mg Tab PO 20 mg DAILY WILFRED Administration Metoprolol Tartrate 5 mg 06/06/23 13:57 Metoprolol Tartrate 5 Mg/5 Ml Vial IVP Q6HR PRN Tachyarrhythmias Metoprolol Tartrate 100 mg 06/06/23 14:00 06/07/23 08:39 Metoprolol Tartrate 50 Mg Tab PO 100 mg BID WILFRED Administration Naloxone HCl 0.2 mg 06/06/23 14:18 Naloxone 0.4 Mg/Ml 1 Ml Vial IV Q2M PRN Opioid Reversal Intake and Output 06/06/23 06/07/23 06/07/23 22:59 06:59 14:59 Intake Total 240 Balance 240 Intake: Oral 240 Other: Voiding Method Toilet # Voids 2 Weight 71.668 kg Patient Weight 06/08/23 06:59 Weight 71.668 kg 06/06/23 11:47 06/06/23 11:47
--- NOTE | 2023-06-07 15:18 | P.HPIM ---
History of Present Illness H&P Date: 06/07/23 Chief Complaint: Heart racing This is a pleasant 87-year-old patient of Dr. goldberg. Chronic stable medical conditions include hypertension, osteoarthritis, coronary artery disease with stent. paroxysmal atrial fibrillation. EF 30-35% with global hypokinesis. Cardiac catheterization 03/11/2020- showed a patent stent to LAD, Patient presented to the ER. Sent in through her family doctor Dr. Goldberg office. Patient follow-up over the weekend and feeling short of breath. A bit tired. No chest pain. At the doctor's office found the heart to be racing. Sent down to the ER. Patient allergic to Cardizem. Hence was given IV metoprolol. And oral metoprolol started. This morning patient's heart rate is controlled though remains in A-fib. Patient is feeling better. Patient had a allergic reaction definity. Given 1 dose of Solu-Medrol. Antihistaminic. Has done well after that. . Review of systems: GEN.: Tired EYES: None HEENT: None NECK: None RESPIRATORY: Short of breath CARDIOVASCULAR: As above GASTROINTESTINAL: None GENITOURINARY: None MUSCULOSKELETAL: Joint pains LYMPHATICS: None HEMATOLOGICAL: None PSYCHIATRY: None NEUROLOGICAL: None Past medical history to include: Coronary artery disease, atrial flutter ablation, osteoarthritis, coronary artery disease with stent-LAD, hypertension, CHF EF 30-35% Social history: Does not smoke or drink alcohol. . Physical examination: VITAL SIGNS: Afebrile, 114, 20, 134/84, 95% room air GENERAL: laying in bed awake, EYES: Pupils equal. Conjunctiva normal. HEENT: External appearance of nose and ears normal, oral cavity grossly normal. NECK: JVD not raised; masses not palpable. HEART: Heart sounds irregular l; no edema. LUNGS: Respiratory rate normal; clear to auscultation. ABDOMEN: Soft, nontender, liver spleen not palpable, no masses palpable. PSYCH: Alert and oriented x3; mood and affect normal. MUSCULOSKELETAL:No Clubbing/cyanosis;muscles-grossly intact, evidence of OA NEUROLOGICAL: Cranial nerves grossly intact; no facial asymmetry, power and sensation grossly intact. LYMPHATICS: No lymph nodes palpable in the axilla and neck INVESTIGATIONS, reviewed in the clinical context: June 05: White count 7.6 hemoglobin 14.1 platelets 214 sodium 140 potassium 4.5 BUN 25 creatinine 1.45 Troponin I less than 0.012 x 3 proBNP 6010 TSH 1.5 EKG tracing personally reviewed by me-atrial fibrillation. Right bundle sandoval block. Rate 140 Chest x-ray film personally reviewed by me-cardiomegaly. 2D echocardiogram: EF 30-35%. Mild regurgitation in the valves Assessment and plan: -Presenting with A-fib with rapid ventricular rate in a patient with known parox ysmal atrial flutter-fibrillation with a prior history of ablation-symptomatic- Given IV metoprolol in the ER. The switch to Lopressor 100 mg twice daily. - Chronic congestive heart failure from systolic dysfunction EF 30-35%- Eliquis. Lopressor -Some side effect to Definity Given dose of IV Solu-Medrol. 25 mg of Benadryl. 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 Prior echo -Coronary artery disease with stent-cardiac catheterization in February 2020 showing patent stent Lopressor Zestril, aspirin -Primary osteoarthritis Pain medications as needed -Essential hypertension Lopressor -Chronic kidney disease stage III from nephrosclerosis Follow renal function Care was discussed with the patient. Follow-up with cardiology. Past Medical History Past Medical History: Atrial Fibrillation, Coronary Artery Disease (CAD), Heart Failure, Hypertension, Myocardial Infarction ([place]), Osteoarthritis (OA), Renal Disease Additional Past Medical History / Comment(s): Pt admitted to [facility] on 03/10/20 with paroxysmal A fib, chf, acute renal failure. Other hx: Paroxysmal Afib, afib rvr, arthritis in multiple joints, OH in 2015/2018 per past medical record but pt was not aware. Last Myocardial Infarction Date:: 2018 History of Any Multi-Drug Resistant Organisms: None Reported Past Surgical History: Cholecystectomy, Heart Catheterization With Stent, Hysterectomy, Orthopedic Surgery Additional Past Surgical History / Comment(s): 2019 PCI with stent, total R hip arthroplasty, R carpal tunnel release, bilateral cataract removals. Past Anesthesia/Blood Transfusion Reactions: No Reported Reaction Date of Last Stent Placement:: 12/2018 Past Psychological History: No Psychological Hx Reported Additional Psychological History / Comment(s): Pt resides with her spouse. She is independent. Smoking Status: Never smoker Past Alcohol Use History: None Reported Past Drug Use History: None Reported - Past Family History Mother Family Medical History: Osteoarthritis (OA) Additional Family Medical History / Comment(s): djd; at 69 Father Family Medical History: CVA/TIA Additional Family Medical History / Comment(s): age 84 Medications and Allergies Home Medications Medication Instructions Recorded Confirmed Type Apixaban [Eliquis] 5 mg PO BID #60 tab 04/07/20 06/06/23 Rx amLODIPine [Norvasc] 5 mg PO DAILY 06/06/23 06/06/23 History Allergies Allergy/AdvReac Type Severity Reaction Status Date / Time diltiazem [From Cardizem] Allergy Rash/Hives Verified 06/06/23 13:52 perflutren [From Definity] AdvReac Dyspnea Verified 06/07/23 11:01 Physical Exam Vitals: Vital Signs Temp Pulse Pulse Resp BP BP Pulse Ox 06/07/23 10:00 93 L 06/07/23 09:22 98.2 F 97 16 115/71 96 06/07/23 07:49 97 16 06/07/23 07:47 97.8 F 69 16 133/80 97 06/07/23 04:00 97.8 F 76 18 110/74 97 06/07/23 00:00 97.5 F L 88 16 116/87 98 06/06/23 20:00 101 H 107/74 06/06/23 19:00 98 110/85 06/06/23 17:48 123 H 18 105/76 97 06/06/23 17:00 87 110/79 96 06/06/23 15:40 125 H 16 109/94 97 06/06/23 14:00 129 H 121/96 91 L 06/06/23 13:37 116 H 16 127/93 95 06/06/23 13:15 125 H 122/91 94 L 06/06/23 13:09 124 H 16 125/86 95 06/06/23 13:00 124 H 120/92 06/06/23 12:25 129 H 16 107/82 95 06/06/23 11:45 141 H 130/94 95 06/06/23 11:43 144 H 18 130/94 96 06/06/23 11:38 130/94 97 06/06/23 11:26 97.7 F 148 H 18 136/95 97 Intake and Output 04/11/24 04/12/24 04/12/24 22:59 06:59 14:59 Intake Total 245 Balance 245 Intake: IV 5 Invasive Line 1 5 Oral 240 Other: Voiding Method Toilet # Voids 2 Weight 71.668 kg Results CBC & Chem 7: 06/06/23 11:47 06/06/23 11:47 Labs: Abnormal Lab Results - Last 24 Hours (Table) 06/06/23 06/06/23 Range/Units 11:47 11:47 RDW 15.7 H (11.5-15.5) % Chloride 109 H (98-107) mmol/L Carbon Dioxide 21 L (22-30) mmol/L BUN 25 H (7-17) mg/dL Creatinine 1.45 H (0.52-1.04) mg/dL Glucose 159 H (74-99) mg/dL Thrombosis Risk Factor Assmnt - Choose All That Apply Each Factor Represents 1 point: Obesity (BMI >25), Swollen legs (current) Each Risk Factor Represents 3 Points: Age 75 years or older Thrombosis Risk Factor Assessment Total Risk Factor Score: 5 Thrombosis Risk Factor Assessment Level: High Risk
[2023-06-08] MEDS ORDERED: ARTIFICIAL TEARS-HYPROMELLOSE DROPS 15 ML BTL BOTH EYES PRN (02:00)
[2023-06-08] MEDS ORDERED: ZOLPIDEM 5 MG TAB PO PRN (04:13)
[2023-06-08] MEDS: ZOLPIDEM 5 MG TAB PO ONE (04:20)
--- NOTE | 2023-06-08 12:30 | P.PN ---
Subjective Progress Note Date: 06/08/23 The patient is an 87-year-old female who follows in the office with Dr. Contreras. The patient presented to the hospital with palpitations. She was found to be in A-fib with RVR. Echocardiogram shows EF of 30 to 35% with mild valvular disease. Home medications have been resumed. Patient was interviewed and examined resting in bed. She states she does have some shortness of breath but was recently up ambulating in the restroom. No chest pain or pressure. No dizziness or lightheadedness. GENERAL: Well-appearing, well-nourished and in no acute distress. NECK: Supple without JVD or thyromegaly. LUNGS: Breath sounds clear to auscultation bilaterally. Respiration equal and unlabored. No wheezes, rales or rhonchi. HEART: Irregular rate and rhythm without murmurs, rubs or gallops. S1 and S2 heard. EXTREMITIES: Normal range of motion, no edema. No clubbing or cyanosis. Peripheral pulses intact and strong. TELEMETRY: Atrial fibrillation with heart rates up to the mid 130s with ambulation to the restroom IMPRESSION: Persistent A-fib with RVR Cardiomyopathy with global hypokinesis, EF 30 to 35% Congestive heart failure PLAN: Increase metoprolol to 100 mg 3 times daily Rate control strategy Further recommendations be based upon clinical course I am dictating on behalf of Dr Adan Borjas's history/physical and assessment/plan. Objective - Vital Signs Vital signs: Vital Signs Temp 97.6 F 06/08/23 08:35 Pulse 98 06/08/23 08:35 Resp 16 06/08/23 08:35 BP 115/74 06/08/23 08:35 Pulse Ox 96 06/08/23 08:35 FiO2 Intake & Output 06/07/23 06/08/23 06/08/23 18:59 06:59 18:59 Intake Total 610 240 Balance 610 240 Weight 71.668 kg Intake: IV 10 Invasive Line 1 10 Oral 600 240 Other: Voiding Method Toilet Toilet # Voids 2 2 - Labs CBC & Chem 7: 06/06/23 11:47 06/06/23 11:47
[2023-06-08] MEDS: METOPROLOL TARTRATE 50 MG TAB PO SCH (16:36)
[2023-06-08 20:43] VITALS: TEMP 97.7
[2023-06-08] MEDS: ZOLPIDEM 5 MG TAB PO PRN (21:11)
--- NOTE | 2023-06-08 23:57 | P.PN ---
Subjective This is a pleasant 87-year-old patient of Dr. goldberg. Chronic stable medical conditions include hypertension, osteoarthritis, coronary artery disease with stent. paroxysmal atrial fibrillation. EF 30-35% with global hypokinesis. Cardiac catheterization 03/11/2020- showed a patent stent to LAD, Patient presented to the ER. Sent in through her family doctor Dr. Goldberg office. Patient follow-up over the weekend and feeling short of breath. A bit tired. No chest pain. At the doctor's office found the heart to be racing. Sent down to the ER. Patient allergic to Cardizem. Hence was given IV metoprolol. And oral metoprolol started. This morning patient's heart rate is controlled though remains in A-fib. Patient is feeling better. Patient had a allergic reaction definity. Given 1 dose of Solu-Medrol. Antihistaminic. Has done well after that. 06/08/2023 Patient was PCP for A-fib and RVR. Evaluated by client solutions manager and started on metoprolol 100 mg 3 times daily Heart rate is controlled 72 Ejection fraction 30 to 35% Chest x-ray is negative Patient awake and alert and has some dry cough She denies chest pain or dyspnea. No change in urine or bowel habits no fever or chills no other complaint Creatinine 1.4 which is at baseline Patient says she has Eliquis at home possible discharge In 24 to 48 hours Objective - Vital Signs Vital signs: Vital Signs Temp 97.6 F 06/08/23 08:35 Pulse 81 06/08/23 16:36 Resp 16 06/08/23 16:36 BP 129/65 06/08/23 16:36 Pulse Ox 95 06/08/23 16:36 FiO2 Intake & Output 06/08/23 06/08/23 06/09/23 06:59 18:59 06:59 Intake Total 500 Output Total 0 Balance 500 Intake: IV 20 Invasive Line 1 20 Oral 480 Output: Gastric Drainage 0 Urine 0 Stool 0 Urine/Stool Mix 0 Emesis 0 Oral Regurgitation 0 Other 0 Other: Voiding Method Toilet Toilet # Voids 2 0 # Bowel Movements 0 - Exam GENERAL: The patient is alert and oriented x3, not in any acute distress. Well developed, well nourished. HEENT: Pupils are round and equally reacting to light. EOMI. No scleral icterus. No conjunctival pallor. Normocephalic, atraumatic. No pharyngeal erythema. No t hyromegaly. CARDIOVASCULAR: S1 and S2 present. No murmurs, rubs, or gallops. PULMONARY: Chest is clear to auscultation, no wheezing , no crackles. ABDOMEN: Soft, nontender, nondistended, normoactive bowel sounds. No palpable organomegaly. MUSCULOSKELETAL: No joint swelling or deformity. EXTREMITIES: No cyanosis, clubbing, or pedal edema. NEUROLOGICAL: Gross neurological examination did not reveal any focal deficits. SKIN: No rashes. no petechiae. - Labs CBC & Chem 7: 06/06/23 11:47 06/06/23 11:47 Assessment and Plan Assessment: A-fib and RVR, currently rate controlled Cardiomyopathy with ejection fraction 30 to 35% Chronic kidney disease stage III Plan: Continue with metoprolol On Eliquis Cardiology consult DVT and GI prophylaxis Possible discharge in 24 to 48 hours
[2023-06-09] MEDS: FAMOTIDINE 20 MG TAB PO SCH (08:08)
--- NOTE | 2023-06-09 11:08 | P.PN ---
Subjective Progress Note Date: 06/09/23 The patient is an 87-year-old female who follows in the office with Dr. Contreras. The patient presented to the hospital with palpitations. She was found to be in A-fib with RVR. Echocardiogram shows EF of 30 to 35% with mild valvular disease. Patient has been started on beta-blockers, which have been titrated over the last 48 hours. Patient was interviewed and examined resting in bed. She denies any current chest pain or shortness of breath. Overall she feels well. GENERAL: Well-appearing, well-nourished and in no acute distress. NECK: Supple without JVD or thyromegaly. LUNGS: Breath sounds clear to auscultation bilaterally. Respiration equal and unlabored. No wheezes, rales or rhonchi. HEART: Irregular rate and rhythm without murmurs, rubs or gallops. S1 and S2 heard. EXTREMITIES: Normal range of motion, no edema. No clubbing or cyanosis. Peripheral pulses intact and strong. TELEMETRY: Atrial fibrillation with heart rates in the 80s to 90s. IMPRESSION: Persistent A-fib with RVR Cardiomyopathy with global hypokinesis, EF 30 to 35% Congestive heart failure PLAN: Transition to metoprolol 150 twice daily Start losartan 25 mg daily for hypertension and cardiomyopathy Anticipate discharge within the next 12 to 24 hours Follow-up with primary ground host/hostess Dr. Contreras I am dictating on behalf of Dr Adan Borjas's history/physical and assessment/plan. Objective - Vital Signs Vital signs: Vital Signs Temp 97.7 F 06/08/23 20:18 Pulse 88 06/09/23 08:06 Resp 16 06/09/23 08:06 BP 143/75 06/09/23 08:06 Pulse Ox 97 06/09/23 08:06 FiO2 Intake & Output 06/08/23 06/09/23 06/09/23 18:59 06:59 18:59 Intake Total 500 20 250 Output Total 0 Balance 500 20 250 Intake: IV 20 20 10 Invasive Line 1 20 20 10 Oral 480 240 Output: Gastric Drainage 0 Urine 0 Stool 0 Urine/Stool Mix 0 Emesis 0 Oral Regurgitation 0 Other 0 Other: Voiding Method Toilet Toilet Toilet # Voids 0 1 # Bowel Movements 0 - Labs CBC & Chem 7: 06/06/23 11:47 06/06/23 11:47
[2023-06-09] MEDS: LOSARTAN 25 MG TAB PO SCH (11:32)
[2023-06-09] MEDS: METOPROLOL TARTRATE 50 MG TAB PO ONE (13:58)
[2023-06-09 15:23] VITALS: BP 122/69; PULSE 74
[2023-06-09] MEDS ORDERED: ATORVASTATIN 40 MG TAB PO SCH (21:00)
[2023-06-09] MEDS ORDERED: METOPROLOL TARTRATE 50 MG TAB PO SCH (21:00)
== END 2023-06-09 15:15 | disposition home or self-care (01) | DRG 309 ==
LOC: EC 11:02 → 3SCARD 14:18
PROVIDERS: ADMIT Hospitalist; ATTEND Hospitalist
DX: I48.0 Paroxysmal atrial fibrillation (principal); I13.0 Hypertensive heart and chronic kidney disease with heart failure and stage 1 through stage 4 chronic kidney disease, or unspecified chronic kidney disease; I50.22 Chronic systolic (congestive) heart failure; N18.30 Chronic kidney disease, stage 3 unspecified; E11.22 Type 2 diabetes mellitus with diabetic chronic kidney disease; E78.5 Hyperlipidemia, unspecified; I27.29 Other secondary pulmonary hypertension; T50.8X5A Adverse effect of diagnostic agents, initial encounter; I25.2 Old myocardial infarction; I48.19 Other persistent atrial fibrillation; I48.92 Unspecified atrial flutter; I25.10 Atherosclerotic heart disease of native coronary artery without angina pectoris; Z95.5 Presence of coronary angioplasty implant and graft; I25.5 Ischemic cardiomyopathy; Z79.01 Long term (current) use of anticoagulants; M19.91 Primary osteoarthritis, unspecified site; I08.1 Rheumatic disorders of both mitral and tricuspid valves; Z90.710 Acquired absence of both cervix and uterus; Z79.899 Other long term (current) drug therapy; Z96.641 Presence of right artificial hip joint; Z90.49 Acquired absence of other specified parts of digestive tract; Z98.42 Cataract extraction status, left eye; Z98.41 Cataract extraction status, right eye; Z88.8 Allergy status to other drugs, medicaments and biological substances; Y84.8 Other medical procedures as the cause of abnormal reaction of the patient, or of later complication, without mention of misadventure at the time of the procedure
CPT/HCPCS: 36415; 71046; 80053; 83735; 83880; 84439; 84443; 84481; 84484; 85025; 85610; 85730; 93005; 93306; 94760; 96374; 96376; 99291

== ENCOUNTER 2023-06-30 10:04 | Inpatient (IN) | payer MEDICARE, BC ==
--- NOTE | 2023-06-30 10:22 | ED ---
General Adult HPI - General Chief complaint: Shortness of Breath Stated complaint: high bp, swelling in legs, ABD pain Time Seen by Provider: 06/30/23 10:10 Source: patient, family, RN notes reviewed, old records reviewed Mode of arrival: ambulatory Limitations: no limitations - History of Present Illness Initial comments: This is an 87-year-old female who presents to the emergency department with a past medical history of atrial fibrillation coronary artery disease and an AK. Patient states recently took her off her diuretic medications. Patient states she left the hospital [place] 2 weeks ago and ever since has been having intermittent shortness of breath and dyspnea. Patient states since yesterday has gotten considerably worse and this morning she woke up and the chest heaviness was much worse as was the shortness of breath so she decided to come to the emergency department. Patient states she is swelling both legs bilaterally. Patient denies any recent fever chills or cough or patient has abdominal pain patient [place] any back pain patient has any nausea vomiting diarrhea. - Related Data Home Medications Medication Instructions Recorded Confirmed Amiodarone [Cordarone] 200 mg PO BID 06/30/23 06/30/23 dilTIAZem HCL 30 mg PO DIRECTED 06/30/23 06/30/23 Previous Rx's Medication Instructions Recorded Apixaban [Eliquis] 5 mg PO BID #60 tab 06/09/23 Artificial Tears-Hypromellose 1 drops BOTH EYES Q4H PRN ml 06/09/23 [Artificial Tear Drops] Atorvastatin [Lipitor] 40 mg PO HS #30 tab 06/09/23 Losartan [Cozaar] 25 mg PO DAILY #30 tab 06/09/23 Allergies Allergy/AdvReac Type Severity Reaction Status Date / Time diltiazem [From Cardizem] Allergy Rash/Hives Verified 06/30/23 11:45 perflutren [From Definity] AdvReac Dyspnea Verified 06/30/23 11:45 Review of Systems ROS Statement: Those systems with pertinent positive or pertinent negative responses have been documented in the HPI. ROS Other: All systems not noted in ROS Statement are negative. Past Medical History Past Medical History: Atrial Fibrillation, Coronary Artery Disease (CAD), Heart Failure, Hypertension, Myocardial Infarction (AK), Osteoarthritis (OA), Renal Disease Additional Past Medical History / Comment(s): Pt admitted to [facility] on 03/10/20 with paroxysmal A fib, chf, acute renal failure. Other hx: Paroxysmal Afib, afib rvr, arthritis in multiple joints, AK in per past medical record but pt was not aware. Last Myocardial Infarction Date:: 2018 History of Any Multi-Drug Resistant Organisms: None Reported Past Surgical History: Cholecystectomy, Heart Catheterization With Stent, Hysterectomy, Orthopedic Surgery Additional Past Surgical History / Comment(s): 2019 PCI with stent, total R hip arthroplasty, R carpal tunnel release, bilateral cataract removals. Past Anesthesia/Blood Transfusion Reactions: No Reported Reaction Date of Last Stent Placement:: 12/2018 Past Psychological History: No Psychological Hx Reported Smoking Status: Never smoker Past Alcohol Use History: None Reported Past Drug Use History: None Reported - Past Family History Mother Family Medical History: Osteoarthritis (OA) Additional Family Medical History / Comment(s): djd; at 69 Father Family Medical History: CVA/TIA Additional Family Medical History / Comment(s): age 84 General Exam - General Exam Comments Initial Comments: GENERAL: Patient is well-developed and well-nourished. Patient is nontoxic and well- hydrated and is in mild distress. ENT: Neck is soft and supple. No significant lymphadenopathy is noted. Oropharynx is clear. Moist mucous membranes. Neck has full range of motion without eliciting any pain. EYES: The sclera were anicteric and conjunctiva were pink and moist. Extraocular movements were intact and pupils were equal round and reactive to light. Eyelids were unremarkable. PULMONARY: Unlabored respirations. Good breath sounds bilaterally. No audible rales rhonchi or wheezing was noted. CARDIOVASCULAR: Patient is tachycardic at about 110 beats a minute ABDOMEN: Soft and nontender with normal bowel sounds. No palpable organomegaly was noted. There is no palpable pulsatile mass. SKIN: Skin is clear with no lesions or rashes and otherwise unremarkable. NEUROLOGIC: Patient is alert and oriented x3. Cranial nerves II through XII are grossly intact. Motor and sensory are also intact. Normal speech, volume and content. Symmetrical smile. MUSCULOSKELETAL: Normal extremities with adequate strength and full range of motion. 1+ edema bilaterally LYMPHATICS: No significant lymphadenopathy is noted PSYCHIATRIC: Normal psychiatric evaluation. Limitations: no limitations Course Vital Signs 06/30/23 06/30/23 06/30/23 10:08 10:45 13:25 Temperature 97.5 F L Pulse Rate 121 H 107 H 118 H Respiratory 24 22 18 Rate Blood Pressure 161/108 155/121 140/105 O2 Sat by Pulse 94 L 95 95 Oximetry Medical Decision Making - Medical Decision Making EKG is interpreted by myself. EKG shows atrial fibrillation with rapid ventricular response at 102 bpm QRS is 124 QT interval 376 QTc is 435. Patient's EKG shows no ST segment elevation or depression. Was pt. sent in by a medical professional or institution (, PA, [facility], urgent care, hospital, or half-way...) When possible be specific @ -No Did you speak to anyone other than the patient for history (EMS, parent, family, police, friend...)? What history was obtained from this source @ -No Did you review nursing and triage notes (agree or disagree)? Why? @ -I reviewed and agree with nursing and triage notes Were old charts reviewed (outside hosp., previous admission, EMS record, old EKG, old radiological studies, urgent care reports/EKG's, half-way records)? Report findings @ -I reviewed prior chest x-ray compared to 3 chest x-ray today shows considerably more pulmonary edema. Differential Diagnosis (chest pain, altered mental status, abdominal pain women, abdominal pain men, vaginal bleeding, weakness, fever, dyspnea, syncope, headache, dizziness, GI bleed, back pain, seizure, CVA, palpatations, mental health, musculoskeletal)? @ -Differential Dyspnea: Coronary syndrome, arrhythmia, tamponade, asthma, COPD, pulmonary embolism, pneumonia, pneumothorax, pulmonary effusion, anaphylaxis, diabetic ketoacidosis, flailed chest, pulmonary contusion, diaphragmatic rupture, anemia, neuromuscular, this is not meant to be an all-inclusive list. Differential Chest Pain: Stable Angina, Unstable Angina, STEMI, NSTEMI Aortic Dissection, Pneumothorax, Musculoskeletal, Esophageal Spasm GERD, Cholecystitis, Pancreatitis, Zoster, this is not meant to be an all-inclusive list. EKG interpreted by me (3pts min.). @ -As above X-rays interpreted by me (1pt min.). @ -Chest x-ray shows pulmonary edema CT interpreted by me (1pt min.). @ -None done U/S interpreted by me (1pt. min.). @ -None done What testing was considered but not performed or refused? (CT, X-rays, U/S, labs)? Why? @ -None What meds were considered but not given or refused? Why? @ -None Did you discuss the management of the patient with other professionals (professionals i.e. , PA, [facility]ER, lab, RT, psych nurse, social group worker, industrial servicer, teacher, rating officer, case fitter)? Give summary @ -I spoke with [facility] hospitalist and they agreed to admit the patient admit the patient wrote admitting orders Was smoking cessation discussed for >3mins.? @ -No Was critical care preformed (if so, how long)? @ -No Were there social determinants of health that impacted care today? How? (Homelessness, low income, unemployed, alcoholism, drug addiction, transportation, low edu. Level, literacy, decrease access to med. care, skilled nursing, rehab)? @ -No Was there de-escalation of care discussed even if they declined (Discuss DNR or withdrawal of care, Hospice)? DNR status @ -No What co-morbidities impacted this encounter? (DM, HTN, Smoking, COPD, CAD, Cancer, CVA, ARF, Chemo, Hep., AIDS, mental health diagnosis, sleep apnea, morbid obesity)? @ -None Was patient admitted / discharged? Hospital course, mention meds given and route, prescriptions, significant lab abnormalities, going to OR and other pertinent info. @ -Patient received Lasix and Nitropaste in the emergency department. [facility] Continue Lasix on the floor. Undiagnosed new problem with uncertain prognosis? @ -No Drug Therapy requiring intensive monitoring for toxicity (Heparin, Nitro, Insulin, Cardizem)? @ -No Were any procedures done? @ -No Diagnosis/symptom? @ -Acute pulmonary edema Acute, or Chronic, or Acute on Chronic? @ -Acute Uncomplicated (without systemic symptoms) or Complicated (systemic symptoms)? @ -Complicated Side effects of treatment? @ -No Exacerbation, Progression, or Severe Exacerbation? @ -No Poses a threat to life or bodily function? How? (Chest pain, USA, AK, pneumonia, PE, COPD, DKA, ARF, appy, cholecystitis, CVA, Diverticulitis, Homicidal, Suicidal, threat to staff... and all critical care pts) @ -Yes this can lead to hypoxia and endorgan dysfunction - Lab Data Result diagrams: 06/30/23 10:36 06/30/23 10:36 Lab Results 06/30/23 06/30/23 06/30/23 Range/Units 10:36 10:36 10:36 WBC 9.1 (3.8-10.6) k/uL RBC 5.08 (3.80-5.40) m/uL Hgb 14.6 (11.4-16.0) gm/dL Hct 48.2 H (34.0-46.0) % MCV 94.8 (80.0-100.0) fL MCH 28.8 (25.0-35.0) pg MCHC 30.4 L (31.0-37.0) g/dL RDW 16.7 H (11.5-15.5) % Plt Count 192 (150-450) k/uL MPV 9.0 Neutrophils % 76 % Lymphocytes % 13 % Monocytes % 7 % Eosinophils % 3 % Basophils % 1 % Neutrophils # 6.9 (1.3-7.7) k/uL Lymphocytes # 1.1 (1.0-4.8) k/uL Monocytes # 0.6 (0-1.0) k/uL Eosinophils # 0.2 (0-0.7) k/uL Basophils # 0.0 (0-0.2) k/uL Hypochromasia Moderate Anisocytosis Slight PT 11.4 (10.0-12.5) sec INR 1.0 (<1.2) APTT 30.2 H (22.0-30.0) sec Sodium 138 (137-145) mmol/L Potassium 4.6 (3.5-5.1) mmol/L Chloride 107 (98-107) mmol/L Carbon Dioxide 22 (22-30) mmol/L Anion Gap 9 mmol/L BUN 19 H (7-17) mg/dL Creatinine 1.40 H (0.52-1.04) mg/dL Est GFR (CKD-EPI)AfAm 39 (>60 ml/min/1.73 sqM) Est GFR (CKD-EPI)NonAf 34 (>60 ml/min/1.73 sqM) Glucose 164 H (74-99) mg/dL Plasma Lactic Acid Christiano (0.7-2.0) mmol/L Calcium 9.0 (8.4-10.2) mg/dL Magnesium 1.9 (1.6-2.3) mg/dL Total Bilirubin 1.3 (0.2-1.3) mg/dL AST 26 (14-36) U/L ALT 29 (4-34) U/L Alkaline Phosphatase 85 (38-126) U/L Troponin I (0.000-0.034) ng/mL NT-Pro-B Natriuret Pep 8660 pg/mL Total Protein 6.8 (6.3-8.2) g/dL Albumin 4.1 (3.5-5.0) g/dL 06/30/23 06/30/23 Range/Units 10:36 10:36 WBC (3.8-10.6) k/uL RBC (3.80-5.40) m/uL Hgb (11.4-16.0) gm/dL Hct (34.0-46.0) % MCV (80.0-100.0) fL MCH (25.0-35.0) pg MCHC (31.0-37.0) g/dL RDW (11.5-15.5) % Plt Count (150-450) k/uL MPV Neutrophils % % Lymphocytes % % Monocytes % % Eosinophils % % Basophils % % Neutrophils # (1.3-7.7) k/uL Lymphocytes # (1.0-4.8) k/uL Monocytes # (0-1.0) k/uL Eosinophils # (0-0.7) k/uL Basophils # (0-0.2) k/uL Hypochromasia Anisocytosis PT (10.0-12.5) sec INR (<1.2) APTT (22.0-30.0) sec Sodium (137-145) mmol/L Potassium (3.5-5.1) mmol/L Chloride (98-107) mmol/L Carbon Dioxide (22-30) mmol/L Anion Gap mmol/L BUN (7-17) mg/dL Creatinine (0.52-1.04) mg/dL Est GFR (CKD-EPI)AfAm (>60 ml/min/1.73 sqM) Est GFR (CKD-EPI)NonAf (>60 ml/min/1.73 sqM) Glucose (74-99) mg/dL Plasma Lactic Acid Christiano 1.1 (0.7-2.0) mmol/L Calcium (8.4-10.2) mg/dL Magnesium (1.6-2.3) mg/dL Total Bilirubin (0.2-1.3) mg/dL AST (14-36) U/L ALT (4-34) U/L Alkaline Phosphatase (38-126) U/L Troponin I <0.012 (0.000-0.034) ng/mL NT-Pro-B Natriuret Pep pg/mL Total Protein (6.3-8.2) g/dL Albumin (3.5-5.0) g/dL Disposition Clinical Impression: Acute pulmonary edema Disposition: ADMITTED IP TO THIS HOSP Referrals: Noel Diehl DO [Primary Care Provider] - 1-2 days Time of Disposition: 13:38
[2023-06-30 10:41] LABS: Anisocytosis Slight; Basophils % (A) 1 %; Eosinophils # (A) 0.2 k/uL (0-0.7); Eosinophils % (A) 3 %; HCT 48.2 % (34.0-46.0); HGB 14.6 gm/dL (11.4-16.0); Hypochromasia Moderate; Lymphocytes # (A) 1.1 k/uL (1.0-4.8); Lymphocytes % (A) 13 %; MCH 28.8 pg (25.0-35.0); MCHC 30.4 g/dL (31.0-37.0); MCV 94.8 fL (80.0-100.0); Monocytes # (A) 0.6 k/uL (0-1.0); Monocytes % (A) 7 %; Neutrophils # (A) 6.9 k/uL (1.3-7.7); Neutrophils % (A) 76 %; Platelet Count 192 k/uL (150-450); RBC 5.08 m/uL (3.80-5.40); RDW 16.7 % (11.5-15.5); WBC 9.1 k/uL (3.8-10.6)
[2023-06-30] MEDS: ASPIRIN 81 MG PO STA (10:48)
[2023-06-30] MEDS: FUROSEMIDE 10 MG/ML 4 ML VIAL IV STA (10:48)
[2023-06-30] MEDS: NITROGLYCERIN OINT 1 INCH/GM PACKET TOPICAL STA (10:48)
--- NOTE | 2023-06-30 10:49 | XR ---
EXAMINATION TYPE: XR chest 2V DATE OF EXAM: 06/30/2023 COMPARISON: 06/06/2023 HISTORY: Difficulty breathing TECHNIQUE: Frontal and lateral views of the chest are obtained. FINDINGS: There is moderate cardiomegaly but no pulmonary vascular congestion or pulmonary edema. There is no a irspace consolidation. There are small bilateral pleural effusions. There is no pneumothorax. The osseous structures are intact IMPRESSION: Moderate cardiomegaly with small bilateral pleural effusions most consistent with mild C HF.
[2023-06-30 10:52] LABS: ALT 29 U/L (4-34); AST 26 U/L (14-36); African American GFR (CKD) 39 (>60 ml/min/1.73 sqM); Albumin 4.1 g/dL (3.5-5.0); Alkaline Phosphatase 85 U/L (38-126); Anion Gap 9 mmol/L; Blood Urea Nitrogen 19 mg/dL (7-17); Carbon Dioxide 22 mmol/L (22-30); Chloride 107 mmol/L (98-107); Glucose 164 mg/dL (74-99); Magnesium 1.9 mg/dL (1.6-2.3); Non-African American GFR(CKD) 34 (>60 ml/min/1.73 sqM); Potassium 4.6 mmol/L (3.5-5.1); Sodium 138 mmol/L (137-145); Total Bilirubin 1.3 mg/dL (0.2-1.3); Total Protein 6.8 g/dL (6.3-8.2)
[2023-06-30 11:01] LABS: NT-Pro-B-Type Natriuretic Pept 8660 pg/mL
[2023-06-30 11:06] LABS: Partial Thromboplastin Time 30.2 sec (22.0-30.0); Prothrombin Time 11.4 sec (10.0-12.5)
[2023-06-30] MEDS ORDERED: ACETAMINOPHEN TAB 325 MG TAB PO PRN (13:26)
[2023-06-30] MEDS ORDERED: NALOXONE 0.4 MG/ML 1 ML VIAL IV PRN (13:26)
[2023-06-30] MEDS ORDERED: MAG HYDROX/AL HYDROX/SIMETH 30 ML CUP PO PRN (13:26)
[2023-06-30] MEDS ORDERED: traMADol 50 MG TAB PO PRN (13:26)
[2023-06-30] MEDS ORDERED: MELATONIN 3 MG TABLET PO PRN (13:26)
[2023-06-30] MEDS ORDERED: ONDANSETRON 4 MG/2 ML VIAL IVP PRN (13:26)
[2023-06-30] MEDS ORDERED: BENZOCAINE/MENTHOL LOZENG 1 EACH LOZENGE MUCOUS MEM PRN (13:26)
--- NOTE | 2023-06-30 13:30 | P.HPIM ---
History of Present Illness H&P Date: 06/30/23 History of present illness; patient 87-year-old lady with past medical history significant for paroxysmal atrial fibrillation, hypertension, hyperlipidemia coronary artery disease with previous stent, cardiomyopathy, presented to ER because of worsening shortness of breath for the last few days. Patient was admitted in the hospital a month ago at which time patient had 2D echo done during last visit that showed LVEF of 3035%, enlarged atria, mild mitral and tricuspid regurg, no pericardial effusion, patient was discharged on losartan, Lopressor. Patient states that ever since her discharge she has been having intermittent shortness of breath. Shortness of breath present on rest and on exertion. Patient did mention that over the last 2 days her shortness of breath worsened. Patient also complaining of chest pressure that was central in location. Patient also complaining of orthopnea and PND. Patient also complaining of swelling of feet. Because of these worsening symptoms, patient came to the ER Initial lab work done in the ER showed WBC 9.1, hemoglobin 14.3, platelet count 192, sodium 138, potassium 4.6, BUN 19, creatinine 1.40, glucose 164, calcium 9, magnesium 1.9, bilirubin 1.3 troponin 0.012, proBNP 8660 EKG done in the ER showed heart rate of 102, irregular rhythm, no P waves, no ST segment elevation or depression seen, no T-wave inversions seen. Chest x-ray done in the ER showed moderate cardiomegaly with small bilateral pleural effusion, most consistent with mild CHF Patient admitted to internal medicine service REVIEW OF SYSTEMS: CONSTITUTIONAL: No fever, no malaise, no fatigue. HEENT: No recent visual problems or hearing problems. Denied any sore throat. CARDIOVASCULAR: As mentioned above PULMONARY: As mentioned above GASTROINTESTINAL: No diarrhea, no nausea, no vomiting, no abdominal pain. NEUROLOGICAL: No headaches, no weakness, no numbness. HEMATOLOGICAL: Denies any bleeding or petechiae. GENITOURINARY: Denies any burning micturition, frequency, or urgency. MUSCULOSKELETAL/RHEUMATOLOGICAL: Denies any joint pain, swelling, or any muscle pain. ENDOCRINE: Denies any polyuria or polydipsia. The rest of the 14-point review of systems is negative. PHYSICAL EXAMINATION: GENERAL: The patient is alert and oriented x3, not in any acute distress. Well developed, well nourished. HEENT: Pupils are round and equally reacting to light. EOMI. No scleral icterus. No conjunctival pallor. Normocephalic, atraumatic. No pharyngeal erythema. No thyromegaly. CARDIOVASCULAR: S1 and S2 present. No murmurs, rubs, or gallops. PULMONARY: Chest is clear to auscultation, basal crackles audible ABDOMEN: Distended, nontender normoactive bowel sounds. No palpable organomegaly. MUSCULOSKELETAL: 1+ pitting edema lower extremities bilaterally EXTREMITIES: No cyanosis, clubbing NEUROLOGICAL: Gross neurological examination did not reveal any focal deficits. SKIN: No rashes. Assessment and plan Acute on chronic systolic CHF Paroxysmal atrial fibrillation presenting with RVR Ischemic cardiomyopathy Hypertension Hyperlipidemia Coronary artery disease with previous stenting Allergic reaction to Definity Monitor vital signs Monitor CBC Monitor CMP Continue telemetry monitoring Trend troponin Strict I's and O's, daily weights Start IV Lasix 20 mg every 12. Patient recent 2D echo done, no need to repeat echo. Resume amiodarone Resume Eliquis resume Lipitor Consult cardiology Labs and medication were reviewed.. Continue same treatment. Continue with symptomatic treatment. Resume home medication. Monitor labs and vitals. DVT and GI prophylaxis. Further recommendations as per clinical course of the patient Dictation was produced using [employer] dictation software. please excuse any grammatical, word or spelling errors. Past Medical History Past Medical History: Atrial Fibrillation, Coronary Artery Disease (CAD), Heart Failure, Hypertension, Myocardial Infarction (VT), Osteoarthritis (OA), Renal Disease Additional Past Medical History / Comment(s): Pt admitted to [facility] on 03/10/20 with paroxysmal A fib, chf, acute renal failure. Other hx: Paroxysmal Afib, afib rvr, arthritis in multiple joints, VT in 2015/2018 per past medical record but pt was not aware. Last Myocardial Infarction Date:: 2019 History of Any Multi-Drug Resistant Organisms: None Reported Past Surgical History: Cholecystectomy, Heart Catheterization With Stent, Hysterectomy, Orthopedic Surgery Additional Past Surgical History / Comment(s): 2019 PCI with stent, total R hip arthroplasty, R carpal tunnel release, bilateral cataract removals. Past Anesthesia/Blood Transfusion Reactions: No Reported Reaction Date of Last Stent Placement:: 12/2018 Past Psychological History: No Psychological Hx Reported Smoking Status: Never smoker Past Alcohol Use History: None Reported Past Drug Use History: None Reported - Past Family History Mother Family Medical History: Osteoarthritis (OA) Additional Family Medical History / Comment(s): djd; at 69 Father Family Medical History: CVA/TIA Additional Family Medical History / Comment(s): age 84 Medications and Allergies Home Medications Medication Instructions Recorded Confirmed Type Apixaban [Eliquis] 5 mg PO BID #60 tab 06/09/23 06/30/23 Rx Artificial Tears-Hypromellose 1 drops BOTH EYES Q4H PRN ml 06/09/23 06/30/23 Rx [Artificial Tear Drops] Atorvastatin [Lipitor] 40 mg PO HS #30 tab 06/09/23 06/30/23 Rx Losartan [Cozaar] 25 mg PO DAILY #30 tab 06/09/23 06/30/23 Rx Amiodarone [Cordarone] 200 mg PO BID 06/30/23 06/30/23 History dilTIAZem HCL 30 mg PO DIRECTED 06/30/23 06/30/23 History Allergies Allergy/AdvReac Type Severity Reaction Status Date / Time diltiazem [From Cardizem] Allergy Rash/Hives Verified 06/30/23 11:45 perflutren [From Definity] AdvReac Dyspnea Verified 06/30/23 11:45 Physical Exam Vitals: Vital Signs Temp Pulse Resp BP Pulse Ox 06/30/23 10:45 107 H 22 155/121 95 06/30/23 10:08 97.5 F L 121 H 24 161/108 94 L Intake and Output 06/29/23 06/30/23 06/30/23 22:59 06:59 14:59 Other: Weight 72.575 kg Results CBC & Chem 7: 06/30/23 10:36 06/30/23 10:36 Labs: Abnormal Lab Results - Last 24 Hours (Table) 06/30/23 06/30/23 06/30/23 Range/Units 10:36 10:36 10:36 Hct 48.2 H (34.0-46.0) % MCHC 30.4 L (31.0-37.0) g/dL RDW 16.7 H (11.5-15.5) % APTT 30.2 H (22.0-30.0) sec BUN 19 H (7-17) mg/dL Creatinine 1.40 H (0.52-1.04) mg/dL Glucose 164 H (74-99) mg/dL
[2023-06-30] MEDS: AMIODARONE 200 MG TAB PO SCH (15:11)
[2023-06-30] MEDS: ATORVASTATIN 40 MG TAB PO SCH (22:06)
[2023-06-30] MEDS: APIXABAN 5 MG TAB PO SCH (22:06)
[2023-06-30] MEDS: FUROSEMIDE 10 MG/ML 2 ML VIAL IV SCH (22:06)
[2023-07-01] MEDS: LOSARTAN 25 MG TAB PO SCH (03:51)
[2023-07-01] MEDS: METOPROLOL TARTRATE 50 MG TAB PO SCH (08:11)
[2023-07-01 08:13] LABS: Anisocytosis Slight; Basophils % (A) 1 %; Eosinophils # (A) 0.3 k/uL (0-0.7); Eosinophils % (A) 4 %; HCT 47.4 % (34.0-46.0); HGB 14.6 gm/dL (11.4-16.0); Hypochromasia Slight; Lymphocytes # (A) 1.3 k/uL (1.0-4.8); Lymphocytes % (A) 16 %; MCH 28.9 pg (25.0-35.0); MCHC 30.8 g/dL (31.0-37.0); MCV 93.9 fL (80.0-100.0); Mean Platelet Volume 8.5; Monocytes # (A) 0.7 k/uL (0-1.0); Monocytes % (A) 8 %; Neutrophils # (A) 5.7 k/uL (1.3-7.7); Neutrophils % (A) 70 %; Platelet Count 183 k/uL (150-450); RBC 5.04 m/uL (3.80-5.40); RDW 16.6 % (11.5-15.5); WBC 8.1 k/uL (3.8-10.6)
[2023-07-01 08:35] LABS: ALT 25 U/L (4-34); AST 25 U/L (14-36); African American GFR (CKD) 35 (>60 ml/min/1.73 sqM); Albumin 3.7 g/dL (3.5-5.0); Alkaline Phosphatase 90 U/L (38-126); Anion Gap 8 mmol/L; Blood Urea Nitrogen 22 mg/dL (7-17); Calcium 8.8 mg/dL (8.4-10.2); Carbon Dioxide 28 mmol/L (22-30); Chloride 103 mmol/L (98-107); Glucose 147 mg/dL (74-99); Non-African American GFR(CKD) 30 (>60 ml/min/1.73 sqM); Sodium 139 mmol/L (137-145); Total Bilirubin 1.2 mg/dL (0.2-1.3); Total Protein 6.4 g/dL (6.3-8.2)
[2023-07-01] MEDS: DAPAGLIFLOZIN PROPANEDIOL 10 MG TABLET PO SCH (09:55)
[2023-07-01] MEDS: SPIRONOLACTONE 25 MG TAB PO SCH (09:55)
--- NOTE | 2023-07-01 12:41 | P.CRDCN ---
History of Present Illness Consult date: 07/01/23 Consult reason: congestive heart failure History of present illness: This is an 87-year-old female patient of Dr. Consuelo Contreras with past medical history of paroxysmal atrial fibrillation, hypertension, hyperlipidemia coronary artery disease with previous stent. We have been asked to evaluate the patient for CHF. Patient had a recent hospitalization in May for A-fib with RVR. She had a follow-up visit with Dr. Beckford in the office on 06/11 at which time she was in atrial fibrillation with concerns for shortness of breath with activity probably related to the atrial fibrillation. Patient was started on amiodarone and metoprolol dose was decreased from 150 twice a day to 50 mg twice daily. A prescription for Cardizem 30 mg 3 times daily was also sent to the patient's pharmacy and she picked it up but she did not start taking it. She did start taking the amiodarone and thought that it was making her ill because every time she took it she felt unwell. Patient was to have follow-up in the office in 6 weeks and possible cardioversion if needed at that time. Patient presented to the hospital because she states her blood pressure and heart rate were high. She also had pressure in the chest which she has not had before. She feels fine now. She states she has had a chest cold and cough that started about 3 weeks ago. No lower extremity edema. Chest pressure is gone. Patient is status post 1 dose of IV Lasix followed by Lasix 20 mg every 12 hours. Patient has refused to take amiodarone last evening and this morning. EKG atrial fibrillation at a ventricular rate of 102 bpm Chest x-ray: Moderate cardiomegaly with small bilateral pleural effusions most consistent with mild CHF. Echocardiogram performed on 06/07/2023 reveals EF of 30 to 35%. Enlarged atria, mild mitral and tricuspid regurgitation. No pulmonary hypertension. Laboratory studies: WBC 9.1, hemoglobin 14.6. Electrolytes are within normal limits. BUN 19, creatinine 1.4. Troponin negative x 3. proBNP 8660. Home cardiac medications: Amiodarone 200 mg twice daily, Eliquis 5 mg twice daily, atorvastatin 40 mg at bedtime, diltiazem 30 mg not taking due to hives, losartan 25 mg daily. Electrocardioversion performed on 04/06/2020 at 200 J TANYA performed 11/21/2021 to rule out intracardiac thrombus prior to cardioversion revealed a left atrial appendage thrombus and cardioversion was canceled. Cardiac catheterization performed 03/10/2020 revealed patent stent within the LAD. Mild nonobstructive coronary artery disease involving the circumflex coronary artery and right coronary artery. Review Of Systems: At the time of my exam: CONSTITUTIONAL: Denies fever or chills. HEENT: Denies blurred vision, vision changes, or eye pain. Denies hemoptysis CARDIOVASCULAR: Denies chest pain. Denies orthopnea. Denies PND. Denies palpitations RESPIRATORY: Denies shortness of breath. Denies cough. GASTROINTESTINAL: Denies abdominal pain. Denies nausea or vomiting. HEMATOLOGIC: Denies bleeding disorders. GENITOURINARY: Denies any blood in urine. SKIN: Denies pruitis. Denies rash. Physical examination: Gen: This is an 87-year-old female in no acute distress VS: reviewed: Blood pressure 130/101, heart rate 130, pulse ox 94% on room air.. HEENT: Head is atraumatic, normocephalic. Pupils equal, round. Sclerae is anicteric. NECK: Supple. No JVD. LUNGS: Diminished breath sounds. No intercostal retractions. HEART: Irregular rate and rhythm. No murmur. ABDOMEN: Soft No tenderness. EXTREMITIES: Minimal discontinue Cardizem pedal edema. No calf tenderness. NEUROLOGICAL: Patient is awake, alert and oriented x3. Assessment: Paroxysmal atrial fibrillation presenting with RVR Acute on chronic systolic heart failure Ischemic cardiomyopathy Hypertension Hyperlipidemia Coronary artery disease with previous stenting Allergic reaction to Definity Plan: Resume patient's home cardiac medications with the following changes Increase metoprolol to 100 mg twice daily Discontinue amiodarone as patient is refusing to take it Start patient on Farxiga 10 mg daily and Aldactone 25 mg daily No need to repeat echocardiogram as this was done in May Continue IV Lasix 20 mg every 12 hours Monitor ZINA, daily weights, electrolytes and renal function Monitor patient's heart rate and blood pressure Further recommendations to follow based upon clinical course Thank you kindly for this consultation. Nurse practitioner note has been reviewed, I agree with documented findings and plan of care. Patient was seen and examined. Past Medical History Past Medical History: Atrial Fibrillation, Coronary Artery Disease (CAD), Heart Failure, Hypertension, Myocardial Infarction ([place]), Osteoarthritis (OA), Renal Disease Additional Past Medical History / Comment(s): Pt admitted to [facility] on 03/10/20 with paroxysmal A fib, chf, acute renal failure. Other hx: Paroxysmal Afib, afib rvr, arthritis in multiple joints, [place] in 2015/2018 per past medical record but pt was not aware. Last Myocardial Infarction Date:: 2018 History of Any Multi-Drug Resistant Organisms: None Reported Past Surgical History: Cholecystectomy, Heart Catheterization With Stent, Hysterectomy, Orthopedic Surgery Additional Past Surgical History / Comment(s): 2019 PCI with stent, total R hip arthroplasty, R carpal tunnel release, bilateral cataract removals. Past Anesthesia/Blood Transfusion Reactions: No Reported Reaction Date of Last Stent Placement:: 12/2018 Past Psychological History: No Psychological Hx Reported Smoking Status: Never smoker Past Alcohol Use History: None Reported Past Drug Use History: None Reported - Past Family History Mother Family Medical History: Osteoarthritis (OA) Additional Family Medical History / Comment(s): djd; at 69 Father Family Medical History: CVA/TIA Additional Family Medical History / Comment(s): age 84 Medications and Allergies Home Medications Medication Instructions Recorded Confirmed Type Apixaban [Eliquis] 5 mg PO BID #60 tab 06/09/23 06/30/23 Rx Artificial Tears-Hypromellose 1 drops BOTH EYES Q4H PRN ml 06/09/23 06/30/23 Rx [Artificial Tear Drops] Atorvastatin [Lipitor] 40 mg PO HS #30 tab 06/09/23 06/30/23 Rx Losartan [Cozaar] 25 mg PO DAILY #30 tab 06/09/23 06/30/23 Rx Amiodarone [Cordarone] 200 mg PO BID 06/30/23 06/30/23 History dilTIAZem HCL 30 mg PO DIRECTED 06/30/23 06/30/23 History Allergies Allergy/AdvReac Type Severity Reaction Status Date / Time diltiazem [From Cardizem] Allergy Rash/Hives Verified 06/30/23 11:45 perflutren [From Definity] AdvReac Dyspnea Verified 06/30/23 11:45 Physical Exam Vitals: Vital Signs Temp Pulse Resp BP Pulse Ox 07/01/23 07:32 130 H 18 130/101 07/01/23 06:36 97.8 F 116 H 16 130/111 94 L 05/06/24 06:04 124 H 14 138/106 07/01/23 05:00 125 H 16 144/117 98 07/01/23 03:41 108 H 16 142/123 96 07/01/23 02:00 97.7 F 112 H 16 141/106 94 L 07/01/23 01:50 116 H 16 06/30/23 23:56 118 H 16 96 06/30/23 21:42 98.7 F 106 H 19 135/79 96 06/30/23 18:30 118 H 16 134/88 94 L 06/30/23 15:11 120 H 20 132/119 96 06/30/23 13:25 118 H 18 140/105 95 06/30/23 11:00 22 06/30/23 10:45 107 H 22 155/121 95 06/30/23 10:08 97.5 F L 121 H 24 161/108 94 L Intake and Output 06/30/23 07/01/23 07/01/23 22:59 06:59 14:59 Output Total 800 1250 Balance -800 -1250 Output: Urine 800 1250 Other: # Voids 2 Results 07/01/23 07:25 07/01/23 07:25 Cardiac Enzymes 06/30/23 06/30/23 06/30/23 Range/Units 10:36 10:36 14:33 AST 26 (14-36) U/L Troponin I <0.012 <0.012 (0.000-0.034) ng/mL 06/30/23 Range/Units 17:28 AST (14-36) U/L Troponin I <0.012 (0.000-0.034) ng/mL Coagulation 06/30/23 Range/Units 10:36 PT 11.4 (10.0-12.5) sec APTT 30.2 H (22.0-30.0) sec CBC 06/30/23 Range/Units 10:36 WBC 9.1 (3.8-10.6) k/uL RBC 5.08 (3.80-5.40) m/uL Hgb 14.6 (11.4-16.0) gm/dL Hct 48.2 H (34.0-46.0) % Plt Count 192 (150-450) k/uL Comprehensive Metabolic Panel 06/30/23 Range/Units 10:36 Sodium 138 (137-145) mmol/L Potassium 4.6 (3.5-5.1) mmol/L Chloride 107 (98-107) mmol/L Carbon Dioxide 22 (22-30) mmol/L BUN 19 H (7-17) mg/dL Creatinine 1.40 H (0.52-1.04) mg/dL Glucose 164 H (74-99) mg/dL Calcium 9.0 (8.4-10.2) mg/dL AST 26 (14-36) U/L ALT 29 (4-34) U/L Alkaline Phosphatase 85 (38-126) U/L Total Protein 6.8 (6.3-8.2) g/dL Albumin 4.1 (3.5-5.0) g/dL Current Medications Generic Name Dose Route Start Last Admin Trade Name Freq PRN Reason Stop Dose Admin Acetaminophen 650 mg 06/30/23 13:26 Acetaminophen Tab 325 Mg Tab PO Q6HR PRN Mild Pain or Fever > 100.5 Al Hydroxide/Mg Hydroxide 15 ml 06/30/23 13:26 Mag Hydrox/Al Hydrox/Simeth 30 Ml Cup PO Q6HR PRN Indigestion Amiodarone HCl 200 mg 06/30/23 13:30 06/30/23 22:05 Amiodarone 200 Mg Tab PO Not Given BID WILFRED Apixaban 5 mg 06/30/23 21:00 06/30/23 22:06 Apixaban 5 Mg Tab PO 5 mg BID WILFRED Administration Protocol Atorvastatin Calcium 40 mg 06/30/23 21:00 06/30/23 22:06 Atorvastatin 40 Mg Tab PO 40 mg HS WILFRED Administration Benzocaine/Menthol 1 each 06/30/23 13:26 Benzocaine/Menthol Lozeng 1 Each Lozenge MUCOUS MEM Q4HR PRN Sore Throat Furosemide 20 mg 06/30/23 21:00 06/30/23 22:06 Furosemide 10 Mg/Ml 2 Ml Vial IV 20 mg Q12HR WILFRED Administration Losartan Potassium 25 mg 07/01/23 09:00 07/01/23 03:51 Losartan 25 Mg Tab PO 25 mg DAILY WILFRED Administration Melatonin 3 mg 06/30/23 13:26 Melatonin 3 Mg Tablet PO HS PRN Insomnia Naloxone HCl 0.2 mg 06/30/23 13:26 Naloxone 0.4 Mg/Ml 1 Ml Vial IV Q2M PRN Opioid Reversal Ondansetron HCl 4 mg 06/30/23 13:26 Ondansetron 4 Mg/2 Ml Vial IVP Q8HR PRN Nausea And Vomiting Tramadol HCl 50 mg 06/30/23 13:26 Tramadol 50 Mg Tab PO Q6H PRN Moderate Pain (Scale 4 to 6) Intake and Output 06/30/23 07/01/23 07/01/23 22:59 06:59 14:59 Output Total 800 1250 Balance -800 -1250 Output: Urine 800 1250 Other: # Voids 2 06/30/23 10:36 06/30/23 10:36
--- NOTE | 2023-07-01 14:55 | P.PN ---
Subjective Progress Note Date: 07/01/23 History of present illness; patient 87-year-old lady with past medical history significant for paroxysmal atrial fibrillation, hypertension, hyperlipidemia coronary artery disease with previous stent, cardiomyopathy, presented to ER because of worsening shortness of breath for the last few days. Patient was admitted in the hospital a month ago at which time patient had 2D echo done during last visit that showed LVEF of 3035%, enlarged atria, mild mitral and tricuspid regurg, no pericardial effusion, patient was discharged on losartan, Lopressor. Patient states that ever since her discharge she has been having intermittent shortness of breath. Shortness of breath present on rest and on exertion. Patient did mention that over the last 2 days her shortness of breath worsened. Patient also complaining of chest pressure that was central in location. Patient also complaining of orthopnea and PND. Patient also complaining of swelling of feet. Because of these worsening symptoms, patient came to the ER Initial lab work done in the ER showed WBC 9.1, hemoglobin 14.3, platelet count 192, sodium 138, potassium 4.6, BUN 19, creatinine 1.40, glucose 164, calcium 9, magnesium 1.9, bilirubin 1.3 troponin 0.012, proBNP 8660 EKG done in the ER showed heart rate of 102, irregular rhythm, no P waves, no ST segment elevation or depression seen, no T-wave inversions seen. Chest x-ray done in the ER showed moderate cardiomegaly with small bilateral pleural effusion, most consistent with mild CHF 07/01/2023 Patient is seen in follow-up today being followed by cardiology for atrial fibrillation with RVR. Patient reports she has a history of atrial fibrillation and reporting having some increasing shortness of breath and BNP was found to be 8600. Patient was started on low-dose IV Lasix and closely monitoring kidney functions. Creatinine mildly elevated at 1.5 and baseline is around 1.3-1.5. 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 Patient reports feeling abdominal fullness. Patient reports has been up and walking to the bathroom with no difficulties. Patient denies any chest pain and troponins x 3 have been negative. Most recent 2D echo was just done in the beginning of May which showed a reduced EF of 30 to 35% with moderately increased septal wall thickness and mildly increased posterior wall thickness with global hypokinesia. Patient noted to have severe right atrial dilatation with severely increased left atrial volume and noted trace tricuspid regurgitation. Will continue IV Lasix and likely transition to oral Lasix with follow-up labs tomorrow. Awaiting cardiology evaluation. Review of systems: Constitutional: No reports of fatigue, fever, or chills Cardiovascular: No reports of chest pain or palpitations Respiratory: No reports of worsening shortness of breath GI: No reports of nausea, vomiting, or diarrhea : No reports of dysuria or retention Neurovascular: No reports of weakness or numbness All medications have been reviewed PHYSICAL EXAMINATION: GENERAL: The patient is alert and oriented x3, not in any acute distress. Well developed, well nourished. Elderly appearing, obese HEENT: Pupils are round and equally reacting to light. EOMI. No scleral icterus. No conjunctival pallor. Normocephalic, atraumatic. No pharyngeal erythema. No thyromegaly. CARDIOVASCULAR: S1 and S2 muffled, irregular PULMONARY: Chest is clear to auscultation, no crackles or wheezing noted ABDOMEN: Soft, distended, nontender normoactive bowel sounds. No palpable organomegaly. MUSCULOSKELETAL: 1+ pitting edema lower extremities bilaterally EXTREMITIES: No cyanosis, clubbing NEUROLOGICAL: Gross neurological examination did not reveal any focal deficits. SKIN: No rashes. Assessment: Acute on chronic systolic CHF, EF last month was 30 to 35% Paroxysmal atrial fibrillation presenting with RVR, currently rate controlled Ischemic cardiomyopathy Hypertension Hyperlipidemia Coronary artery disease with previous stenting Obesity with a body mass index of 30.2 GI prophylaxis DVT prophylaxis Full code Plan: Patient being followed by cardiology evaluated the 2D echo that was done last month and patient is maintained on IV Lasix low-dose twice daily. Current creatinine is 1.5 and will follow-up with repeat labs Amiodarone being discontinued as patient refuses to take it and metoprolol being adjusted. Continue telemetry monitoring and also adding Farxiga Will follow-up with repeat labs and discuss with cardiology regarding possible discharge planning in the next 24 hours Continue with anticoagulation per cardiology Possible discharge in 24 hours The impression and plan of care has been dictated by Ayanna Cuellar, Nurse Practitioner as directed. Dr. Liza MD I have performed a history and examination and MDM of this patient, discussed the same with the dictator, and agree with the dictator's assessment and plan as written ,documented as a scribe. Based on total visit time, I have performed more than 50% of the visit. Objective - Vital Signs Vital signs: Vital Signs Temp 97.8 F 07/01/23 06:36 Pulse 130 H 07/01/23 07:32 Resp 18 07/01/23 07:32 BP 130/101 07/01/23 07:32 Pulse Ox 94 L 07/01/23 06:36 FiO2 Intake & Output 06/30/23 07/01/23 07/01/23 18:59 06:59 18:59 Output Total 350 1700 Balance -350 -1700 Weight 72.575 kg Output: Urine 350 1700 Other: # Voids 2 - Labs CBC & Chem 7: 07/01/23 07:25 07/01/23 07:25 Labs: Abnormal Lab Results - Last 24 Hours (Table) 06/30/23 06/30/23 06/30/23 Range/Units 10:36 10:36 10:36 Hct 48.2 H (34.0-46.0) % MCHC 30.4 L (31.0-37.0) g/dL RDW 16.7 H (11.5-15.5) % APTT 30.2 H (22.0-30.0) sec BUN 19 H (7-17) mg/dL Creatinine 1.40 H (0.52-1.04) mg/dL Glucose 164 H (74-99) mg/dL 07/01/23 07/01/23 Range/Units 07:25 07:25 Hct 47.4 H (34.0-46.0) % MCHC 30.8 L (31.0-37.0) g/dL RDW 16.6 H (11.5-15.5) % APTT (22.0-30.0) sec BUN 22 H (7-17) mg/dL Creatinine 1.53 H (0.52-1.04) mg/dL Glucose 147 H (74-99) mg/dL
[2023-07-01 17:29] LABS: Chol/HDL Ratio 2.83 Ratio; LDL Cholesterol,Calculated 77.9 mg/dL (0.0-131.0); VLDL Calculation 19.08 mg/dL (5.00-40.00)
[2023-07-01] MEDS: APIXABAN 2.5 MG TABLET PO SCH (21:35)
--- NOTE | 2023-07-02 10:23 | P.PN ---
Subjective Progress Note Date: 07/02/23 Principal diagnosis: Heart failure The patient is a pleasant 87-year-old female patient with a past medical history significant for coronary artery disease with prior stenting and also ischemic cardiomyopathy as well as hypertension and dyslipidemia and paroxysmal atrial fibrillation was admitted to the hospital with heart failure with evidence of right and left failure and she was started on Lasix IV. July 02, 2023 The patient was seen and evaluated this morning. She is feeling better. The lower extremities edema has improved significantly. She continues to be on Lasix IV. Creatinine remains stable which she continues to be on oral anticoagulation and has been maintaining normal sinus mechanism. The examination is remarkable for regular rhythm with a systolic murmur and clear breathing sounds bilaterally and no edema was noted in the lower extremities Assessment Heart failure with systolic dysfunction Cardiomyopathy Coronary artery disease Multiple comorbid conditions Paroxysmal atrial fibrillation Plan Continue the Lasix IV for additional 24 hours Monitor the kidney function and electrolytes Possible discharge in the next 24 hours Continue oral anticoagulation Objective - Vital Signs Vital signs: Vital Signs Temp 98.2 F 07/02/23 07:24 Pulse 68 07/02/23 07:24 Resp 16 07/02/23 07:24 BP 145/82 07/02/23 07:24 Pulse Ox 95 07/02/23 09:13 FiO2 Intake & Output 07/01/23 07/02/23 07/02/23 18:59 06:59 18:59 Weight 70.5 kg Other: Voiding Method Toilet # Voids 2 - Labs CBC & Chem 7: 07/01/23 07:25 07/01/23 07:25
[2023-07-02 11:42] LABS: BUN/Creat Ratio 12.32 Ratio (12.00-20.00); Blood Urea Nitrogen 23.4 mg/dL (9.0-27.0); Calcium 9.1 mg/dL (8.7-10.3); Carbon Dioxide 30.5 mmol/L (21.6-31.8); Chloride 100 mmol/L (96-109); Glucose 151 mg/dL (70-110); Magnesium 2.2 mg/dL (1.5-2.4); Potassium 4.2 mmol/L (3.5-5.5); Sodium 142 mmol/L (135-145)
[2023-07-02 16:01] VITALS: BMI 29.3
--- NOTE | 2023-07-02 19:32 | P.PN ---
Subjective Progress Note Date: 07/02/23 History of present illness; patient 87-year-old lady with past medical history significant for paroxysmal atrial fibrillation, hypertension, hyperlipidemia coronary artery disease with previous stent, cardiomyopathy, presented to ER because of worsening shortness of breath for the last few days. Patient was admitted in the hospital a month ago at which time patient had 2D echo done during last visit that showed LVEF of 3035%, enlarged atria, mild mitral and tricuspid regurg, no pericardial effusion, patient was discharged on losartan, Lopressor. Patient states that ever since her discharge she has been having intermittent shortness of breath. Shortness of breath present on rest and on exertion. Patient did mention that over the last 2 days her shortness of breath worsened. Patient also complaining of chest pressure that was central in location. Patient also complaining of orthopnea and PND. Patient also complaining of swelling of feet. Because of these worsening symptoms, patient came to the ER Initial lab work done in the ER showed WBC 9.1, hemoglobin 14.3, platelet count 192, sodium 138, potassium 4.6, BUN 19, creatinine 1.40, glucose 164, calcium 9, magnesium 1.9, bilirubin 1.3 troponin 0.012, proBNP 8660 EKG done in the ER showed heart rate of 102, irregular rhythm, no P waves, no ST segment elevation or depression seen, no T-wave inversions seen. Chest x-ray done in the ER showed moderate cardiomegaly with small bilateral pleural effusion, most consistent with mild CHF 07/01/2023 Patient is seen in follow-up today being followed by cardiology for atrial fibrillation with RVR. Patient reports she has a history of atrial fibrillation and reporting having some increasing shortness of breath and BNP was found to be 8600. Patient was started on low-dose IV Lasix and closely monitoring kidney functions. Creatinine mildly elevated at 1.5 and baseline is around 1.3-1.5. 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 Patient reports feeling abdominal fullness. Patient reports has been up and walking to the bathroom with no difficulties. Patient denies any chest pain and troponins x 3 have been negative. Most recent 2D echo was just done in the beginning of May which showed a reduced EF of 30 to 35% with moderately increased septal wall thickness and mildly increased posterior wall thickness with global hypokinesia. Patient noted to have severe right atrial dilatation with severely increased left atrial volume and noted trace tricuspid regurgitation. Will continue IV Lasix and likely transition to oral Lasix with follow-up labs tomorrow. Awaiting cardiology evaluation. 07/02/2023 Patient is seen and evaluated in follow-up today with cardiology following r ecommending continuing on IV Lasix for continued diuresis. Patient is on room air and up walking and reports improvement in her shortness of breath. Patient does report some shortness of breath with exertion patient denies any patient's and is currently rate controlled and continued on telemetry monitoring. Cardiology recommending monitoring overnight with possible discharge in the next 24 hours. Review of systems: Constitutional: No reports of fatigue, fever, or chills Cardiovascular: No reports of chest pain or palpitations Respiratory: No reports of worsening shortness of breath GI: No reports of nausea, vomiting, or diarrhea : No reports of dysuria or retention Neurovascular: No reports of weakness or numbness All medications have been reviewed PHYSICAL EXAMINATION: GENERAL: The patient is alert and oriented x3, not in any acute distress. Well developed, well nourished. Elderly appearing, obese HEENT: Pupils are round and equally reacting to light. EOMI. No scleral icterus. No conjunctival pallor. Normocephalic, atraumatic. No pharyngeal erythema. No thyromegaly. CARDIOVASCULAR: S1 and S2 muffled, irregular PULMONARY: Chest is clear to auscultation, no crackles or wheezing noted ABDOMEN: Soft, less distended, nontender normoactive bowel sounds. No palpable organomegaly. MUSCULOSKELETAL: 1+ pitting edema lower extremities bilaterally, improving EXTREMITIES: No cyanosis, clubbing NEUROLOGICAL: Gross neurological examination did not reveal any focal deficits. SKIN: No rashes. Assessment: Acute on chronic systolic CHF, EF last month was 30 to 35% Paroxysmal atrial fibrillation presenting with RVR, currently rate controlled Ischemic cardiomyopathy Hypertension Hyperlipidemia Coronary artery disease with previous stenting Obesity with a body mass index of 30.2 GI prophylaxis DVT prophylaxis Full code Plan: Patient being followed by cardiology evaluated the 2D echo that was done last month and patient is maintained on IV Lasix low-dose twice daily. Current creatinine is 1.9 and will follow-up with repeat labs in the a.m. Cardiology is recommending continuing with IV diuresis for another 24 hours. Metoprolol adjusted and patient is now on Farxiga. Continue telemetry monitoring Continue with anticoagulation per cardiology Encouraged to increase activity as tolerated. Patient is getting up to the shower today. Possible discharge in 24 hours The impression and plan of care has been dictated by Ayanna Cuellar, Nurse Practitioner as directed. Dr. Liza MD I have performed a history and examination and MDM of this patient, discussed the same with the dictator, and agree with the dictator's assessment and plan as written ,documented as a scribe. Based on total visit time, I have performed more than 50% of the visit. Objective - Vital Signs Vital signs: Vital Signs Temp 98.2 F 07/02/23 07:24 Pulse 68 07/02/23 07:24 Resp 16 07/02/23 07:24 BP 145/82 07/02/23 07:24 Pulse Ox 95 07/02/23 09:13 FiO2 Intake & Output 07/01/23 07/02/23 07/02/23 18:59 06:59 18:59 Weight 70.5 kg Other: Voiding Method Toilet # Voids 2 - Labs CBC & Chem 7: 07/01/23 07:25 07/02/23 07:31
[2023-07-03 08:16] VITALS: BP 123/92; RESP 18; TEMP 97.9
--- NOTE | 2023-07-03 10:51 | P.PN ---
Subjective HISTORY OF PRESENT ILLNESS: The patient is a pleasant 87-year-old female patient with a past medical history significant for coronary artery disease with prior stenting and also ischemic cardiomyopathy as well as hypertension and dyslipidemia and paroxysmal atrial fibrillation was admitted to the hospital with heart failure with evidence of right and left failure and she was started on Lasix IV. July 02, 2023 The patient was seen and evaluated this morning. She is feeling better. The lower extremities edema has improved significantly. She continues to be on Lasix IV. Creatinine remains stable which she continues to be on oral anticoagu lation and has been maintaining normal sinus mechanism. The examination is remarkable for regular rhythm with a systolic murmur and clear breathing sounds bilaterally and no edema was noted in the lower extremities 07/03/2023 Patient examined this morning at the bedside. Patient denies chest pain or pressure. She denies shortness of breath. Patient has been up ambulating in the room without difficulty. She remains on IV Lasix. Vital signs are stable. PHYSICAL EXAM: VITAL SIGNS: Reviewed. GENERAL: Well-developed in no acute distress. NECK: Supple. No JVD or thyromegaly LUNGS: Respirations even and unlabored. Lungs essentially clear to auscultation bilaterally. HEART: Regular rate and rhythm. S1 and S2 heard. EXTREMITIES: Normal range of motion. No clubbing or cyanosis. Peripheral pulses intact. No lower extremity edema ASSESSMENT: Heart failure with systolic dysfunction Cardiomyopathy Coronary artery disease Multiple comorbid conditions Paroxysmal atrial fibrillation PLAN: Discontinue IV Lasix. Begin oral Lasix 20 mg daily Continue additional cardiac medications Patient is stable for discharge home today from a cardiac standpoint We will sign off. Please reconsult if needed. Nurse practitioner note has been reviewed by physician. Signing provider agrees with the documented findings, assessment, and plan of care documented by ENFORCEMENT MANAGER as a scribe. Objective - Vital Signs Vital signs: Vital Signs Temp 97.9 F 07/03/23 07:20 Pulse 104 H 07/03/23 07:20 Resp 18 07/03/23 07:20 BP 123/92 07/03/23 07:20 Pulse Ox 92 L 07/03/23 10:12 FiO2 Intake & Output 07/02/23 07/03/23 07/03/23 18:59 06:59 18:59 Intake Total 520 Balance 520 Weight 70.5 kg 70.5 kg Intake: Oral 520 Other: Voiding Method Toilet Toilet # Voids 4 3 - Labs CBC & Chem 7: 07/01/23 07:25 07/02/23 07:31 Labs: Abnormal Lab Results - Last 24 Hours (Table) 07/02/23 Range/Units 07:31 Creatinine 1.9 H (0.6-1.5) mg/dL Est GFR (CKD-EPI) 25 L (>=60) Glucose 151 H (70-110) mg/dL
[2023-07-03 11:00] LABS: BUN/Creat Ratio 12.39 Ratio (12.00-20.00); Blood Urea Nitrogen 28.5 mg/dL (9.0-27.0); Calcium 9.6 mg/dL (8.7-10.3); Carbon Dioxide 31.2 mmol/L (21.6-31.8); Chloride 96 mmol/L (96-109); Glucose 153 mg/dL (70-110); Potassium 4.4 mmol/L (3.5-5.5); Sodium 139 mmol/L (135-145)
[2023-07-03 11:25] VITALS: PULSE 76
[2023-07-04] MEDS ORDERED: FUROSEMIDE 20 MG TAB PO SCH (09:00)
--- NOTE | 2023-07-08 06:45 | P.DS ---
Providers Date of admission: 06/30/23 13:26 Expected date of discharge: 07/03/23 Attending physician: Iain Valentin MD Consults: 06/30/23 13:27 Consult Physician Routine Consulting Provider: Kumar Contreras Consult Reason/Comments: Acute CHF Do you want consulting provider notified?: Yes Primary care physician: [facility] Course: Final diagnosis Acute on chronic systolic CHF, EF last month was 30 to 35% Paroxysmal atrial fibrillation presenting with RVR, currently rate controlled Ischemic cardiomyopathy Hypertension Hyperlipidemia Coronary artery disease with previous stenting Obesity with a body mass index of 30.2 GI prophylaxis DVT prophylaxis Full code Discharge disposition Patient is being discharged in a stable condition with guarded prognosis to [facility]. Patient will follow-up with Dr. Diehl in the outpatient setting upon discharge. Patient is to continue with current medications as prescribed and close outpatient follow-up with cardiology as scheduled. Total time taken is greater than 35 minutes. Hospital course This is a 87-year-old female who was recently admitted with increased shortness of breath with A-fib with RVR being closely monitored. Cardiology following and patient maintained on IV Lasix for CHF exacerbation. Patient showing some improvements and currently rate controlled with cardiology following recommending close outpatient follow-up. Patient will continue on Lasix and have repeat labs done in the next few days. Patient cleared by consultations. Please refer to consultation notes for further HPI. Currently no reports of chest pain, shortness of breath, or palpitations. Patient is afebrile. No reports of nausea or vomiting and patient is tolerating diet. Patient will be going home today. Guarded prognosis and high risk for readmission given patient's significant comorbidities. Physical exam: Gen: This is a 87-year-old female who is awake, alert and oriented x 3, well- developed, well-nourished, elderly HEENT: Head is atraumatic, normocephalic. Pupils equal, round. Sclerae is anicteric. NECK: Supple. No JVD. No lymphadenopathy. No thyromegaly. LUNGS: Clear to auscultation. No wheezes or rhonchi. No intercostal retractions. HEART: S1, S2 are muffled ABDOMEN: Soft. Obese bowel sounds are present. No masses. No tenderness. EXTREMITIES: No pedal edema. No calf tenderness. NEUROLOGICAL: Patient is awake, alert and oriented x3. Cranial nerves 2 through 12 are grossly intact. Please refer to medication reconciliation sheet for a list of medications. The impression and plan of care has been dictated by Ayanna Cuellar, Nurse Practitioner as directed. Dr. Liza MD I have performed a history and examination and MDM of this patient, discussed the same with the dictator, and agree with the dictator's assessment and plan as written ,documented as a scribe. Based on total visit time, I have performed more than 50% of the visit. Patient Condition at Discharge: Fair Plan - Discharge Summary Discharge Rx Participant: No New Discharge Prescriptions: New Spironolactone [Aldactone] 25 mg PO DAILY #30 tab Apixaban [Eliquis] 2.5 mg PO BID #60 tab Dapagliflozin Propanediol [Farxiga] 10 mg PO DAILY #30 tab Furosemide [Lasix] 20 mg PO DAILY #30 tab Metoprolol Tartrate [Lopressor] 100 mg PO BID 30 Days #120 tab Continue Losartan [Cozaar] 25 mg PO DAILY #30 tab Atorvastatin [Lipitor] 40 mg PO HS #30 tab Artificial Tears-Hypromellose [Artificial Tear Drops] 1 drops BOTH EYES Q4H PRN ml PRN Reason: Dry Eye(S) Amiodarone [Cordarone] 200 mg PO BID Discontinued Apixaban [Eliquis] 5 mg PO BID #60 tab dilTIAZem HCL 30 mg PO DIRECTED Discharge Medication List Artificial Tears-Hypromellose [Artificial Tear Drops] 1 drops BOTH EYES Q4H PRN ml 06/09/23 [Rx] Atorvastatin [Lipitor] 40 mg PO HS #30 tab 06/09/23 [Rx] Losartan [Cozaar] 25 mg PO DAILY #30 tab 06/09/23 [Rx] Amiodarone [Cordarone] 200 mg PO BID 06/30/23 [History] Apixaban [Eliquis] 2.5 mg PO BID #60 tab 07/03/23 [Rx] Dapagliflozin Propanediol [Farxiga] 10 mg PO DAILY #30 tab 07/03/23 [Rx] Furosemide [Lasix] 20 mg PO DAILY #30 tab 07/03/23 [Rx] Metoprolol Tartrate [Lopressor] 100 mg PO BID 30 Days #120 tab 07/03/23 [Rx] Spironolactone [Aldactone] 25 mg PO DAILY #30 tab 07/03/23 [Rx] Follow up Appointment(s)/Referral(s): Noel Diehl DO [Primary Care Provider] - 1-2 days (The office will call with a follow up appointment) Kumar Contreras MD [STAFF PHYSICIAN] - 07/19/23 1:45 pm Patient Instructions/Handouts: Pulmonary Edema (DC) Activity/Diet/Wound Care/Special Instructions: Activity limited until follow-up Follow-up with primary care provider on discharge Follow-up with cardiology outpatient Continue taking medications as prescribed Elevate lower extremities while at rest Follow-up with repeat labs in the next few days to monitor kidney functions Monitor fluid intake and continue with fluid restrictions of 45 to 50 ounces of all fluids throughout each day Discharge Disposition: HOME SELF-CARE
== END 2023-07-03 14:20 | disposition home or self-care (01) | DRG 291 ==
LOC: EC 10:04 → 3SCARD 13:26 → 4SSUR 07-01 12:14 → 5NMEDONC 07-01 21:49
PROVIDERS: ADMIT Internal Medicine; ATTEND Internal Medicine
DX: I11.0 Hypertensive heart disease with heart failure (principal); I50.23 Acute on chronic systolic (congestive) heart failure; I48.0 Paroxysmal atrial fibrillation; Z79.01 Long term (current) use of anticoagulants; E66.9 Obesity, unspecified; E78.5 Hyperlipidemia, unspecified; I25.10 Atherosclerotic heart disease of native coronary artery without angina pectoris; M19.90 Unspecified osteoarthritis, unspecified site; T50.8X1A Poisoning by diagnostic agents, accidental (unintentional), initial encounter; I08.1 Rheumatic disorders of both mitral and tricuspid valves; Z68.30 Body mass index [BMI] 30.0-30.9, adult; Z79.899 Other long term (current) drug therapy; Z90.710 Acquired absence of both cervix and uterus; R01.1 Cardiac murmur, unspecified; Z95.5 Presence of coronary angioplasty implant and graft; Z96.641 Presence of right artificial hip joint; Z98.42 Cataract extraction status, left eye; Z98.41 Cataract extraction status, right eye; Z90.49 Acquired absence of other specified parts of digestive tract; Z88.8 Allergy status to other drugs, medicaments and biological substances; I25.2 Old myocardial infarction; I25.5 Ischemic cardiomyopathy
CPT/HCPCS: 36415; 71046; 80048; 80053; 80061; 83605; 83735; 83880; 84484; 85025; 85610; 85730; 93005; 94760; 96374; 96376; 99285

== ENCOUNTER 2023-07-29 06:08 | Day surgery (SDC) | payer MEDICARE, BC ==
[~2023-07-29 06:08] MED LIST: SODIUM CHLORIDE 0.9% 1,000 ML IV SCH
[2023-07-29] MEDS: IV FLUID CONTINUATION 500 ML IV ONE (06:41)
[2023-07-29 06:53] LABS: Glucose,Whole Blood 206 mg/dL (70-110)
[2023-07-29] MEDS: SODIUM CHLORIDE 0.9% 500 ML DEHP FREE BAG IV STA (07:04)
[2023-07-29] MEDS ORDERED: SODIUM CHLORIDE 0.9% 500 ML 500 ML IV STA (07:07)
[2023-07-29] MEDS ORDERED: PROPOFOL 10 MG/ML 20 ML VIAL IV ONE (07:25)
[2023-07-29] MEDS ORDERED: LIDOCAINE 1% INJ 10MG/ML (20 ML MDV) ONE (07:25)
[2023-07-29] MEDS: BENZOCAINE SPRAY 1 CAN TOPICAL ONE (07:28)
[2023-07-29 07:43] VITALS: RESP 16; TEMP 97.1
[2023-07-29] MEDS: SODIUM CHLORIDE 0.9% 1,000 ML IV ONE (08:22)
[2023-07-29] MEDS ORDERED: SODIUM CHLORIDE 0.9% 1,000 ML IV SCH (08:30)
[2023-07-29 08:32] VITALS: PULSE 38
--- NOTE | 2023-07-29 09:20 | ECHOT ---
TRANSESOPHAGEAL ECHOCARDIOGRAM INDICATIONS: Persistent atrial fibrillation with poorly controlled ventricular rate. Rule out intracardiac thrombus. PROCEDURE NOTE: After obtaining informed consent, transesophageal echocardiogram is performed in left lateral position using Omniplane probe. Local and IV sedation were obtained by the life skills specialist. FINDINGS: 1. There is no intracardiac thrombus within the left atrial appendage, left atrium, right atrium, right ventricle. 2. There is moderate left atrial enlargement. 3. Right atrium, right ventricle seen within normal limits. 4. Ventricle has normal size, shows diffuse global hypokinesis with [id number] LV systolic dysfunction with an ejection fraction of 40% to 45%. There is mild mitral and tricuspid regurgitation noted. Aortic valve is free of stenosis or regurgitation. Aortic root appears within normal limits. CONCLUSIONS: 1. No intracardiac thrombus. 2. Nonischemic cardiomyopathy with [id number] LV dysfunction. PLAN: The patient will undergo cardioversion. MMODL / IJN: [id number] /
[2023-07-29 13:22] VITALS: BP 105/59
--- NOTE | 2023-07-29 14:11 | PCN ---
PROCEDURE NOTE REPORT: Cardioversion note. INDICATION: Persistent atrial fibrillation. PROCEDURE NOTE: After obtaining informed consent, the patient underwent transesophageal echo and we ruled out intracardiac thrombus. She is adequately anticoagulated with Eliquis. She underwent cardioversion with synchronized DC current. She was shocked with 150 joules and converted to sinus rhythm following a single shock. She became bradycardic after cardioversion. Her heart rates were in the 30s to 40s, which she is tolerating well hemodynamically. If necessary, will use intravenous atropine. At the moment, she is in stable sinus bradycardia. MMODL / IJN: [id number] /
== END 2023-07-29 09:34 | disposition home or self-care (01) ==
LOC: OR 06:08
PROVIDERS: ATTEND Internal Medicine Cardiovascular Disease
DX: I48.19 Other persistent atrial fibrillation (principal); I25.10 Atherosclerotic heart disease of native coronary artery without angina pectoris; I11.0 Hypertensive heart disease with heart failure; I50.22 Chronic systolic (congestive) heart failure; Z79.01 Long term (current) use of anticoagulants; Z79.899 Other long term (current) drug therapy
CPT/HCPCS: 93312; 93320; 93325; 92960; J2001; J2704

== ENCOUNTER 2023-12-03 11:46 | Inpatient (IN) | payer MEDICARE, BC ==
[2023-12-03] MEDS: ASPIRIN 81 MG PO STA (12:17)
[2023-12-03] MEDS: METOPROLOL TARTRATE 5 MG/5 ML VIAL IVP SCH (12:17)
[2023-12-03 12:27] LABS: Basophils # (A) 0.1 k/uL (0-0.2); Basophils % (A) 1 %; Eosinophils # (A) 0.2 k/uL (0-0.7); Eosinophils % (A) 2 %; HCT 46.8 % (34.0-46.0); HGB 14.5 gm/dL (11.4-16.0); Hypochromasia Moderate; Lymphocytes # (A) 2.6 k/uL (1.0-4.8); Lymphocytes % (A) 20 %; MCH 29.3 pg (25.0-35.0); MCHC 30.9 g/dL (31.0-37.0); Mean Platelet Volume 8.6; Monocytes # (A) 0.7 k/uL (0-1.0); Monocytes % (A) 5 %; Neutrophils % (A) 70 %; Platelet Count 209 k/uL (150-450); RBC 4.93 m/uL (3.80-5.40); RDW 14.7 % (11.5-15.5); WBC 12.9 k/uL (3.8-10.6)
[2023-12-03] MEDS: METOPROLOL TARTRATE 5 MG/5 ML VIAL IVP STA (12:35)
[2023-12-03 12:40] LABS: ALT 21 U/L (4-34); AST 24 U/L (14-36); African American GFR (CKD) 33 (>60 ml/min/1.73 sqM); Albumin 4.3 g/dL (3.5-5.0); Alkaline Phosphatase 82 U/L (38-126); Anion Gap 11 mmol/L; Blood Urea Nitrogen 23 mg/dL (7-17); Calcium 9.5 mg/dL (8.4-10.2); Carbon Dioxide 27 mmol/L (22-30); Chloride 102 mmol/L (98-107); Glucose 187 mg/dL (74-99); Magnesium 1.9 mg/dL (1.6-2.3); Non-African American GFR(CKD) 29 (>60 ml/min/1.73 sqM); Potassium 4.1 mmol/L (3.5-5.1); Sodium 140 mmol/L (137-145); Total Bilirubin 1.2 mg/dL (0.2-1.3); Total Protein 7.2 g/dL (6.3-8.2)
[2023-12-03 12:44] LABS: Partial Thromboplastin Time 25.3 sec (22.0-30.0); Prothrombin Time 10.8 sec (10.0-12.5)
[2023-12-03 12:47] LABS: NT-Pro-B-Type Natriuretic Pept 10900 pg/mL
[2023-12-03] MEDS: DEXTROSE 5% IN WATER 100 ML with AMIODARONE 150 MG IV ONE (13:03)
--- NOTE | 2023-12-03 13:21 | XR ---
EXAMINATION TYPE: XR chest 2V DATE OF EXAM: 12/03/2023 COMPARISON: 06/30/2023 HISTORY: Shortness of breath TECHNIQUE: Frontal and lateral views of the chest are obtained. FINDINGS: Scattered senescent parenchymal changes noted. Hyperinflation compatible with COPD. No evidence for infiltrate. No evidence for atelectasis. Heart size is stable. Mediastinal structures are stable and grossly unremarkable. No evidence for hilar prominence. Degenerative changes dorsal spine. IMPRESSION: 1. No evidence for acute pulmonary disease. [facility], , 12/03/2023 1:19 PM
[2023-12-03] MEDS ORDERED: ACETAMINOPHEN TAB 325 MG TAB PO PRN (14:06)
[2023-12-03] MEDS ORDERED: NALOXONE 0.4 MG/ML 1 ML VIAL IV PRN (14:06)
[2023-12-03] MEDS: AMIODARONE 360 MG in DEXTROSE 5% IN WATER 200 ML IV ONE (14:09)
--- NOTE | 2023-12-03 14:54 | ED ---
General Adult HPI - General Chief complaint: Shortness of Breath Stated complaint: SOB Time Seen by Provider: 12/03/23 12:05 Source: patient, EMS, RN notes reviewed, old records reviewed Mode of arrival: EMS Limitations: no limitations - History of Present Illness Initial comments: Patient is an 87-year-old female presents emergency department for 1 week history of shortness of breath. Has a history of atrial fibrillation, hypertension, heart failure. Patient is not on any rate or rhythm control agents at home, taking only losartan, Lasix, Lipitor, Eliquis. States she has had 1 week of symptoms. Presents for further evaluation. Denies any chest pain. Denies abdominal pain, nausea, vomiting. Denies any cough. Does endorse Dors mildly worsening orthopnea over the last week. Has no other acute complaints at this time. Transferred from urgent care for evaluation. - Related Data Home Medications Medication Instructions Recorded Confirmed Atorvastatin [Lipitor] 40 mg PO DAILY 07/25/23 12/03/23 Losartan [Cozaar] 25 mg PO DAILY 07/25/23 12/03/23 Previous Rx's Medication Instructions Recorded Apixaban [Eliquis] 2.5 mg PO BID #60 tab 07/03/23 Furosemide [Lasix] 20 mg PO DAILY #30 tab 07/03/23 Allergies Allergy/AdvReac Type Severity Reaction Status Date / Time diltiazem [From Cardizem] Allergy Rash/Hives Verified 12/03/23 12:16 perflutren [From Definity] AdvReac Dyspnea Verified 12/03/23 12:16 Review of Systems ROS Statement: Those systems with pertinent positive or pertinent negative responses have been documented in the HPI. Review of Systems: CONST: Denies fever EYES: Denies blurry vision ENT: Denies nasal congestion C/V: Denies Chest pain RESP: Endorses shortness of breath GI: Denies abdominal pain : Denies dysuria SKIN: Denies rash. MSK: Denies joint pain. NEURO: Denies headache ROS Other: All systems not noted in ROS Statement are negative. Past Medical History Past Medical History: Atrial Fibrillation, Coronary Artery Disease (CAD), Heart Failure, Hyperlipidemia, Hypertension, Myocardial Infarction (GA), Osteoarthritis (OA), Renal Disease Additional Past Medical History / Comment(s): paroxysmal A fib, chf, acute renal failure. arthritis in multiple joints, GA in 2016/2018. sob with activity. Last Myocardial Infarction Date:: 2018 History of Any Multi-Drug Resistant Organisms: None Reported Past Surgical History: Cholecystectomy, Heart Catheterization With Stent, Hysterectomy, Orthopedic Surgery Additional Past Surgical History / Comment(s): 2019 PCI with stent, total R hip arthroplasty, R carpal tunnel release, bilateral cataract removals. Past Anesthesia/Blood Transfusion Reactions: No Reported Reaction Date of Last Stent Placement:: 12/2018 Past Psychological History: No Psychological Hx Reported Smoking Status: Never smoker Past Alcohol Use History: None Reported Past Drug Use History: None Reported - Past Family History Mother Family Medical History: Osteoarthritis (OA) Additional Family Medical History / Comment(s): djd; at 69 Father Family Medical History: CVA/TIA Additional Family Medical History / Comment(s): age 84 General Exam - General Exam Comments Initial Comments: General: Appears in no acute distress. HEAD: Normal with no signs of head trauma. EYES: PERRLA, EOMI, conjunctiva normal, no discharge. ENT: Hearing grossly intact, normal oropharynx. RESPIRATORY: Clear breath sounds bilaterally. No wheezes, rales, or rhonchi. No hypoxia. No significant increased work of breathing. C/V: Irregular rate and rhythm. S1 and S2 auscultated, no edema, peripheral pulses 2+ and intact throughout ABD: Abd is soft, nontender, nondistended EXT: Normal range of motion, no obvious deformity SKIN: No rashes or lesions observed on exposed skin. NEURO: Alert and oriented x 4. Limitations: no limitations Course Vital Signs 12/03/23 12/03/23 12/03/23 11:48 11:55 12:25 Temperature 97.5 F L Pulse Rate 131 H 144 H Pulse Rate [ 131 H Coding Director ] Respiratory 20 18 Rate Blood Pressure 150/112 121/102 O2 Sat by Pulse 97 95 Oximetry 12/03/23 12/03/23 12/03/23 13:00 13:18 13:30 Temperature Pulse Rate 126 H 124 H 126 H Pulse Rate [ Coding Director ] Respiratory 20 18 18 Rate Blood Pressure 105/70 109/80 100/78 O2 Sat by Pulse 94 L 97 97 Oximetry 12/03/23 12/03/23 13:45 14:09 Temperature Pulse Rate 124 H 109 H Pulse Rate [ Coding Director ] Respiratory 18 20 Rate Blood Pressure 106/85 115/80 O2 Sat by Pulse 97 96 Oximetry Medical Decision Making - Medical Decision Making Was pt. sent in by a medical professional or institution (, [facility], [employer] S[employer]IOR [employer]OCIATE, urgent care, hospital, or alf...) When possible be specific @ -Transferred from urgent care for evaluation for A-fib with RVR Did you speak to anyone other than the patient for history (EMS, parent, family, police, friend...)? What history was obtained from this source @ -No Did you review nursing and triage notes (agree or disagree)? Why? @ -I reviewed and agree with nursing and triage notes Were old charts reviewed (outside hosp., previous admission, EMS record, old EKG, old radiological studies, urgent care reports/EKG's, alf records)? Report findings @ -No old charts were reviewed Differential Diagnosis (chest pain, altered mental status, abdominal pain women, abdominal pain men, vaginal bleeding, weakness, fever, dyspnea, syncope, headache, dizziness, GI bleed, back pain, seizure, CVA, palpatations, mental health, musculoskeletal)? @ -Differential Dyspnea: Coronary syndrome, arrhythmia, tamponade, asthma, COPD, pulmonary embolism, pneumonia, pneumothorax, pulmonary effusion, anaphylaxis, diabetic ketoacidosis, flailed chest, pulmonary contusion, diaphragmatic rupture, anemia, neuromuscular, this is not meant to be an all-inclusive list. EKG interpreted by me (3pts min.). @ -As above X-rays interpreted by me (1pt min.). @ -Chest x-ray shows no obvious acute cardiopulmonary process. CT interpreted by me (1pt min.). @ -None done U/S interpreted by me (1pt. min.). @ -None done What testing was considered but not performed or refused? (CT, X-rays, U/S, labs)? Why? @ -None What meds were considered but not given or refused? Why? @ -Consider Cardizem however patient has an allergy to it. Did you discuss the management of the patient with other professionals (professionals i.e. [facility]ws, [employer] S[employer]IOR ASSOCIATE, lab, RT, psych nurse, social science teacher, design leader, teacher, career services officer, family service caseworker)? Give summary @ - I did speak with Dr. Shields of cardiology who recommended initiating metoprolol orally at this time. Recommended 25 mg twice daily. Otherwise in agreement with the plan. I spoke with the admitting provider, Dr. Campbell accepted the admission. Was smoking cessation discussed for >3mins.? @ -No Was critical care preformed (if so, how long)? @ -Yes, 36 minutes. Were there social determinants of health that impacted care today? How? (Home lessness, low income, unemployed, alcoholism, drug addiction, transportation, low edu. Level, literacy, decrease access to med. care, prison, rehab)? @ -No Was there de-escalation of care discussed even if they declined (Discuss DNR or withdrawal of care, Hospice)? DNR status @ -No What co-morbidities impacted this encounter? (DM, HTN, Smoking, COPD, CAD, Cancer, CVA, ARF, Chemo, Hep., AIDS, mental health diagnosis, sleep apnea, morbid obesity)? @ -Atrial fibrillation Was patient admitted / discharged? Hospital course, mention meds given and route, prescriptions, significant lab abnormalities, going to OR and other pertinent info. @ -Patient presents emergency department complaining of shortness of breath for 1 week. Patient is in A-fib with RVR which is likely the cause. She has no ot her symptoms. Is not on any rate or rhythm control agents at home. She states she has been compliant with her medications. We will obtain cardiac workup. She was in agreement this plan. Patient is allergic to Cardizem and therefore we will attempt IV pushes of metoprolol for rate control. Patient was in agreement this plan. She will also be given an aspirin 3 Metoprolol did not sufficiently affect the patient's A-fib with RVR. Heart rates only lowered from 160 to 130-140 with 3 pushes of IV metoprolol. Therefore patient be started on IV amiodarone which patient was on previously. Patient received the entire bolus of IV amiodarone however then patient began complaining of an uncomfortable feeling in her abdomen as well as warmth in her abdomen. States this has happened previously with amiodarone. She does not want to continue with the amiodarone. At this time, patient's heart rates are improved anywhere from 100-120 on average. Amiodarone was shut off. Will reach out to cardiology for further guidance for patient's A-fib with RVR. She is improved at this time but needs some form of rate or rhythm control agent. Chest x-ray unremarkable. Laboratory studies unremarkable. Patient has CKD, elevated BNP likely secondary to the A-fib with RVR for 1 week. There was a delay in contacting cardiology due to a another critical patient that required urgent care. Patient's heart rates are anywhere between 95 and 120 bpm. I did speak with Dr. Shields of cardiology who recommended initiating metoprolol orally at this time. Recommended 25 mg twice daily. Otherwise in a greement with the plan. I spoke with the admitting provider, Dr. Campbell accepted the admission. Undiagnosed new problem with uncertain prognosis? @ -No Drug Therapy requiring intensive monitoring for toxicity (Heparin, Nitro, Insulin, Cardizem)? @ -No Were any procedures done? @ -No Diagnosis/symptom? @ -A-fib with RVR Acute, or Chronic, or Acute on Chronic? @ -Acute on chronic Uncomplicated (without systemic symptoms) or Complicated (systemic symptoms)? @ -Complicated Side effects of treatment? @ -No Exacerbation, Progression, or Severe Exacerbation? @ -No Poses a threat to life or bodily function? How? (Chest pain, USA, GA, pneumonia, PE, COPD, DKA, ARF, appy, cholecystitis, CVA, Diverticulitis, Homicidal, Suicidal, threat to staff... and all critical care pts) @ -Yes - Lab Data Result diagrams: 12/03/23 12:15 12/03/23 12:15 Lab Results 12/03/23 12/03/23 12/03/23 Range/Units 12:15 12:15 12:15 WBC 12.9 H (3.8-10.6) k/uL RBC 4.93 (3.80-5.40) m/uL Hgb 14.5 (11.4-16.0) gm/dL Hct 46.8 H (34.0-46.0) % MCV 95.0 (80.0-100.0) fL MCH 29.3 (25.0-35.0) pg MCHC 30.9 L (31.0-37.0) g/dL RDW 14.7 (11.5-15.5) % Plt Count 209 (150-450) k/uL MPV 8.6 Neutrophils % 70 % Lymphocytes % 20 % Monocytes % 5 % Eosinophils % 2 % Basophils % 1 % Neutrophils # 9.0 H (1.3-7.7) k/uL Lymphocytes # 2.6 (1.0-4.8) k/uL Monocytes # 0.7 (0-1.0) k/uL Eosinophils # 0.2 (0-0.7) k/uL Basophils # 0.1 (0-0.2) k/uL Hypochromasia Moderate PT 10.8 (10.0-12.5) sec INR 1.0 (<1.2) APTT 25.3 (22.0-30.0) sec Sodium 140 (137-145) mmol/L Potassium 4.1 (3.5-5.1) mmol/L Chloride 102 (98-107) mmol/L Carbon Dioxide 27 (22-30) mmol/L Anion Gap 11 mmol/L BUN 23 H (7-17) mg/dL Creatinine 1.60 H (0.52-1.04) mg/dL Est GFR (CKD-EPI)AfAm 33 (>60 ml/min/1.73 sqM) Est GFR (CKD-EPI)NonAf 29 (>60 ml/min/1.73 sqM) Glucose 187 H (74-99) mg/dL Calcium 9.5 (8.4-10.2) mg/dL Magnesium 1.9 (1.6-2.3) mg/dL Total Bilirubin 1.2 (0.2-1.3) mg/dL AST 24 (14-36) U/L ALT 21 (4-34) U/L Alkaline Phosphatase 82 (38-126) U/L Troponin I (0.000-0.034) ng/mL NT-Pro-B Natriuret Pep 15173 pg/mL Total Protein 7.2 (6.3-8.2) g/dL Albumin 4.3 (3.5-5.0) g/dL Influenza Type A (PCR) (Not Detectd) Influenza Type B (PCR) (Not Detectd) RSV (PCR) (Not Detectd) SARS-CoV-2 (PCR) (Not Detectd) 12/03/23 12/03/23 Range/Units 12:15 12:15 WBC (3.8-10.6) k/uL RBC (3.80-5.40) m/uL Hgb (11.4-16.0) gm/dL Hct (34.0-46.0) % MCV (80.0-100.0) fL MCH (25.0-35.0) pg MCHC (31.0-37.0) g/dL RDW (11.5-15.5) % Plt Count (150-450) k/uL MPV Neutrophils % % Lymphocytes % % Monocytes % % Eosinophils % % Basophils % % Neutrophils # (1.3-7.7) k/uL Lymphocytes # (1.0-4.8) k/uL Monocytes # (0-1.0) k/uL Eosinophils # (0-0.7) k/uL Basophils # (0-0.2) k/uL Hypochromasia PT (10.0-12.5) sec INR (<1.2) APTT (22.0-30.0) sec Sodium (137-145) mmol/L Potassium (3.5-5.1) mmol/L Chloride (98-107) mmol/L Carbon Dioxide (22-30) mmol/L Anion Gap mmol/L BUN (7-17) mg/dL Creatinine (0.52-1.04) mg/dL Est GFR (CKD-EPI)AfAm (>60 ml/min/1.73 sqM) Est GFR (CKD-EPI)NonAf (>60 ml/min/1.73 sqM) Glucose (74-99) mg/dL Calcium (8.4-10.2) mg/dL Magnesium (1.6-2.3) mg/dL Total Bilirubin (0.2-1.3) mg/dL AST (14-36) U/L ALT (4-34) U/L Alkaline Phosphatase (38-126) U/L Troponin I <0.012 (0.000-0.034) ng/mL NT-Pro-B Natriuret Pep pg/mL Total Protein (6.3-8.2) g/dL Albumin (3.5-5.0) g/dL Influenza Type A (PCR) Not Detected (Not Detectd) Influenza Type B (PCR) Not Detected (Not Detectd) RSV (PCR) Not Detected (Not Detectd) SARS-CoV-2 (PCR) Not Detected (Not Detectd) - EKG Data -: EKG Interpreted by Me EKG Comments: 12-lead Electrocardiogram Interpretation Note EKG was reviewed and interpreted by myself. 12-lead ECG performed at 1150 is interpreted by me as revealing A-fib with RVR at a rate of 157 beats per minute. Left axis deviation. QRS durations 130 ms, QTc is 404 ms.. There were no ST or T wave abnormalities to suggest myocardial ischemia or injury. R wave progression across the precordium was delayed. By my interpretation this EKG is non-diagnostic for acute ischemia. Critical Care Time Critical Care Time: Yes Total Critical Care Time: 36 Disposition Clinical Impression: Atrial fibrillation with RVR Disposition: ADMITTED IP TO THIS HOSP Condition: Stable Time of Disposition: 14:02
[2023-12-03] MEDS: METOPROLOL TARTRATE 25 MG TAB PO STA (15:54)
[2023-12-03] MEDS ORDERED: AMIODARONE 450 MG in DEXTROSE 5% IN WATER 250 ML IV SCH (19:00)
[2023-12-03 19:45] VITALS: RESP 16
[2023-12-03] MEDS: APIXABAN 2.5 MG TABLET PO SCH (20:57)
[2023-12-03] MEDS: METOPROLOL TARTRATE 25 MG TAB PO SCH (20:57)
--- NOTE | 2023-12-03 22:03 | P.HPIM ---
History of Present Illness H&P Date: 12/03/23 Chief Complaint: Short of breath This is a pleasant 87-year-old patient of Dr. goldberg. Chronic stable medical conditions include hypertension, osteoarthritis, coronary artery disease with stent. paroxysmal atrial fibrillation. EF 30-35% with global hypokinesis. 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 Episodes of perspiration at night. Symptoms are much worse with activity. Finally decided to come in. . Review of systems: GEN.: Tired EYES: None HEENT: None NECK: None RESPIRATORY: Short of breath CARDIOVASCULAR: No edema GASTROINTESTINAL: None GENITOURINARY: None MUSCULOSKELETAL: Joint pains LYMPHATICS: None HEMATOLOGICAL: None PSYCHIATRY: None NEUROLOGICAL: None Past medical history to include: Coronary artery disease, atrial flutter ablation, osteoarthritis, coronary artery disease with stent-LAD, hypertension, CHF EF 30-35% Social history: Does not smoke or drink alcohol. . Physical examination: VITAL SIGNS: 97.5, 131, 20, 100 5112, 97% room air upon presentation GENERAL: BMI 29.3, reclining bed awake a bit tired appearing EYES: Pupils equal. Conjunctiva normal. HEENT: External appearance of nose and ears normal, oral cavity grossly normal. NECK: JVD not raised; masses not palpable. HEART: Heart sounds irregular l; no edema. LUNGS: Respiratory rate normal; clear to auscultation. ABDOMEN: Soft, nontender, liver spleen not palpable, no masses palpable. PSYCH: Alert and oriented x3; mood and affect normal. MUSCULOSKELETAL:No Clubbing/cyanosis;muscles-grossly intact, evidence of OA NEUROLOGICAL: Cranial nerves grossly intact; no facial asymmetry, power and sensation grossly intact. LYMPHATICS: No lymph nodes palpable in the axilla and neck INVESTIGATIONS, reviewed in the clinical context: December 02: White count 12.9 hemoglobin 14.5 platelets 209 sodium 140 potassium 4.1 BUN 23 creatinine 1.6 Troponin I less than 0.012 x 3 proBNP 40720 Influenza type A, type B, RSV, COVID-19: Not detected EKG tracing personally reviewed by me-atrial fibrillation. Rate 157 right bundle sandoval block pattern. Chest x-ray film personally reviewed by me-venous prominence. Cardiomegaly 2D echocardiogram [May 2023]: EF 30-35%. Mild regurgitation in the valves Assessment and plan: -Presenting with A-fib with rapid ventricular rate in a patient with known paroxysmal atrial flutter-fibrillation with a prior history of ablation- symptoms present for 1 week symptomatic- Received IV metoprolol 2.5 mg x 2. Put on IV amiodarone. Cardiology was consulted. Telemetry -Acute on chronic congestive heart failure from systolic dysfunction EF 30-35%-, precipitated by uncontrolled atrial fibrillation Eliquis. 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 Prior echo -Coronary artery disease with stent-cardiac catheterization in February 2020 showing patent stent Cozaar. Eliquis. -Primary osteoarthritis Pain medications as needed -Essential hypertension Lopressor. Cozaar -Chronic kidney disease stage III from nephrosclerosis Follow renal function -Full code Care was discussed with the patient. Past Medical History Past Medical History: Atrial Fibrillation, Coronary Artery Disease (CAD), Heart Failure, Hyperlipidemia, Hypertension, Myocardial Infarction ([place]), Osteoarthritis ([place]), Renal Disease Additional Past Medical History / Comment(s): paroxysmal A fib, chf, acute renal failure. arthritis in multiple joints, [place] in 2015/2018. sob with activity. Last Myocardial Infarction Date:: 2018 History of Any Multi-Drug Resistant Organisms: None Reported Past Surgical History: Cholecystectomy, Heart Catheterization With Stent, Hysterectomy, Orthopedic Surgery Additional Past Surgical History / Comment(s): 2019 PCI with stent, total R hip arthroplasty, R carpal tunnel release, bilateral cataract removals. Past Anesthesia/Blood Transfusion Reactions: No Reported Reaction Date of Last Stent Placement:: 12/2018 Past Psychological History: No Psychological Hx Reported Smoking Status: Never smoker Past Alcohol Use History: None Reported Past Drug Use History: None Reported - Past Family History Mother Family Medical History: Osteoarthritis ([place]) Additional Family Medical History / Comment(s): djd; at 69 Father Family Medical History: CVA/TIA Additional Family Medical History / Comment(s): age 84 Medications and Allergies Home Medications Medication Instructions Recorded Confirmed Type Apixaban [Eliquis] 2.5 mg PO BID #60 tab 07/03/23 12/03/23 Rx Furosemide [Lasix] 20 mg PO DAILY #30 tab 07/03/23 12/03/23 Rx Atorvastatin [Lipitor] 40 mg PO DAILY 07/25/23 12/03/23 History Losartan [Cozaar] 25 mg PO DAILY 07/25/23 12/03/23 History Allergies Allergy/AdvReac Type Severity Reaction Status Date / Time diltiazem [From Cardizem] Allergy Rash/Hives Verified 12/03/23 12:16 perflutren [From Definity] AdvReac Dyspnea Verified 12/03/23 12:16 Physical Exam Vitals: Vital Signs Temp Pulse Pulse Resp BP Pulse Ox 12/03/23 19:43 108 H 16 111/97 97 12/03/23 18:40 128 H 18 91/36 96 12/03/23 15:54 121 H 20 97/81 96 12/03/23 14:09 109 H 20 115/80 96 12/03/23 13:45 124 H 18 106/85 97 12/03/23 13:30 126 H 18 100/78 97 12/03/23 13:18 124 H 18 109/80 97 12/03/23 13:00 126 H 20 105/70 94 L 12/03/23 12:25 144 H 18 121/102 95 12/03/23 11:55 131 H 12/03/23 11:48 97.5 F L 131 H 20 150/112 97 Intake and Output 12/03/23 12/03/23 12/03/23 06:59 14:59 22:59 Intake Total 400 Balance 400 Intake: Oral 400 Other: Weight 70.307 kg Results CBC & Chem 7: 12/03/23 12:15 12/03/23 12:15 Labs: Abnormal Lab Results - Last 24 Hours (Table) 12/03/23 12/03/23 Range/Units 12:15 12:15 WBC 12.9 H (3.8-10.6) k/uL Hct 46.8 H (34.0-46.0) % MCHC 30.9 L (31.0-37.0) g/dL Neutrophils # 9.0 H (1.3-7.7) k/uL BUN 23 H (7-17) mg/dL Creatinine 1.60 H (0.52-1.04) mg/dL Glucose 187 H (74-99) mg/dL
[2023-12-04 06:58] LABS: Basophils % (A) 0 %; Eosinophils # (A) 0.2 k/uL (0-0.7); Eosinophils % (A) 2 %; HCT 43.5 % (34.0-46.0); HGB 13.4 gm/dL (11.4-16.0); Hypochromasia Slight; Lymphocytes # (A) 2.8 k/uL (1.0-4.8); Lymphocytes % (A) 27 %; MCH 29.2 pg (25.0-35.0); MCHC 30.9 g/dL (31.0-37.0); MCV 94.7 fL (80.0-100.0); Mean Platelet Volume 8.9; Monocytes # (A) 0.7 k/uL (0-1.0); Monocytes % (A) 7 %; Neutrophils # (A) 6.3 k/uL (1.3-7.7); Neutrophils % (A) 62 %; Platelet Count 205 k/uL (150-450); RDW 14.8 % (11.5-15.5); WBC 10.3 k/uL (3.8-10.6)
[2023-12-04 07:03] LABS: ALT 35 U/L (4-34); AST 40 U/L (14-36); African American GFR (CKD) 33 (>60 ml/min/1.73 sqM); Albumin 3.7 g/dL (3.5-5.0); Alkaline Phosphatase 73 U/L (38-126); Anion Gap 7 mmol/L; Blood Urea Nitrogen 28 mg/dL (7-17); Calcium 9.1 mg/dL (8.4-10.2); Carbon Dioxide 29 mmol/L (22-30); Chloride 103 mmol/L (98-107); Glucose 144 mg/dL (74-99); Non-African American GFR(CKD) 28 (>60 ml/min/1.73 sqM); Potassium 4.2 mmol/L (3.5-5.1); Sodium 139 mmol/L (137-145); Total Bilirubin 0.9 mg/dL (0.2-1.3); Total Protein 6.5 g/dL (6.3-8.2)
[2023-12-04] MEDS: ATORVASTATIN 40 MG TAB PO SCH (09:20)
[2023-12-04] MEDS: LOSARTAN 25 MG TAB PO SCH (09:20)
[2023-12-04] MEDS: FUROSEMIDE 20 MG TAB PO SCH (09:20)
[2023-12-04 16:39] VITALS: BP 133/61; PULSE 37; TEMP 96.5
--- NOTE | 2023-12-04 16:47 | P.DS ---
Providers Date of admission: 12/03/23 14:07 Expected date of discharge: 12/04/23 Attending physician: Onur Campbell Consults: 12/03/23 13:37 Consult Physician Routine Consulting Provider: [facility] Reason/Comments: afib with rvr Do you want consulting provider notified?: Yes Primary care physician: [facility] Course: Chief Complaint: Short of breath This is a pleasant 87-year-old patient of Dr. goldberg. Chronic stable medical conditions include hypertension, osteoarthritis, coronary artery disease with stent. paroxysmal atrial fibrillation. EF 30-35% with global hypokinesis. 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 Episodes of perspiration at night. Symptoms are much worse with activity. Finally decided to come in. December 03: Patient sinus rhythm. Up and about. Asymptomatic. Patient heart rate did drop down to the 40s. Will cut back Lopressor to 12.5 twice daily she had been on 25 twice daily. Cleared by cardiology for discharge. Follow-up with her restaurant associate Dr. Consuelo Contreras. Discussion and discharge planning more than 35 minutes Past medical history to include: Coronary artery disease, atrial flutter ablation, osteoarthritis, coronary artery disease with stent-LAD, hypertension, CHF EF 30-35% Social history: Does not smoke or drink alcohol. . Physical examination: VITAL SIGNS: 96.5, 45, 16, 133 x 61, 96% room air GENERAL:, Comfortable EYES: Pupils equal. Conjunctiva normal. HEENT: External appearance of nose and ears normal, oral cavity grossly normal. NECK: JVD not raised; masses not palpable. HEART: Heart sounds irregular l; no edema. LUNGS: Respiratory rate normal; clear to auscultation. ABDOMEN: Soft, nontender, liver spleen not palpable, no masses palpable. PSYCH: Alert and oriented x3; mood and affect normal. MUSCULOSKELETAL:No Clubbing/cyanosis;muscles-grossly intact, evidence of OA INVESTIGATIONS, reviewed in the clinical context: December 03: White count 10.3 globin 13.4 platelets 205 potassium 4.2 BUN 28 creatinine 1.63 December 02: White count 12.9 hemoglobin 14.5 platelets 209 sodium 140 potassium 4.1 BUN 23 creatinine 1.6 Troponin I less than 0.012 x 3 proBNP [id number] Influenza type A, type B, RSV, COVID-19: Not detected EKG tracing personally reviewed by me-atrial fibrillation. Rate 157 right bundle sandoval block pattern. Chest x-ray film personally reviewed by me-venous prominence. Cardiomegaly 2D echocardiogram [May 2023]: EF 30-35%. Mild regurgitation in the valves Assessment and plan: -Presenting with A-fib with rapid ventricular rate in a patient with known paroxysmal atrial flutter-fibrillation with a prior history of ablation- symptoms present for 1 week symptomatic-: Now in sinus rhythm Received IV metoprolol 2.5 mg x 2. Put on IV amiodarone. Seen by cardiology. Patient has been on Lopressor 25 twice daily. Bradycardia. Decrease dose to 12.5 twice daily. Follow-up with Dr. Consuelo Contreras outpatient -Acute on chronic congestive heart failure from systolic dysfunction EF 30-35%-, precipitated by uncontrolled atrial fibrillation Eliquis. 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 Prior echo -Coronary artery disease with stent-cardiac catheterization in February 2020 showing patent stent Cozaar. Eliquis. -Primary osteoarthritis Pain medications as needed -Essential hypertension Lopressor. Cozaar -Chronic kidney disease stage III from nephrosclerosis Follow renal function -Full code Disposition: Home Past Medical History Past Medical History: Atrial Fibrillation, Coronary Artery Disease (CAD), Heart Failure, Hyperlipidemia, Hypertension, Myocardial Infarction ([place]), Osteoarthritis (OA), Renal Disease Additional Past Medical History / Comment(s): paroxysmal A fib, chf, acute renal failure. arthritis in multiple joints, [place] in . sob with activity. Last Myocardial Infarction Date:: 2018 History of Any Multi-Drug Resistant Organisms: None Reported Past Surgical History: Cholecystectomy, Heart Catheterization With Stent, Hysterectomy, Orthopedic Surgery Additional Past Surgical History / Comment(s): 2019 PCI with stent, total R hip arthroplasty, R carpal tunnel release, bilateral cataract removals. Past Anesthesia/Blood Transfusion Reactions: No Reported Reaction Date of Last Stent Placement:: 12/2018 Past Psychological History: No Psychological Hx Reported Smoking Status: Never smoker Past Alcohol Use History: None Reported Past Drug Use History: None Reported Plan - Discharge Summary Discharge Rx Participant: No New Discharge Prescriptions: New Metoprolol Tartrate [Lopressor] 12.5 mg PO BID 30 Days #60 tablet Continue Losartan [Cozaar] 25 mg PO DAILY Atorvastatin [Lipitor] 40 mg PO DAILY Apixaban [Eliquis] 2.5 mg PO BID #60 tab Furosemide [Lasix] 20 mg PO DAILY #30 tab Discharge Medication List Apixaban [Eliquis] 2.5 mg PO BID #60 tab 07/03/23 [Rx] Furosemide [Lasix] 20 mg PO DAILY #30 tab 07/03/23 [Rx] Atorvastatin [Lipitor] 40 mg PO DAILY 07/25/23 [History] Losartan [Cozaar] 25 mg PO DAILY 07/25/23 [History] Metoprolol Tartrate [Lopressor] 12.5 mg PO BID 30 Days #60 tablet 12/04/23 [Rx] Follow up Appointment(s)/Referral(s): Noel Goldberg DO [Primary Care Provider] - 1 Week Kumar Contreras MD [STAFF PHYSICIAN] - 1 Week
--- NOTE | 2023-12-05 00:03 | P.CRDCN ---
History of Present Illness Consult date: 12/04/23 History of present illness: HISTORY OF PRESENTING ILLNESS 87-year-old female with past medical history of CAD with prior PCI, paroxysmal atrial fibrillation, cardiomyopathy with a EF of 30 to 35% follows up with Dr. Beckford. She presents the hospital because of increased shortness of breath and palpitations for last few days. On admission to ER she was noticed to be in atrial fibrillation with RVR. Patient received 2.5 mg metoprolol x 2 along with IV amiodarone push. Patient converted out of atrial fibrillation this morning and has stayed in sinus rhythm. Her resting heart rate has been around 50s beats per minute since spontaneous cardioversion. Her labs showed hemoglobin 14.5, BUN 23, creatinine 1.6. Potassium 4.2, magnesium 1.9, troponins were negative, NT proBNP 10,000. She has chronically elevated NT proBNP at 8000. Clinically she does not appear volume overloaded. REVIEW OF SYSTEMS 14 point review of system is negative except what is mentioned above in HPI. PMH: CAD, atrial flutter with ablation, proximal atrial fibrillation, prior PCI, hypertension, cardiomyopathy EF 30 to 35% Social history: Denies any smoking recreational drug use marijuana use or alcohol use PHYSICAL EXAMINATION Vital signs reviewed. Head: Normocephalic. Eyes: Sclerae nonicteric. Neck: Brisk carotid upstroke, no jugular venous distention. Lungs: Clear to auscultation. Heart: Regular rate and rhythm, S1-S2, no S3, no murmur or rub. Abdomen: Soft nontender, positive bowel sounds. Extremities: No edema, intact distal pulses. Neuro: Alert, oritented, no focal deficits. Detailed neuro exam was not performed. ASSESSMENT Symptomatic atrial fibrillation with RVR status post spontaneous cardioversion with IV push metoprolol and IV amiodarone bolus. Mild HFrEF exacerbation Cardiomyopathy EF 30 to 35%, Pulmonary hypertension group 2 CAD status post PCI essential hypertension CKD PLAN Reduce metoprolol to 12.5 mL twice daily as patient's resting heart rate is in high 40s to mid 50s. Continue Lasix 20 mg daily, Lipitor to 40 mg daily, losartan 25 mg daily, Eliquis 2.5 mg twice daily Okay to be discharged from cardiac standpoint with recommended outpatient follow-up with Dr. Beckford in next 1 to 2 weeks Recommend Holter monitor to evaluate for heart rate and send for report any tachybradycardia syndrome on outpatient basis. Luan Shields MD, FACC, RPVI Thank you for allowing [facility] to participate in this patient's care. Feel free to reach out in case of any followup questions. Past Medical History Past Medical History: Atrial Fibrillation, Coronary Artery Disease (CAD), Heart Failure, Hyperlipidemia, Hypertension, Myocardial Infarction ([place]), Osteoarthritis (OA), Renal Disease Additional Past Medical History / Comment(s): paroxysmal A fib, chf, acute renal failure. arthritis in multiple joints, [place] in 2015/2018. sob with activity. Last Myocardial Infarction Date:: 2018 History of Any Multi-Drug Resistant Organisms: None Reported Past Surgical History: Cholecystectomy, Heart Catheterization With Stent, Hysterectomy, Orthopedic Surgery Additional Past Surgical History / Comment(s): 2019 PCI with stent, total R hip arthroplasty, R carpal tunnel release, bilateral cataract removals. Past Anesthesia/Blood Transfusion Reactions: No Reported Reaction Date of Last Stent Placement:: 12/2018 Past Psychological History: No Psychological Hx Reported Smoking Status: Never smoker Past Alcohol Use History: None Reported Past Drug Use History: None Reported - Past Family History Mother Family Medical History: Osteoarthritis (OA) Additional Family Medical History / Comment(s): djd; at 69 Father Family Medical History: CVA/TIA Additional Family Medical History / Comment(s): age 84 Medications and Allergies Home Medications Medication Instructions Recorded Confirmed Type Apixaban [Eliquis] 2.5 mg PO BID #60 tab 07/03/23 12/03/23 Rx Furosemide [Lasix] 20 mg PO DAILY #30 tab 07/03/23 12/03/23 Rx Atorvastatin [Lipitor] 40 mg PO DAILY 07/25/23 12/03/23 History Losartan [Cozaar] 25 mg PO DAILY 07/25/23 12/03/23 History Metoprolol Tartrate [Lopressor] 12.5 mg PO BID 30 Days #60 tablet 12/04/23 Rx Allergies Allergy/AdvReac Type Severity Reaction Status Date / Time diltiazem [From Cardizem] Allergy Rash/Hives Verified 12/03/23 12:16 perflutren [From Definity] AdvReac Dyspnea Verified 12/03/23 12:16 Physical Exam Vitals: Vital Signs Temp Pulse Resp BP BP Pulse Ox FiO2 12/04/23 16:00 96.5 F L 37 L 16 133/61 96 12/04/23 10:35 97.5 F L 64 16 148/69 97 12/04/23 09:32 97.4 F L 68 16 126/77 12/04/23 07:28 98 21 12/04/23 07:20 97.5 F L 122 H 16 104/72 98 12/04/23 04:00 98.2 F 98 16 112/78 95 12/04/23 01:33 115 H 16 Intake and Output 12/04/23 12/04/23 12/05/23 14:59 22:59 06:59 Intake Total 360 Balance 360 Intake: Oral 360 Results 12/04/23 06:32 12/04/23 06:32 Cardiac Enzymes 12/04/23 Range/Units 06:32 AST 40 H (14-36) U/L CBC 12/04/23 Range/Units 06:32 WBC 10.3 (3.8-10.6) k/uL RBC 4.60 (3.80-5.40) m/uL Hgb 13.4 (11.4-16.0) gm/dL Hct 43.5 (34.0-46.0) % Plt Count 205 (150-450) k/uL Comprehensive Metabolic Panel 12/04/23 Range/Units 06:32 Sodium 139 (137-145) mmol/L Potassium 4.2 (3.5-5.1) mmol/L Chloride 103 (98-107) mmol/L Carbon Dioxide 29 (22-30) mmol/L BUN 28 H (7-17) mg/dL Creatinine 1.63 H (0.52-1.04) mg/dL Glucose 144 H (74-99) mg/dL Calcium 9.1 (8.4-10.2) mg/dL AST 40 H (14-36) U/L ALT 35 H (4-34) U/L Alkaline Phosphatase 73 (38-126) U/L Total Protein 6.5 (6.3-8.2) g/dL Albumin 3.7 (3.5-5.0) g/dL Intake and Output 12/04/23 12/04/23 12/05/23 14:59 22:59 06:59 Intake Total 360 Balance 360 Intake: Oral 360 12/04/23 06:32 12/04/23 06:32
== END 2023-12-04 17:19 | disposition home or self-care (01) | DRG 308 ==
LOC: EC 11:46 → 3SCARD 14:07
PROVIDERS: ADMIT Hospitalist; ATTEND Hospitalist
DX: I48.0 Paroxysmal atrial fibrillation (principal); I50.23 Acute on chronic systolic (congestive) heart failure; I13.0 Hypertensive heart and chronic kidney disease with heart failure and stage 1 through stage 4 chronic kidney disease, or unspecified chronic kidney disease; I45.10 Unspecified right bundle-branch block; I42.9 Cardiomyopathy, unspecified; I48.92 Unspecified atrial flutter; I27.22 Pulmonary hypertension due to left heart disease; I25.2 Old myocardial infarction; I25.10 Atherosclerotic heart disease of native coronary artery without angina pectoris; E78.5 Hyperlipidemia, unspecified; M19.91 Primary osteoarthritis, unspecified site; N18.30 Chronic kidney disease, stage 3 unspecified; Z79.01 Long term (current) use of anticoagulants; Z79.899 Other long term (current) drug therapy; Z90.710 Acquired absence of both cervix and uterus; Z95.5 Presence of coronary angioplasty implant and graft; Z96.641 Presence of right artificial hip joint; Z88.8 Allergy status to other drugs, medicaments and biological substances
CPT/HCPCS: 36415; 71046; 80053; 83735; 83880; 84484; 85025; 85610; 85730; 87636; 93005; 94760; 96374; 99291

== ENCOUNTER 2024-02-21 08:38 | Day surgery (SDC) | payer MEDICARE, BC ==
[2024-02-21 09:42] LABS: Glucose,Whole Blood 237 mg/dL (70-110)
[2024-02-21] MEDS: IV FLUID CONTINUATION 1,000 ML IV ONE (09:45)
[2024-02-21] MEDS: LACTATED RINGERS 1,000 ML BAG IV STA (09:50)
[2024-02-21] MEDS ORDERED: PROPOFOL 10 MG/ML 20 ML VIAL IV ONE (09:51)
[2024-02-21] MEDS ORDERED: LIDOCAINE 1% INJ 10MG/ML (20 ML MDV) ONE (09:51)
[2024-02-21] MEDS: BENZOCAINE SPRAY 1 EACH MM ONE (10:01)
--- NOTE | 2024-02-21 10:37 | ECHOT ---
TRANSESOPHAGEAL ECHOCARDIOGRAM PROCEDURE: TANYA. INDICATION: Persistent atrial fibrillation to rule out intracardiac thrombus. PROCEDURE NOTE: After obtaining informed consent, transesophageal echocardiogram was performed in left lateral position using an Omniplane probe. Local and IV sedation were obtained by the customer care representative. FINDINGS: 1. There is no intracardiac thrombus within the left atrial appendage, left atrium, right atrium, right ventricle. 2. Left ventricle has normal size and systolic function. 3. Left atrium appears mildly enlarged. 4. Right atrium and right ventricle seen within normal limits. 5. Aortic valve is a 3-leaflet valve. There is no evidence of aortic stenosis or regurgitation. Ascending aorta measures within normal limits. There is mild mitral regurgitation noted. Mild tricuspid regurgitation noted. Interatrial septum appears normal. CONCLUSIONS: No intracardiac thrombus. PLAN: The patient will undergo cardioversion. MMODL / IJN: [id number] /
--- NOTE | 2024-02-21 10:39 | ECHOT ---
TRANSESOPHAGEAL ECHOCARDIOGRAM CARDIOVERSION NOTE INDICATION: Atrial fibrillation. After obtaining informed consent making sure the patient is adequately anticoagulated and ruling out intracardiac thrombus, the patient underwent electrical cardioversion with synchronized DC current. She converted to sinus rhythm with 150 joules of shock. I will stop the metoprolol that she is on. Continue the Eliquis and rest of her medications. She will be followed up in my office in 2 weeks. MMODL / IJN: [id number] /
[2024-02-21] MEDS: SODIUM CHLORIDE 0.9% 1,000 ML IV SCH (15:31)
[2024-02-21] MEDS: FUROSEMIDE 20 MG TAB PO SCH (18:11)
[2024-02-21] MEDS: APIXABAN 2.5 MG TABLET PO SCH (21:03)
[2024-02-22] MEDS: hydrALAZINE HCL 25 MG TAB PO STA (02:24)
[2024-02-22] MEDS: MELATONIN 5 MG TABLET PO SCH (02:24)
[2024-02-22] MEDS: ATORVASTATIN 40 MG TAB PO SCH (07:52)
[2024-02-22 07:57] VITALS: RESP 15; TEMP 98.1
[2024-02-22 10:02] VITALS: BP 160/83; PULSE 50
[2024-02-22] MEDS: hydrALAZINE HCL 25 MG TAB PO SCH (10:03)
--- NOTE | 2024-02-24 09:09 | DS ---
DISCHARGE SUMMARY DIAGNOSIS: Paroxysmal atrial fibrillation. HISTORY OF PRESENT ILLNESS: This is an 88-year-old lady, who was brought into the hospital electively to perform cardioversion. She underwent TANYA and cardioversion. Her post cardioversion course was complicated by persistent sinus bradycardia with heart rates in the 30s and 40s. The patient was stable hemodynamically, but I admitted her to the observation care unit for observation. Her heart rate had gradually come up to 50 beats per minute. She is otherwise free of symptoms. PHYSICAL EXAMINATION: Today: VITAL SIGNS: Heart rate is 50 beats per minute, blood pressure is 130/77, respiratory rate is 18. CHEST: Good air entry bilaterally. HEART: First and second heart sounds. No gallop. EXTREMITIES: Did not reveal any edema. Peripheral pulses are felt. DISCHARGE MEDICATIONS: I am adding hydralazine for better blood pressure control. I will stop the metoprolol. She will continue the rest of her medications. FOLLOWUP: She will be followed up in my office in 2 weeks' time. MMODL / IJN: [id number] /
== END 2024-02-22 11:20 | disposition home or self-care (01) ==
LOC: OR 08:38 → 6NMEDSUR 12:51 → OR 02-22 11:20
PROVIDERS: ATTEND Internal Medicine Cardiovascular Disease
DX: I48.19 Other persistent atrial fibrillation (principal); I08.1 Rheumatic disorders of both mitral and tricuspid valves
CPT/HCPCS: 84132; 92960; 93312; 93320; 93325